=== PATIENT | female | born 1965 | race Caucasian/White ===

== ENCOUNTER 2019-12-07 23:58 | Observation (INO) ==
[2019-12-08] MEDS ORDERED: fentaNYL citrate 100 MCG/2 ML VIAL IV PRN (00:26)
--- NOTE | 2019-12-08 00:26 | Emergency Department Note ---
History of Present Illness General Chief complaint: Chest Pain Stated complaint: CHEST PAIN Time Seen by Provider: 12/08/19 00:17 Source: patient Mode of arrival: ambulatory Limitations: no limitations History of Present Illness Provider complaint: chest pain Onset (ago): hour(s) 2 Location: chest Radiation: back and other (shoulder) Severity: severe Pain Consistency: + constant Maximum Pain Intensity: 10 Current Pain Intensity: 10 Quality: + sharp Relieved By: + none Exacerbated By: + none Associated symptoms: + shortness of breath Treatments prior to arrival: none This is a 54-year-old female from home who presents due to complaints of right- sided chest pain. Patient states pain began at 1030 when she was watching TV. No prior similar episodes. No change with position, no treatment prior to ar rival. Patient states the pain radiates into her right shoulder and into the right posterior shoulder blade area. States no recent change in activity. Patient did break her left wrist approximately a month ago and has been in a cast, no other recent trauma. Patient denies any recent illness, no known exposure to any coronavirus positive individual. Patient states she has had a cough, but associates this with her usual seasonal allergies. Patient states it is minimally productive of sputum. No sick contacts at home. No other URI symptoms, no fevers or chills. Patient denies any recent change in bowel or bladder function. Patient denies any accompanying nausea/vomiting, or dizziness tonight. Patient states she does have a significant family history of heart disease including all of her siblings, several of whom have already. Patient states she is never had any cardiac testing performed. Patient denies any history of diabetes or hypertension. Does admit to tobacco abuse. Pt seen during a time of high acuity and national emergency pandemic while wearing PPE. Home Medications Home Medications Medication Instructions Recorded Confirmed Type No Known Home Medications 12/08/19 12/08/19 History Allergies Allergy/AdvReac Type Severity Reaction Status Date / Time ibuprofen AdvReac Tachycardia Verified 12/08/19 00:40 prednisone AdvReac Gastrointestinal Verified 12/08/19 00:40 Upset Past Med/Surg History Family History (Updated 12/08/19 @ 00:38 by Beth Henning DO) Other Coronary heart disease Heart disease Hypertension Myocardial infarction Social History Preferred Language: Thai Feels Safe at Home: Yes Smoking Status: Current every day smoker Review of Systems See HPI for pertinent positives & negatives. and A total of 10 systems reviewed and were otherwise negative Physical Exam Vital Signs Vital Signs - 24 hr 12/07/19 23:59 12/08/19 00:10 12/08/19 00:29 Temperature 36.9 C Temperature Source Oral Pulse Rate 118 H Pulse Rate [Bilateral Apical] 96 H Respiratory Rate 36 H 20 Respiratory Effort / Characteristics Spontaneous Labored Non-Labored Respiratory Depth Normal Respiratory Pattern Regular Blood Pressure 205/109 H Blood Pressure [Right Arm] 172/103 H Blood Pressure Mean 141 Blood Pressure Mean [Right Arm] 126 Pulse Oximetry 98 96 94 Oxygen Delivery Method Room Air Room Air Room Air Sepsis Recent Fever Within 48 Hours No Sepsis Action Taken by Nursing No Action Required 12/08/19 01:03 12/08/19 01:12 12/08/19 01:42 Temperature Temperature Source Pulse Rate Pulse Rate [Bilateral Apical] 88 89 109 H Respiratory Rate 20 20 20 Respiratory Effort / Characteristics Non-Labored Respiratory Depth Normal Respiratory Pattern Blood Pressure Blood Pressure [Right Arm] 148/87 H 155/101 H 143/91 H Blood Pressure Mean Blood Pressure Mean [Right Arm] 107 119 108 Pulse Oximetry 97 95 95 Oxygen Delivery Method Room Air Room Air Room Air Sepsis Recent Fever Within 48 Hours Sepsis Action Taken by Nursing GENERAL: alert, uncomfortable appearing, well nourished, no distress, non-toxic EYE EXAM: normal conjunctiva, PERRL and EOM's grossly intact OROPHARYNX: no exudate, no erythema, lips, buccal mucosa, and tongue normal and mucous membranes are moist NECK: supple, no nuchal rigidity, no adenopathy, non-tender LUNGS: Clear to auscultation. Normal chest wall mechanics, no w/r/r HEART: no murmurs, S1 normal and S2 normal, patient sinus tach at 104 on telemetry, there is some reproducible chest wall tenderness over the anterior ribs just inferior to the breast ABDOMEN: abdomen soft, non-tender, normo-active bowel sounds, no masses, no rebound or guarding. BACK: Back is symmetrical on inspection and there is no deformity, no midline tenderness, no CVA tenderness. SKIN: no rashes and no bruising, no petechiae UPPER EXTREMITIES: upper extremities are grossly normal. FROM, nml pulses b/l. LOWER EXTREMITIES: No pitting edema. FROM, nml pulses b/l. NEURO EXAM: Normal sensorium, cranial nerves II-XII grossly intact, normal speech, no gross weakness of arms, no gross weakness of legs. Gross sensation intact. Course Course 0150: Patient updated on all results and was in agreement with plan. Patient states pain is improved but still present. Vital signs stable. 0155: Case discussed with Dr. Hopkins. Administered Medications Discontinued Medications Aspirin (Aspirin) 324 mg PO NOW STA Stop: 12/08/19 01:45 Last Admin: 12/08/19 01:54 Dose: 324 mg Documented by: [id number] Famotidine (Pepcid 20mg Iv Push) 20 mg IV ONE STA Stop: 12/08/19 01:45 Last Admin: 12/08/19 01:55 Dose: 20 mg Documented by: [id number] Fentanyl Citrate (Fentanyl Citrate) 50 mcg IV Q15M PRN PRN Reason: Pain Stop: 12/22/19 00:25 Last Admin: 12/08/19 00:57 Dose: 50 mcg Documented by: [id number] Sodium Chloride (Nss 1000ml) 1,000 mls @ 125 mls/hr IV .Q8H FABY Stop: 01/07/20 00:59 Last Infusion: 12/08/19 04:20 Dose: 0 mls/hr Documented by: [id number] Infusion: 12/08/19 04:20 Dose: 0 mls/hr Documented by: [id number] Admin: 12/08/19 00:59 Dose: 125 mls/hr Documented by: [id number] Ioversol (Optiray 320 125ml) 125 ml IV ONCE PRN PRN Reason: Interaction Checking Stop: 12/12/19 01:10 Last Admin: 12/08/19 01:11 Dose: 83 ml Documented by: [id number] Nitroglycerin (Nitro-Bid 2%) 1 inch EXT NOW STA Stop: 12/08/19 01:45 Last Admin: 12/08/19 01:54 Dose: 1 inch Documented by: [id number] Medical Decision Making Differential Diagnosis Differential diagnoses includes but is not limited to acute coronary syndrome, myocardial infarction, pericarditis, pulmonary embolus, aortic dissection, pneumonia, pneumothorax, musculoskeletal, shingles, esophageal. Medical Records Attestation: I reviewed the patient's medical records. Home Medications Current Medication List: was personally reviewed by me Laboratory Data Attestation: I reviewed the patient's lab results. Result diagrams: 12/08/19 00:15 12/08/19 00:15 Lab Results 12/08/19 12/08/19 12/08/19 Range/Units 00:15 00:15 00:15 WBC 9.24 (4.8-10.8) K/uL RBC 4.34 (4.2-5.4) M/uL Hgb 14.4 (12.0-16.0) g/dL Hct 42.5 (37-47) % MCV 97.9 (80-100) fL MCH 33.2 (25-34) pg MCHC 33.9 (32-36) g/dL RDW Std Deviation 50.7 H (36.4-46.3) fL RDW Coeff of Ryder 14.1 (11.5-14.5) % Plt Count 232 (130-400) K/uL MPV 11.6 H (7.4-10.4) fL Neutrophils % (Manual) 49.1 % Lymphocytes % (Manual) 23.7 % Monocytes % (Manual) 12.3 % Eosinophils % (Manual) 0.9 % Neutrophils # (Manual) 4.54 (1.4-6.5) K/uL Total Absolute Neuts 4.54 (1.4-6.5) K/uL Lymphocytes # (Manual) 2.19 (1.2-3.4) K/uL Total Abs Lymphocytes 3.48 H (1.2-3.4) K/uL Monocytes # (Manual) 1.14 H (0.11-0.59) K/uL Eosinophils # (Manual) 0.08 (0-0.5) K/uL Large Granular Lymphs 14.0 % # Lrg Granular Lymphs 1.29 K/uL RBC Morphology Unremarkable PT 10.3 (9.0-12.0) Seconds INR 1.0 (0.9-1.1) D-Dimer 660 H* (0-500) ug/L FEU Sodium 142 (136-145) mmol/L Potassium 3.6 (3.5-5.1) mmol/L Chloride 108 H (98-107) mmol/L Carbon Dioxide 27 (21-32) mmol/L Anion Gap 7.0 (3-11) BUN 22 H (7-18) mg/dl Creatinine 0.85 (0.6-1.2) mg/dl Est Cr Clr Drug Dosing Not Reportable Est GFR ( Amer) 90.0 Est GFR (Non-Af Amer) 77.7 BUN/Creatinine Ratio 25.6 H (10-20) Glucose 116 H (70-99) mg/dl Calcium 9.9 (8.5-10.1) mg/dl Magnesium 2.1 (1.8-2.4) mg/dl Total Bilirubin 0.3 (0.2-1) mg/dl AST 15 (15-37) U/L ALT 24 (12-78) U/L Alkaline Phosphatase 93 (45-117) U/L Troponin I < 0.015 (0-0.045) ng/ml NT-Pro-B Natriuret Pep 47 (0-900) pg/ml Total Protein 7.5 (6.4-8.2) gm/dl Albumin 4.1 (3.4-5.0) gm/dl Globulin 3.4 (2.5-4.0) gm/dl Albumin/Globulin Ratio 1.2 (0.9-2) Lipase 206 (73-393) U/L TSH 3.790 (0.300-4.500) uIu/ml Imaging Data My Impression: X-ray: I interpreted the following studies. Chest: A single view study of the chest was reviewed and was negative for cardiomegaly, focal infiltrate, effusion, pulmonary edema, or wide mediastinum. Radiologist's Impression: CTA Chest: The pulmonary arterial tree is well-opacified with contrast. No pulmonary emboli are identified. The aorta is nondilated. No aneurysm or dissection is seen. No mediastinal or axillary lymphadenopathy or mass is seen. The heart is not enlarged. Lungs are well-inflated with mild emphysematous changes in the upper lobes. There is some right apical scarring. No acute appearing airspace infiltrate, pneumothorax, or pleural effusion is seen. Mild degenerative changes are seen throughout the thoracic spine. No fracture or bone lesion is seen. Radiologist: Dipak Kwok MD ECG Data Attestation: I personally reviewed and interpreted this ECG as follows: Indication: + chest pain Rate (beats per minute): 101 Rhythm: + sinus tachycardia ECG Intervals/blocks: + Normal QRS and + Normal QT ECG [place]: + Normal ECG ST segments: + Normal ST segments Comparison ECG Date: no prior available Blood Pressure Blood Pressure Findings: Elevated blood pressure Blood Pressure Disposition: further management by hospitalist [facility] Narrative Heart score 4 Patient presenting with acute onset of right-sided chest pain. Patient with concerning family history of early onset CAD and no prior cardiology evaluation. Patient hypertensive and tachycardic here initially. D-dimer was elevated and so patient sent for CT angiography of the chest. This was reassuring. Patient's other labs that were drawn and sent more reassuring. Patient's pain was improved with additional medications here. Case discussed with hospitalist for additional evaluation and management. An order was placed for continuous cardiac monitoring. The monitor shows a rate of _90 with _normal sinus_ rhythm. Impression & Plan Atypical chest pain, Tobacco abuse, Hypertension Discharge Plan Visit Data *Final* Discharge Date/Time: 12/08/19 02:50 Chief Complaint: Chest Pain Stated Complaint: CHEST PAIN ED Provider: Beth Henning Discharge Problem: Atypical chest pain, Tobacco abuse, Hypertension Patient Disposition: Admitted As Inpatient Discharge Instructions Interventions: ED Discharge Assessment Last Done: 12/08/19 02:50 Discharge Problem: Hypertension Qualifiers: Hypertension type: unspecified Qualified Code(s): I10 - Essential (primary) hypertension
[2019-12-08 00:44] LABS: Prothrombin Time 10.3 Seconds (9.0-12.0)
[2019-12-08 00:46] LABS: D Dimer 660 ug/L FEU (0-500)
[2019-12-08 00:51] LABS: Alanine Aminotransferase 24 U/L (12-78); Albumin Level 4.1 gm/dl (3.4-5.0); Aspartate Aminotransferase 15 U/L (15-37); BUN Creatinine Ratio 25.6 (10-20); Blood Urea Nitrogen 22 mg/dl (7-18); Calcium 9.9 mg/dl (8.5-10.1); Carbon Dioxide 27 mmol/L (21-32); Chloride 108 mmol/L (98-107); Est GFR (Non-African American) 77.7; Glucose 116 mg/dl (70-99); Lipase 206 U/L (73-393); Magnesium 2.1 mg/dl (1.8-2.4); Potassium 3.6 mmol/L (3.5-5.1); Sodium 142 mmol/L (136-145)
[2019-12-08] MEDS ORDERED: SODIUM CHLORIDE 0.9% 1000ML 1,000 ML IV SCH (01:00)
[2019-12-08 01:01] LABS: Albumin Globulin Ratio 1.2 (0.9-2); Alkaline Phosphatase 93 U/L (45-117); Bilirubin,Total 0.3 mg/dl (0.2-1); Globulin 3.4 gm/dl (2.5-4.0); NT Pro B Type Natriuretic Pept 47 pg/ml (0-900); Total Protein 7.5 gm/dl (6.4-8.2); Troponin I < 0.015 ng/ml (0-0.045)
[2019-12-08 01:03] LABS: Hematocrit (blood only) 42.5 % (37-47); Hemoglobin 14.4 g/dL (12.0-16.0); Mean Corpuscular Hemoglobin 33.2 pg (25-34); Mean Corpuscular Hgb Conc 33.9 g/dL (32-36); Mean Corpuscular Volume 97.9 fL (80-100); Mean Platelet Volume 11.6 fL (7.4-10.4); Platelet Count 232 K/uL (130-400); RDW Coefficient of Variation 14.1 % (11.5-14.5); RDW Standard Deviation 50.7 fL (36.4-46.3); Red Blood Count 4.34 M/uL (4.2-5.4); White Blood Count 9.24 K/uL (4.8-10.8)
[2019-12-08 01:06] LABS: ALC (manual) 3.48 K/uL (1.2-3.4); ANC (manual) 4.54 K/uL (1.4-6.5); Eosinophils # (manual) 0.08 K/uL (0-0.5); Eosinophils % (manual) 0.9 %; Large Granular Lymph # (manua 1.29 K/uL; Lymphocytes # (manual) 2.19 K/uL (1.2-3.4); Lymphocytes % (manual) 23.7 %; Monocytes # (manual) 1.14 K/uL (0.11-0.59); Monocytes % (manual) 12.3 %; Neutrophils # (manual) 4.54 K/uL (1.4-6.5); Neutrophils % (manual) 49.1 %; RBC Morphology Unremarkable
[2019-12-08] MEDS ORDERED: OPTIRAY 320 125ml IV PRN (01:11)
[2019-12-08] MEDS ORDERED: NITROGLYCERIN 2% OINTMENT 30GM TUBE EXT STA (01:44)
[2019-12-08] MEDS ORDERED: ASPIRIN CHEW 324 MG PO STA (01:44)
[2019-12-08] MEDS ORDERED: FAMOTIDINE 20MG/5ML IV PUSH IV STA (01:44)
--- NOTE | 2019-12-08 03:52 | History and Physical Report ---
DATE OF ADMISSION: 12/08/2019 CHIEF COMPLAINT: Chest pain. HISTORY OF PRESENT ILLNESS: This 54-year-old female with past medical history significant for ongoing tobacco abuse, significant family history of heart disease. No other significant medical history, presents with chest pain. The patient says at around 10:30 p.m. when she was watching TV, she had a right sided chest pain, was moderate to severe in severity. Was worried and came to the ER. She was given fentanyl and aspirin and nitroglycerin, says still has some chest discomfort on and off. Denies any shortness of breath. She was feeling chilly, but no sweating, no dizziness, no blurred vision, no earache, no runny nose, no sore throat. She has chronic smoker's cough. No nausea, no abdominal pain. Normal bowel and bladder movements. No hematuria or blood in the stools. No rash. She lives with her . She has otherwise no other complaints. She says while she ambulates or climbs steps she doesn't get chest pains. This is the first time she had this episode. ALLERGIES: IBUPROFEN AND PREDNISONE. PAST MEDICAL HISTORY: As mentioned. PAST SURGICAL HISTORY: Carpal tunnel surgery, colposcopy, colonoscopy, total abdominal hysterectomy with removal of tubes, appendectomy. MEDICATIONS: None. FAMILY HISTORY: Significant for mother had CHF. Father had of colon cancer. Maternal aunt has breast cancer. Another brother had CAD and younger brother of coronary artery disease at age of 51. Sister of heart disease at age of 29. SOCIAL HISTORY: Lives with her , smokes 1-1/2 pack a day for many years. No alcohol use, no drug use. REVIEW OF SYMPTOMS: As per HPI. Rest of review of symptoms negative. PHYSICAL EXAMINATION: GENERAL: The patient is of moderate build, not in acute distress. VITAL SIGNS: Temperature 36.9, pulse 109, respiratory rate 20, blood pressure 143/91, oxygen 95% on room air. HEENT: No pallor, no icterus. NECK: No JVD, no neck masses. CARDIOVASCULAR: S1, S2 heard, regular rate and rhythm, no murmur, no gallop. RESPIRATORY SYSTEM: Normal AP diameter. No accessory muscle use. No wheezing, no crackles. ABDOMEN: Soft, bowel sounds present, nontender. No distention. CENTRAL NERVOUS SYSTEM: Cranial nerves II-XII grossly intact. Nonfocal. EXTREMITIES: No edema, no erythema. LABORATORY DATA: WBC 9.2, hemoglobin 14.4, hematocrit 42.5, platelets 232. PT 10.3, INR 1. D-dimer 660. Sodium 142, potassium 3.6, chloride 108, bicarbonate 27, BUN 22, creatinine 0.8, serum glucose 116, calcium 9.9, magnesium 2.1, total bilirubin 0.3, AST 15, ALT 24, alkaline phosphatase 93. Troponin I less than 0.015. Lipase 206. TSH 3.7. IMAGING: Chest x-ray, no acute findings. CTA of the chest, preliminary findings are unremarkable. ASSESSMENT AND PLAN: This is a 54-year-old female who presents with right-sided chest pain. 1. Right-sided chest pain: EKG sinus tachycardia with rate of 101, nonspecific ST abnormalities. Troponin is negative. CTA of the chest preliminary report unremarkable. We will rule out acute coronary syndrome, risk, factors of age, tobacco abuse and significant family history. We will do serial cardiac enzymes, echocardiogram, keep her n.p.o. and consult cardiology in a.m. for further recommendations, possible stress test in a.m. Will check FLP. Closely monitor in the tele floor. 2. Tobacco abuse: Needs counseling. 3. Deep vein thrombosis prophylaxis, sequential compression devices. 4. Disposition: Observation in med/surg tele. Level 1 full code. Expect to discharge home and follow with her family doctor. ANDRE
[2019-12-08] MEDS ORDERED: ONDANSETRON INJ 2 MG/ML 2 ML VIAL IV PRN (04:17)
[2019-12-08] MEDS ORDERED: ACETAMINOPHEN 325 MG TAB PO PRN (04:17)
[2019-12-08] MEDS ORDERED: NITROGLYCERIN SL 0.4 MG/TAB TAB SL PRN (04:17)
--- NOTE | 2019-12-08 06:35 | XRay Report ---
XR chest 1V portable CLINICAL HISTORY: right chest pain dyspnea COMPARISON STUDY: No previous studies for comparison. FINDINGS: The bones soft tissues and hemidiaphragms are normal. The cardiomediastinal silhouette is n ormal. The lungs are clear. The pulmonary vasculature is normal. IMPRESSION: Negative chest. ACT 112: Negative or not required by law. The above report was generated using voice recognition software. It may contain grammatical, syntax or spelling errors. Electronically signed by: Jim Agosto M.D. 12/08/2019 6:34 AM
--- NOTE | 2019-12-08 07:28 | CT Scan Report ---
CT ANGIOGRAM OF THE CHEST CLINICAL HISTORY: Atypical chest pain. COMPARISON STUDY: Chest x-ray dated 12/08/2019. TECHNIQUE: Following the IV administration of 83 cc of Optiray 320, CT angiogram of the chest was per formed from the upper abdomen to the thoracic inlet utilizing the pulmonary embolus protocol. Images are reviewed in the axial, sagittal, and coronal planes. 3-D MIPS images are created and assessed. IV contrast was administered without complication. A dose lowering technique was utilized adhering to the principles of ALARA. CT DOSE: 255.34 mGy.cm FINDINGS: Thyroid: Imaged portions of the thyroid gland are normal in size and attenuation. Thoracic aorta: There is mild atherosclerotic calcification of the thoracic aorta, which is normal in caliber and demonstrates standard 3-vessel arch anatomy. No dissection is seen. Pulmonary vasculature: The pulmonary trunk is normal in caliber. There are no filling defects identif ied in main, lobar, or segmental pulmonary branches to suggest pulmonary embolus. Heart: The heart is normal in size noting a small pericardial effusion. There are coronary artery anatoly cifications. Lungs and pleural spaces: Emphysematous change is noted. Biapical scarring is observed. Patchy ground glass consolidation is seen in the right upper lobe near the apex. Atelectasis is seen at the lung ba ses. The trachea is clear. Secretions are noted in the right mainstem bronchus. Foci of mucus pluggin g are noted in the right lower lobe. There is trace right pleural effusion. There is a 6 cm calcifica tion containing nodule in the left lower lobe on image #134. A fine layer calcified pleural-based nod ularity left lower lobe as seen on image #205. A 6 mm right lower lobe nodule is seen along the major fissure on image #172. Mediastinum: There is no mediastinal lymphadenopathy. Saima: Clear. Axillae: There are shotty axillary lymph nodes. Upper abdomen: Partially visualized upper abdominal viscera is within normal limits. Skeletal structures: Mild degenerative change and scoliosis are noted in the thoracic spine. No lytic or blastic bony lesions are seen. IMPRESSION: 1. There is no evidence of pulmonary embolus in the main, lobar, or segmental pulmonary arteries. 2. Emphysema. 3. There is mild patchy groundglass consolidation at the right apex. Correlate clinically for evidenc e of a mild infectious/inflammatory pneumonitis. 4. Trace right pleural effusion. 5. There are scattered pulmonary nodules measuring up to 6 mm. These can be followed as per the Fleis chner criteria. See below. Please refer to below summary of Fleischner criteria recommendations for follow-up of incidental CT n odules (Yecenia Wood, Guidelines for management of small pulmonary nodules detected on CT scans: A sta tement from the Fleischner Society, Radiology 237: [phone].) SOLID NODULES Solitary nodule size: <6 mm * low risk patients: no follow-up needed * high risk patients: optional CT at 12 months Solitary nodule size: 6-8 mm * low risk patients: follow-up at 6-12 months, then consider further follow-up at 18-24 months * high risk patients: initial follow-up CT at 6-12 months and then at 18-24 months if no change Solitary nodule size: >8 mm * either low or high risk patients - consider follow-up CT at 3 months, and/or CT-PET, and/or biopsy Multiple nodules size: <6 mm * low risk patients: no routine follow-up * high risk patients: optional CT at 12 months Multiple nodules size: 6-8 mm * low risk patients: follow-up at 3-6 months, then consider further follow-up at 18-24 months * high risk patients: follow-up at 3-6 months, then at 18-24 months if no change Multiple nodules size: >8 mm * low risk patients: follow-up at 3-6 months, then consider further follow-up at 18-24 months * high risk patients: follow-up at 3-6 months, then at 18-24 months if no change Note: newly detected indeterminate nodule in persons 35 years of age or older. * low risk patients: minimal or absent history of smoking and/or other known risk factors * high risk patients: history of smoking or of other known risk factors (e.g. first degree relative with lung cancer, or exposure to asbestos, radon, uranium) * if a nodule up to 8 mm is partly solid or is ground glass further follow-up is required after 24 m onths to exclude possible slow growing adenocarcinoma (DORCAS) SUBSOLID NODULES Solitary pure ground-glass nodule * nodule size <6 mm - no CT follow-up required * nodule size >=6 mm - follow-up CT at 6-12 months, then every 2 years until 5 years Solitary part-solid nodule * nodule size <6 mm - no CT follow-up required * nodule size >=6 mm - follow-up CT at 3-6 months. If unchanged, and solid component remains <6 mm, then annual follow-up for 5 years Multiple subsolid nodules * nodule size <6 mm - follow-up CT at 3-6 months, consider further follow-up at 2 and 4 years if sta ble * nodule size >=6 mm - follow-up CT at 3-6 months, subsequent management based on the most suspiciou s nodule(s) ACT 112: Negative or not required by law. Electronically signed by: Roderick Espinosa M.D. 12/08/2019 7:27 AM
[2019-12-08 07:41] LABS: Basophils # (auto) 0.03 K/uL (0-0.2); Basophils % (auto) 0.3 %; Eosinophils # (auto) 0.04 K/uL (0-0.5); Eosinophils % (auto) 0.4 %; Hematocrit (blood only) 38.8 % (37-47); Hemoglobin 13.2 g/dL (12.0-16.0); Immature Granulocytes # (auto) 0.01 K/uL (0.00-0.02); Immature Granulocytes % (auto) 0.1 %; Lymphocytes # (auto) 1.58 K/uL (1.2-3.4); Lymphocytes % (auto) 14.2 %; Mean Corpuscular Hemoglobin 33.2 pg (25-34); Mean Corpuscular Volume 97.7 fL (80-100); Mean Platelet Volume 10.9 fL (7.4-10.4); Monocytes # (auto) 0.91 K/uL (0.11-0.59); Monocytes % (auto) 8.2 %; Neutrophils # (auto) 8.56 K/uL (1.4-6.5); Neutrophils % (auto) 76.8 %; Platelet Count 213 K/uL (130-400); RDW Standard Deviation 50.8 fL (36.4-46.3); Red Blood Count 3.97 M/uL (4.2-5.4); White Blood Count 11.13 K/uL (4.8-10.8)
[2019-12-08 08:10] LABS: BUN Creatinine Ratio 21.2 (10-20); Blood Urea Nitrogen 14 mg/dl (7-18); Calcium 9.3 mg/dl (8.5-10.1); Carbon Dioxide 25 mmol/L (21-32); Chloride 112 mmol/L (98-107); Creatinine Clr Calc Pharmacy 77.1 ml/min; Est GFR (African American) 116.1; Est GFR (Non-African American) 100.1; Glucose 102 mg/dl (70-99); Magnesium 2.2 mg/dl (1.8-2.4); Sodium 142 mmol/L (136-145)
[2019-12-08 08:17] LABS: Chol HDL Ratio 3; Cholesterol 200 mg/dl (0-200); HDL Cholesterol 59 mg/dl; LDL Cholesterol Calculated 130 mg/dl; Triglycerides 53 mg/dl (0-150); Troponin I < 0.015 ng/ml (0-0.045); VLDL Cholesterol 11 mg/dl
--- NOTE | 2019-12-08 08:45 | Cardiology Consultation ---
Date of Consultation December 08, 2019 Assessment & Plan (1) Atypical chest pain: (2) Tobacco abuse: This patient has atypical chest pain for cardiac angina. Her cardiac markers are negative and her EKG shows no acute changes despite having hours worth of chest discomfort. I will review her echocardiogram when it is complete. If the echocardiogram is unremarkable then I do not believe any additional cardiac testing is indicated. The CT of the chest with findings of possible inflammation or consolidation in the right apex is of concern and may be the source of her discomfort or a nonspecific finding. Further work-up of this abnormality per the hospitalist group. History of Present Illness Attending Physician: Les Kilpatrick MD History of Present Illness This is a 54-year-old female with no prior history of heart disease. She takes no home medications. She has a long smoking history. She was in her usual state of health until last evening she was sitting watching TV and developed severe right upper chest discomfort which brought her to the emergency department. She was given fentanyl which she states improved her discomfort. After admission her cardiac markers are negative. EKG shows no acute changes. CT of the chest shows emphysema ground glass or consolidation in the right upper apex of the lung. It was negative for pulmonary emboli. This morning her chest pain is gone. She denies unusual shortness of breath. She has had no heart palpitations. Allergies Allergy/AdvReac Type Severity Reaction Status Date / Time ibuprofen AdvReac Tachycardia Verified 12/08/19 00:40 prednisone AdvReac Gastrointestinal Verified 12/08/19 00:40 Upset Home Medications Home Medications Medication Instructions Recorded Confirmed Type No Known Home Medications 12/08/19 12/08/19 History Patient History Family History Other Coronary heart disease Heart disease Hypertension Myocardial infarction Social History Preferred Language: German Communication Ability: Effective Beliefs That Will Affect Care: None Current Living Situation: Spouse Feels Safe at Home: Yes Smoking Status: Current every day smoker Tobacco Type: cigarettes ; Cigarettes Per Day: 1 ppd ; Hx Alcohol Use: No Hx Substance Use: No Review of Systems Review of Systems: All systems reviewed & are unremarkable except as noted in HPI & below Nothing additional to add except the patient has had no fever or chills. She denies a productive cough or hemoptysis. Physical Exam Physical Exam: General: no acute distress and stated age Head: normocephalic, no masses, lesions, tenderness or abnormalities Eyes: conjunctiva are pink and non-injected, sclera clear Neck: supple, no adenopathy, no bruits, normal jugular venous pulse, no hepatojugular reflux Chest: normal shape and normal respiratory effort Lungs: clear to auscultation and percussion Cardiac Exam: - regular rate & rhythm, no murmurs gallops or rubs - normal S1, normal S2 Pulses: 2(+) throughout Abdomen: abdomen soft, non-tender, no abnormal masses and no hepatosplenomegaly Musculoskeletal: no gait disturbance, no joint inflammation, no deforming arthritis Extremities: no edema and no cyanosis Neuro: grossly normal exam Results & Data ([facility]) Vital Signs (Past 12 Hours) Vital Signs Temp Pulse Pulse Resp BP BP Pulse Ox 12/08/19 07:16 36.6 C 79 18 147/78 H 93 12/08/19 04:44 84 12/08/19 04:25 36.5 C 78 16 149/80 H 96 12/08/19 02:44 87 20 151/102 H 95 12/08/19 01:42 109 H 20 143/91 H 95 12/08/19 01:12 89 20 155/101 H 95 12/08/19 01:03 88 20 148/87 H 97 12/08/19 00:29 96 H 20 172/103 H 94 12/08/19 00:10 96 12/07/19 23:59 36.9 C 118 H 36 H 205/109 H 98 Laboratory Results Laboratory Results - last 24 hr 12/08/19 12/08/19 12/08/19 00:15 00:15 00:15 WBC 9.24 RBC 4.34 Hgb 14.4 Hct 42.5 MCV 97.9 MCH 33.2 MCHC 33.9 RDW Std Deviation 50.7 H RDW Coeff of Ryder 14.1 Plt Count 232 MPV 11.6 H Immature Gran % (Auto) Neut % (Auto) Lymph % (Auto) Perry % (Auto) Eos % (Auto) Baso % (Auto) Immature Gran # (Auto) Neut # (Auto) Lymph # (Auto) Perry # (Auto) Eos # (Auto) Baso # (Auto) Neutrophils % (Manual) 49.1 Lymphocytes % (Manual) 23.7 Monocytes % (Manual) 12.3 Eosinophils % (Manual) 0.9 Neutrophils # (Manual) 4.54 Total Absolute Neuts 4.54 Lymphocytes # (Manual) 2.19 Total Abs Lymphocytes 3.48 H Monocytes # (Manual) 1.14 H Eosinophils # (Manual) 0.08 Large Granular Lymphs 14.0 # Lrg Granular Lymphs 1.29 RBC Morphology Unremarkable PT 10.3 INR 1.0 D-Dimer 660 H* Sodium 142 Potassium 3.6 Chloride 108 H Carbon Dioxide 27 Anion Gap 7.0 BUN 22 H Creatinine 0.85 Est Cr Clr Drug Dosing Not Reportable Est GFR ( Amer) 90.0 Est GFR (Non-Af Amer) 77.7 BUN/Creatinine Ratio 25.6 H Glucose 116 H Calcium 9.9 Magnesium 2.1 Total Bilirubin 0.3 AST 15 ALT 24 Alkaline Phosphatase 93 Troponin I < 0.015 NT-Pro-B Natriuret Pep 47 Total Protein 7.5 Albumin 4.1 Globulin 3.4 Albumin/Globulin Ratio 1.2 Triglycerides Cholesterol LDL Cholesterol, Calc VLDL Cholesterol, Calc HDL Cholesterol Cholesterol/HDL Ratio Lipase 206 TSH 3.790 12/08/19 12/08/19 07:29 07:29 WBC 11.13 H RBC 3.97 L Hgb 13.2 Hct 38.8 MCV 97.7 MCH 33.2 MCHC 34.0 RDW Std Deviation 50.8 H RDW Coeff of Ryder 14.0 Plt Count 213 MPV 10.9 H Immature Gran % (Auto) 0.1 Neut % (Auto) 76.8 Lymph % (Auto) 14.2 Perry % (Auto) 8.2 Eos % (Auto) 0.4 Baso % (Auto) 0.3 Immature Gran # (Auto) 0.01 Neut # (Auto) 8.56 H Lymph # (Auto) 1.58 Perry # (Auto) 0.91 H Eos # (Auto) 0.04 Baso # (Auto) 0.03 Neutrophils % (Manual) Lymphocytes % (Manual) Monocytes % (Manual) Eosinophils % (Manual) Neutrophils # (Manual) Total Absolute Neuts Lymphocytes # (Manual) Total Abs Lymphocytes Monocytes # (Manual) Eosinophils # (Manual) Large Granular Lymphs # Lrg Granular Lymphs RBC Morphology PT INR D-Dimer Sodium 142 Potassium 4.0 Chloride 112 H Carbon Dioxide 25 Anion Gap 5.0 BUN 14 Creatinine 0.66 Est Cr Clr Drug Dosing 77.1 Est GFR ( Amer) 116.1 Est GFR (Non-Af Amer) 100.1 BUN/Creatinine Ratio 21.2 H Glucose 102 H Calcium 9.3 Magnesium 2.2 Total Bilirubin AST ALT Alkaline Phosphatase Troponin I < 0.015 NT-Pro-B Natriuret Pep Total Protein Albumin Globulin Albumin/Globulin Ratio Triglycerides 53 Cholesterol 200 LDL Cholesterol, Calc 130 VLDL Cholesterol, Calc 11 HDL Cholesterol 59 Cholesterol/HDL Ratio 3 Lipase TSH Medications Administered Current Inpatient Medications Acetaminophen (Tylenol) 650 mg PO Q4H PRN PRN Reason: Pain or Fever Stop: 01/07/20 04:16 Aspirin ([facility]rin E[facility]ab) [facility] [place]: 01/07/20 08:59 Last Admin: 12/08/19 08:06 Dose: 81 mg Documented by: Doxycycline Hyclate (Vibramycin) 100 mg PO BID [facility] Stop: 12/15/19 08:59 Ceftriaxone Sodium 1,000 mg/ (Dextrose) 50 mls @ 100 mls/hr IV Q24H [facility]; Protocol Stop: 12/15/19 08:59 Nitroglycerin (Nitrostat) 0.4 mg SL UD PRN PRN Reason: Chest Pain Stop: 01/07/20 04:16 Ondansetron HCl (Zofran) 4 mg IV Q6H PRN PRN Reason: Nausea Stop: 01/07/20 04:16
[2019-12-08] MEDS ORDERED: cefTRIAXone SODIUM 1,000 MG in DEXTROSE 5% 50 ML IV SCH (09:00)
[2019-12-08] MEDS ORDERED: ASPIRIN 81 MG ECTAB PO SCH (09:00)
[2019-12-08] MEDS ORDERED: DOXYCYCLINE HYCLATE 100 MG CAP PO SCH (09:00)
--- NOTE | 2019-12-08 09:45 | Ultrasound Report ---
US venous doppler LE BI HISTORY: Pain. Edema. r/o dvt, elev ddimer COMPARISON STUDY: None. FINDINGS: There is normal compressibility, flow, and augmentation within the bilateral lower extremit y deep venous systems. IMPRESSION: No DVT within the right or left lower extremity. ACT 112: Negative or not required by law. The above report was generated using voice recognition software. It may contain grammatical, syntax or spelling errors. Electronically signed by: Jim Agosto M.D. 12/08/2019 9:44 AM
--- NOTE | 2019-12-08 15:06 | Hospitalist Progress Note ---
Date of Service December 08, 2019 Assessment & Plan Admission and Anticipated Discharge Date Admission Date: December 08, 2019 Subjective Patient seen and examined, currently feels well, denies any chest pain. Patient states that her chest pain resolved after she received antibiotics, says it was also getting better in emergency room. She was seen by cardiology, troponins were negative ECG unremarkable, echo was a lso obtained and unremarkable. Patient's chest pain did not seem to be cardiac. However she did have abnormal CT chest findings. And she will need to therefore follow-up with pulmonology. Currently she is asking about going home, she is willing to try to quit smoking, and take antibiotics. Patient tells me she does not have insurance and therefore did not see physicians for some time. We will arrange follow-up with her primary care provider and we will also arrange appointment with pulmonology. Currently patient is sitting up in bed, comfortably breathing on room air, in no acute distress. Denies any fevers, chills, chest pain, shortness of breath, abdominal pain, nausea or vomiting. Also denies any cough. Lungs are overall clear to auscultation bilaterally, no wheezing rhonchi or crackles noted. Heart sounds are regular, no murmurs noted. Abdomen is soft, nontender nondistended. Patient moves extremities spontaneously without difficulty. She is alert and oriented, answers questions appropriately. Results & Data Results & Data ([facility]) Vital Signs (Past 12 Hours) Vital Signs Temp Pulse Pulse Resp BP Pulse Ox 12/08/19 10:56 36.5 C 85 18 144/77 H 95 12/08/19 08:00 76 12/08/19 07:16 36.6 C 79 18 147/78 H 93 12/08/19 04:44 84 12/08/19 04:25 36.5 C 78 16 149/80 H 96
--- NOTE | 2019-12-08 15:23 | Electrocardiogram Report ---
Test Reason : Blood Pressure : / mmHG Vent. Rate : 101 BPM Atrial Rate : 101 BPM P-R Int : 164 ms QRS Dur : 090 ms QT Int : 352 ms P-R-T Axes : 070 064 056 degrees QTc Int : 456 ms Sinus tachycardia Nonspecific ST abnormality Abnormal ECG No previous ECGs available Confirmed by Tuan Ramos ([id number]) on 12/08/2019 3:22:50 PM Referred By: REFERRED SELF Confirmed By:Craig Ramos
[2019-12-08] MEDS ORDERED: NICOTINE 14 MG/24 HR PATCH TD SCH (15:30)
--- NOTE | 2019-12-08 15:32 | Discharge Summary ---
Date of Service December 08, 2019 Admission HPI Per Admitting Provider This 54-year-old female with past medical history significant for ongoing tobacco abuse, significant family history of heart disease. No other significant medical history, presents with chest pain. The patient says at around 10:30 p.m. when she was watching TV, she had a right sided chest pain, was moderate to severe in severity. Was worried and came to the ER. She was given fentanyl and aspirin and nitroglycerin, says still has some chest discomfort on and off. Denies any shortness of breath. She was feeling chilly, but no sweating, no dizziness, no blurred vision, no earache, no runny nose, no sore throat. She has chronic smoker's cough. No nausea, no abdominal pain. Normal bowel and bladder movements. No hematuria or blood in the stools. No rash. She lives with her . She has otherwise no other complaints. She says while she ambulates or climbs steps she doesn't get chest pains. This is the first time she had this episode. Admission Exam Per Admitting Provider GENERAL: The patient is of moderate build, not in acute distress. VITAL SIGNS: Temperature 36.9, pulse 109, respiratory rate 20, blood pressure 143/91, oxygen 95% on room air. HEENT: No pallor, no icterus. NECK: No JVD, no neck masses. CARDIOVASCULAR: S1, S2 heard, regular rate and rhythm, no murmur, no gallop. RESPIRATORY SYSTEM: Normal AP diameter. No accessory muscle use. No wheezing, no crackles. ABDOMEN: Soft, bowel sounds present, nontender. No distention. CENTRAL NERVOUS SYSTEM: Cranial nerves II-XII grossly intact. Nonfocal. EXTREMITIES: No edema, no erythema. Principal Diagnosis Atypical chest pain, community-acquired pneumonia Abnormal chest CT Discharge Exam GENERAL: Elderly thin female, lying in bed, in no acute distress Vital signs: Blood pressure 154/74, pulse 89, respirations 16, temperature 36.4 C, O2 sats 96% on room air HEENT: Normocephalic, atraumatic, EOMI, PERRL, no icterus. NECK: No JVD, no neck masses. CARDIOVASCULAR: S1, S2 heard, regular rate and rhythm, no murmur, no gallop. RESPIRATORY SYSTEM: Normal AP diameter. No accessory muscle use. No wheezing, no crackles. ABDOMEN: Soft, bowel sounds present, nontender. No distention. CENTRAL NERVOUS SYSTEM: Alert and oriented x3, speech fluent, no facial asymmetry, answers questions appropriately, moves all extremities spontaneously EXTREMITIES: No edema, no erythema, moves extremities spontaneously SKIN: Warm, dry Discharge Data Allergies Allergy/AdvReac Type Severity Reaction Status Date / Time ibuprofen AdvReac Tachycardia Verified 12/08/19 00:40 prednisone AdvReac Gastrointestinal Verified 12/08/19 00:40 Upset Consultations 12/08/19 01:50 ED Decision to Admit Stat 12/08/19 04:17 Consult Case Management - Discharge Planning Routine 12/08/19 08:00 Consult Cardiology Routine Ordered Studies CXR 12/08/19 FINDINGS: The bones soft tissues and hemidiaphragms are normal. The cardiomediastinal silhouette is normal. The lungs are clear. The pulmonary vasculature is normal. IMPRESSION: Negative chest. 12/08/19 00:49 CT angio chest PE protocol Urgent IMPRESSION: 1. There is no evidence of pulmonary embolus in the main, lobar, or segmental pulmonary arteries. 2. Emphysema. 3. There is mild patchy groundglass consolidation at the right apex. Correlate clinically for evidence of a mild infectious/inflammatory pneumonitis. 4. Trace right pleural effusion. 5. There are scattered pulmonary nodules measuring up to 6 mm. These can be followed as per the Fleischner criteria. See below. 12/08/19 09:30 US venous doppler LE BI Routine IMPRESSION: No DVT within the right or left lower extremity. Hospital Course (1) Atypical chest pain: (2) Community acquired pneumonia: This is a 54-year-old female who presents with right-sided chest pain. Right-sided chest pain: EKG sinus tachycardia with rate of 101, nonspecific ST abnormalities. Troponin x3 negative. Echocardiogram obtained -LV normal in size, borderline concentric LVH, EF 50 to 55%. LV wall motion is normal. Right ventricle systolic function is normal. Left atrial size normal, right atrial size normal. Cardiology was consulted, not likely cardiac pain in etiology. CTA of the chest preliminary report unremarkable. No PE. However final report significant for mild patchy groundglass consolidation at the right apex, and scattered pulmonary nodules. Patient was started on ceftriaxone and doxycycline for community-acquired pneumonia, and right-sided chest pain resolved soon after. Patient clinically much improved,now inquiring about going home. Patient is a current tobacco user, counseled her on smoking cessation. We will continue antibiotic treatment as outpatient, with cefuroxime and doxycycline. Will also recommend guaifenesin and flutter valve. Appointment with primary care provider scheduled, also recommend to follow-up with pulmonology regarding her pulmonary nodules/abnormal CT chest findings. (3) Tobacco abuse: Counseled patient on smoking cessation. Patient seems to be interested in smoking cessation. Provided her with 1 800 quit now free smoking cessation line. While inpt, provided pt with nicotine patch. Total Time Total Time Spent Total Time Spent (In Minutes): 40 Total Time Includes: Examination of the Patient, Discharge Planning, Medication Reconciliation and Communication With Other Providers Discharge Plan Discharge Items Patient Disposition: Home - Self-Care Reason For Visit: CHEST PAIN Discharge Diagnosis: Atypical chest pain, community-acquired pneumonia Abnormal chest CT Activity: Per Instructions section Non-emergency contact: Primary Care Provider Call non-emergency contact if: you have any medication questions and your symptoms worsen Follow-up/Referrals: PCP,KELSI [Primary Care Provider] - 12/15/19 10:40 am (12/15/2019 10:40 AM Provider Reyna Acosta MD Department Internal [facility] ) Diet: Heart Healthy Addtl Attending Provider Instructions: Follow-up with your primary care provider and also recommend to follow-up with a lung specialist, regarding your abnormal CT chest findings. Appointment with your primary care provider was scheduled for December 14. Take antibiotics as prescribed. Recommend to completely avoid tobacco products, you can try to call 1 800 quit now, free smoking cessation line. Pending Studies at Discharge: No Stand-Alone Forms: My [facility] [employer], Smoking Cessation Medications and DC Order Prescriptions: New doxycycline hyclate 100 mg Capsule 100 mg PO BID 6 Days Qty: 12 RF: 0 cefuroxime axetil 500 mg tablet 500 mg PO Q12H 6 Days Qty: 12 RF: 0 guaifenesin 600 mg tablet extended release 12hr 600 mg PO BID Qty: 14 RF: 0 No Action No Known Home Medications RF: 0 Discharge Orders: Discharge Order (Routine); Ordered 12/08/19 Ordered By: Les Kilpatrick Admission Data Admit Date/Time: 12/08/19 02:25 Attending Provider: Les Kilpatrick Admit Provider: Patrick Hopkins Primary Care Provider: PCP,NO Other Providers: Patrick Hopkins ; Erich Perales ; Angel Villalba ; Prateek Gomez ; Noah Frias ; Trevor Yu ; Jim Hillman ; Nicole Rogers ; Lala Barahona ; Jean Marie Masterson
== END 2019-12-08 16:35 | disposition home or self-care (01) ==
LOC: ED 23:58 → 2N 23:58

== ENCOUNTER 2024-05-24 04:14 | Inpatient (IN) ==
--- OUTSIDE RECORDS SUMMARY | 2024-05-24 04:23 | External Medical Summary | Summary of Care ---
Author Name Unknown Organization [facility] Address [address] [place] [address] Phone [phone] Care Team Providers Care Information Services Consultant Name Role Phone Unavailable Primary Care Provider Unavailabl e Reason for Visit * Reason Comments Follow Up Encounter Details Date Type Department Care Team (Late st Contact Info) Description 05/07/2024 9:15 AM EST [facility] [address] [facility] [place] [phone] Theodore Cherry MD [address] [facility] [place] [address] Malignant neoplasm of upper lobe of left lung (HCC)*; Tonsil cancer (HCC); 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) Allergies Active Allergy Reactions Criticality Noted Date Comments Ibuprofen Other (Please comment) 04/26/2014 Palpitations Other Reaction(s): Tachycardia Prednisone 06/06/2015 Other Reaction(s): Gastrointestinal Upset documented as of this encounter (statuses as of 05/07/2024) Medications Gabapentin 300 MG Oral Capsule (Neurontin) TAKE 1 CAPSULE BY MOUTH THREE TIMES A DAY FOR NEUROPATHY AND RESTLESS LEGS 12/08/19 23 Active Allopurinol 100 MG Oral Tablet (Zyloprim) TAKE 1 TABLET BY MOUTH EVERY DAY 90 Tablet 1 03/07/20 23 Active Potassium 99 MG Oral Tablet Take 1 Tablet by mouth in the morning. Active Multivitamin Adults Oral Tablet Take by mouth. Active sterile water for injection SOLN 9.8 mL with Folic Acid 5 MG/ML SOLN 1 mg Inject 1 mg intravenously in the morning. Pt stated she is using tap water. 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 41651 mL 11 11/13/19 24 025 Active Acetaminophen ER 650 MG Oral Tablet Extended Release (Tylenol 8 Hour Arthritis Pain) Take 1 Tablet by mouth every 8 hours as needed for Pain, Mild or Pain, Moderate. 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 dissolve on tongue. 30 Tablet 1 01/08/20 24 Active Metoclopramide HCl 10 MG Oral Tablet (Reglan)Indication s:Chemotherapy induced nausea and vomiting Take 1 Tablet by mouth in the morning and 1 Tablet at noon and 1 Tablet in the evening and 1 Tablet before bedtime. 120 Tablet 2 01/08/20 24 Active Folic Acid 1 MG Oral TabletIndications: Rheumatoid arthritis involving multiple sites with positive rheumatoid factor (HCC) TAKE 2 TABLETS BY MOUTH EVERY MORNING 180 Tablet 1 03/05/20 24 Active documented as of this encounter (statuses as of 05/07/2024) Active Problems Problem Noted Date Diagnosed Date S/P percutaneous endoscopic gastrostomy (PEG) tube placement 11/19/2023 Squamous cell carcinoma lung 11/06/2023 Overview (11/27/2023): 1.1 cm lesion left lung, positive tP40 and CK5/6, negative TTF-1, Napsin Metastasis to head and neck lymph node 4 Tonsil cancer 10/31/2023 Lung nodule 10/31/2023 Encounter for antineoplastic chemotherapy 2023 Squamous cell carcinoma of head and neck 024 Encounter for long-term (current) use of medicat ions 02/12/2023 Idiopathic chronic gout, mul tiple sites, without tophus (tophi) 12/25/2022 Hypertension 12/25/2022 Rheumatoid arthritis involvi ng multiple sites with positive rheumatoid factor 12/25/2022 Primary osteoarthritis of right hand 08/28/2017 Raynaud phenomenon 08/23/2011 Tobacco use disorder 11/09/2002 documented as of this encounter (statuses as of 05/07/2024) Resolved Problems Problem Noted Date Diagnosed Date Resolved Date Bilateral carpal tunnel syndrome 08/22/2015 08/28/2017 Routine medical exam 04/01/2010 016 documented as of this encounter (statuses as of 05/07/2024) Immunizations Name Administration Dates Next Due Pneumococcal Polysaccharide PPV23 (Pneumovax) TDAP (age 10 and older)(Boostrix) 09/03/2012 documented as of this encounter Social History Tobacco Use Types Packs/Day Years Used Date Smoking Tobacco: Every Day Cigarettes 1 25 Smokeless Tobacco: Never Alcohol Use Standard Drinks/Week Comments No 0 (1 standard drink = 0.6 oz pur e alcohol) PHQ-2 Answer Date Recorded PHQ-2 Score 1 04/26/2018 Personal Safety Answer Date Recorded Do you feel unsafe or have concerns for your saf ety? No 11/19/2023 Do you have concerns for you r family's safety? (Household - for ages 0-17 years) Not on file 11/19/2023 Utilities Answer Date Recorded Do you have trouble paying y our heating, water, or electric bill? No 11/19/2023 Is your family able to pay t he heat, water, or electric bill? (Household - for ages 0-17 years) Not on file 11/19/2023 Does your family have access to good internet? (Household - for ages 0-17 years) Not on file 11/19/2023 Transportation Needs Answer Date Record ed READ ONLY Do you have troubl e getting a ride to medical visits or work? Never True 11/19/2023 Does your family have a hard time getting a ride to doctors visits? (Household - for ages 0-17 years) Not on file 11/19/2023 Has lack of transportation k ept you from medical appointments, meetings, work, or from getting things needed for daily living? Check all that apply. (Adult - for ages 18 years and over) Not on file 11/19/2023 Do you (or your family) have trouble finding or paying for a ride (transportation)? (Household - for ages 0-17 years) Not on file 11/19/2023 Housing Stability Answer Date Recorded Do you currently live in a s helter or have no steady place to sleep at night? (Adult - for ages 18 years and over) Not on file 11/19/2023 READ ONLY Do you think you a re at risk of becoming homeless? No 11/19/2023 Does your family worry about paying for your home or becoming homeless? (Household - for ages 0-17 years) Not on file 0 11/19/2023 Are you homeless or worried that you might be in the future? (Adult - for ages 18 years and over) Not on file Are you (or your family) jovani eless or worried that you might be in the future? (Household - for ages 0-17 years) Not on file Food Insecurity Answer Date Recorded Do you need food for this week? No 11/19/2023 Are you able to get enough f ood for your family? (Household - for ages 0-17 years) Not on file 11/19/2023 Does your family need food t his week? (Household - for ages 0-17 years) Not on file 11/19/2023 Do you always have enough fo od for your family? (Household - for ages 0-17 years) Not on file 11/19/2023 Comments No Sex and Gender Information Value Date Recorded Sex Assigned at Not on file Legal Sex Female 5:27 AM EST Gender Identity Not on file Sexual Orientation Not on file documented as of this encounter Last Filed Vital Signs Vital Sign Reading Time Taken Comments Blood Pressure 121/78 05/07/2024 8:54 AM EST Pulse 97 05/07/2024 8:54 AM EST Temperature 36.3 C (97.4 F) 05/07/2024 8:54 AM ES T Respiratory Rate - - Oxygen Saturation 90% 05/07/2024 8:54 AM EST Inhaled Oxygen Concentration - - Weight 43.1 kg (95 lb) 05/07/2024 8:54 AM EST Height - - Body Mass Index 17.95 04/05/2024 1:58 PM EDT documented in this encounter Functional Status * Are you deaf or do you have serious difficulty hearing? Answer Date of Assessment Author No 11/19/2023 11:27 AM Karson Meraz RN * Are you blind or do you have serious difficulty seeing, even when wearing glasses? Answer Date of Assessment Author No 11/19/2023 11:27 AM Karson Meraz RN * Do you have serious difficulty walking or climbing stairs? (5 years old or older) Answer Date of Assessment Author No 11/19/2023 11:27 AM Karson Meraz RN * Do you have difficulty dressing or bathing? (5 years old or older) Answer Date of Assessment Author No 11/19/2023 11:27 AM Karson Meraz RN * Because of a physical, mental, or emotional condition, do you have difficulty doing errands alone such as visiting a doctors office or shopping? (15 years old or older) Answer Date of Assessment Author No 11/19/2023 11:27 AM Karson Meraz RN documented as of this encounter Mental Status * Because of a physical, mental, or emotional condition, do you have serious difficulty concentrating, remembering, or making decisions? (5 years old or older) Answer Entry Date Author No 11/19/2023 11:27 AM Karson Meraz RN documented in this encounter Progress Notes * Theodore Cherry MD - 05/07/2024 9:15 AM EST Hematology/Oncology Outpatient Clinic note [facility] [address] [place] [address] Name: Blank Johnson Date: 01/07/2024 CHIEF COMPLAINT: Blank Johnson is a 58 year old female here today for f/u visit today. 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 Cancer Staging clinical T4 N1 Mx DATE OF DIAGNOSIS: 08/06/23 CURRENT TREATMENT: Weekly cisplatin x 7 along with radiation treatment (12/04/23 - 01/15/2024 ) Planning for SBRT to left lung squamous cell cancer. DIAGNOSTIC WORKUP: She felt the lump in the left side of the neck and some trouble swallowing, ultrasound of the neck on 07/04/2023 showed enlarged lymph nodes in the left mid- neck measuring 1.8 x 1[address] neck on 07/24/2023: -irregular masslike enlargement in the left palatine tonsil measuring about 2.5 x 2.7 cm. -left level 3 lymph node enlargement measuring 1.7 x 1.2 cm additional nonenlarged left-sided lymphnodes noted Pulmonary emphysema noted. FNA from the left neck mass on 08/06/2023: -squamous cell carcinoma HPV associated. [facility] -FDG avid left tonsillar mass measuring 3.6 x 3.1 cm. -multiple FDG avid left cervical lymph node, the largest one in the level 3 measuring 2.2 x 1.9 cm. No contralateral FDG avid cervical lymph nodes noted -1.1 cm solid subpleural left upper lobe lung nodule which is new. - several mildly enlarged right axillary lymph nodes with mild FDG uptake. Index right axillary node measures 1.5 x 1.1 cm and has an SUV max of 2.6. An additional right axillary lymph node measures 1.3 x 0.7 cm and has an SUV max of 1.9. There is no left axillary lymphadenopathy. OTHER IMPORTANT HISTORY: -discontinue smoking habit recently when she was diagnosed tonsillar cancer but then restarted smoking once again. -rheumatoid arthritis since 2000. She follows Dr. Diaz, currently she is on methotrexate sulfasalazine. Interval History: Biopsy of the left lung mass positive for squamous cell carcinoma HISTORY OF PRESENT ILLNESS: She has come the clinic for the follow-up, now she has completed combined chemotherapy weekly cisplatin and radiation treatment, had some local mucositis, which has improved. Currently she is using PEG feeding tube for the nutrition. Current weight around 95 lb. Able to swallow some food, mild nausea, mild vomiting, no new cardiac or pulmonary symptom no increasing coughing, no hemoptysis, no bleeding from the sites, no increasing headache, no leg edema, denies any tingling and numbness of the extremities. Ambulates slowly, ECOG PS 1 to 2. Started smoking once again. She has underlying rheumatoid arthritis causing joint pain. 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 Curran CARPAL TUNNEL SURGERY Bilateral left 12/08/12, rt 12/22/12, Dr. Peoples COLONOSCOPY, DIAGNOSTIC (RECTUM) 06/19/2015 normal, repeat 10 yrs/COLONOSCOPY FLEXIBLE PROXIMAL DIAGNOSTIC performed by Berta Singh DO at END[facility]COPY [facility] EGD, FLEXIBLE, PLACE GASTRO TUBE N/A 11/19/2023 PEG placement/ESOPHAGOGASTRODUODENOSCOPY (EGD), FLEXIBLE, TRANSORAL, WITH PERCUTANEOUS GASTROSTOMY INSERTION performed by Kory Xiao MD at OR [facility] IR BIOPSY 11/06/2023 LIGATE/CUT OVIDUCT(S) 06/23/1990 TOTAL ABD HYSTERECTOMY W/WO REMOVAL OF TUBE(S) Dr. Curran, no BSO US - TRANSVAGINAL 11/28/2006 mild to moderate enlargement of uterus and multiple uterine fibroids, physiologic follicles in bothovaries ansd simple cyst in right ovary Social History Socioeconomic History Marital status: Spouse name: Not on file Number of children: Not on file Years of education: Not on file Highest education level: Not on file Occupational History Not on file Tobacco Use Smoking status: Every Day Current packs/day: 1.00 Average packs/day: 1 pack/day for 25.0 years (25.0 ttl pk-yrs) Types: Cigarettes Smokeless tobacco: Never Vaping Use Vaping status: Never Used Substance and Sexual Activity Alcohol use: No Drug use: No Sexual activity: Not Currently Partners: Male control/protection: Surgical Other Topics Concern Not on file Social History Narrative Not on file Social Needs Financial Resource Strain: Not on file Food Insecurity: No Food Insecurity (11/19/2023) Food Insecurity Do you need food for this week? (Adult - for ages 18 years and over): No Are you able to get enough food for your family? (Household - for ages 0-17 years): Not on file Does your family need food this week? (Household - for ages 0-17 years): Not on file Do you always have enough food for your family? (Household - for ages 0-17 years): Not on file Transportation Needs: No Transportation Needs (11/19/2023) Transportation Needs Do you have trouble getting a ride to medical visits or work? (Adult - for ages 18 years and over):Never True Does your family have a hard time getting a ride to doctors visits? (Household - for ages 0-17 years): Not on file Has lack of transportation kept you from medical appointments, meetings, work, or from getting things needed for daily living? Check all that apply. (Adult - for ages 18 years and over): Not on file Do you (or your family) have trouble finding or paying for a ride (transportation)? (Household - for ages 0-17 years): Not on file Social Connections: Not on file Housing Stability: Low Risk (11/19/2023) Housing Stability Do you currently live in a assisted or have no steady place to sleep at night? (Adult - for ages 18 years and over): Not on file Do you think you are at risk of becoming homeless? (Adult - for ages 18 years and over): No Does your family worry about paying for your home or becoming homeless? (Household - for ages 0-17 years): Not on file Are you homeless or worried that you might be in the future? (Adult - for ages 18 years and over): Not on file Are you (or your family) homeless or worried that you might be in the future? (Household - for ages0-17 years): Not on file Review of patient's allergies indicates: Allergen Reactions Ibuprofen Other (Please comment) Palpitations Other Reaction(s): Tachycardia Prednisone Other Reaction(s): Gastrointestinal Upset Current Outpatient Medications Medication Sig Dispense Refill Gabapentin 300 MG Oral Capsule (Neurontin) TAKE 1 CAPSULE BY MOUTH THREE TIMES A DAY FOR NEUROPATHYAND RESTLESS LEGS Allopurinol 100 MG Oral Tablet (Zyloprim) TAKE 1 TABLET BY MOUTH EVERY DAY 90 Tablet 1 Potassium 99 MG Oral Tablet Take 1 Tablet by mouth in the morning. Multivitamin Adults Oral Tablet Take by mouth. sterile water for injection SOLN 9.8 mL with Folic Acid 5 MG/ML SOLN 1 mg Inject 1 mg intravenouslyin the morning. Pt stated she is using tap water. (Patient not taking: Reported on 04/05/2024) Nutren 1.5 Oral Liquid Administer 250 mL into feeding tube 4 times a day. 60280 mL 11 Acetaminophen ER 650 MG Oral Tablet Extended Release (Tylenol 8 Hour Arthritis Pain) Take 1 Tablet by mouth every 8 hours as needed for Pain, Mild or Pain, Moderate. sulfaSALAzine 500 MG Oral Tablet (Azulfidine) TAKE 2 TABLETS BY MOUTH IN THE MORNING AND TAKE 2 TABLETS AT BEDTIME 360 Tablet 1 Ondansetron 8 MG Oral Tablet Disintegrating (Zofran) Place 1 Tablet on tongue every 8 hours as needed for Nausea. dissolve on tongue. 30 Tablet 1 Metoclopramide HCl 10 MG Oral Tablet (Reglan) Take 1 Tablet by mouth in the morning and 1 Tablet atnoon and 1 Tablet in the evening and 1 Tablet before bedtime. 120 Tablet 2 Folic Acid 1 MG Oral Tablet TAKE 2 TABLETS BY MOUTH EVERY MORNING 180 Tablet 1 No current facility-administered medications for this visit. REVIEW OF SYSTEMS: See HPI - otherwise negative OBJECTIVE: BP 121/78 (BP Site: Left Arm, BP Position: Sitting, BP Cuff Size: Pediatric) | Pulse 97 | Temp 36.3C (97.4 F) (Tympanic) | Wt 43.1 kg (95 lb) | SpO2 90% | BMI 17.95 kg/m | BSA 1.36 m PHYSICAL EXAM: ECOG: Performance Status 1 = 80-90% Symptoms but nearly ambulatory General Appearance: No acute distress HEENT: +oral mucositis Lymph Nodes: No palpable lymph nodes in the neck or supraclavicular areas, +mild radiation dermatitis Lungs/Thorax: Lung sounds diminished throughout to auscultation Heart: Normal - Regular rate and rhythm, normal S1, S2, no appreciable murmurs Extremities: +trace BLE edema Neurologic: Normal - Grossly intact LABS: Blood workup done on 01/14/2024: -WBC 2300, Hemoglobin and hematocrit -10.8/30, Platelet count [id number] -BUN/Creat: 15/0.7, Calcium 9.6, normal liver function test -magnesium level --> 1.7 -sodium level improved to around 127. Blood workup done on 03/26/2024: -WBC 5500, Hemoglobin and hematocrit -10.3/30.7, Platelet count of 260,000. -BUN/Creat: 11/0.5, Calcium 9.9. Normal LFT. PET-CT scan done on 04/26/2024: 1. Resolution of the previously noted FDG avid left tonsillar mass and left cervical lymphadenopathy. 2. Interval increase in size of the metabolically active left upper lobe subpleural pulmonary nodule measuring up to 2.1 cm, biopsy proven malignancy. 3. Mild bilateral hilar lymphadenopathy associated with low level metabolic activity, nonspecific. Continued attention is recommended on follow-up studies. 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 Further enlargement of the previously noted left lung mass, already seen by Dr. Cherry from Radiation oncologist at [facility], that planning for SBRT to that area soon. She will continue to use PEG feeding tube for the nutrition. Weight gain noted. She has underlying rheumatoid arthritis, has some increasing joint pain, I am planning to see her back in the clinic in about [address] Theodore Cherry Hem/Onc (This note was completed using the dictation program Fluency Direct. As such, there may be misspellings word substitutions, or other variations that should not change the essence of the clinical content of this encounter note. If there is need for further clarification, please direct questions to the provider listed above.) documented in this encounter Nursing Notes * Lexie Stout MED ASSIST - 05/07/2024 8:57 AM EST Patient identifed by name and birthdate Do you have any concerns about pain management for today's visit? Yes. Patient instructed to discuss pain concerns with provider during the visit today Living Will or Advance Directive for Health Care as noted on the problem list. [facility] is a way you can talk to your provider on line through e-mail. Would you like to sign up? I can activate it for you? NO Filed Vitals: 05/07/24 0854 BP: 121/78 Pulse: 97 Temp: 36.3 C (97.4 F) TempSrc: Tympanic SpO2: 90% Weight: 43.1 kg (95 lb) Patient was instructed to not get up on the exam table/exam chair until directed and assisted by their provider; patient is to remain seated in the chair/ wheelchair/ exam table/ exam chair for fall prevention and safety reasons. Patient is aware to have assistance to step down off exam table/exam chair with personnel. Patient voiced full comprehension of instructions. documented in this encounter Plan of Treatment Upcoming Encounters Date Type Department Care Team (Late st Contact Info) Description 06/24/2024 3:10 PM EST Nutrition Services Nutrition & Weight Management, [facility] [address] [place] [address] Stella Rodriguez RDN [address] [place] [address] 07/28/2024 11:00 AM EST Rehab Services Voice Lab [facility] [address] [place] [address] Jim Berry, [facility] [address] [place] [address] 08/12/2024 11:30 AM EST Office Visit Hematology/Oncology [place] [address] [facility] [place] [phone] Theodore Cherry MD [address] [place] [address] 08/20/2024 2:30 PM EST Office Visit Rheumatology [address] [place] [phone] Jackson Goode PA-C [address] [place] [address] Scheduled Procedures Name Priority Associated Diagnoses Date/Ti me COLONOSCOPY FLEXIBLE PROXIMA L DIAGNOSTIC Recall Encounter for screening colonoscopy Health Maintenance Due Date Last Done Comments COVID-19 Vaccine (#1) 1970 HIV Screening 1980 Albumin/Creatinine Ratio 1983 Hepatitis B Vaccine (1 of 3 - 19+ 3-dose series) 1984 Zoster Vaccines (1 of 2) 1984 Cologuard 2010 Fecal Occult Blood Test 2010 Sigmoidoscopy 2010 Pneumococcal Vaccine: Pediatrics (0 to 5 Years) and At-Risk Patients (6 to 64 Years) (2 of 2 - PCV) 03/29/2011 03/29/2010 Depression Screening 03/17/2019 03/17/2018 DTap/Tdap Vaccines (2 - Td or Tdap) 09/03/2022 09/03/2012 Mammogram 10/31/2023 10/30/2022, 04/24, 05/19/2017, Additional history exists Influenza Vaccine (FLU shot) (#1) 2024 06/09/2017 (Refused) Lipid Panel 12/07/2024 12/08/2019, 11/0 02/2015, 03/26/2010 GFR 03/26/2025 03/26/2024, 12/22, 01/07/2024, Additional history exists Colonoscopy 06/19/2025 06/19/2015, 06/19/2015 Colorectal Cancer Screening 06/19/2025 HPV (Gardasil) Vaccine Aged Out No lo nger eligible based on patient's age to complete this topic MENINGOCOCCAL (MENACTRA/MENVEO) Aged Out No longer eligible based on patient's age to complete this topic documented as of this encounter Medical Devices Not on filedocumented as of this encounter Visit Diagnoses Diagnosis Malignant neoplasm of upper lobe of left lung (HCC)- Primary Tonsil cancer (HCC) Malignant neoplasm of tonsil 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 Question Answer Comments Discussion of Advance Directives occurred with: Patient"
--- OUTSIDE RECORDS SUMMARY | 2024-05-24 04:23 | External Medical Summary | Summary of Care ---
Author Name Unknown Organization [facility] Address [address] [place] [address] Phone [phone] Care Team Providers Care Law Office Manager Name Role Phone Unavailable Primary Care Provider Unavailabl e Reason for Visit * Reason Onset Date Comments Imaging Records Request 05/17/2024 Encounter Details Date Type Department Care Team (Late st Contact Info) Description 05/17/2024 Telephone Radiology Film File [address] [place] [address] Support, Imaging Radiology [address], [place] [id number] Imaging Records Request Allergies Active Allergy Reactions Criticality Noted Date Comments Ibuprofen Other (Please comment) 04/26/2014 Palpitations Other Reaction(s): Tachycardia Prednisone 06/06/2015 Other Reaction(s): Gastrointestinal Upset documented as of this encounter (statuses as of 05/17/2024) Medications Gabapentin 300 MG Oral Capsule (Neurontin) [...] into feeding tube 4 times a day. 18265 mL 11 11/13/19 24 025 Active Acetaminophen [...] as of this encounter (statuses as of 05/17/2024) Active Problems Problem Noted Date Diagnosed Date [...] as of this encounter (statuses as of 05/17/2024) Resolved Problems Problem Noted Date Diagnosed Date Resolved Date Bilateral carpal tunnel syndrome 08/22/2015 08/28/2017 Routine medical exam 04/01/2010 016 documented as of this encounter (statuses as of 05/17/2024) Immunizations Name Administration Dates Next Due Pneumococcal [...] on file documented as of this encounter Functional Status * Are you [...] Karson Meraz RN documented in this encounter Miscellaneous Notes * Telephone Encounter - Berta Celestin OSA - 05/17/2024 3:36 PM EST [facility] Radiology/Oncology department requesting 04-26-24 petscan images be pushed through PACS. [place] Authorization to Release on file. Images pushed to [facility] PACS external connection. documented in this encounter Plan of Treatment Upcoming Encounters Date Type Department Care Team (Late st Contact Info) Description 06/24/2024 3:10 PM EST Nutrition Services Nutrition & Weight Management, [facility] [address] [id number] Stella Rodriguez RDN [address] [place] [phone] 07/28/2024 11:00 AM EST Rehab Services Voice Lab [facility] [address] [id number] Jim Berry [employer] [address] [place] [id number] 08/12/2024 11:30 AM EST Office Visit Hematology/Oncology [facility] [address] [facility] [phone] Theodore Cherry MD [address] [place], [place] [address] 08/20/2024 2:30 PM EST Office Visit Rheumatology [address] [place] [phone] Jackson Goode PA-C [address] [place], [place] [address] Scheduled Procedures Name Priority Associated Diagnoses Date/Ti [...] Not on filedocumented as of this encounter Advance Directives * Full Code (Latest Code Status on File) Date Activated Date Inactivated Comments 11/19/2023 11:19 AM 11/20/2023 5:25 PM This order reflects the patients wishes and were consensually agreed upon. Question Answer Comments Discussion of Advance Directives occurred with: Patient
[2024-05-24 05:18] LABS: Alanine Aminotransferase 47 U/L (7-52); Albumin Globulin Ratio 1.1 (0.9-2); Albumin Level 2.9 gm/dl (3.4-5.0); Alkaline Phosphatase 87 U/L (34-104); Anion Gap 9 (3-11); Aspartate Aminotransferase 81 U/L (13-39); Bilirubin,Total 0.9 mg/dl (0.2-1.0); Blood Urea Nitrogen 18 mg/dl (6-23); Calcium 8.6 mg/dl (8.6-10.3); Carbon Dioxide 26 mmol/L (21-32); Chloride 68 mmol/L (98-107); Creatine Kinase 1220 U/L (26-192); Globulin 2.7 gm/dl (2.5-4.0); Glucose 92 mg/dl (70-99(Fasting)); Lipase 10 U/L (11-82); Magnesium 1.4 mg/dl (1.7-2.4); Potassium 4.2 mmol/L (3.5-5.1); Sodium 103 mmol/L (136-145); Total Protein 5.6 gm/dl (6.0-8.3)
[2024-05-24 05:21] LABS: Appearance Urine Clear (Clear); Bacteria Urine Automated None Seen (None Seen); Bilirubin Urine Negative (Negative); Blood Urine Negative (Negative); Color Urine Yellow; Epithelial Cell Urine Auto 0-2 /hpf (0-2); Glucose Urine UA Negative (Negative); Granular Casts Urine Present /lpf (None Prsent); Ketones Urine 1+ (Negative); Leukocyte Esterase Urine Negative (Negative); Nitrite Urine Negative (Negative); Protein Urine 1+ (Negative); Specific Gravity Urine 1.015 (1.000-1.030); Urobilinogen Urine Negative (Negative); WBC Urine Automated 0-5 /hpf (0-5); pH Urine 6.5 (4.5-7.5)
[2024-05-24 05:23] LABS: INR 1.1 (0.9-1.1); Partial Thromboplastin Ratio 1.1; Partial Thromboplastin Time 30 Seconds (21-31); Prothrombin Time 12.3 Seconds (9.0-12.0)
[2024-05-24 05:25] LABS: Troponin I High Sensitivity 17.6 pg/ml (0-14)
[2024-05-24 05:34] LABS: Thyroid Stimulating Hormone 2.903 uIu/ml (0.300-4.500)
[2024-05-24] MEDS: OPTIRAY 320 100ml IV ONE (05:35)
[2024-05-24 05:47] LABS: Adenovirus PCR Not Detected (NotDetected); Bordetella parapertussis PCR Not Detected (NotDetected); Bordetella pertussis PCR Not Detected (NotDetected); Chlamydia pneumoniae PCR Not Detected (NotDetected); Coronavirus 229E PCR Not Detected (NotDetected); Coronavirus CoV-2 (COVID19)PCR Not Detected (NotDetected); Coronavirus HKU1 PCR Not Detected (NotDetected); Coronavirus NL63 PCR Not Detected (NotDetected); Coronavirus OC43PCR Not Detected (NotDetected); Human Metapneumovirus PCR Not Detected (NotDetected); Influenza A PCR Not Detected (NotDetected); Influenza B PCR Not Detected (NotDetected); Mycoplasma pneumoniae PCR Not Detected (NotDetected); Parainfluenza Virus 1 PCR Not Detected (NotDetected); Parainfluenza Virus 2 PCR Not Detected (NotDetected); Parainfluenza Virus 3 PCR Not Detected (NotDetected); Parainfluenza Virus 4 PCR Not Detected (NotDetected); Respiratory Syncytial VirusPCR Not Detected (NotDetected); Rhinovirus/Enterovirus PCR Not Detected (NotDetected)
[2024-05-24 06:00] LABS: Hemoglobin 7.5 g/dl (12.0-16.0); Mean Corpuscular Hemoglobin 34.1 pg (25.0-34.0); Mean Corpuscular Hgb Conc 35.7 g/dL (32.0-36.0); Mean Corpuscular Volume 95.5 fL (80.0-100.0); Mean Platelet Volume 9.7 fL (9.4-12.4); Platelet Count 195 K/uL (130-400); RDW Coefficient of Variation 13.5 % (11.5-14.5); RDW Standard Deviation 45.3 fL (36.4-46.3); Target Cells 1+; White Blood Count 17.95 K/ul (4.8-10.8)
--- NOTE | 2024-05-24 06:09 | Communication Note ---
Date of Service: May 24, 2024
--- NOTE | 2024-05-24 06:35 | Communication Note ---
Date of Service: May 24, 2024 I was requested to admit patient at 6 AM by Angel Sun PA-C. 58-year-old female coming in with recurrent falls, left hip fracture, and head injury. Serum sodium 100s but patient mentating well to give history as per ED provider. [place] CTs still waiting to be read at time of this dictation past 6:30 AM. I informed ED provider I was not comfortable admitting patient at [facility] without official CT head read in. I requested him to contact Dr. Baeza (daytime team hospitalist) once CT head result out. Patient case signed out to Dr. Baeza via [employer] text messaging.
--- NOTE | 2024-05-24 06:45 | CT Scan Report ---
EXAM: CT head/brain wo con CLINICAL HISTORY: fall AMS cancer patient TECHNIQUE: Multiple axial images are obtained from the skull base to the vertex without contrast. CT scan was performed according to ALARA (as low as reasonably achievable). COMPARISON: None. FINDINGS: There is cerebral atrophy. The mitchell-white matter differentiation is preserved. There are scattered periventricular hypodensities as can be seen with chronic microvascular ischemic changes. No evidence of space occupying lesion, hemorrhage, edema, mass effect, midline shift, extra axial collection, or hydrocephalus is noted. Basal cisterns are symmetric and normal in size and configuration. Visualized paranasal sinuses and mastoid air cells are well aerated. Orbital contents are within normal limits. Bony structures are intact. IMPRESSION: 1. No evidence of acute intracranial abnormality is demonstrated. 2. Chronic microvascular ischemic changes. 3. Cerebral atrophy. Electronically signed by Von Garza 05-24-2024 06:45 AM
--- NOTE | 2024-05-24 06:45 | CT Scan Report ---
EXAM: CT abd pelvis IV con only CLINICAL HISTORY: FALL AMS CANCER PATIENT 91 cc opti 320 TECHNIQUE: Multiple contiguous axial images were obtained from the level of diaphragm to the pubis symphysis. This study was acquired after the IV administration of iodinated contrast material, given the patient's indications for the examination. If IV contrast material had not been administered, the likelihood of detecting abnormalities relevant to the patient's condition would have been substantially decreased. Coronal and sagittal reformatted images were generated and reviewed to improve anatomic localization and optimize lesion detection. CT scan was performed according to ALARA (as low as reasonably achievable). COMPARISON: None. FINDINGS: Percutaneous gastrostomy tube noted in situ. The liver is normal in size and attenuation. No focal liver lesions are seen. There is no intra or extrahepatic biliary ductal dilatation. Hepatic vasculature is patent. The gallbladder is unremarkable. The spleen is unremarkable. The pancreas is unremarkable. Both adrenal glands are unremarkable. The kidneys are normal in size and attenuation. There is no hydronephrosis. No perinephric fat stranding is seen. No renal calculi or renal masses are identified. The ureters are normal in caliber and no ureteral calculi are seen. Urinary bladder is collapsed with Kerr's bulb in-situ. No evidence of focal or diffuse bowel wall thickening or evidence of bowel obstruction is seen. Mild to moderate free fluid is noted within the abdomen and pelvic cavity. Atherosclerotic calcifications are noted involving aorta and its branches. No aggressive appearing osseous lesions are identified. Subcutaneous fat stranding and fluid is noted involving the abdominal wall, gluteal regions and proximal thigh on both sides. Comminuted, displaced, non-articular fracture of the left proximal femur is noted, predominantly involving the intertrochanteric region. Cranial migration of the distal fracture fragment is noted.. Significant moe osseous, periarticular soft tissue edema is noted. Left thigh appear swollen as compared to that of the right side. Mild scoliosis of the lumbar spine is noted with convexity on the left side. IMPRESSION: 1. Comminuted, displaced, non-articular fracture of the left proximal femur is noted, predominantly involving the intertrochanteric region. Cranial migration of the distal fracture fragment is noted. 2. Significant moe osseous, periarticular soft tissue edema is noted. Left thigh appear swollen as compared to that of the right side. 3. Mild scoliosis of the lumbar spine is noted with convexity on the left side. 4. Mild free fluid is noted in the abdomen and pelvic cavity. 5. Subcutaneous fat stranding and fluid is noted involving the abdominal wall, gluteal regions and proximal thigh on both sides. Electronically signed by Von Garza 05-24-2024 06:45 AM
--- NOTE | 2024-05-24 06:48 | CT Scan Report ---
EXAM: CT cervical spine wo con CLINICAL HISTORY: FALL AMS CANCER PATIEnt TECHNIQUE: Computed tomography of the cervical spine performed without intravenous contrast. Contiguous axial images were obtained from the skull base to T2, with sagittal and coronal reformatted images reconstructed from the axial data. CT scan was performed according to ALARA (as low as reasonably achievable). COMPARISON: None. FINDINGS: Straightening of ther cervical spine is noted. Alignment of spine is maintained. Vertebral bodies are normal in height. No evidence of fracture. Lateral masses of C1 are symmetrical, and the dens is intact. Prevertebral soft tissues are not widened. C2-C3: No disc bulge, mass effect on the cord or neuroforaminal narrowing. C3-C4: No disc bulge, mass effect on the cord or neuroforaminal narrowing. C4-C5: No disc bulge, mass effect on the cord or neuroforaminal narrowing. C5-C6: No disc bulge, mass effect on the cord or neuroforaminal narrowing. C6-C7: No disc bulge, mass effect on the cord or neuroforaminal narrowing. C7-T1: No disc bulge, mass effect on the cord or neuroforaminal narrowing. Thyroid gland appears unremarkable. IMPRESSION: 1. No acute fracture or subluxation in the cervical spine. 2. Fat stranding is noted within the intermuscular planes of the neck spaces. Electronically signed by Von Garza 05-24-2024 06:47 AM
[2024-05-24 06:52] LABS: ALC (manual) 0.18 K/uL (1.2-3.4); ANC (manual) 17.05 K/uL (1.4-6.5); Lymphocytes # (manual) 0.18 K/uL (1.2-3.4); Lymphocytes % (manual) 1 %; Monocytes # (manual) 0.72 K/uL (0.11-0.59); Monocytes % (manual) 4 %; Neutrophils # (manual) 17.05 K/uL (1.40-6.50); Neutrophils % (manual) 95 %
--- NOTE | 2024-05-24 06:55 | CT Scan Report ---
EXAM: CT chest diagnostic w con CLINICAL HISTORY: FALL ams cancer paitent 91 cc opti 320 TECHNIQUE: Contiguous axial images were obtained from the neck base through the upper abdomen with contrast. In addition, sagittal and coronal reconstructions were performed to potentially increase the sensitivity for the detection of disease. One of the following dose reduction techniques was utilized for this exam. Automated exposure control, adjustment of the mA and/or kV according to patient size, and use of iterative reconstruction. COMPARISON: 12/08/2019 FINDINGS: Solid subpleural nodule of size 2.2 x 1.5 cm is noted along the anterior aspect of the lingula. This is a new finding. Suspicious infiltration of the pleura is noted. However, no obvious bony invasion/erosion of the adjacent rib is noted. Relatively unchanged multiple centriacinar and paraseptal emphysematous changes involving bilateral upper lobes is noted. The central airways are patent. There are no pleural effusions. No pneumothorax is seen. Evaluation of the mediastinum and kelly is limited due to the lack of intravenous contrast. Mild cardiomegaly is noted. Aorta, and pulmonary arteries are of normal size and configuration. Few atherosclerotic calcifications are noted involving aorta and its branches, coronary arteries. No axillary or mediastinal adenopathy is identified. The thyroid is unremarkable. No aggressive appearing osseous lesions are identified. IMPRESSION: 1. Solid subpleural nodule in the lingula as described above. This is a new finding. 2. Relatively unchanged multiple centriacinar and paraseptal emphysematous changes involving bilateral upper lobes is noted. 3. Cardiomegaly. This is a new finding. Electronically signed by Von Garza 05-24-2024 06:55 AM
--- NOTE | 2024-05-24 07:45 | Emergency Department Note ---
History of Present Illness General Chief complaint: Fall Stated complaint: Multiple Falls Time Seen by Provider: 05/24/24 04:18 History of Present Illness This is a 58-year-old female presenting to the emergency department for evaluation of multiple falls. 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 Patient is soon to begin radiation treatment, but this has not yet begun. Much of the history is provided by the patient's . Patient seems to be doing well over the last week, however has had several falls over the following weekend. She did have a fall onto concrete at [facility], and had a second fall throughout the weekend. She had at least her third fall tonight, and was not able to ambulate after this fall. Patient is not on blood thinners. She is having pain in her left side back and hip. No fevers or chills. She rates her discomfort a 4/10. Home Medications Medication Instructions Recorded Confirmed Type Potassimin 99 mg PO DAILY 11/06/23 05/24/24 History allopurinol 100 mg tablet 100 mg PO DAILY 11/06/23 05/24/24 History folic acid 1 mg tablet 2 mg PO DAILY 11/06/23 05/24/24 History gabapentin 300 mg tablet 300 mg PO TID 11/06/23 05/24/24 History multivitamin 1 tab PO DAILY 11/06/23 05/24/24 History sulfasalazine 500 mg tablet 1 g PO BID 11/06/23 05/24/24 History ondansetron HCl 8 mg tablet 8 mg PO Q8H PRN restless legs 11/13/23 05/24/24 History acetaminophen 650 mg 650 mg PO Q8H PRN arthritis 05/05/24 05/24/24 History tablet,extended release (Arthritis Pain Relief (acetaminophen) ER) metoclopramide HCl 10 mg tablet 10 mg PO TID 05/24/24 05/24/24 History nutritional supplements See Rx Instructions .Route .COMPLEX 05/24/24 05/24/24 History Allergies Allergy/AdvReac Type Severity Reaction Status Date / Time ibuprofen AdvReac Tachycardia Verified 05/24/24 06:35 prednisone AdvReac Gastrointestinal Verified 05/24/24 06:35 Upset Past Med/Surg History Problem List (Updated 05/24/24 @ 07:51 by Angel Sun PA-C) Closed left hip fracture (Acute) Fall (Acute) Acute hyponatremia (Acute) Cancer of left lung (Chronic) 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 Lung nodule 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) Community acquired pneumonia Atypical chest pain (Acute) Hypertension (Acute) Tobacco abuse (Acute) Medical History Tobacco use disorder Raynaud phenomenon Osteoarthritis right hand Idiopathic chronic gout Surgical History H/O: hysterectomy History of carpal tunnel surgery Family History Brother Cancer Lung Other Coronary heart disease Heart disease Hypertension Myocardial infarction Social History Smoking Status: Current every day smoker Tobacco Type: Cigarettes Age Started Using Tobacco: 12; packs per day: 1; Second Hand Exposure: Yes; Hx Alcohol Use: No Hx Substance Use: No Preferred Language: Khmer Communication Ability: Effective Tax Manager Public Required: No Beliefs That Will Affect Care: None Current Living Situation: Spouse Feels Safe at Home: Yes Diet: other during the past year weight has: decreased > 10 lbs Assistive Devices: None Review of Systems A total of 10 systems reviewed and were otherwise negative Physical Exam Vital Signs Vital Signs - 24 hr 05/24/24 04:35 05/24/24 04:35 05/24/24 04:42 Temperature 37.1 C Temperature Source Oral Pulse Rate 95 H 87 Pulse Rate [Apical] Pulse Rate from SpO2 Sensor Respiratory Rate 16 Blood Pressure 178/97 H Blood Pressure [Right Arm] Blood Pressure Mean 124 Blood Pressure Mean [Right Arm] Pulse Oximetry 95 95 Oxygen Delivery Method Room Air Room Air Oxygen Flow Rate Sepsis Recent Fever Within 48 Hours No Sepsis New/Unexplained Change in Mental Status No Sepsis Action Taken by Nursing No Action Required Oxygen Flow Rate - Titration Pulse Oximetry Post Tiitration 05/24/24 04:42 05/24/24 04:42 05/24/24 05:03 Temperature Temperature Source Pulse Rate 88 93 H Pulse Rate [Apical] 95 H Pulse Rate from SpO2 Sensor 90 92 H Respiratory Rate 16 14 18 Blood Pressure 137/82 134/81 Blood Pressure [Right Arm] 137/82 Blood Pressure Mean 97 98 Blood Pressure Mean [Right Arm] 100 Pulse Oximetry 92 92 92 Oxygen Delivery Method Room Air Oxygen Flow Rate Sepsis Recent Fever Within 48 Hours Sepsis New/Unexplained Change in Mental Status Sepsis Action Taken by Nursing Oxygen Flow Rate - Titration Pulse Oximetry Post Tiitration 05/24/24 05:40 05/24/24 05:42 05/24/24 05:43 Temperature Temperature Source Pulse Rate 95 H Pulse Rate [Apical] 95 H Pulse Rate from SpO2 Sensor 95 H Respiratory Rate 18 19 Blood Pressure 138/74 Blood Pressure [Right Arm] 138/74 Blood Pressure Mean 95 Blood Pressure Mean [Right Arm] 95 Pulse Oximetry 96 94 88 L Oxygen Delivery Method Nasal Cannula Room Air Oxygen Flow Rate 2 Sepsis Recent Fever Within 48 Hours Sepsis New/Unexplained Change in Mental Status Sepsis Action Taken by Nursing Oxygen Flow Rate - Titration 2 Pulse Oximetry Post Tiitration 95 05/24/24 06:03 05/24/24 06:30 05/24/24 07:00 Temperature Temperature Source Pulse Rate 103 H 94 H Pulse Rate [Apical] 98 H Pulse Rate from SpO2 Sensor 101 H 93 H Respiratory Rate 17 18 19 Blood Pressure 148/91 H 126/73 Blood Pressure [Right Arm] 139/80 Blood Pressure Mean 110 100 Blood Pressure Mean [Right Arm] 99 Pulse Oximetry 95 95 95 Oxygen Delivery Method Nasal Cannula Nasal Cannula Oxygen Flow Rate 3 3 Sepsis Recent Fever Within 48 Hours Sepsis New/Unexplained Change in Mental Status Sepsis Action Taken by Nursing Oxygen Flow Rate - Titration Pulse Oximetry Post Tiitration VITALS: Vitals are noted on the nurse's note and reviewed by myself. Vital signs stable. GENERAL: Ill-appearing white female who seems much older than her stated age. HEAD: Normocephalic atraumatic. HEART: Regular rate and rhythm without murmurs gallops or rubs. LUNGS: Clear to auscultation bilaterally without wheezes, rales or rhonchi. No retractions or accessory muscle use. ABDOMEN: Positive normal bowel sounds x 4. Soft, nontender, without masses or organomegaly. No guarding or rebound tenderness. MUSCULOSKELETAL: Deformity to the left leg at the left hip is noted. There is external rotation and shortening. Neurovascular status appears intact distally. NEURO: Patient was alert and oriented to person place and time. CN II through XII grossly intact. Course Administered Medications Discontinued Medications Ioversol (Optiray 320 100ml) 91 ml IV ONCE ONE Stop: 05/24/24 05:36 Last Admin: 05/24/24 05:35 Dose: 91 ml Documented By: ROSELINE Critical Care Time I have personally spent greater than 30 minutes of critical care time in the direct management of this patient. This includes bedside care, interpretation of diagnostic studies, and testing, discussion with consultants, patient, and family members, and other required patient management activities. This 30 minutes is in excess of all separately billable procedures. Medical Decision Making Differential Diagnosis Differential diagnosis: Etiologies such as vasovagal event, sprain, strain, fracture, dislocation, subluxation, infection, anemia, hypoglycemia, hypovolemia, electrolyte abnormalities, dysrhythmias, cardiac ischemia, cardiac tamponade, valvular heart disease, structural heart disease, seizure, vascular stenosis/dissection, pulmonary embolism, intracerebral event, toxicological process, neurologic event, as well as others were entertained. Laboratory Data 05/24/24 04:37 05/24/24 04:37 Lab Results 05/24/24 Range/Units 04:37 WBC 17.95 H (4.8-10.8) K/ul RBC 2.20 L (4.20-5.40) M/uL Hgb 7.5 L (12.0-16.0) g/dl Hct 21.0 L (37.0-47.0) % MCV 95.5 (80.0-100.0) fL MCH 34.1 H (25.0-34.0) pg MCHC 35.7 (32.0-36.0) g/dL RDW Std Deviation 45.3 (36.4-46.3) fL RDW Coeff of Ryder 13.5 (11.5-14.5) % Plt Count 195 (130-400) K/uL MPV 9.7 (9.4-12.4) fL Neutrophils % (Manual) 95 % Lymphocytes % (Manual) 1 % Monocytes % (Manual) 4 % Neutrophils # (Manual) 17.05 H (1.40-6.50) K/uL Total Absolute Neuts 17.05 H (1.4-6.5) K/uL Lymphocytes # (Manual) 0.18 L (1.2-3.4) K/uL Total Abs Lymphocytes 0.18 L (1.2-3.4) K/uL Monocytes # (Manual) 0.72 H (0.11-0.59) K/uL Target Cells 1+ PT 12.3 H (9.0-12.0) Seconds INR 1.1 (0.9-1.1) APTT 30 (21-31) Seconds PTT Ratio 1.1 Sodium 103 L* (136-145) mmol/L Potassium 4.2 (3.5-5.1) mmol/L Chloride 68 L (98-107) mmol/L Carbon Dioxide 26 (21-32) mmol/L Anion Gap 9 (3-11) BUN 18 (6-23) mg/dl Creatinine 0.40 L (0.6-1.2) mg/dl Est Cr Clr Drug Dosing Not Reportable eGFR 114.65 BUN/Creatinine Ratio 45.0 H (10-20) Glucose 92 (70-99(Fasting)) mg/dl Osmolality 223 L* (280-300) mOsm/kg Calcium 8.6 (8.6-10.3) mg/dl Magnesium 1.4 L (1.7-2.4) mg/dl Total Bilirubin 0.9 (0.2-1.0) mg/dl AST 81 H (13-39) U/L ALT 47 (7-52) U/L Alkaline Phosphatase 87 (34-104) U/L Total Creatine Kinase 1220 H (26-192) U/L Troponin I High Sens 17.6 H (0-14) pg/ml Total Protein 5.6 L (6.0-8.3) gm/dl Albumin 2.9 L (3.4-5.0) gm/dl Globulin 2.7 (2.5-4.0) gm/dl Albumin/Globulin Ratio 1.1 (0.9-2) Lipase 10 L (11-82) U/L TSH 2.903 (0.300-4.500) uIu/ml Urine Color Yellow Urine Appearance Clear (Clear) Urine pH 6.5 (4.5-7.5) Ur Specific [place] 1.015 (1.000-1.030) Urine Protein 1+ H (Negative) Urine Glucose (UA) Negative (Negative) Urine Ketones 1+ H (Negative) Urine Blood Negative (Negative) Urine Nitrite Negative (Negative) Urine Bilirubin Negative (Negative) Urine Urobilinogen Negative (Negative) Ur Leukocyte Esterase Negative (Negative) Urine WBC (Auto) 0-5 (0-5) /hpf Urine RBC (Auto) 6-10 H (0-2) /hpf U Hyaline Cast (Auto) 3-5 H (0-2) /lpf U Epithel Cells (Auto) 0-2 (0-2) /hpf Urine Bacteria (Auto) None Seen (None Seen) Granular Casts Present A (None Prsent) /lpf Urine Osmolality 392 L (500-800) mOsm/kg Adenovirus (PCR) Not Detected (NotDetected) B. pertussis DNA (PCR) Not Detected (NotDetected) B.parapertussis DNA PCR Not Detected (NotDetected) C. pneumoniae DNA (PCR) Not Detected (NotDetected) Coronavirus OC43 (PCR) Not Detected (NotDetected) Coronavirus HKU1 (PCR) Not Detected (NotDetected) Coronavirus 229E (PCR) Not Detected (NotDetected) SARS-CoV-2 (PCR) Not Detected (NotDetected) Coronavirus NL63 (PCR) Not Detected (NotDetected) Human Metapneumovir PCR Not Detected (NotDetected) Influenza Type A (PCR) Not Detected (NotDetected) Influenza Type B (PCR) Not Detected (NotDetected) M. pneumoniae (PCR) Not Detected (NotDetected) Parainfluenza 1 (PCR) Not Detected (NotDetected) Parainfluenza 2 (PCR) Not Detected (NotDetected) Parainfluenza 3 (PCR) Not Detected (NotDetected) Parainfluenza 4 (PCR) Not Detected (NotDetected) RSV (PCR) Not Detected (NotDetected) Entero/Rhino (PCR) Not Detected (NotDetected) Imaging Data Radiologist's Impression: Cervical Spine CT 05/24/24 04:27 EXAM: CT cervical spine wo con CLINICAL HISTORY: FALL AMS CANCER PATIEnt TECHNIQUE: Computed tomography of the cervical spine performed without intravenous contrast. Contiguous axial images were obtained from the skull base to T2, with sagittal and coronal reformatted images reconstructed from the axial data. CT scan was performed according to ALARA (as low as reasonably achievable). COMPARISON: None. FINDINGS: Straightening of ther cervical spine is noted. Alignment of spine is maintained. Vertebral bodies are normal in height. No evidence of fracture. Lateral masses of C1 are symmetrical, and the dens is intact. Prevertebral soft tissues are not widened. C2-C3: No disc bulge, mass effect on the cord or neuroforaminal narrowing. C3-C4: No disc bulge, mass effect on the cord or neuroforaminal narrowing. C4-C5: No disc bulge, mass effect on the cord or neuroforaminal narrowing. C5-C6: No disc bulge, mass effect on the cord or neuroforaminal narrowing. C6-C7: No disc bulge, mass effect on the cord or neuroforaminal narrowing. C7-T1: No disc bulge, mass effect on the cord or neuroforaminal narrowing. Thyroid gland appears unremarkable. IMPRESSION: 1. No acute fracture or subluxation in the cervical spine. 2. Fat stranding is noted within the intermuscular planes of the neck spaces. Electronically signed by Von Garza 05-24-2024 06:[address] 05/24/24 04:27 EXAM: CT chest diagnostic w con CLINICAL HISTORY: FALL ams cancer paitent 91 cc opti 320 TECHNIQUE: Contiguous axial images were obtained from the neck base through the upper abdomen with contrast. In addition, sagittal and coronal reconstructions were performed to potentially increase the sensitivity for the detection of disease. One of the following dose reduction techniques was utilized for this exam. Automated exposure control, adjustment of the mA and/or kV according to patient size, and use of iterative reconstruction. COMPARISON: 12/08/2019 FINDINGS: Solid subpleural nodule of size 2.2 x 1.5 cm is noted along the anterior aspect of the lingula. This is a new finding. Suspicious infiltration of the pleura is noted. However, no obvious bony invasion/erosion of the adjacent rib is noted. Relatively unchanged multiple centriacinar and paraseptal emphysematous changes involving bilateral upper lobes is noted. The central airways are patent. There are no pleural effusions. No pneumothorax is seen. Evaluation of the mediastinum and kelly is limited due to the lack of intravenous contrast. Mild cardiomegaly is noted. Aorta, and pulmonary arteries are of normal size and configuration. Few atherosclerotic calcifications are noted involving aorta and its branches, coronary arteries. No axillary or mediastinal adenopathy is identified. The thyroid is unremarkable. No aggressive appearing osseous lesions are identified. IMPRESSION: 1. Solid subpleural nodule in the lingula as described above. This is a new finding. 2. Relatively unchanged multiple centriacinar and paraseptal emphysematous changes involving bilateral upper lobes is noted. 3. Cardiomegaly. This is a new finding. Electronically signed by Von Garza 05-24-2024 06:[address] 05/24/24 04:27 EXAM: CT head/brain wo con CLINICAL HISTORY: fall AMS cancer patient TECHNIQUE: Multiple axial images are obtained from the skull base to the vertex without contrast. CT scan was performed according to ALARA (as low as reasonably achievable). COMPARISON: None. FINDINGS: There is cerebral atrophy. The mitchell-white matter differentiation is preserved. There are scattered periventricular hypodensities as can be seen with chronic microvascular ischemic changes. No evidence of space occupying lesion, hemorrhage, edema, mass effect, midline shift, extra axial collection, or hydrocephalus is noted. Basal cisterns are symmetric and normal in size and configuration. Visualized paranasal sinuses and mastoid air cells are well aerated. Orbital contents are within normal limits. Bony structures are intact. IMPRESSION: 1. No evidence of acute intracranial abnormality is demonstrated. 2. Chronic microvascular ischemic changes. 3. Cerebral atrophy. Electronically signed by Von Garza 05-24-2024 06:45 AM Abdomen/Pelvis CT 05/24/24 04:28 EXAM: CT abd pelvis IV con only CLINICAL HISTORY: FALL AMS CANCER PATIENT 91 cc opti 320 TECHNIQUE: Multiple contiguous axial images were obtained from the level of diaphragm to the pubis symphysis. This study was acquired after the IV administration of iodinated contrast material, given the patient's indications for the examination. If IV contrast material had not been administered, the likelihood of detecting abnormalities relevant to the patient's condition would have been substantially decreased. Coronal and sagittal reformatted images were generated and reviewed to improve anatomic localization and optimize lesion detection. CT scan was performed according to ALARA (as low as reasonably achievable). COMPARISON: None. FINDINGS: Percutaneous gastrostomy tube noted in situ. The liver is normal in size and attenuation. No focal liver lesions are seen. There is no intra or extrahepatic biliary ductal dilatation. Hepatic vasculature is patent. The gallbladder is unremarkable. The spleen is unremarkable. The pancreas is unremarkable. Both adrenal glands are unremarkable. The kidneys are normal in size and attenuation. There is no hydronephrosis. No perinephric fat stranding is seen. No renal calculi or renal masses are identified. The ureters are normal in caliber and no ureteral calculi are seen. Urinary bladder is collapsed with Kerr's bulb in-situ. No evidence of focal or diffuse bowel wall thickening or evidence of bowel obstruction is seen. Mild to moderate free fluid is noted within the abdomen and pelvic cavity. Atherosclerotic calcifications are noted involving aorta and its branches. No aggressive appearing osseous lesions are identified. Subcutaneous fat stranding and fluid is noted involving the abdominal wall, gluteal regions and proximal thigh on both sides. Comminuted, displaced, non-articular fracture of the left proximal femur is noted, predominantly involving the intertrochanteric region. Cranial migration of the distal fracture fragment is noted.. Significant moe osseous, periarticular soft tissue edema is noted. Left thigh appear swollen as compared to that of the right side. Mild scoliosis of the lumbar spine is noted with convexity on the left side. IMPRESSION: 1. Comminuted, displaced, non-articular fracture of the left proximal femur is noted, predominantly involving the intertrochanteric region. Cranial migration of the distal fracture fragment is noted. 2. Significant moe osseous, periarticular soft tissue edema is noted. Left thigh appear swollen as compared to that of the right side. 3. Mild scoliosis of the lumbar spine is noted with convexity on the left side. 4. Mild free fluid is noted in the abdomen and pelvic cavity. 5. Subcutaneous fat stranding and fluid is noted involving the abdominal wall, gluteal regions and proximal thigh on both sides. Electronically signed by Von Garza 05-24-2024 06:45 AM MDM Narrative Physical exam and history were performed. Nursing notes, EMR, and Medication List were personally reviewed. No social concerns were identified as barriers to patients care. Patient appears to have several falls over the past few days. Patient does not appear well clinically on arrival. IV access was established and labs were obtained. Kerr catheter was placed. Patient was sent to CT scan for imaging of her head, neck, chest, abdomen, and pelvis. Patient's blood work is as above and was reviewed. Patient has an elevated white count of almost 18,000. She is anemic at 7.5. INR is 1.1. Sodium is markedly low at 103 with associated decreased serum osmolality of 223. Magnesium is 1.4. Total CK is over 1200. Troponin is slightly elevated at 17.6. Patient did have greater than 1100 mL of urine with catheter placement, and urine does not appear distinctly infected. BioFire is negative. CT scans were performed and reviewed by myself and radiology. CT scans are overall unremarkable in the head, neck, chest. Abdominal CT does reveal a left hip fracture. Overall the patient does not appear well for discharge. She has a very worrisome picture. Case was discussed with the [facility] hospitalist team as well as my attending. Escalation of care is felt to be necessary. Please see the hospitalist dictation for further patient course, plan, disposition. The chart was completed utilizing [employer] Speech Voice Recognition Software. Grammatical errors, random word insertions, pronoun errors, and incomplete sentences are an occasional consequence of this system due to software limitations, ambient noise, and hardware issues. Any formal questions or concerns about the content, text, or information contained within the body of this dictation should be directly addressed to the provider for clarification. Impression & Plan Acute hyponatremia, Fall, Closed left hip fracture Discharge Plan Visit Data Chief Complaint: Fall Stated Complaint: Multiple Falls ED Provider: Lidia Mata ED Midlevel Provider: Angel Sun Discharge Problem: Acute hyponatremia, Fall, Closed left hip fracture Forms Stand Alone Forms: [facility] Prescriptions Prescriptions: No Action ondansetron HCl 8 mg tablet 8 mg PO Q8H PRN (Reason: restless legs) acetaminophen [Arthritis Pain Relief (acetam)] 650 mg tablet extended release 650 mg PO Q8H PRN (Reason: arthritis) metoclopramide HCl 10 mg tablet 10 mg PO TID Nutren 1.5 Liquid See Rx Instructions .ROUTE .COMPLEX Rx Instructions: administer 250ml into feeding tube 4 times a day multivitamin Tablet 1 tab PO DAILY sulfasalazine 500 mg Tablet 1 g PO BID Rx Instructions: give with food (meal/snack) allopurinol 100 mg Tablet 100 mg PO DAILY folic acid 1 mg Tablet 2 mg PO DAILY gabapentin 300 mg Tablet 300 mg PO TID Potassimin 99 mg tablet 99 mg PO DAILY Referrals Referrals: Theodore Cherry MD [Primary Care Provider] -
--- NOTE | 2024-05-24 08:06 | History & Physical Report ---
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 She presents today due to sustaining 2-3 falls over the weekend, weakness and increased confusion. Acute metabolic Encephalopathy Acute worsening of chronic Hyponatremia admit to ICU Discussed case with product management intern Dr. Herrera give 50ml IV bolus hypertonic saline, repeat bmp 30min after Goal Serum sodium ~ 110 today Nephro ok to continue tube feeds but limiting free water flushes - discussed this with laundry operator finishing Sepsis not ruled out meets SIRS criteria with leukocytosis, tachycardia Blood cultures pending - no evidence of UTI, PNA - empirically cover with IV rocephin for 48hrs give IV folic acid and IV thiamine for now baseline Na per chart review is ~ 125-130 since November, but I do not see a formal work up completed urine osm 392, serum osm 223 Acute traumatic rhabdomyolysis 2/2 fall CK 1220 recently received hypertonic saline, await repeat bmp for further fluid needs Hypomagnesemia replete Acute Prox L femur fx s/p Fall --Ct a/p reveal comminuted, displaced, nonarticular fx of L prox femur, involving trochanteric region Bed rest, consult orthopedics, not medically stable to undergo surgical intervention at this time, will defer to ultimate hoops referee obtain CT left femur given edema to L thigh possible hematoma Anemia h/h 7.5/21.0 no reports of bleeding, she is s/p chemo therapy obtain anemia panel, FOBT hgb was 10.3 on 03/26/24 ? if hematoma from fracture, obtain CT left femur IV PPI BID for now until bleeding r/o Blood consent was obtained from the patient (or patient delegate) as delegated by Dr. Velásquez. Risks and benefits were explained. All questions were answered, and the patient (or patient delegate) was offered the opportunity to discuss with attending physician and declined. Elevated troponin/Cardiomegaly on imaging suspect in setting of acute illness, will cycle trops and obtain echo EKG w/o acute ischemic change Hypoxia: CT Chest w/o obvious abnormality for hypoxia, underlying COPD, known lung mass continue O2 and wean as able, no resp sx L tonsillar SCC/L lung mass SCC s/p chemo/XRT recent PET CT shows improvement in L tonsillar mass/adenopathy but enlargement to L lung mass Pt to undergo SBRT following nutrition for PEG tube/feeding management Hx of RA on sulfasalazine COPD: no acute exac Tobacco abuse: nicotine patch, encourage cessation DVT ppx: SCDS for now, until L femur eval for hematoma, add chemical ppx as soon as able as pt is high risk given malignancy and now fx FULL CODE PCP: None, pt previously followed [facility], needs to re establish Dispo: pt critically ill, admit to ICU I spent a total of 90 minutes reviewing notes, outpatient records, labs, medication, coordinating, documenting and providing care for this patient excluding time spent in the performance of separately billed services. 60 of these minutes was spent performing critical care and [facility] Pt was seen and examined in collaboration with Dr. Velásquez, please see addendum History of Present Illness Chief Complaint: Fall the past 2 days. 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 Currently she has a PEG tube for nutrition. She is able to swallow some food but does have mild nausea and mild vomiting. She did have some local mucositis and radiation induced changes in the neck region which has improved. Her most recent PET scan done on 04/26/2024 showed an overall good response noted for the tonsillar mass and left cervical lymphadenopathy however further enlargement of the previously noted left lung mass. She is following Dr. Cherry from radiation oncology and is planning for SBRT. Her weight at her last hematology oncology appointment was around 95 pounds. She does have underlying RA for which she is on sulfasalazine. She presents to the hospital 2/ sustaining a fall. She reports falling on her back. She is unsure how she fell. She does not feel that she tripped. She does not recall feeling lightheaded, dizziness, nausea or chest pain. Her is at bedside who helps elicit hx. reports she also fell friday in the [place] pavement. When heard her fall today around 3 a.m. he called 911 immediately. She sleeps on the couch and he heard a big thump. He didn't witness either fall. She reports hitting her head. Pt denies recent f/c/s, dizziness, n/v/d or abd pain. She reports chest pain but is unable to describe her pain. She also complains dysuria since she fell 2 days ago. She also complains of headache where she hit her head. She has a feeding tube and is unsure if she has been using it 4 times a day. Pt admits she has been doing it 4 times a day, "sometimes." reports lack of intake over the last few days. Prior to she was eating small amount of food. She reports continued smoking, "too many." She denies alcohol use or recreational drug use. Allergies Allergy/AdvReac Type Severity Reaction Status Date / Time ibuprofen AdvReac Tachycardia Verified 05/24/24 06:35 prednisone AdvReac Gastrointestinal Verified 05/24/24 06:35 Upset Home Medications Medication Instructions Recorded Confirmed Type Potassimin 99 mg PO DAILY 11/06/23 05/24/24 History allopurinol 100 mg tablet 100 mg PO DAILY 11/06/23 05/24/24 History folic acid 1 mg tablet 2 mg PO DAILY 11/06/23 05/24/24 History gabapentin 300 mg tablet 300 mg PO TID 11/06/23 05/24/24 History multivitamin 1 tab PO DAILY 11/06/23 05/24/24 History sulfasalazine 500 mg tablet 1 g PO BID 11/06/23 05/24/24 History ondansetron HCl 8 mg tablet 8 mg PO Q8H PRN restless legs 11/13/23 05/24/24 History acetaminophen 650 mg 650 mg PO Q8H PRN arthritis 05/05/24 05/24/24 History tablet,extended release (Arthritis Pain Relief (acetaminophen) ER) metoclopramide HCl 10 mg tablet 10 mg PO TID 05/24/24 05/24/24 History nutritional supplements See Rx Instructions .Route .COMPLEX 05/24/24 05/24/24 History Past Med/Surg History Problem List Hyponatremia SIRS (systemic inflammatory response syndrome) Metabolic encephalopathy Closed left hip fracture (Acute) Fall (Acute) Acute hyponatremia (Acute) Cancer of left lung (Chronic) 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 Lung nodule 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) Community acquired pneumonia Atypical chest pain (Acute) Hypertension (Acute) Tobacco abuse (Acute) Medical History Tobacco use disorder Raynaud phenomenon Osteoarthritis right hand Idiopathic chronic gout Surgical History H/O: hysterectomy History of carpal tunnel surgery Family History Brother Cancer Lung Other Coronary heart disease Heart disease Hypertension Myocardial infarction Social History Smoking Status: Current every day smoker Tobacco Type: Cigarettes Age Started Using Tobacco: 12; packs per day: 1; Second Hand Exposure: Yes; Do You Dip or Chew Tobacco: No; Hx Alcohol Use: No Hx Substance Use: No Preferred Language: Afghan Communication Ability: Effective Civil Estimator Required: No Beliefs That Will Affect Care: None Current Living Situation: Spouse Current Living Situation Comment: at home with Other Information That Helps Us Care for You: No Feels Safe at Home: Yes Safety Concerns: Feels Safe At This Time Diet: other during the past year weight has: decreased > 10 lbs Assistive Devices: Other Assistive Devices Comment: Tube Feed pump/supplies Review of Systems Review of Systems: All systems reviewed & are unremarkable except as noted in HPI & below Physical Exam Physical Exam: please refer to Dr. Velásquez addendum for physical exam findings. Results & Data Results & Data Vital Signs (Past 12 Hours) Vital Signs Temp Pulse Pulse Resp BP BP Pulse Ox 05/24/24 07:00 94 H 19 126/73 95 05/24/24 06:30 98 H 18 139/80 95 05/24/24 06:03 103 H 17 148/91 H 95 05/24/24 05:43 88 L 05/24/24 05:42 95 H 19 138/74 94 05/24/24 05:40 95 H 18 138/74 96 05/24/24 05:03 93 H 18 134/81 92 05/24/24 04:42 88 14 137/82 92 05/24/24 04:42 95 H 16 137/82 92 05/24/24 04:42 87 05/24/24 04:35 95 05/24/24 04:35 37.1 C 95 H 16 178/97 H 95 O2 Del Method O2 Flow Rate 05/24/24 07:00 Nasal Cannula 3 05/24/24 06:30 Nasal Cannula 3 05/24/24 06:03 05/24/24 05:43 Room Air 05/24/24 05:42 05/24/24 05:40 Nasal Cannula 2 05/24/24 05:03 05/24/24 04:42 05/24/24 04:42 Room Air 05/24/24 04:42 05/24/24 04:35 Room Air 05/24/24 04:35 Room Air Laboratory Results I have independently reviewed and interpreted patient's admitting labs including CBC, CMP, trop, TSH, UA, lipase, CK, urine osm, serum ltety Diagnostic Findings Cervical Spine CT 05/24/24 04:27 EXAM: CT cervical spine wo con CLINICAL HISTORY: FALL AMS CANCER PATIEnt TECHNIQUE: Computed tomography of the cervical spine performed without intravenous contrast. Contiguous axial images were obtained from the skull base to T2, with sagittal and coronal reformatted images reconstructed from the axial data. CT scan was performed according to ALARA (as low as reasonably achievable). COMPARISON: None. FINDINGS: Straightening of ther cervical spine is noted. Alignment of spine is maintained. Vertebral bodies are normal in height. No evidence of fracture. Lateral masses of C1 are symmetrical, and the dens is intact. Prevertebral soft tissues are not widened. C2-C3: No disc bulge, mass effect on the cord or neuroforaminal narrowing. C3-C4: No disc bulge, mass effect on the cord or neuroforaminal narrowing. C4-C5: No disc bulge, mass effect on the cord or neuroforaminal narrowing. C5-C6: No disc bulge, mass effect on the cord or neuroforaminal narrowing. C6-C7: No disc bulge, mass effect on the cord or neuroforaminal narrowing. C7-T1: No disc bulge, mass effect on the cord or neuroforaminal narrowing. Thyroid gland appears unremarkable. IMPRESSION: 1. No acute fracture or subluxation in the cervical spine. 2. Fat stranding is noted within the intermuscular planes of the neck spaces. Electronically signed by Von Garza 05-24-2024 06:[address] 05/24/24 04:27 EXAM: CT chest diagnostic w con CLINICAL HISTORY: FALL ams cancer paitent 91 cc opti 320 TECHNIQUE: Contiguous axial images were obtained from the neck base through the upper abdomen with contrast. In addition, sagittal and coronal reconstructions were performed to potentially increase the sensitivity for the detection of disease. One of the following dose reduction techniques was utilized for this exam. Automated exposure control, adjustment of the mA and/or kV according to patient size, and use of iterative reconstruction. COMPARISON: 12/08/2019 FINDINGS: Solid subpleural nodule of size 2.2 x 1.5 cm is noted along the anterior aspect of the lingula. This is a new finding. Suspicious infiltration of the pleura is noted. However, no obvious bony invasion/erosion of the adjacent rib is noted. Relatively unchanged multiple centriacinar and paraseptal emphysematous changes involving bilateral upper lobes is noted. The central airways are patent. There are no pleural effusions. No pneumothorax is seen. Evaluation of the mediastinum and kelly is limited due to the lack of intravenous contrast. Mild cardiomegaly is noted. Aorta, and pulmonary arteries are of normal size and configuration. Few atherosclerotic calcifications are noted involving aorta and its branches, coronary arteries. No axillary or mediastinal adenopathy is identified. The thyroid is unremarkable. No aggressive appearing osseous lesions are identified. IMPRESSION: 1. Solid subpleural nodule in the lingula as described above. This is a new finding. 2. Relatively unchanged multiple centriacinar and paraseptal emphysematous changes involving bilateral upper lobes is noted. 3. Cardiomegaly. This is a new finding. Electronically signed by Von Garza 05-24-2024 06:[address] 05/24/24 04:27 EXAM: CT head/brain wo con CLINICAL HISTORY: fall AMS cancer patient TECHNIQUE: Multiple axial images are obtained from the skull base to the vertex without contrast. CT scan was performed according to ALARA (as low as reasonably achievable). COMPARISON: None. FINDINGS: There is cerebral atrophy. The mitchell-white matter differentiation is preserved. There are scattered periventricular hypodensities as can be seen with chronic microvascular ischemic changes. No evidence of space occupying lesion, hemorrhage, edema, mass effect, midline shift, extra axial collection, or hydrocephalus is noted. Basal cisterns are symmetric and normal in size and configuration. Visualized paranasal sinuses and mastoid air cells are well aerated. Orbital contents are within normal limits. Bony structures are intact. IMPRESSION: 1. No evidence of acute intracranial abnormality is demonstrated. 2. Chronic microvascular ischemic changes. 3. Cerebral atrophy. Electronically signed by Von Garza 05-24-2024 06:45 AM Abdomen/Pelvis CT 05/24/24 04:28 EXAM: CT abd pelvis IV con only CLINICAL HISTORY: FALL AMS CANCER PATIENT 91 cc opti 320 TECHNIQUE: Multiple contiguous axial images were obtained from the level of diaphragm to the pubis symphysis. This study was acquired after the IV administration of iodinated contrast material, given the patient's indications for the examination. If IV contrast material had not been administered, the likelihood of detecting abnormalities relevant to the patient's condition would have been substantially decreased. Coronal and sagittal reformatted images were generated and reviewed to improve anatomic localization and optimize lesion detection. CT scan was performed according to ALARA (as low as reasonably achievable). COMPARISON: None. FINDINGS: Percutaneous gastrostomy tube noted in situ. The liver is normal in size and attenuation. No focal liver lesions are seen. There is no intra or extrahepatic biliary ductal dilatation. Hepatic vasculature is patent. The gallbladder is unremarkable. The spleen is unremarkable. The pancreas is unremarkable. Both adrenal glands are unremarkable. The kidneys are normal in size and attenuation. There is no hydronephrosis. No perinephric fat stranding is seen. No renal calculi or renal masses are identified. The ureters are normal in caliber and no ureteral calculi are seen. Urinary bladder is collapsed with Kerr's bulb in-situ. No evidence of focal or diffuse bowel wall thickening or evidence of bowel obstruction is seen. Mild to moderate free fluid is noted within the abdomen and pelvic cavity. Atherosclerotic calcifications are noted involving aorta and its branches. No aggressive appearing osseous lesions are identified. Subcutaneous fat stranding and fluid is noted involving the abdominal wall, gluteal regions and proximal thigh on both sides. Comminuted, displaced, non-articular fracture of the left proximal femur is noted, predominantly involving the intertrochanteric region. Cranial migration of the distal fracture fragment is noted.. Significant moe osseous, periarticular soft tissue edema is noted. Left thigh appear swollen as compared to that of the right side. Mild scoliosis of the lumbar spine is noted with convexity on the left side. IMPRESSION: 1. Comminuted, displaced, non-articular fracture of the left proximal femur is noted, predominantly involving the intertrochanteric region. Cranial migration of the distal fracture fragment is noted. 2. Significant moe osseous, periarticular soft tissue edema is noted. Left thigh appear swollen as compared to that of the right side. 3. Mild scoliosis of the lumbar spine is noted with convexity on the left side. 4. Mild free fluid is noted in the abdomen and pelvic cavity. 5. Subcutaneous fat stranding and fluid is noted involving the abdominal wall, gluteal regions and proximal thigh on both sides. Electronically signed by Von Garza 05-24-2024 06:45 AM Medications Administered Medication List Discontinued Medications Ioversol (Optiray 320 100ml) 91 ml IV ONCE ONE Stop: 05/24/24 05:36 Last Admin: 05/24/24 05:35 Dose: 91 ml Documented By: GES ECG Additional Comments: I have independently reviewed and interpreted patient's admitting EKG which revealed: NSR, no ST T wave changes COVID-19 Results Results COVID-19 Adm Lab Results: RBC 2.90 M/uL (4.20-5.40) L 05/25/24 WBC 9.99 K/ul (4.8-10.8) 05/25/24 Hgb 8.5 g/dl (12.0-16.0) L 05/25/24 Hct 23.0 % (37.0-47.0) L 05/25/24 Plt Count 143 K/uL (130-400) 05/25/24 Neutrophils (%) (Auto) 88.4 % 05/25/24 Lymphocytes (%) (Auto) 2.5 % 05/25/24 Monocytes # (Auto) 0.65 K/uL (0.11-0.59) H 05/25/24 Eosinophils # (Auto) 0.04 K/uL (0.00-0.50) 05/25/24 Immature Granulocyte % (Auto) 2.0 % 05/25/24 Neutrophils # (Auto) 8.83 K/uL (1.40-6.50) H 05/25/24 Lymphocytes # (Auto) 0.25 K/uL (1.20-3.40) L 05/25/24 Monocytes # (Auto) 0.65 K/uL (0.11-0.59) H 05/25/24 Eosinophils # (Auto) 0.04 K/uL (0.00-0.50) 05/25/24 Basophils # (Auto) 0.02 K/uL (0.00-0.20) 05/25/24 Immature Granulocyte # (Auto) 0.20 K/uL (0.01-0.20) 4 ANC 17.05 K/uL (1.4-6.5) H 05/24/24 ALC 0.18 K/uL (1.2-3.4) L 05/24/24 Neutrophils % (Manual) 95 % 05/24/24 Lymphocytes % (Manual) 1 % 05/24/24 Monocytes % (Manual) 4 % 05/24/24 Neutrophils # (Manual) 17.05 K/uL (1.40-6.50) H 05/24/24 Lymphocytes # (Manual) 0.18 K/uL (1.2-3.4) L 05/24/24 Monocytes # (Manual) 0.72 K/uL (0.11-0.59) H 05/24/24 Red Blood Cell Morphology Unremarkable 05/25/24 Target Cells 1+ 05/24/24 Na 118 mmol/L (136-145) L* 05/25/24 K 3.7 mmol/L (3.5-5.1) 05/25/24 Cl 77 mmol/L (98-107) L 05/25/24 CO2 30 mmol/L (21-32) 05/25/24 Anion Gap 6 (3-11) 05/25/24 BUN 11 mg/dl (6-23) 05/25/24 Creatinine 0.33 mg/dl (0.6-1.2) L 05/25/24 BUN/Creatinine Ratio 33.3 (10-20) H 05/25/24 Glucose Level 126 mg/dl (70-99(Fasting)) H 05/25/24 Ca 8.5 mg/dl (8.6-10.3) L 05/25/24 Phosphorus Level 3.0 mg/dl (2.5-4.9) 05/24/24 Total Bilirubin 0.7 mg/dl (0.2-1.0) 05/25/24 AST/SGOT 46 U/L (13-39) H 05/25/24 ALT/SGPT 39 U/L (7-52) 05/25/24 Alkaline Phosphatase 83 U/L (34-104) 05/25/24 Total Protein 5.4 gm/dl (6.0-8.3) L 05/25/24 Albumin 2.8 gm/dl (3.4-5.0) L 05/25/24 Globulin 2.6 gm/dl (2.5-4.0) 05/25/24 Albumin/Globulin Ratio 1.1 (0.9-2) 05/25/24 Total CK 320 U/L (26-192) H 05/25/24 Procalcitonin 1.87 ng/ml (0-0.5) H 05/24/24 Ferritin 2569.0 ng/ml (8-388) H 05/24/24 PTT 30 Seconds (21-31) 05/24/24 INR 1.1 (0.9-1.1) 05/24/24 Adenovirus (PCR) Not Detected (NotDetected) 05/24/24 B. parapertussis DNA (PCR) Not Detected (NotDetected) 08/16 B. pertussis DNA (PCR) Not Detected (NotDetected) 05/24/24 C. pneumoniae DNA (PCR) Not Detected (NotDetected) 4 Coronavirus Type OC43 (PCR) Not Detected (NotDetected) 08/16 Coronavirus Type HKU1 (PCR) Not Detected (NotDetected) 08/16 Coronavirus Type 229E (PCR) Not Detected (NotDetected) 08/16 COVID-19 PCR Not Detected (NotDetected) 05/24/24 Coronavirus Type NL63 (PCR) Not Detected (NotDetected) 08/16 Human Metapneumovirus (PCR) Not Detected (NotDetected) 08/16 Influenza Virus Type A (PCR) Not Detected (NotDetected) Influenza Virus Type B (PCR) Not Detected (NotDetected) M. 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 Patient and her were at bedside, patient able to answer questions appropriately with some issues with recalling events, could not corroborate her history with her at he was not aware of many things currently going on with her. He was not even aware of what medications/whether she is taking any medications/whether she is taking all of her PEG tube feeding. Patient stated that she fell on Friday in [employer] [facility] parking lot, patient's was with her at the time who did not witness her fall per him. She has been fed at last evening and today morning. She reports hitting back of her head during fall. She denies dizziness/nausea/warmth/palpitation/loss of consciousness. She reports that her legs give out during those falls. She denies fever/sore throat/cough. Patient reports she has been taking all of her effective feeding. Patient reports some burning while passing urine since Friday. Patient walks with walker at baseline. Patient denies any blood in the stool or black stool. Patient continues to smoke, denies alcohol use or recreational drug use. Labs and imaging reviewed. WBC 17.9 K, hemoglobin 7.5 [outpatient hemoglobin around 10], sodium of 103 [baseline sodium of 125-130], serum osmolality 223, magnesium of 1.4, CPK 1220, troponin 17.6 and flat trended, iron profile WNL, vitamin B12 and folate level WNL. Procalcitonin 1.87, TSH WNL, lipase WNL. UA negative for UTI. Nasal MRSA screen negative. Respiratory pathogen panel negative. Imagings: C-spine CT/CT head with no acute findings. CT chest with solid subpleural nodule in the lingula, new finding. Cardiomegaly, new finding. CT abdomen pelvis: Comminuted, displaced, nonarticular fracture of the left proximal femur. CT left femur: Intertrochanteric left femoral fracture. No discrete large intramuscular hematoma. Will get urine culture and blood culture. A and P: Pt was admitted to ICU due to critical illness. ICU and Nephrology were notified. Acute on chronic hyponatremia:Nephrology aware, okay to continue tube feeds, patient received IV hypertonic saline, repeat BMP in half hour. Goal serum sodium today 110. Acute traumatic rhabdomyolysis: CPK elevated, follow trend, IV fluid when able per nephro recs. Continue with tube feeds. CPK in AM. Severe Malnutrition: In the setting of previous malignancy, patient on tube feed diet. IV thiamine, IV folic acid, p.o. multivitamin when able, nutrition consult. Continue with PEG tube feeding. Electrolyte abnormalities: Monitor and replete as appropriate. Left humeral fracture: Orthopedic consult, pain management. 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 Acute on chronic anemia: Baseline hemoglobin seems around 10 as per outpatient chart review, hemoglobin today 7.5, likely secondary to blood loss in the setti ng of femur fracture. Patient denies any blood or black stool. Will get FOBT. PPI twice daily until FOBT rules out GI bleed. Trend H&H. Transfuse hemoglobin for less than 7.0 or for symptomatic anemia. Demand ischemia: Troponin elevated but flat trended, patient denied chest pain. CTAP showed cardiomegaly, will get echo. On exam: GENERAL: drowsy, dozing off to sleep, on 2L NC O2, NAD, answers questions appropriately (has occasional issues w/ recalling events). Appears very sick/ill/frail/weak/cachectic. HEENT: + pallor, no icterus. Pupils equal, round and reactive to light. Oral mucosa very dry. NECK: No JVD, no neck masses. HEART: S1 and S2 heard. Regular rate and rhythm. No murmur, no gallop. RESPIRATORY SYSTEM: Normal AP diameter. No accessory muscle use. No wheezing, no crackles. decreased breath sounds 2/2 poor effort. ABDOMEN: Soft, bowel sounds present, nontender, no distention. PEG tube in situ noted, no s/s infection at port of entry. CENTRAL NERVOUS SYSTEM: No facial droop. Speech is clear. Obeys simple commands. Moves extremities. EXTREMITIES: 2+ ble edema. LLE shortened and externally rotated. Pt's was made aware of critical illness of the patient, we discussed each and every above mentioned point under A and P w/ him. answered all his questions. He voiced understanding. Time spent: 35 min of critical care time I have seen and examined the patient and have discussed the case with the provider above. I agree with the assessment and plan as stated.
[2024-05-24] MEDS ORDERED: SODIUM CHLORIDE 0.9% 100 ML IV PRN ×2 (08:33→14:14)
[2024-05-24] MEDS ORDERED: SODIUM CHLORIDE 0.9% 50 ML IV PRN ×2 (08:33→14:14)
[2024-05-24] MEDS ORDERED: STAT IV/IM STA ×3 (08:51→14:15)
[2024-05-24] MEDS: SODIUM CHLORIDE 3 % 50 ML IV ONE ×3 (09:07→14:21)
[2024-05-24] MEDS: MAGNESIUM SULFATE / D5W 1 GM/100 ML BAG IV SCH (09:07)
[2024-05-24] MEDS: THIAMINE HCL 100 MG in SYRINGE 9 ML IV SCH (09:17)
[2024-05-24] MEDS: FOLIC ACID 1 MG in SYRINGE 9.8 ML IV SCH (09:17)
[2024-05-24 10:49] LABS: BUN Creatinine Ratio 37.8 (10-20); Calcium 8.8 mg/dl (8.6-10.3); Creatinine Clr Calc Pharmacy 137.1 ml/min
[2024-05-24] MEDS: PANTOprazole 40 MG/10 ML SYR IV SCH (10:51)
[2024-05-24] MEDS: cefTRIAXone SODIUM 1,000 MG/50 ML BAG IV SCH (10:51)
[2024-05-24] MEDS: ICU Protocol for HYPERglycemia SCH (10:52)
[2024-05-24 10:55] LABS: Troponin I High Sensitivity 14.5 pg/ml (0-14)
--- NOTE | 2024-05-24 10:57 | CT Scan Report ---
CT femur LT wo con HISTORY: 58 years-old Female fx, r/o hematoma acute pain of the left thigh status post trauma COMPARISON: CT abdomen and pelvis of same day TECHNIQUE: Multiple axial CT images of the left femur were obtained without IV contrast. Additional 3 -D rendered images were generated from a separate workstation and were submitted for review. A dose l owering technique was used consistent with the principals of JAEL. FINDINGS: Acute, comminuted, angulated and displaced intratrochanteric fracture of the left femur redemonstrate d with unchanged alignment compared to the same day CT abdomen and pelvis. The lesser trochanteric fr acture fragment is displaced medially approximately 1.5 cm. There is no dislocation. Mild osteoarthri tis of the left hip. Mild degeneration of the left SI joint. The imaged left hemipelvis appears intac t. No additional acute fracture or dislocation identified. Mildly demineralized appearance of the bon es. Mild osteoarthritis of the knee. No large joint effusion of the hip. There is moderate subcutaneous edema with heterogeneity of the th igh musculature. No discrete intramuscular hematoma identified. Nonspecific borderline-enlarged left inguinal chain lymph nodes. Contrast in the urinary bladder with Kerr catheter. Small to moderate taylor int effusion of the knee. IMPRESSION: 1. Unchanged alignment of the acute, comminuted, angulated and displaced intertrochanteric left femor al fracture. 2. Moderate subcutaneous edema of the thigh with nonspecific heterogeneity of the proximal thigh musc ulature. No discrete large intramuscular hematoma identified on this noncontrast study. 3. Small to moderate joint effusion of the knee. 4. Borderline enlarged left inguinal chain lymph node. ACT 112: Negative or not required by law. The above report was generated using voice recognition software. It may contain grammatical, syntax o r spelling errors. Electronically signed by: Braulio Navas M.D. 05/24/2024 10:56 AM
--- NOTE | 2024-05-24 11:05 | Nephrology Consultation ---
Date of Consultation May 24, 2024 Assessment & Plan (1) Hyponatremia: symptomatic critical hypotonic hypervolemic hyponatremia in patient with active malignancy (though not one expected to contribute to this condition) s/p platin- based therapy and w/ poor nutrition; she is at high risk for life threatening complications including osmotic demylelination syndrome given serum sodium 103 on presentation and malnutrition. fortunately no EtOH, no hypokalemia though mild liver dysfunction noted. h/o chronic hyponatremia w/ sNa often high 120s -low threshold for TTE given edema and not severely diminished albumin > mild volume overload in patient with -will need to be optimized if any consideration for OR for femoral fracture -goal serum sodium is no more than 110 w/in hours and hold until tomorrow AM>> will give another 50 ML 3% saline and recheck BMP, phos one hour later stat -suggest repeat infusions of 3% 50 mL each time to get to goal above -at risk for DENISE >> will monitor -reviewed plan above in HPI re TF and FWF w/ dietary in person Plan reviewed w/ with critical care providers and w/ ELECTRONICS ENGINEERING TECHNICIAN midday in person and via T Text re sodium targets, lab frequency, 3% sodium repeated bolus plan; plan reviewed w/ admitting team as above in HPI. I spent a total of 80 minutes coordinating, documenting, and providing care for this patient excluding time spent in the performance of separately billed services throughout the day. This included personally reviewing all current laboratories and imaging studies, medication reconciliation, outpatient chart review, and discussion with other physicians, with nursing, and as applicable with the patient and family. (2) Closed left hip fracture: await orthopedics input; in overall clinical context of her mutliple comorbidities, may not be a surgical candidate History of Present Illness Reason for Consultation: critical hyponatremia Requesting Physician: Dr Velásquez Attending Physician: Jose M Velásquez MD History of Present Illness Medically complex 58 y/o F whom I'm asked to see for critical hyponatremia was admitted this AM from home for same with presenting sodium 103 and encephalopathy. 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 Most recent PET scan 04/26/2024 showed good response re tonsillar mass and left cervical lymphadenopathy but further enlargement of left lung mass. She is following Dr. Cherry from radiation oncology and is planning for SBRT. Her weight at her last hematology oncology appointment was around 95 pounds. Pt lives at home and fell x 2 in 3 days. Fell on her back and reports hitting her head; further details unclear as she was alone has has little recollection of event from around 0300 today. per pt she also fell 48 hrs back in the parking lot at [facility] though this fall again unwitnessed. Pt is awake but a poor historian. c/o chest pain but unable to specify; c/o dysuria and CARRILLO at site of head trauma x 48 hrs. Denies f/c/s, dizziness, n/v/d/abd pain. Supposed to used PEG qid but this is up to pt and has not been consistent. Per her food intake has dropped off past few days; was better prior to . When asked if she is in pain, she tells me "I don't know." C/o CARRILLO and dysuria since she fell 2 days ago to admitting team. Her is bedside and tells me his whife has been using alleve arthritis most days recently, though he is unable to tell me how much she was taking. her presenting sodium was 102. I reviewed presentation in detail with admitting medicine team > suggest ICU consultation, 50 mL of 3% saline, then wait 30 min and stat BMP; repeat as needed w/ goal sNa 110 JEREMY and hold for at least 24 hrs; also OK to continue TF but highest protein intake feasible w/ this and lowest free water flush feasible too. She has received 3% saline 50 ML and repeat chem panel pending; mag being repleted IV x three 100 mL D5W bags. ALso receiving IV con for imaging which revealed a L proximal femur fracture. CK elevated at 1220. Seen and evaluated at 1130 AM. Allergies Allergy/AdvReac Type Severity Reaction Status Date / Time ibuprofen AdvReac Tachycardia Verified 05/24/24 06:35 prednisone AdvReac Gastrointestinal Verified 05/24/24 06:35 Upset Home Medications Medication Instructions Recorded Confirmed Type Potassimin 99 mg PO DAILY 11/06/23 05/24/24 History allopurinol 100 mg tablet 100 mg PO DAILY 11/06/23 05/24/24 History folic acid 1 mg tablet 2 mg PO DAILY 11/06/23 05/24/24 History gabapentin 300 mg tablet 300 mg PO TID 11/06/23 05/24/24 History multivitamin 1 tab PO DAILY 11/06/23 05/24/24 History sulfasalazine 500 mg tablet 1 g PO BID 11/06/23 05/24/24 History ondansetron HCl 8 mg tablet 8 mg PO Q8H PRN restless legs 11/13/23 05/24/24 History acetaminophen 650 mg 650 mg PO Q8H PRN arthritis 05/05/24 05/24/24 History tablet,extended release (Arthritis Pain Relief (acetaminophen) ER) metoclopramide HCl 10 mg tablet 10 mg PO TID 05/24/24 05/24/24 History nutritional supplements See Rx Instructions .Route .COMPLEX 05/24/24 05/24/24 History Patient History Medical History Tobacco use disorder Raynaud phenomenon Osteoarthritis right hand Idiopathic chronic gout Surgical History H/O: hysterectomy History of carpal tunnel surgery Family History Brother Cancer Lung Other Coronary heart disease Heart disease Hypertension Myocardial infarction Social History Smoking Status: Current every day smoker Tobacco Type: Cigarettes Age Started Using Tobacco: 12; packs per day: 1; Second Hand Exposure: Yes; Do You Dip or Chew Tobacco: No; Hx Alcohol Use: No Hx Substance Use: No Preferred Language: Kyrgyz Communication Ability: Effective Facility Maintenance Worker Required: No Beliefs That Will Affect Care: None Current Living Situation: Spouse Current Living Situation Comment: at home with Other Information That Helps Us Care for You: No Feels Safe at Home: Yes Safety Concerns: Feels Safe At This Time Diet: other during the past year weight has: decreased > 10 lbs Assistive Devices: Cane, Glasses and Other Assistive Devices Comment: Tube Feed pump/supplies Review of Systems 2 Review of Systems: Unobtainable due to reduced consciousness Physical Exam 2 Constitutional: well developed (snoring loudly, wakens briefly), + cachectic, + lethargic and + malnourished; no acute distress Eyes: EOM intact bilaterally ENMT: Mouth: + dry oral mucous membranes Respiratory: normal respiratory effort Auscultation: + diminished lung sounds Cardiovascular: Rate/Rhythm: regular rate and regular rhythm Extremities: + edema (2+ BL pedal edema) Gastrointestinal (Abdomen): Inspection/Auscultation: normal bowel sounds, + scaphoid and + abdominal surgical scar (PEG present) Percussion/Palpation: a bdomen soft; abdomen nontender Musculoskeletal: Extremities: strength 5/5 throughout (cardenas) Skin: no rashes, warm and dry Neurologic: cardenas, no tremor, lethargic/difficult to arouse, speaks briefly but unintelligibly Results & Data Vital Signs (Past 12 Hours) Vital Signs Temp Pulse Pulse Resp BP BP Pulse Ox 05/24/24 08:09 99 H 20 98 05/24/24 07:30 96 H 20 148/82 H 97 05/24/24 07:00 94 H 19 126/73 95 05/24/24 06:30 98 H 18 139/80 95 05/24/24 06:03 103 H 17 148/91 H 95 05/24/24 05:43 88 L 05/24/24 05:42 95 H 19 138/74 94 05/24/24 05:40 95 H 18 138/74 96 05/24/24 05:03 93 H 18 134/81 92 05/24/24 04:42 88 14 137/82 92 05/24/24 04:42 95 H 16 137/82 92 05/24/24 04:42 87 05/24/24 04:35 95 05/24/24 04:35 37.1 C 95 H 16 178/97 H 95 O2 Del Method O2 Flow Rate 05/24/24 08:09 05/24/24 07:30 Nasal Cannula 3 05/24/24 07:00 Nasal Cannula 3 05/24/24 06:30 Nasal Cannula 3 05/24/24 06:03 05/24/24 05:43 Room Air 05/24/24 05:42 05/24/24 05:40 Nasal Cannula 2 05/24/24 05:03 05/24/24 04:42 05/24/24 04:42 Room Air 05/24/24 04:42 05/24/24 04:35 Room Air 05/24/24 04:35 Room Air Laboratory Results 05/24/24 04:37 05/24/24 09:48 urine osm 392 sOsm 223 s albumin 2.9 granular casts present on UA Diagnostic Findings CT a/p 1. Comminuted, displaced, non-articular fracture of the left proximal femur is noted, predominantly involving the intertrochanteric region. Cranial migration of the distal fracture fragment is noted. 2. Significant moe osseous, periarticular soft tissue edema is noted. Left thigh appear swollen as compared to that of the right side. 3. Mild scoliosis of the lumbar spine is noted with convexity on the left side. 4. Mild free fluid is noted in the abdomen and pelvic cavity. 5. Subcutaneous fat stranding and fluid is noted involving the abdominal wall, gluteal regions and proximal thigh on both sides. Head CT 1. No evidence of acute intracranial abnormality is demonstrated. 2. Chronic microvascular ischemic changes. 3. Cerebral atrophy. Chest CT w/ con 1. Solid subpleural nodule in the lingula as described above. This is a new finding. 2. Relatively unchanged multiple centriacinar and paraseptal emphysematous changes involving bilateral upper lobes is noted. 3. Cardiomegaly. This is a new finding. Neck CT w/o con no acute c spine frx
[2024-05-24 11:11] LABS: Folate (Folic Acid),Ser orPlas > 22.30 ng/ml (>5.38)
[2024-05-24 11:12] LABS: Vitamin B12 > 1500 pg/ml (180-914)
[2024-05-24 11:30] LABS: Urine Potassium 35.4 mmol/L
--- NOTE | 2024-05-24 12:32 | Critical Care Consultation ---
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 NEURO - * CAM ICU: POSITIVE * Altered mental status: * Likely representing metabolic encephalopathy in the setting of significant electrolyte derangements. * CT head unremarkable. Will add MRI of the brain to assess for possible metastatic lesions in the patient with lung mass, altered mental status, and frequent falls. * Would avoid sedating medications. MUSCULOSKELETAL - * LEFT proximal femur fracture. * Appreciate orthopedic input. * Will treat conservatively at this time. * Monitor for blood loss in a patient who is anemic at baseline. CARDIAC/VASCULAR - * Hypertension * Avoid antihypertensives at this time. * Monitor on telemetry. RESPIRATORY - * Hypoxia: * Requiring supplemental oxygen currently. * Titrate down to off as able. * History of tobacco abuse. GI/NUTRITION - * PEG tube in place. * Nutrition consulted for feeding. RENAL/LYTES - * Hyponatremia: * Significant hyponatremia with a value of 103. * Goal rate of rise 6 mmol/L over the next 24 hours to prevent ODS. * Goal sodium level 109 at 0437 (05/25/2024) * Appreciate nephrology guidance. * Rhabdomyolysis: * Likely traumatic in the setting of falls. * Will be difficult to manage with fluid restriction in the setting of hyponatremia. * Appreciate nephrology help with this as well. - * Kerr in place - Strict I&Os. ENDO - * No h/o DM or Thyroid Dz * BSGs per unit protocol. ISS --> gtt per unit policy. HEME - * Anemia: * Of questionable significance at this time. * Type and screen pending on admission ordered. * Will trend H&H. ID - * Currently receiving Rocephin per admission order. * Will order procalcitonin to assess possible infectious contribution. LINES/IV ACCESS - * PIVs x2 * Kerr catheter DVT PROPHYLAXIS - * Hold on chemoprophylaxis in the setting of anemia with recent trauma. * SCDs I have personally spent 45 minutes of critical care time in the direct management of this patient. This is a life/limb threatening event. This includes time spent evaluating patient, direct bedside care, chart review, placing orders, interpretation of diagnostic studies, discussion with consultants, patient, and family members, as well as other required patient management activities. This time is exclusive of all separately billable procedures, and teaching time and separate from and in addition to any other critical care service time. Thank you for allowing us to participate in the care of this patient. Please refer to my attending physician's documentation for any further recommendations. History of Present Illness Reason for Consultation: ICU admit, sodium 103 Requesting Physician: Christin Colón PA-C Attending Physician: Jose M Velásquez MD History of Present Illness Patient is a 58-year-old female with a significant past medical history of LEFT tonsillar squamous cell carcinoma, LEFT upper lobe squamous cell carcinoma who had recently completed chemotherapy and radiation therapy to the head neck. She had a biopsy performed in September of the LEFT upper lobe lesion and is scheduled to undergo SBRT to this area on Friday. Unfortunately, the patient is lost a substantial amount of weight with the radiation treatment secondary to mucositis and radiation-induced changes of the head and neck. She has a PEG tube in place which she receives majority of her feedings. Unfortunately, the patient has had increasing falls over the last few days. She fell on Friday in the [facility] parking lot. is present and reports that she has been somewhat confused and had memory issues over the last several weeks. She fell at approximately 3 AM getting out of bed. He is uncertain what she was attempted to do. She was evaluated and underwent multiple scans and was found to have a proximal LEFT- sided femur fracture. Additionally, the patient was noted to have an elevated CK likely secondary to falls and recent trauma. Of significance, her sodium was 103 for which she received an initial bolus of 50 mL of hypertonic saline. Allergies Allergy/AdvReac Type Severity Reaction Status Date / Time ibuprofen AdvReac Tachycardia Verified 05/24/24 06:35 prednisone AdvReac Gastrointestinal Verified 05/24/24 06:35 Upset Home Medications Medication Instructions Recorded Confirmed Type Potassimin 99 mg PO DAILY 11/06/23 05/24/24 History allopurinol 100 mg tablet 100 mg PO DAILY 11/06/23 05/24/24 History folic acid 1 mg tablet 2 mg PO DAILY 11/06/23 05/24/24 History gabapentin 300 mg tablet 300 mg PO TID 11/06/23 05/24/24 History multivitamin 1 tab PO DAILY 11/06/23 05/24/24 History sulfasalazine 500 mg tablet 1 g PO BID 11/06/23 05/24/24 History ondansetron HCl 8 mg tablet 8 mg PO Q8H PRN restless legs 11/13/23 05/24/24 History acetaminophen 650 mg 650 mg PO Q8H PRN arthritis 05/05/24 05/24/24 History tablet,extended release (Arthritis Pain Relief (acetaminophen) ER) metoclopramide HCl 10 mg tablet 10 mg PO TID 05/24/24 05/24/24 History nutritional supplements See Rx Instructions .Route .COMPLEX 05/24/24 05/24/24 History Patient History Medical History Tobacco use disorder Raynaud phenomenon Osteoarthritis right hand Idiopathic chronic gout Surgical History H/O: hysterectomy History of carpal tunnel surgery Family History Brother Cancer Lung Other Coronary heart disease Heart disease Hypertension Myocardial infarction Social History Smoking Status: Current every day smoker Tobacco Type: Cigarettes Age Started Using Tobacco: 12; packs per day: 1; Second Hand Exposure: Yes; Do You Dip or Chew Tobacco: No; Hx Alcohol Use: No Hx Substance Use: No Preferred Language: Azeri Communication Ability: Effective Case Finishing Machine Adjuster Required: No Beliefs That Will Affect Care: None Current Living Situation: Spouse Current Living Situation Comment: at home with Other Information That Helps Us Care for You: No Feels Safe at Home: Yes Safety Concerns: Feels Safe At This Time Diet: other during the past year weight has: decreased > 10 lbs Assistive Devices: Cane, Glasses and Other Assistive Devices Comment: Tube Feed pump/supplies Review of Systems Review of Systems: Unable to obtain secondary to mental status. Physical Exam Physical Exam: VITAL SIGNS Vital signs and nursing notes were reviewed. GENERAL 58-year-old female appearing her stated age who is in no acute distress. Somnolent and pleasantly confused. SKIN Without rashes or lesions. NOSE Midline and without cyanosis. MOUTH/OROPHARYNX Without perioral cyanosis. NECK Neck with FROM. LUNGS Chest wall evaluation demonstrates normal chest wall A:P diameter. Auscultation reveals normal breath sounds without wheeze. CARDIAC RRR with S1/S2. No murmur, rubs, or gallops appreciated. ABDOMEN Abdominal inspection demonstrates flat abdomen. BS normoactive all four quadrants. No tenderness, palpable masses, or ascites noted. EXTREMITIES Nail clubbing not present. No peripheral cyanosis. Moderate pretibial edema present. +3/5 radial palpated throughout. PSYCH pleasantly confused Results & Data Results & Data Vital Signs (Past 12 Hours) Vital Signs Temp Pulse Pulse Resp BP BP Pulse Ox 05/24/24 11:50 36.5 C 05/24/24 11:19 92 H 17 153/85 H 97 05/24/24 11:09 87 16 91 05/24/24 11:00 119/61 05/24/24 10:51 133/67 05/24/24 10:48 93 H 21 95 05/24/24 10:00 112/67 05/24/24 10:00 96 H 17 96 05/24/24 09:30 05/24/24 09:03 91 H 20 98 05/24/24 09:00 147/82 H 05/24/24 08:56 36.5 C 05/24/24 08:56 05/24/24 08:09 99 H 20 98 05/24/24 07:30 96 H 20 148/82 H 97 05/24/24 07:00 94 H 19 126/73 95 05/24/24 06:30 98 H 18 139/80 95 05/24/24 06:03 103 H 17 148/91 H 95 05/24/24 05:43 88 L 05/24/24 05:42 95 H 19 138/74 94 05/24/24 05:40 95 H 18 138/74 96 05/24/24 05:03 93 H 18 134/81 92 05/24/24 04:42 88 14 137/82 92 05/24/24 04:42 95 H 16 137/82 92 05/24/24 04:42 87 05/24/24 04:35 95 05/24/24 04:35 37.1 C 95 H 16 178/97 H 95 O2 Del Method O2 Flow Rate 05/24/24 11:50 05/24/24 11:19 Nasal Cannula 2 05/24/24 11:09 05/24/24 11:00 05/24/24 10:51 05/24/24 10:48 05/24/24 10:00 05/24/24 10:00 05/24/24 09:30 Nasal Cannula 2 05/24/24 09:03 05/24/24 09:00 05/24/24 08:56 05/24/24 08:56 Nasal Cannula 2 05/24/24 08:09 05/24/24 07:30 Nasal Cannula 3 05/24/24 07:00 Nasal Cannula 3 05/24/24 06:30 Nasal Cannula 3 05/24/24 06:03 05/24/24 05:43 Room Air 05/24/24 05:42 05/24/24 05:40 Nasal Cannula 2 05/24/24 05:03 05/24/24 04:42 05/24/24 04:42 Room Air 05/24/24 04:42 05/24/24 04:35 Room Air 05/24/24 04:35 Room Air Coding Level of Care Code 84177 CRITICAL CARE 1ST 30-74M Diagnoses Hyponatremia E87.1 Metabolic encephalopathy G93.41 Closed left hip fracture S72.002A Fall W19.XXXA Malignant neoplasm of upper lobe of left lung C34.12 Lung location: upper lobe of lung Squamous cell carcinoma of left tonsil C09.9 Metastasis to head and neck lymph node C77.0 Tobacco abuse Z72.0 (5) Cancer of left lung Lung location: upper lobe of lung Qualified Code(s): C34.12 - Malignant neoplasm of upper lobe, left bronchus or lung
[2024-05-24 13:02] LABS: BUN Creatinine Ratio 43.3 (10-20); Creatinine Clr Calc Pharmacy 148.1 ml/min; Potassium 3.9 mmol/L (3.5-5.1)
--- NOTE | 2024-05-24 14:02 | Electrocardiogram Report ---
Test Reason : Blood Pressure : */* mmHG Vent. Rate : 88 BPM Atrial Rate : 88 BPM P-R Int : 128 ms QRS Dur : 90 ms QT Int : 386 ms P-R-T Axes : 87 86 82 degrees QTcB Int : 467 ms Normal sinus rhythm Normal ECG When compared with ECG of 08-Dec-2019 00:09, T wave amplitude has increased in Inferior leads Confirmed by Jai Mata ([id number]) on 05/24/2024 2:01:55 PM Referred By: REFERRED SELF Confirmed By: Jai aMta
[2024-05-24 14:15] LABS: Hematocrit (blood only) 18.5 % (37.0-47.0)
[2024-05-24] MEDS: TUBE FEEDING WATER FLUSH GT SCH (14:19)
[2024-05-24] MEDS: NOVASOURCE RENAL 2.0 CAL 1000ML BAG GT SCH (14:19)
[2024-05-24 17:30] LABS: BUN Creatinine Ratio 37.5 (10-20); Creatinine Clr Calc Pharmacy 127.1 ml/min; Magnesium 2.1 mg/dl (1.7-2.4); Potassium 3.8 mmol/L (3.5-5.1)
--- NOTE | 2024-05-24 18:26 | XRay Report ---
INDICATION: Pain and injury. TECHNIQUE: 1 view the pelvis. 4 views of the left femur. COMPARISON: No relevant priors. FINDINGS: Impacted, comminuted/mildly angulated left intertrochanteric femur fracture. Remaining osseous structures intact. Negative for pelvic fracture. No dislocation. Mild bilateral hip joint space loss. No lytic or blastic bony lesions. No evidence of cortical erosion. Mild left hip soft tissue swelling. IMPRESSION: Impacted, comminuted/mildly angulated left intertrochanteric femur fracture. Electronically signed by Joseph Rojo 05-24-2024 6:25 PM
[2024-05-24] MEDS: MoRPHine SULFATE 2 MG/ML CARP IV PRN (19:43)
--- NOTE | 2024-05-24 19:45 | Magnetic Resonance Report ---
EXAM: MR brain wo/w con CLINICAL HISTORY: Per pt''s - AMS, multiple falls and hitting head recently, lt hip fx, tonsils and lt lung CA, currently undergoing treatment. Pt given 4.5ml gadavist @ 1828, LQO=188.99. TECHNIQUE: Different pulse sequences were performed in different planes for the brain without and with GD-DTPA injection. 4.5 mL of Gadavist was injected intravenously without complications. Images were sent through PACs for interpretation. COMPARISON: CT BRAIN, dated the same day. FINDINGS: No hyperacute or acute infarctions could be detected. Altered deep white matter signals are seen at the forceps minor, forceps major, periventricular, and centrum semiovale regions. These exhibit bright signals on T2 and FLAIR WI and intermediate signals on T1 WI. No appreciable enhancement after Gd-DTPA injection. Findings suggest consequences of small vessel disease, e.g., hypertensive and/or diabetic vasculopathy. Mild widening of the frontoparietal sulci and sylvian fissures, and basal cisterns. Findings Are consistent with a normal aging brain. Normal MRI appearance of the cerebellar parenchymal signals. Normal MRI appearance of the central mitchell matter aggregates. Normal size and configuration of the cerebral ventricles. Normal MRI appearance of different anatomical parts of the brain stem, namely the midbrain, roe, and medulla oblongata. Normal MRI appearance of the petrous temporal bones, brainstem, vestibule cochlear nerves, and cerebellopontine angles with no definite masses. No shift of midline structures. No intracerebral or extra-axial hematomas or masses. Normal MRI appearance of orbital structures, both globes, optic nerves, optic chiasm, optic tracts and optic radiations. Mucosal thickening is seen at the right posterior ethmoid sinuses. Other paranasal sinuses are clear. Hypertrophic inferior nasal turbinates. The bony nasal septum shows a deviation to the right side. Altered signals at the middle ear cavity and mastoid air cells suggest bilateral otomastoiditis. Cavum velum interpositum (Normal variant). IMPRESSION: 1. No hyperacute or acute infarctions. 2. No intracerebral or extra axial hematoma. 3. Altered deep white matter signals with anatomical distribution and imaging features consistent with the consequences of small vessel disease, e.g., hypertensive and/or diabetic vasculopathy. (Fazekas grade 1). 4. Normal aging brain. 5. No enhancing supra or infratentorial masses. 6. Cavum velum interpositum (Normal variant). 7. Imaging features suggesting bilateral otomastoiditis. Detailed clinical and CT correlation is recommended. 8. The comparison matches the CT findings. Electronically signed by Donna Nolasco 05-24-2024 7:44 PM
[2024-05-24] MEDS ORDERED: HEPARIN SOD 5,000 UNIT/0.5 ML VIAL SQ SCH (21:00)
[2024-05-24 21:40] LABS: BUN Creatinine Ratio 37.9 (10-20); Calcium 8.2 mg/dl (8.6-10.3); Creatinine Clr Calc Pharmacy 140.2 ml/min; Potassium 3.8 mmol/L (3.5-5.1)
[2024-05-24 21:52] LABS: Hemoglobin 8.5 g/dl (12.0-16.0); Mean Corpuscular Hemoglobin 33.3 pg (25.0-34.0); Mean Corpuscular Volume 90.2 fL (80.0-100.0); Mean Platelet Volume 9.9 fL (9.4-12.4); Platelet Count 156 K/uL (130-400); RDW Coefficient of Variation 13.8 % (11.5-14.5); RDW Standard Deviation 45.5 fL (36.4-46.3); White Blood Count 12.69 K/ul (4.8-10.8)
[2024-05-24 22:45] LABS: Basophils # (auto) 0.01 K/uL (0.00-0.20); Basophils % (auto) 0.1 %; Immature Granulocytes # (auto) 0.19 K/uL (0.01-0.20); Immature Granulocytes % (auto) 1.5 %; Lymphocytes # (auto) 0.19 K/uL (1.20-3.40); Lymphocytes % (auto) 1.5 %; Monocytes # (auto) 0.94 K/uL (0.11-0.59); Monocytes % (auto) 7.4 %; Neutrophils # (auto) 11.36 K/uL (1.40-6.50); Neutrophils % (auto) 89.5 %; Target Cells 1+
[2024-05-25 02:59] LABS: Albumin Globulin Ratio 1.1 (0.9-2); Albumin Level 2.8 gm/dl (3.4-5.0); BUN Creatinine Ratio 33.3 (10-20); Bilirubin,Total 0.7 mg/dl (0.2-1.0); Calcium 8.5 mg/dl (8.6-10.3); Creatinine Clr Calc Pharmacy 123.2 ml/min; Globulin 2.6 gm/dl (2.5-4.0); Potassium 3.7 mmol/L (3.5-5.1); Total Protein 5.4 gm/dl (6.0-8.3)
[2024-05-25 03:35] LABS: Basophils # (auto) 0.02 K/uL (0.00-0.20); Basophils % (auto) 0.2 %; Eosinophils # (auto) 0.04 K/uL (0.00-0.50); Eosinophils % (auto) 0.4 %; Hemoglobin 8.5 g/dl (12.0-16.0); Lymphocytes # (auto) 0.25 K/uL (1.20-3.40); Lymphocytes % (auto) 2.5 %; Mean Corpuscular Hemoglobin 34.5 pg (25.0-34.0); Mean Corpuscular Hgb Conc 37.7 g/dL (32.0-36.0); Mean Corpuscular Volume 91.4 fL (80.0-100.0); Mean Platelet Volume 10.1 fL (9.4-12.4); Monocytes # (auto) 0.65 K/uL (0.11-0.59); Monocytes % (auto) 6.5 %; Neutrophils # (auto) 8.83 K/uL (1.40-6.50); Neutrophils % (auto) 88.4 %; Platelet Count 143 K/uL (130-400); RBC Morphology Unremarkable; RDW Coefficient of Variation 14.6 % (11.5-14.5); RDW Standard Deviation 49.3 fL (36.4-46.3); White Blood Count 9.99 K/ul (4.8-10.8)
[2024-05-25] MEDS: DEXTROSE 5% 500 ML IV ONE ×2 (03:58→20:39)
[2024-05-25] MEDS: DEXTROSE 5% 300 ML IV ONE (04:18)
--- NOTE | 2024-05-25 07:54 | Communication Note ---
Date of Service: May 25, 2024 from an anesthesia standpoint, pt should ideally have a NA of 130 or greater for the OR. When pt is scheduled for the OR, we will evaluate them for anesthesia. Neuraxial anesthesia would be perfer. Current anticoagulation of 5000 units heparin SC q12hrs would have to be held 6 hours before a procedure.
[2024-05-25] MEDS: NICOTINE 14 MG/24 HR PATCH TD SCH (08:15)
[2024-05-25] MEDS: ADVANCED PROBIOTIC 625 MG CAPSULE PO SCH (08:17)
--- NOTE | 2024-05-25 09:26 | Critical Care Progress Note ---
Date of Service May 25, 2024 Assessment & Plan (1) Hyponatremia: (2) Metabolic encephalopathy: (3) Closed left hip fracture: (4) Fall: (5) Cancer of left lung: (6) Squamous cell carcinoma of left tonsil: (7) Metastasis to head and neck lymph node: (8) Tobacco abuse: Plan Reason Critically Ill: 58-year-old female with a significant past medical history of squamous cell carcinoma of the head and neck with current lesion to the LEFT upper lung field, failure to thrive, tobacco abuse, and findings of hyponatremia requiring close monitoring and correction of sodium level. NEURO - * CAM ICU: POSITIVE * Altered mental status: * Likely representing metabolic encephalopathy in the setting of significant electrolyte derangements. * CT head unremarkable. * MRI brain without acute findings otherwise. * Mental status continues to improve. Likely representing improvement of her baseline metabolic derangements. * Continue to avoid sedating medications. MUSCULOSKELETAL - * LEFT proximal femur fracture. * Appreciate orthopedic input. * Will treat conservatively at this time. * Monitor for blood loss in a patient who is anemic at baseline. CARDIAC/VASCULAR - * Hypertension: * Avoid antihypertensives at this time. * Monitor on telemetry. RESPIRATORY - * Hypoxia: * Requiring supplemental oxygen currently. * Titrate down to off as able. * History of tobacco abuse. GI/NUTRITION - * PEG tube in place. * Nutrition consulted for feeding. RENAL/LYTES - * Hyponatremia: * Significant hyponatremia with a value of 103. * Required D5W overnight for rapid rise. * Will continue to repeat labs and adjust treatments as needed. * Rhabdomyolysis: * Likely traumatic in the setting of falls. * Will be difficult to manage with fluid restriction in the setting of hyponatremia. * Appreciate nephrology help with this as well. - * Kerr in place - Strict I&Os. ENDO - * No h/o DM or Thyroid Dz * BSGs per unit protocol. ISS --> gtt per unit policy. HEME - * Anemia: * Received 1U PRBC yesterday (05/25). * H&H Stable at this time. ID - * Currently receiving Rocephin per admission order. * Ok to continue for now. LINES/IV ACCESS - * PIVs x2 * Kerr catheter DVT PROPHYLAXIS - * Hold on chemoprophylaxis in the setting of anemia with recent trauma. * SCDs Thank you for allowing us to participate in the care of this patient. Please refer to my attending physician's documentation for any further recommendations. Admission and Anticipated Discharge Date Admission Date: May 24, 2024 Subjective Patient seen and evaluated at bedside. She is mentating much better this morning. She complains of pain in her foot. Offers no other complaints. Review of Systems Review of Systems: Unable to obtain secondary to mental status. Physical Exam Physical Exam: VITAL SIGNS Vital signs and nursing notes were reviewed. GENERAL 58-year-old female appearing her stated age who is in no acute distress. SKIN Without rashes or lesions. NOSE Midline and without cyanosis. MOUTH/OROPHARYNX Without perioral cyanosis. NECK Neck with FROM. LUNGS Chest wall evaluation demonstrates normal chest wall A:P diameter. Auscultation reveals normal breath sounds without wheeze. CARDIAC RRR with S1/S2. No murmur, rubs, or gallops appreciated. ABDOMEN Abdominal inspection demonstrates flat abdomen. BS normoactive all four quadrants. No tenderness, palpable masses, or ascites noted. EXTREMITIES Nail clubbing not present. No peripheral cyanosis. Moderate pretibial edema present. +3/5 radial palpated throughout. PSYCH Mental status is improved. Results & Data Results & Data Vital Signs (Past 12 Hours) Vital Signs Temp Pulse Resp BP Pulse Ox O2 Del Method O2 Flow Rate 05/25/24 09:00 95/54 L 05/25/24 08:45 89 17 92 05/25/24 08:09 95 H 17 98 Nasal Cannula 2 05/25/24 08:00 Nasal Cannula 2 05/25/24 08:00 36.5 C 05/25/24 07:36 91 H 18 95 05/25/24 07:00 101/54 L 05/25/24 04:00 96/59 L 05/25/24 03:48 82 15 100 05/25/24 03:00 113/65 05/25/24 03:00 113/65 05/25/24 03:00 81 16 100 05/25/24 02:00 84 20 99 05/25/24 02:00 115/61 05/25/24 01:06 86 20 98 05/25/24 01:00 108/62 05/25/24 00:51 87 18 98 05/25/24 00:06 94 H 26 H 97 05/25/24 00:00 112/75 05/25/24 00:00 112/75 05/24/24 23:57 91 H 17 97 05/24/24 23:03 94 H 18 97 05/24/24 23:00 100/64 05/24/24 23:00 100/64 05/24/24 23:00 100/64 05/24/24 23:00 100/64 05/24/24 22:42 90 18 97 05/24/24 22:00 111/59 L 05/24/24 22:00 111/59 L 05/24/24 22:00 102 H 19 96 Coding Level of Care Code 42672 SUB INP/OBS CARE 2/35MIN Diagnoses Hyponatremia E87.1 Metabolic encephalopathy G93.41 Closed left hip fracture S72.002A Fall W19.XXXA Malignant neoplasm of upper lobe of left lung C34.12 Lung location: upper lobe of lung Squamous cell carcinoma of left tonsil C09.9 Metastasis to head and neck lymph node C77.0 Tobacco abuse Z72.0 (5) Cancer of left lung Lung location: upper lobe of lung Qualified Code(s): C34.12 - Malignant neoplasm of upper lobe, left bronchus or lung
--- NOTE | 2024-05-25 09:29 | Nephrology Progress Note ---
Date of Service May 25, 2024 Assessment & Plan (1) Hyponatremia: Plan: symptomatic and still critical hypotonic hypervolemic hyponatremia in patient with active malignancy (though not one expected to contribute to this condition) s/p platin-based therapy and w/ poor nutrition; she is at high risk for life threatening complications including osmotic demylelination syndrome given serum sodium 103 on presentation and malnutrition on 05/24 mat 0430. fortunately no EtOH, no hypokalemia though mild liver dysfunction noted. h/o chronic hyponatremia w/ sNa often high 120s. initial sNa corrected over 12 hrs w/ 150 mL total 3% saline -low threshold for TTE given edema and not severely diminished albumin > mild volume overload noted -will need to be optimized if any consideration for OR for femoral fracture > per anesthesia sNa > 130 needed -goal serum sodium is no more than 116 by tomorrow AM>>already past that and will give D5W (try to avoid DDAVP) 500 mL and repeat BMP stat after 2 hrs -monitor sodium, K q4-6 hrs -at risk for DENISE >> will monitor but still at risk another 24 hr >>needs eukalemia and will supplement >> ordered 40 mEq K elixir via PEG x 1 -cont strict I/O Care coordinated w/ ICU team repeatedly this AM re sodium target, K replenishment, use of D5W; we are in agreement. (2) Closed left hip fracture: Plan: await orthopedics input; in overall clinical context of her mutliple comorbidities, may not be a surgical candidate Admission and Anticipated Discharge Date Admission Date: May 24, 2024 Subjective 2.7L UOPast 24 hrs and overall 2.2 L neg on admission. Sodium corrected quickly and is as of 0900 117; pt has so far received 150 mL 3% and 800 mL D5W. soem pain in L leg swati L foot she states; no sob; admits she's still not thinking clearly; denies sob or N; c/o dry mouth Review of Systems 2 Review of Systems: All systems reviewed & are unremarkable except as noted in Subjective Physical Exam 2 Constitutional: well developed (awake asking how TV remote works), + cachectic, cooperative and + malnourished; no acute distress Eyes: EOM intact bilaterally ENMT: Mouth: + dry oral mucous membranes Respiratory: normal respiratory effort Auscultation: + diminished lung sounds Cardiovascular: Rate/Rhythm: regular rate and regular rhythm Extremities: + edema (trace - 1+ BL pedal edema) Gastrointestinal (Abdomen): Inspection/Auscultation: normal bowel sounds, + scaphoid and + abdominal surgical scar (PEG present) Percussion/Palpation: a bdomen soft; abdomen nontender Musculoskeletal: Extremities: strength 5/5 throughout (cardenas) Skin: no rashes, warm and dry Results & Data Vital Signs (Past 12 Hours) Vital Signs Temp Pulse Resp BP Pulse Ox O2 Del Method O2 Flow Rate 05/25/24 09:00 95/54 L 05/25/24 08:45 89 17 92 05/25/24 08:09 95 H 17 98 Nasal Cannula 2 05/25/24 08:00 Nasal Cannula 2 05/25/24 08:00 36.5 C 05/25/24 07:36 91 H 18 95 05/25/24 07:00 101/54 L 05/25/24 04:00 96/59 L 05/25/24 03:48 82 15 100 05/25/24 03:00 113/65 05/25/24 03:00 113/65 05/25/24 03:00 81 16 100 05/25/24 02:00 84 20 99 05/25/24 02:00 115/61 05/25/24 01:06 86 20 98 05/25/24 01:00 108/62 05/25/24 00:51 87 18 98 05/25/24 00:06 94 H 26 H 97 05/25/24 00:00 112/75 05/25/24 00:00 112/75 05/24/24 23:57 91 H 17 97 05/24/24 23:03 94 H 18 97 05/24/24 23:00 100/64 05/24/24 23:00 100/64 05/24/24 23:00 100/64 05/24/24 23:00 100/64 05/24/24 22:42 90 18 97 05/24/24 22:00 111/59 L 05/24/24 22:00 111/59 L 05/24/24 22:00 102 H 19 96 Laboratory Results 05/25/24 02:11 K 3.7 at 0200 Na 110 at 2100 > 113 at 0200 >> repeat level pending creat 0.3 at 0200 [id number]
[2024-05-25] MEDS: POTASSIUM CHLORIDE 20 MEQ/15 ML UDC PEG ONE (10:30)
[2024-05-25] MEDS: DEXTROSE 5% 1,000 ML IV SCH ×4 (10:31→20:22)
[2024-05-25] MEDS: SODIUM CHLORIDE 0.65% NA SOLN 45 ML (OCEAN) ONE (11:14)
--- NOTE | 2024-05-25 13:27 | Orthopedic Consultation ---
Date of Service May 25, 2024 Assessment & Plan (1) Closed left hip fracture: Surgery was cancelled today due to severe hyponatremia. Discussed diagnosis and treatment with patient and her family and they wish to proceed with surgical fixation of the fracture when medically stable. We will plan on trochanteric nailing of the left hip/femur. Once again, this has been cancelled today but will tentatively put her on OR schedule tomorrow. Will continue to follow. History of Present Illness Reason for Consultation: . Requesting Physician: . Attending Physician: Jose M Velásquez MD .58 year old patient, with h/o rheumatoid arthritis, squamous cell carcinoma of the tonsil, with metastatic disease to the head/neck/lung, hyponatremia and metabolic encephalopathy, admitted with a left hip fx. She reports several falls recently. Complains of left hip pain. Allergies Allergy/AdvReac Type Severity Reaction Status Date / Time ibuprofen AdvReac Tachycardia Verified 05/24/24 06:35 prednisone AdvReac Gastrointestinal Verified 05/24/24 06:35 Upset Home Medications Medication Instructions Recorded Confirmed Type Potassimin 99 mg PO DAILY 11/06/23 05/24/24 History allopurinol 100 mg tablet 100 mg PO DAILY 11/06/23 05/24/24 History folic acid 1 mg tablet 2 mg PO DAILY 11/06/23 05/24/24 History gabapentin 300 mg tablet 300 mg PO TID 11/06/23 05/24/24 History multivitamin 1 tab PO DAILY 11/06/23 05/24/24 History sulfasalazine 500 mg tablet 1 g PO BID 11/06/23 05/24/24 History ondansetron HCl 8 mg tablet 8 mg PO Q8H PRN restless legs 11/13/23 05/24/24 History acetaminophen 650 mg 650 mg PO Q8H PRN arthritis 05/05/24 05/24/24 History tablet,extended release (Arthritis Pain Relief (acetaminophen) ER) metoclopramide HCl 10 mg tablet 10 mg PO TID 05/24/24 05/24/24 History nutritional supplements See Rx Instructions .Route .COMPLEX 05/24/24 05/24/24 History Past Med/Surg History Problem List Hyponatremia SIRS (systemic inflammatory response syndrome) Metabolic encephalopathy Closed left hip fracture (Acute) Fall (Acute) Acute hyponatremia (Acute) Cancer of left lung (Chronic) 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 Lung nodule 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) Community acquired pneumonia Atypical chest pain (Acute) Hypertension (Acute) Tobacco abuse (Acute) Medical History Tobacco use disorder Raynaud phenomenon Osteoarthritis right hand Idiopathic chronic gout Surgical History H/O: hysterectomy History of carpal tunnel surgery Family History Brother Cancer Lung Other Coronary heart disease Heart disease Hypertension Myocardial infarction Social History Smoking Status: Current every day smoker Tobacco Type: Cigarettes Age Started Using Tobacco: 12; packs per day: 1; Second Hand Exposure: Yes; Do You Dip or Chew Tobacco: No; Hx Alcohol Use: No Hx Substance Use: No Preferred Language: Nicaraguan Communication Ability: Effective Aids Nurse Required: No Beliefs That Will Affect Care: None Current Living Situation: Spouse Current Living Situation Comment: at home with Other Information That Helps Us Care for You: No Feels Safe at Home: Yes Safety Concerns: Feels Safe At This Time Diet: other during the past year weight has: decreased > 10 lbs Assistive Devices: Other Assistive Devices Comment: Tube Feed pump/supplies Review of Systems All systems reviewed & are unremarkable except as noted in HPI & below. Physical Exam .alert, NAD Left leg: shortened and externally rotated. Able to move toes appropriately, can DF/PF. Sensation intact to touch, brisk refill. Results & Data Results & Data Laboratory Results . Diagnostic Findings . xrays show a displaced comminuted left intertroch fx PG Care Time/CCT Total # of Minutes Spent Total Time Spent with Patient: Total time spent is greater than 50% in coordination of care (as documented) at patient's floor/unit and/or counseling patient: Coding Level of Care Code 32886 IN/OBS CONSULT LVL 4,60M Diagnoses Closed left hip fracture S72.002A
--- NOTE | 2024-05-25 13:38 | Communication Note ---
Date of Service: May 25, 2024 f/u sNa after 500 mL D5W for sNa 117 is 118; K 3.7 >give 1.5L D5W over 3 hrs or as fast as tolerate and K 60 mEq PET >repeat bmp 1 hr after completing IVF >text this w/ results orders in; team updated
[2024-05-25] MEDS: POTASSIUM CHLORIDE 20 MEQ/15 ML UDC PO ONE (13:55)
--- NOTE | 2024-05-25 15:41 | Hospitalist Progress Note ---
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 At presentation, patient able to answer questions appropriately with some issues with recalling events, could not corroborate her history with her at he was not aware of many things then currently going on with her. She reports hitting back of her head, reports her legs giving out, denies loss o f consciousness/dizziness/nausea/warmth/chest pain/palpitation prior to fall. Patient also denied any blood in stool or black stool prior to arrival. Patient reported some burning while passing urine since 2 days ago DROP WIRE ALINER. She is being managed for the following: Admitting Imagings: C-spine CT/CT head with no acute findings. CT chest with solid subpleural nodule in the lingula, new finding. Cardiomegaly, new finding. CT abdomen pelvis: Comminuted, displaced, nonarticular fracture of the left proximal femur. CT left femur: Intertrochanteric left femoral fracture. No discrete large intramuscular hematoma. Acute on chronic hyponatremia Acute metabolic encephalopathy: Likely secondary to above. At admission - UA negative for UTI. Nasal MRSA screen negative. Respiratory pathogen panel negative. Mentation improving. Patient denies any nausea/vomiting/acute headache. Baseline sodium of 1 25-1 30 since November Admitting sodium of 103, urine osmolality 392, serum osmolality 223. Status post hypertonic saline in the ED. Sodium up to 118 today, patient getting D5W with a plan to repeat sodium level Patient currently being managed in ICU Nephrology on board, appreciate recommendations. Acute proximal left femur fracture status post fall Admitting CTAP with comminuted, displaced nonarticular fracture of left proximal femur involving trochanteric region. Orthopedics consulted Bedrest and pain management for now. Currently not medically stable for surgical intervention. Will follow orthopedics recommendations. Acute traumatic rhabdomyolysis: CPK elevated at presentation, status post IV fluid, improved. Hypomagnesemia: Magnesium of 1.4 at presentation, monitor replete. Severe malnutrition: In the setting of previous malignancy, patient on tube feed diet. Continue with IV thiamine and IV folic acid, p.o. multivitamin. Nutrition consult. Continue with PEG tube feeding. Concern for UTI: Patient with pain and burning while passing urine since 2 days ago DROP WIRE ALINER. Follow-up urine and blood culture. Continue with Rocephin 05/24. Acute on chronic anemia: Baseline hemoglobin seems around 10 as per outpatient chart review, hemoglobin at presentation 7.5, await FOBT, acute anemia likely s econdary to blood loss in the setting of femur fracture. Iron profile WNL, vitamin B12 and folate level WNL. Patient denies any blood or black stool. PPI twice daily until FOBT rules out GI. H&H trend improving. Demand ischemia: Troponin elevated but flat trended, patient without chest pain, echo with EF of 65 to 70%, left ventricular systolic function normal, no reg ional wall motion abnormalities. Other chronic medical conditions: Continue with/resume home meds as and when able. L tonsillar SCC/L lung mass SCC: s/p chemo/XRT. recent PET CT shows improvement in L tonsillar mass/adenopathy but enlargement to L lung mass. Pt to undergo SBRT. following nutrition for PEG tube/feeding management Hx of RA: on sulfasalazine, hold during acute illness. COPD: no acute exac Tobacco abuse: nicotine patch, encourage cessation DVT ppx: SCDS for now, until L femur eval for hematoma, add chemical ppx as soon as able as pt is high risk given malignancy and now fx FULL CODE PCP: None, pt previously followed [facility], needs to re establish Dispo: pt critically ill, being managed in ICU. Admission and Anticipated Discharge Date Admission Date: May 24, 2024 Subjective Patient was seen and examined at bedside. Patient was lying in bed, on room air, more alert today than yesterday. Patient reports pain at left hip, denies cough or sore throat or chest pain. Physical Exam Physical Exam: GENERAL: more alert and awake today, on RA. Appears very sick/ill/frail/weak/cachectic. HEENT: + pallor, no icterus. Pupils equal, round and reactive to light. Oral mucosa dry. NECK: No JVD, no neck masses. HEART: S1 and S2 heard. Regular rate and rhythm. No murmur, no gallop. RESPIRATORY SYSTEM: Normal AP diameter. No accessory muscle use. No wheezing, no crackles. decreased breath sounds 2/2 poor effort. ABDOMEN: Soft, bowel sounds present, nontender, no distention. PEG tube in situ noted, no s/s infection at port of entry. CENTRAL NERVOUS SYSTEM: No facial droop. Speech is clear. Obeys simple commands. Moves extremities. EXTREMITIES: 2+ ble edema. LLE shortened and externally rotated. Results & Data Results & Data Vital Signs (Past 12 Hours) Vital Signs Temp Pulse Resp BP Pulse Ox O2 Del Method O2 Flow Rate 05/25/24 14:09 90 16 110/61 95 Room Air 05/25/24 13:00 96 H 16 94 05/25/24 13:00 95/56 L 05/25/24 12:03 99 H 16 97 05/25/24 12:00 36.6 C 05/25/24 12:00 92/51 L 05/25/24 11:54 95 H 15 95 05/25/24 11:00 111/60 05/25/24 10:57 88 21 100 05/25/24 10:00 85/50 L 05/25/24 10:00 88 12 98 05/25/24 09:00 95/54 L 05/25/24 08:45 89 17 92 05/25/24 08:09 95 H 17 98 Nasal Cannula 2 05/25/24 08:00 Nasal Cannula 2 05/25/24 08:00 36.5 C 05/25/24 07:36 91 H 18 95 05/25/24 07:00 101/54 L 05/25/24 04:00 96/59 L 05/25/24 03:48 82 15 100
[2024-05-25 19:11] LABS: BUN Creatinine Ratio 33.3 (10-20); Calcium 8.7 mg/dl (8.6-10.3); Creatinine Clr Calc Pharmacy 133.3 ml/min; Potassium 5.3 mmol/L (3.5-5.1)
--- NOTE | 2024-05-25 21:43 | Anesthesiology Consultation ---
Date of Service May 25, 2024 Assessment & Plan (1) Encounter for pre-operative examination: Chart Review Chart Review: Pending: Refer to Additional Notes / Consult section and Patient NOT seen in Pre Admission Testing Will need to assess NA on DOS to ensure she is appropriate for surgery/anesthesia. Consults Requested none History Surgery Operation Date: 05/26/24 07:00 Proposed Procedures p Left Troch Nail - Angel Kwok MD Height/Weight Height: 5 ft 3 in Weight: 41.3 kg Allergies Allergy/AdvReac Type Severity Reaction Status Date / Time ibuprofen AdvReac Tachycardia Verified 05/24/24 06:35 prednisone AdvReac Gastrointestinal Verified 05/24/24 06:35 Upset Medications Home Medications Medication Instructions Recorded Confirmed Last Taken Potassimin 99 mg PO DAILY 11/06/23 05/24/24 Unknown allopurinol 100 mg tablet 100 mg PO DAILY 11/06/23 05/24/24 Unknown folic acid 1 mg tablet 2 mg PO DAILY 11/06/23 05/24/24 Unknown gabapentin 300 mg tablet 300 mg PO TID 11/06/23 05/24/24 Unknown multivitamin 1 tab PO DAILY 11/06/23 05/24/24 Unknown sulfasalazine 500 mg tablet 1 g PO BID 11/06/23 05/24/24 Unknown ondansetron HCl 8 mg tablet 8 mg PO Q8H PRN restless legs 11/13/23 05/24/24 Unknown acetaminophen 650 mg 650 mg PO Q8H PRN arthritis 05/05/24 05/24/24 Unknown tablet,extended release (Arthritis Pain Relief (acetaminophen) ER) metoclopramide HCl 10 mg tablet 10 mg PO TID 05/24/24 05/24/24 Unknown nutritional supplements See Rx Instructions .Route .COMPLEX 05/24/24 05/24/24 Unknown Active Medications Generic Name Dose Route Start Last Admin Trade Name Freq PRN Reason Stop Dose Admin Enteral Nutritional Formula 1,000 ml 05/24/24 13:45 05/24/24 14:19 Novasource Renal 2.0 Gurmeet 1000ml Bag GT 06/23/24 13:44 1,000 ml UD FABY Administration Protocol Folic Acid 1 mg/ Syringe 10 mls @ 5 mls/min 05/24/24 09:30 05/25/24 08:15 IV 06/23/24 09:29 5 mls/min QAM FABY Administration Thiamine HCl 100 mg/ Syringe 10 mls @ 2 mls/min 05/24/24 09:00 05/25/24 08:15 IV 06/23/24 08:59 2 mls/min QAM FABY Administration Ceftriaxone Sodium 1,000 mg in 50 mls @ 100 mls/hr 05/24/24 10:00 05/25/24 11:13 Rocephin IV 05/26/24 09:59 Infused Q24H FABY Infusion Pantoprazole Sodium 40 mg in 10 mls @ 5 mls/min 05/24/24 10:15 05/25/24 20:22 Protonix IV 06/23/24 10:14 5 mls/min BID FABY Administration Dextrose 1,000 mls @ 400 mls/hr 05/25/24 20:00 05/25/24 20:22 D5w IV 05/26/24 00:59 400 mls/hr .Q2H30M FABY Administration Lactobacillus Acidophilus 1,250 mg 05/25/24 09:00 05/25/24 10:30 Advanced Probiotic 625 Mg Capsule PO 06/24/24 08:59 1,250 mg DAILY FABY Administration Miscellaneous 1 each 05/24/24 11:30 05/25/24 13:48 Icu Protocol For Hyperglycemia N/A 05/26/24 11:29 Not Given ACHS FABY Miscellaneous 1 each 05/25/24 08:59 05/25/24 08:16 Remove Nicoderm Patch N/A 06/24/24 08:58 1 each DAILY@0859 FABY Administration Morphine Sulfate 2 mg 05/24/24 19:28 05/25/24 17:46 Morphine Sulfate 2 Mg/Ml Carp IV 06/07/24 19:27 2 mg Q4H PRN Administration Pain Nicotine 1 patch 05/25/24 09:00 05/25/24 08:15 Nicotine 14 Mg/24 Hr Patch TD 06/24/24 08:59 1 patch QAM FABY Administration Sterile Water 30 ml 05/24/24 13:45 05/25/24 13:53 Tube Feeding Water Flush GT 06/23/24 13:44 30 ml Q6H FABY Administration Past Medical History Medical History (Updated 05/25/24 @ 21:42 by Lucio Espinosa MD) Encounter for pre-operative examination Anemia required 1 unit pRBC on 05/25/24 Hyponatremia SIRS (systemic inflammatory response syndrome) Metabolic encephalopathy Cancer of left lung 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 Lung nodule Metastasis to head and neck lymph node Hypertension Tobacco use disorder Raynaud phenomenon Osteoarthritis right hand Idiopathic chronic gout * Rhabdomyolysis: * Likely traumatic in the setting of falls. 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, left lung mass biopsy confirmed squamous cell carcinoma who completed combined chemotherapy [weekly cisplatin] and radiation treatment, currently with PEG tube for nutrition presented to the hospital after sustaining recurrent falls x 3 [employer] Past Family History Family History Brother Cancer Lung Other Coronary heart disease Heart disease Hypertension Myocardial infarction Past Surgical History Surgical History H/O: hysterectomy History of carpal tunnel surgery Social History Smoking Status: Current every day smoker tobacco type: cigarettes Do You Dip or Chew Tobacco: No Hx Alcohol Use: No Hx Substance Use: No substance use type: does not use Physical Exam Vital Signs Last Vital Signs Temp 36.5 C 05/25/24 18:00 Pulse 95 H 05/25/24 18:00 Resp 19 05/25/24 18:00 BP 110/57 L 05/25/24 18:00 Pulse Ox 92 05/25/24 18:00 O2 Del Method Room Air 05/25/24 18:00 O2 Flow Rate 2 05/25/24 08:09 Testing Laboratory Results 05/25/24 02:11 05/25/24 18:38 PT 12.3 Seconds (9.0-12.0) H 05/24/24 04:37 INR 1.1 (0.9-1.1) 05/24/24 04:37 APTT 30 Seconds (21-31) 05/24/24 04:37 Urine Color Yellow 05/24/24 04:37 Urine Appearance Clear (Clear) 05/24/24 04:37 Urine pH 6.5 (4.5-7.5) 05/24/24 04:37 Ur Specific [place] 1.015 (1.000-1.030) 05/24/24 04:37 Urine Protein 1+ (Negative) H 05/24/24 04:37 Urine Glucose (UA) Negative (Negative) 05/24/24 04:37 Urine Ketones 1+ (Negative) H 05/24/24 04:37 Urine Nitrite Negative (Negative) 05/24/24 04:37 Ur Leukocyte Esterase Negative (Negative) 05/24/24 04:37 Urine WBC (Auto) 0-5 /hpf (0-5) 05/24/24 04:37 Urine RBC (Auto) 6-10 /hpf (0-2) H 05/24/24 04:37 U Hyaline Cast (Auto) 3-5 /lpf (0-2) H 05/24/24 04:37 U Epithel Cells (Auto) 0-2 /hpf (0-2) 05/24/24 04:37 Urine Bacteria (Auto) None Seen (None Seen) 05/24/24 04:37 Blood Type AB Positive 05/24/24 09:48 Antibody Screen NEGATIVE 05/24/24 09:48 05/24/24 12:05 Urine Culture - Preliminary Urine,Straight Cath No growth - Less than 1,000 colonies/mL, Final report to follow. 05/24/24 09:48 Aerobic Blood Culture - Preliminary Blood No growth in Aerobic bottle after 24 hours. Anaerobic Blood Culture - Preliminary No growth in Anaerobic bottle after 24 hours. 05/24/24 10:04 Aerobic Blood Culture - Preliminary Blood No growth in Aerobic bottle after 24 hours. Anaerobic Blood Culture - Preliminary No growth in Anaerobic bottle after 24 hours. 05/25/24 10:37 POC Glucose 178 H Electrocardiogram Date: 05/24/24 NSR. Normal ECG. HR 88. Echocardiogram Date: 05/24/24 LV systolic function is normal. EF 65-70% RV systolic function is normal. Trivial loculated anterior and apical pericardial effusion. No tamponade. Other Testing Chest CT 05/24/24: IMPRESSION: 1. Solid subpleural nodule in the lingula as described above. This is a new finding. 2. Relatively unchanged multiple centriacinar and paraseptal emphysematous changes involving bilateral upper lobes is noted. 3. Cardiomegaly. This is a new finding.
[2024-05-26 02:19] LABS: Basophils # (auto) 0.02 K/uL (0.00-0.20); Basophils % (auto) 0.2 %; Eosinophils # (auto) 0.01 K/uL (0.00-0.50); Eosinophils % (auto) 0.1 %; Hematocrit (blood only) 24.4 % (37.0-47.0); Hemoglobin 8.8 g/dl (12.0-16.0); Immature Granulocytes # (auto) 0.45 K/uL (0.01-0.20); Immature Granulocytes % (auto) 4.7 %; Lymphocytes % (auto) 4.2 %; Mean Corpuscular Hemoglobin 34.4 pg (25.0-34.0); Mean Corpuscular Hgb Conc 36.1 g/dL (32.0-36.0); Mean Corpuscular Volume 95.3 fL (80.0-100.0); Mean Platelet Volume 9.7 fL (9.4-12.4); Monocytes # (auto) 0.91 K/uL (0.11-0.59); Monocytes % (auto) 9.5 %; Neutrophils # (auto) 7.76 K/uL (1.40-6.50); Neutrophils % (auto) 81.3 %; Platelet Count 144 K/uL (130-400); RDW Coefficient of Variation 15.3 % (11.5-14.5); RDW Standard Deviation 53.9 fL (36.4-46.3); Red Blood Count 2.56 M/uL (4.20-5.40); White Blood Count 9.55 K/ul (4.8-10.8)
[2024-05-26 02:48] LABS: Calcium 8.4 mg/dl (8.6-10.3); Creatinine Clr Calc Pharmacy 133.3 ml/min; Magnesium 1.6 mg/dl (1.7-2.4); Phosphorus 1.9 mg/dl (2.5-4.9)
[2024-05-26] MEDS: DEXTROSE 5% 500 ML IV SCH (03:32)
[2024-05-26] MEDS: MAGNESIUM SULFATE / D5W 1 GM/100 ML BAG IV SCH (06:26)
--- NOTE | 2024-05-26 07:26 | Orthopedic Progress Note ---
Date of Service May 26, 2024 Assessment & Plan (1) Closed left hip fracture: Patient wishes to proceed with surgical fixation of her hip fx. Awaiting decision on timing. Her sodium is [address] Will discuss with Dr Sundar Gamble .58 year old patient with left hip fx. Having some pain, but also pain in her foot. Review of Systems All systems reviewed & are unremarkable except as noted in HPI & below. Physical Exam .alert, NAD Left leg: shortened and externally rotated. Brisk refill. Results & Data Results & Data Laboratory Results . Diagnostic Findings . PG Care Time/CCT Total # of Minutes Spent Total Time Spent with Patient: Total time spent is greater than 50% in coordination of care (as documented) at patient's floor/unit and/or counseling patient: Coding Level of Care Code 33620 Post Operative Follow-Up Diagnoses Closed left hip fracture S72.002A
[2024-05-26 09:44] LABS: BUN Creatinine Ratio 39.1 (10-20); Calcium 8.5 mg/dl (8.6-10.3); Creatinine Clr Calc Pharmacy 185.2 ml/min; Potassium 4.3 mmol/L (3.5-5.1)
--- NOTE | 2024-05-26 10:13 | Nephrology Progress Note ---
Date of Service May 26, 2024 Assessment & Plan (1) Hyponatremia: Plan: complex, symptomatic and still critical hypotonic hypervolemic hyponatremia in patient with active malignancy (though not one expected to contribute to this condition) s/p platin-based therapy and w/ poor nutrition; she is at high risk for life threatening complications from hyponatremia overcorrection including osmotic demylelination syndrome given serum sodium 103 on presentation on 05/24 at 0430 and malnutrition. she is correcting too fast and we need to lower sodium today toward 116-117 in AM, no more than 119 for tomorrow. not responding to aggressive D5W and needs desmopressin to limit free water excretion fortunately no EtOH. h/o chronic hyponatremia w/ sNa often high 120s. initial sNa corrected appropriately over 12 hrs w/ 150 mL total 3% saline. since then correcting too fast despite efforts to slow it -will need to be optimized for surgical tx for femoral fracture > per anesthesia sNa > 130 needed -goal serum sodium is no more than 119 by tomorrow AM>>already way past that >give desmopressin 0.25 mcg IV x 1 >[employer] to calculate total UOP 3 hr period before and 3 hr period after desmo dose and update MD >liberalize FW flushes 30 > 100 mL q4h -will give 2 L D5W as bolus >continue neuro checks q 2-4 hours -monitor sodium, K q4-6 hrs > draw next BMP 1 hr after above complete >>needs eukalemia > for now no supplement -cont strict I/O >pls continue ICU level of care for today Care coordinated w/ Lyn Real, [employer]TAIN this AM re sodium target, use of desmopressin & D5W, ICU status; we are in agreement. (2) Closed left hip fracture: Plan: for L hip/femur trochanteric nail when optimized medically (sNa >130) >>>sodium should not be correcting more than 6 mEq daily (and if correcting faster than this needs to actually be lowered) so this optimization may take several days; likely not able to proceed w/ OR before 05/28 or 05/31 Admission and Anticipated Discharge Date Admission Date: May 24, 2024 Subjective no sob, no edema, no N/V; thirsty > asking for ice chips; no issues w/ TF and they are at goal; for mag repletion today 3 bags; pain controlled w/ minimal morphine. was supposed to start XRT today for lung mass Review of Systems 2 Review of Systems: All systems reviewed & are unremarkable except as noted in Subjective Physical Exam 2 Constitutional: well developed (asking what Na has to be to do srg and how long to get there), + cachectic, cooperative and + malnourished; no acute distress Eyes: EOM intact bilaterally ENMT: Mouth: + dry oral mucous membranes Respiratory: normal respiratory effort (on RA) Auscultation: + diminished lung sounds Cardiovascular: Rate/Rhythm: regular rhythm and + tachycardic Extremities: no edema Gastrointestinal (Abdomen): Inspection/Auscultation: normal bowel sounds, + scaphoid and + abdominal surgical scar (PEG present) Percussion/Palpation: a bdomen soft; abdomen nontender Musculoskeletal: Extremities: strength 5/5 throughout (cardenas) Skin: no rashes, warm and dry Psychiatric: Orientation: alert and oriented x 3 Results & Data Vital Signs (Past 12 Hours) Vital Signs Pulse Resp BP Pulse Ox 05/26/24 06:32 99/64 L 05/26/24 06:32 99/64 L 05/26/24 06:32 99/64 L 05/26/24 06:30 104 H 20 92 05/26/24 06:03 96 H 16 94 05/26/24 06:00 95/60 L 05/26/24 05:51 96 H 24 94 05/26/24 05:06 92 H 21 94 05/26/24 04:00 113/61 05/26/24 04:00 95 H 15 94 05/26/24 03:00 106/57 L 05/26/24 03:00 106/57 L 05/26/24 03:00 95 H 19 94 05/26/24 02:03 99 H 16 91 05/26/24 02:00 102/57 L 05/26/24 02:00 102/57 L 05/26/24 01:57 99 H 21 94 05/26/24 01:06 93 H 18 92 05/26/24 01:00 98/63 L 05/26/24 00:57 97 H 18 91 05/26/24 00:15 97 H 23 92 05/26/24 00:00 115/67 05/26/24 00:00 115/67 05/26/24 00:00 99 H 05/25/24 23:57 94 H 17 93 05/25/24 23:00 112/69 05/25/24 23:00 112/69 05/25/24 23:00 112/69 05/25/24 23:00 88 20 91 05/25/24 22:18 95 H 19 92 05/25/24 22:16 94/58 L 05/25/24 22:16 94/58 L Laboratory Results 05/26/24 01:52 05/26/24 09:05 Diagnostic Findings TTE unremarkable > trivial effusion; EF & biV fnxn wnl
--- NOTE | 2024-05-26 10:25 | Critical Care Progress Note ---
Date of Service May 26, 2024 Assessment & Plan (1) Hyponatremia: (2) Metabolic encephalopathy: (3) Closed left hip fracture: (4) Fall: (5) Cancer of left lung: (6) Squamous cell carcinoma of left tonsil: (7) Metastasis to head and neck lymph node: (8) Tobacco abuse: Plan Reason Critically Ill: 58-year-old female with a significant past medical history of squamous cell carcinoma of the head and neck with current lesion to the LEFT upper lung field, failure to thrive, tobacco abuse, and findings of hyponatremia requiring close monitoring and correction of sodium level. NEURO - * CAM ICU: POSITIVE * Altered mental status: * Likely representing metabolic encephalopathy in the setting of significant electrolyte derangements. * CT head unremarkable. * MRI brain without acute findings otherwise. * Mental status continues to improve. Likely representing improvement of her baseline metabolic derangements. * Continue to avoid sedating medications. MUSCULOSKELETAL - * LEFT proximal femur fracture. * Appreciate orthopedic input. * Will treat conservatively at this time. * Monitor for blood loss in a patient who is anemic at baseline. CARDIAC/VASCULAR - * Hypertension: * Avoid antihypertensives at this time. * Monitor on telemetry. RESPIRATORY - * Hypoxia: * Intermittent. * Titrate down to off as able. * History of tobacco abuse. GI/NUTRITION - * PEG tube in place. * Nutrition consulted for feeding. * Continue PPI RENAL/LYTES - * Hyponatremia: * Significant hyponatremia with a value of 103. * Patient with continued fluctuating sodium levels. Will keep in ICU for today appreciate nephrology input. * Rhabdomyolysis: * Likely traumatic in the setting of falls. * Resolved - * Kerr in place - Strict I&Os. ENDO - * No h/o DM or Thyroid Dz * BSGs per unit protocol. ISS --> gtt per unit policy. HEME - * Anemia: * Received 1U PRBC (05/25). * H&H Stable at this time. ID -presumptive sepsis on admission, but this is largely been ruled out. Patient afebrile without leukocytosis. Antibiotics discontinued. LINES/IV ACCESS - * PIVs x2 * Kerr catheter DVT PROPHYLAXIS - * Hold on chemoprophylaxis in the setting of anemia with recent trauma. * SCDs Admission and Anticipated Discharge Date Admission Date: May 24, 2024 Subjective Mentation is waxing waning. Alert and oriented x 2. No significant complaints otherwise. Review of Systems Review of Systems: Unobtainable due to cognitive status Physical Exam Physical Exam: VITAL SIGNS Vital signs and nursing notes were reviewed. GENERAL 58-year-old female appearing her stated age who is in no acute distress. SKIN Without rashes or lesions. NOSE Midline and without cyanosis. MOUTH/OROPHARYNX Without perioral cyanosis. NECK Neck with FROM. LUNGS Chest wall evaluation demonstrates normal chest wall A:P diameter. Auscultation reveals normal breath sounds without wheeze. CARDIAC RRR with S1/S2. No murmur, rubs, or gallops appreciated. ABDOMEN Abdominal inspection demonstrates flat abdomen. BS normoactive all four quadrants. No tenderness, palpable masses, or ascites noted. EXTREMITIES Nail clubbing not present. No peripheral cyanosis. Moderate pretibial edema present. +3/5 radial palpated throughout. PSYCH Mental status is improved. Results & Data Results & Data Vital Signs (Past 12 Hours) Vital Signs Pulse Resp BP Pulse Ox O2 Del Method 05/26/24 08:00 Room Air 05/26/24 06:32 99/64 L 05/26/24 06:32 99/64 L 05/26/24 06:32 99/64 L 05/26/24 06:30 104 H 20 92 05/26/24 06:03 96 H 16 94 05/26/24 06:00 95/60 L 05/26/24 05:51 96 H 24 94 05/26/24 05:06 92 H 21 94 05/26/24 04:00 113/61 05/26/24 04:00 95 H 15 94 05/26/24 03:00 106/57 L 05/26/24 03:00 106/57 L 05/26/24 03:00 95 H 19 94 05/26/24 02:03 99 H 16 91 05/26/24 02:00 102/57 L 05/26/24 02:00 102/57 L 05/26/24 01:57 99 H 21 94 05/26/24 01:06 93 H 18 92 05/26/24 01:00 98/63 L 05/26/24 00:57 97 H 18 91 05/26/24 00:15 97 H 23 92 05/26/24 00:00 115/67 05/26/24 00:00 115/67 05/26/24 00:00 99 H 05/25/24 23:57 94 H 17 93 05/25/24 23:00 112/69 05/25/24 23:00 112/05/25/24 23:00 11205/25/24 23:00 88 20 91 Coding Level of Care Code 47874 SUB INP/OBS CARE 2/35MIN Diagnoses Hyponatremia E87.1 Metabolic encephalopathy G93.41 Closed left hip fracture S72.002A Fall W19.XXXA Malignant neoplasm of upper lobe of left lung C34.12 Lung location: upper lobe of lung Squamous cell carcinoma of left tonsil C09.9 Metastasis to head and neck lymph node C77.0 Tobacco abuse Z72.0 (5) Cancer of left lung Lung location: upper lobe of lung Qualified Code(s): C34.12 - Malignant neoplasm of upper lobe, left bronchus or lung
[2024-05-26] MEDS: TUBE FEEDING WATER FLUSH GT SCH ×2 (10:34→15:26)
[2024-05-26] MEDS ORDERED: DEXTROSE 5% 1,000 ML IV STA (10:36)
--- NOTE | 2024-05-26 10:47 | Communication Note ---
Date of Service: May 26, 2024 contacted by pharmacy > unable to draw up 0.25 mcg desmopressin > smallest could draw is 0.4 mcg so dose changed to that; will adjust D5W to 1L over 1 hr instead of 2L; timing of repeat bmp need to be adjusted as well (RN contacted on this)
[2024-05-26] MEDS: DESMOPRESSIN ACETATE IV ONE (11:05)
[2024-05-26] MEDS: SODIUM CHLORIDE 0.9% IV ONE (11:05)
[2024-05-26] MEDS: DEXTROSE 5% 1,000 ML IV SCH (11:10)
[2024-05-26] MEDS ORDERED: LIDOCAINE 2% 2 ML VIAL/AMP(20MG/ML) INFIL ONE (13:22)
[2024-05-26] MEDS ORDERED: ROCURONIUM BROMIDE 10 MG/ML 5 ML VIAL IV ONE (13:22)
[2024-05-26] MEDS ORDERED: DEXAMETHASONE SOD INJ 4 MG/ML VIAL ONE (13:22)
[2024-05-26] MEDS ORDERED: ONDANSETRON INJ 2 MG/ML 2 ML VIAL ONE (13:22)
[2024-05-26] MEDS ORDERED: PROPOFOL IV EMULSION 10 MG/ML 20 ML VIAL IV ONE (13:22)
[2024-05-26] MEDS ORDERED: fentaNYL citrate PF 100 MCG/2 ML VIAL ONE (13:23)
[2024-05-26] MEDS ORDERED: MIDAZOLAM HCL 1 MG/ML 2ML VIAL ONE (13:23)
[2024-05-26 13:27] LABS: BUN Creatinine Ratio 28.1 (10-20); Calcium 8.4 mg/dl (8.6-10.3); Creatinine Clr Calc Pharmacy 133.1 ml/min; Potassium 3.7 mmol/L (3.5-5.1)
--- NOTE | 2024-05-26 14:42 | Communication Note ---
Date of Service: May 26, 2024 f/u on 1300 labs >> 120 sNa and K 3.7 -no further desmopressin or D5W at this time -repeat BMP in 2 h ordered (1500) >> CORNICE UPHOLSTERER to TText me w/ results >>>pls cut back FW flushes to 50 mL q 4h -cont strict I/O and neuro checks AGAIN d/t high risk of ODM and other overcorrection complications, target sNa for tomorrow am is 119; do not anticipate her having OR-safe sNa >130 before 12/6 or later. Coordinated care w/ ortho road mender and CORNICE UPHOLSTERER.
--- NOTE | 2024-05-26 14:42 | Hospitalist Progress Note ---
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 At presentation, patient able to answer questions appropriately with some issues with recalling events, could not corroborate her history with her at he was not aware of many things then currently going on with her. She reports hitting back of her head, reports her legs giving out, denies loss o f consciousness/dizziness/nausea/warmth/chest pain/palpitation prior to fall. Patient also denied any blood in stool or black stool prior to arrival. 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 She is being managed for the following: Admitting Imagings: C-spine CT/CT head with no acute findings. CT chest with solid subpleural nodule in the lingula, new finding. Cardiomegaly, new finding. CT abdomen pelvis: Comminuted, displaced, nonarticular fracture of the left proximal femur. CT left femur: Intertrochanteric left femoral fracture. No discrete large intramuscular hematoma. Acute on chronic hyponatremia Acute metabolic encephalopathy: Likely secondary to above. At admission - UA negative for UTI. Nasal MRSA screen negative. Respiratory pathogen panel negative. Mentation improving. Patient denies any nausea/vomiting/acute headache. Baseline sodium of 1 25-1 30 since November Admitting sodium of 103, urine osmolality 392, serum osmolality 223. Status post hypertonic saline in the ED. Sodium up to 119 today, patient getting D5W and desmopressin with a plan to repeat sodium level Patient currently being managed in ICU Nephrology on board, appreciate recommendations. Acute proximal left femur fracture status post fall Admitting CTAP with comminuted, displaced nonarticular fracture of left proximal femur involving trochanteric region. Orthopedics consulted Bedrest and pain management for now. Currently not medically stable for surgical intervention. Will follow orthopedics recommendations. Acute traumatic rhabdomyolysis: CPK elevated at presentation, status post IV fluid, improved. Hypomagnesemia: Magnesium of 1.4 at presentation, monitor replete. Severe malnutrition: In the setting of previous malignancy, patient on tube feed diet. Continue with IV thiamine and IV folic acid, p.o. multivitamin. Nutrition consult. Continue with PEG tube feeding. 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 Follow-up urine and blood culture. Continue with Rocephin 05/24. Acute on chronic anemia: Baseline hemoglobin seems around 10 as per outpatient chart review, hemoglobin at presentation 7.5, s/p 1 U prbc on 05/24, await FOBT, acute anemia likely secondary to blood loss in the setting of femur fracture. Iron profile WNL, vitamin B12 and folate level WNL. Patient denies any blood or black stool. PPI daily. H&H trend stable. Demand ischemia: Troponin elevated but flat trended, patient without chest pain, echo with EF of 65 to 70%, left ventricular systolic function normal, no regional wall motion abnormalities. Other chronic medical conditions: Continue with/resume home meds as and when able. L tonsillar SCC/L lung mass SCC: s/p chemo/XRT. recent PET CT shows improvement in L tonsillar mass/adenopathy but enlargement to L lung mass. Pt to undergo SBRT. following nutrition for PEG tube/feeding management Hx of RA: on sulfasalazine, hold during acute illness. COPD: no acute exac Tobacco abuse: nicotine patch, encourage cessation DVT ppx: SCDS for now, until L femur eval for hematoma, add chemical ppx as soon as able as pt is high risk given malignancy and now fx FULL CODE PCP: None, pt previously followed [facility], needs to re establish Dispo: pt critically ill, being managed in ICU. Admission and Anticipated Discharge Date Admission Date: May 24, 2024 Subjective Patient was seen and examined at bedside. Patient was lying in bed, on room air, alert and awake. Patient reports pain at left hip, denies cough or sore throat or chest pain. Pt denies new headache. Mentation seems resolved. Physical Exam Physical Exam: GENERAL: Alert and awake today, on RA. Appears very sick/ill/frail/weak/cachectic. HEENT: + pallor, no icterus. Pupils equal, round and reactive to light. Oral mucosa dry. NECK: No JVD, no neck masses. HEART: S1 and S2 heard. Regular rate and rhythm. No murmur, no gallop. RESPIRATORY SYSTEM: Normal AP diameter. No accessory muscle use. No wheezing, no crackles. decreased breath sounds 2/2 poor effort. ABDOMEN: Soft, bowel sounds present, nontender, no distention. PEG tube in situ noted, no s/s infection at port of entry. CENTRAL NERVOUS SYSTEM: No facial droop. Speech is clear. Obeys simple commands. Moves extremities. EXTREMITIES: No edema. LLE shortened and externally rotated. Results & Data Results & Data Vital Signs (Past 12 Hours) Vital Signs Temp Pulse Pulse Resp BP BP Pulse Ox 05/26/24 13:51 37 C 101 H 16 110/74 97 05/26/24 12:00 36.8 C 05/26/24 10:30 98 H 21 100 05/26/24 10:06 101 H 16 96 05/26/24 10:00 95/62 L 05/26/24 09:36 97 H 15 97 05/26/24 09:33 98 H 21 98 05/26/24 09:27 95 H 22 98 05/26/24 08:30 102 H 21 100 05/26/24 08:09 104/73 05/26/24 08:03 93 H 14 94 05/26/24 08:00 96 H 15 95 05/26/24 08:00 78/59 L 05/26/24 08:00 78/59 L 05/26/24 08:00 05/26/24 07:30 98 H 15 95 05/26/24 07:00 97 H 14 95 05/26/24 07:00 97/63 L 05/26/24 06:36 100 H 15 94 05/26/24 06:32 99/64 L 05/26/24 06:32 99/64 L 05/26/24 06:32 99/64 L 05/26/24 06:30 104 H 20 92 05/26/24 06:03 96 H 16 94 05/26/24 06:00 95/60 L 05/26/24 05:51 96 H 24 94 05/26/24 05:06 92 H 21 94 05/26/24 04:00 113/61 05/26/24 04:00 95 H 15 94 05/26/24 03:00 106/57 L 05/26/24 03:00 106/57 L 05/26/24 03:00 95 H 19 94 O2 Del Method 05/26/24 13:51 Room Air 05/26/24 12:00 05/26/24 10:30 05/26/24 10:06 05/26/24 10:00 05/26/24 09:36 05/26/24 09:33 05/26/24 09:27 05/26/24 08:30 05/26/24 08:09 05/26/24 08:03 05/26/24 08:00 05/26/24 08:00 05/26/24 08:00 05/26/24 08:00 Room Air 05/26/24 07:30 05/26/24 07:00 05/26/24 07:00 05/26/24 06:36 05/26/24 06:32 05/26/24 06:32 05/26/24 06:32 05/26/24 06:30 05/26/24 06:03 05/26/24 06:00 05/26/24 05:51 05/26/24 05:06 05/26/24 04:00 05/26/24 04:00 05/26/24 03:00 05/26/24 03:00 05/26/24 03:00
[2024-05-26] MEDS ORDERED: Nursing to Pharmacy Communication SCH (14:45)
[2024-05-26 15:48] LABS: BUN Creatinine Ratio 43.5 (10-20); Calcium 7.9 mg/dl (8.6-10.3); Creatinine Clr Calc Pharmacy 185.2 ml/min; Potassium 4.3 mmol/L (3.5-5.1)
--- NOTE | 2024-05-26 15:56 | Communication Note ---
Date of Service: May 26, 2024 f/u labs 1500 > sNa 117; K 4.3 > lasix 10 mg IV x 1 now >repeat BMP 2100 and review w/ ICU provider
[2024-05-26] MEDS: FUROSEMIDE INJ 20 MG/2 ML VIAL IV ONE (16:48)
[2024-05-26 21:59] LABS: BUN Creatinine Ratio 44.8 (10-20); Calcium 8.6 mg/dl (8.6-10.3); Creatinine Clr Calc Pharmacy 146.9 ml/min
[2024-05-27 04:23] LABS: Hematocrit (blood only) 27.5 % (37.0-47.0); Hemoglobin 9.9 g/dl (12.0-16.0); Mean Corpuscular Hemoglobin 34.3 pg (25.0-34.0); Mean Corpuscular Volume 95.2 fL (80.0-100.0); Mean Platelet Volume 9.6 fL (9.4-12.4); Platelet Count 157 K/uL (130-400); RDW Coefficient of Variation 14.6 % (11.5-14.5); Red Blood Count 2.89 M/uL (4.20-5.40); White Blood Count 9.46 K/ul (4.8-10.8)
[2024-05-27 04:58] LABS: BUN Creatinine Ratio 41.4 (10-20); Calcium 8.7 mg/dl (8.6-10.3); Creatinine Clr Calc Pharmacy 146.9 ml/min; Magnesium 1.8 mg/dl (1.7-2.4); Phosphorus 2.7 mg/dl (2.5-4.9)
[2024-05-27 05:03] LABS: Basophils # (auto) 0.03 K/uL (0.00-0.20); Basophils % (auto) 0.3 %; Eosinophils # (auto) 0.01 K/uL (0.00-0.50); Eosinophils % (auto) 0.1 %; Immature Granulocytes # (auto) 0.65 K/uL (0.01-0.20); Immature Granulocytes % (auto) 6.9 %; Lymphocytes # (auto) 0.25 K/uL (1.20-3.40); Lymphocytes % (auto) 2.6 %; Monocytes # (auto) 0.59 K/uL (0.11-0.59); Monocytes % (auto) 6.2 %; Neutrophils # (auto) 7.93 K/uL (1.40-6.50); Neutrophils % (auto) 83.9 %; RBC Morphology Unremarkable
[2024-05-27] MEDS: FOLIC ACID 1 MG TAB PEG SCH (07:49)
[2024-05-27] MEDS: LANSOPRAZOLE 30 MG SOLTAB PEG SCH (07:49)
[2024-05-27] MEDS: THIAMINE HCL 100 MG TAB PEG SCH (07:50)
--- NOTE | 2024-05-27 09:56 | Nephrology Progress Note ---
Date of Service May 27, 2024 Assessment & Plan (1) Hyponatremia: Plan: complex, symptomatic and still critical hypotonic hypervolemic hyponatremia in patient with active malignancy (though not one expected to contribute to this condition) s/p platin-based therapy and w/ poor nutrition; she is at high risk for life threatening complications from hyponatremia overcorrection including osmotic demyelination syndrome given serum sodium 103 on presentation on 05/24 at 0430 and malnutrition. she corrected at appropriate rate 05/24-05/25, then too quickly 05/25-05/26; on 05/26 we lowered sNa to more appropriate high teens range w/ desmopressin. Target for this was conservative at 116-117, no more than 119 >> she was at this target as of 399 this AM. last sNa 121; K maintained at 4. >> target sNa for AM is no more than 125; again, remains at high risk for complications from overcorrection fortunately no EtOH. h/o chronic hyponatremia w/ sNa often high 120s. initial sNa corrected appropriately over 12 hrs w/ 150 mL total 3% saline. since then correcting too fast despite efforts to slow it -will need to be optimized for surgical tx for femoral fracture > per anesthesia sNa > 130 needed; ? if it makes a difference to anesthesia that her OP sodium has run 124-129 consistently as an outpatient from November 2023-March 2024 and have reached out to anesthesia > now for OR today -goal serum sodium is no more than 125 by tomorrow AM>> on track to blow past that and may need another desmo dose to limit FW excretion > await post operative BMP and assess >> based on sNa 124 and K 4 on 1699 labs will give D5W 1 L and increase FW flushes; repeat BMP 2100 >> appreciate FRONT CLERK communication > orders placed and updated RN ; >increase FW flushes back to 150 mL q4h >continue neuro checks q 2-4 hours -monitor sodium, K q4-6 hrs >>needs eukalemia > for now no supplement -cont strict I/O >pls continue ICU level of care for today as she needs frequent labs, neuro checks, I/O assessments post op plan -1L D5W -upped FWF to 150 mL q 4h -repeat bmp 2100 -keep K 4.0; use lasix 10 mg IV to up sNa; use desmopressin same dose as yesterday if Na >126 at 2100; bolus another 2 L D5W if sNa 123-125 Care coordinated w/ Idania Farmer FRONT CLERK this AM re sodium target, use of desmopressin & D5W, ICU status; we are in agreement. I reviewed her chart and electrolyte status multiple times through the day, respondede to labs, conferred w/ providers, adjusted therapy. Total time spent 70 minutes (2) Closed left hip fracture: Plan: for L hip/femur trochanteric nail when optimized medically (sNa >130) >>>sodium should not be correcting more than 6 mEq daily (and if correcting faster than this needs to actually be lowered) so this optimization may take several days; likely not able to proceed w/ OR before 05/29 or 05/31 Admission and Anticipated Discharge Date Admission Date: May 24, 2024 Subjective seen on am rounds and d/w anesthesia, ICU team > for OR this PM. no sob, had just had pain meds at my eval so some challenges w/ hx but denied N or edema or uncontrolled pain. ongoing severe thirst Review of Systems 2 Review of Systems: All systems reviewed & are unremarkable except as noted in Subjective Physical Exam 2 Constitutional: well developed (less insihtful toda), + cachectic, cooperative, + lethargic and + malnourished; no acute distress Eyes: EOM intact bilaterally ENMT: Mouth: + dry oral mucous membranes Respiratory: normal respiratory effort (on RA) Auscultation: + diminished lung sounds Cardiovascular: Rate/Rhythm: regular rate, regular rhythm and + tachycardic Extremities: no edema Gastrointestinal (Abdomen): Inspection/Auscultation: normal bowel sounds, + scaphoid and + abdominal surgical scar (PEG present) Percussion/Palpation: a bdomen soft; abdomen nontender Musculoskeletal: Extremities: strength 5/5 throughout (cardenas) Skin: no rashes, warm and dry Psychiatric: Orientation: alert and oriented x 3 Results & Data Vital Signs (Past 12 Hours) Vital Signs Temp Pulse Pulse Resp BP BP Pulse Ox 05/27/24 08:00 05/27/24 08:00 36.7 C 105 H 24 113/61 95 05/27/24 06:24 102 H 26 H 94/66 L 90 05/27/24 05:00 107 H 23 93 12/05/24 05:00 143/82 H 05/27/24 04:06 107 H 17 93 05/27/24 04:00 121/69 05/27/24 04:00 121/69 05/27/24 03:54 106 H 20 93 05/27/24 03:06 103 H 22 95 05/27/24 03:00 102/71 05/27/24 03:00 102/71 05/27/24 02:51 98 H 18 98 05/27/24 02:00 93/69 L 05/27/24 02:00 102 H 18 95 05/27/24 01:00 103 H 14 94 05/27/24 01:00 130/72 05/27/24 01:00 130/72 05/27/24 01:00 130/72 05/27/24 00:06 111 H 18 98 05/27/24 00:00 107/74 05/27/24 00:00 105 H 05/26/24 23:27 108 H 18 96 05/26/24 23:15 110 H 20 97 05/26/24 23:00 125/85 05/26/24 23:00 125/85 05/26/24 22:57 110 H 21 91 05/26/24 22:06 100 H 16 99 05/26/24 22:00 109/73 O2 Del Method 05/27/24 08:00 Room Air 05/27/24 08:00 Room Air 05/27/24 06:24 05/27/24 05:00 05/27/24 05:00 05/27/24 04:06 05/27/24 04:00 05/27/24 04:00 05/27/24 03:54 05/27/24 03:06 05/27/24 03:00 05/27/24 03:00 05/27/24 02:51 05/27/24 02:00 05/27/24 02:00 05/27/24 01:00 05/27/24 01:00 05/27/24 01:00 05/27/24 01:00 05/27/24 00:06 05/27/24 00:00 05/27/24 00:00 05/26/24 23:27 05/26/24 23:15 05/26/24 23:00 05/26/24 23:00 05/26/24 22:57 05/26/24 22:06 05/26/24 22:00 Laboratory Results 05/27/24 03:39 05/27/24 09:07 K 4.0 at 0400 and 2100 Diagnostic Findings none new
[2024-05-27 12:03] LABS: BUN Creatinine Ratio 33.3 (10-20); Calcium 8.6 mg/dl (8.6-10.3); Creatinine Clr Calc Pharmacy 147.5 ml/min; Potassium 4.1 mmol/L (3.5-5.1)
--- NOTE | 2024-05-27 12:12 | Critical Care Progress Note ---
Date of Service May 27, 2024 Assessment & Plan (1) Hyponatremia: (2) Metabolic encephalopathy: (3) Closed left hip fracture: (4) Fall: (5) Cancer of left lung: (6) Squamous cell carcinoma of left tonsil: (7) Metastasis to head and neck lymph node: (8) Tobacco abuse: Plan Reason Critically Ill: 58-year-old female with a significant past medical history of squamous cell carcinoma of the head and neck with current lesion to the LEFT upper lung field, failure to thrive, tobacco abuse, and findings of hyponatremia requiring close monitoring and correction of sodium level. NEURO - * CAM ICU: POSITIVE * Altered mental status: * Likely representing metabolic encephalopathy in the setting of significant electrolyte derangements. Improving. * CT head unremarkable. * MRI brain without acute findings otherwise. * Continue to avoid sedating medications. MUSCULOSKELETAL - * LEFT proximal femur fracture. * Appreciate orthopedic input. * Will treat conservatively at this time. * Monitor for blood loss in a patient who is anemic at baseline. CARDIAC/VASCULAR - * Hypertension: * Avoid antihypertensives at this time. * Monitor on telemetry. RESPIRATORY - * Hypoxia: * Intermittent. * Titrate down to off as able. * History of tobacco abuse. GI/NUTRITION - * PEG tube in place. * Nutrition consulted for feeding. * Continue PPI RENAL/LYTES - * Hyponatremia: * Significant hyponatremia with a value of 103. * Patient with continued fluctuating sodium levels. Continue ICU care. Greatly appreciate very thorough nephrology input. Discussed with Dr. Rodriguez today. * Rhabdomyolysis: * Likely traumatic in the setting of falls. * Resolved - * Kerr in place - Strict I&Os. ENDO - * No h/o DM or Thyroid Dz * BSGs per unit protocol. ISS --> gtt per unit policy. HEME - * Anemia: * Received 1U PRBC (05/25). * H&H Stable at this time. ID -presumptive sepsis on admission, but this is largely been ruled out. Patient afebrile without leukocytosis. Antibiotics discontinued. LINES/IV ACCESS - * PIVs x2 * Kerr catheter DVT PROPHYLAXIS - * Hold on chemoprophylaxis in the setting of anemia with recent trauma. * SCDs Admission and Anticipated Discharge Date Admission Date: May 24, 2024 Subjective No major complaints today. Still with hip pain and leg pain. Awaiting surgery. Review of Systems Review of Systems: Unable to obtain secondary to mental status. Physical Exam Physical Exam: VITAL SIGNS Vital signs and nursing notes were reviewed. GENERAL 58-year-old female appearing her stated age who is in no acute distress. SKIN Without rashes or lesions. NOSE Midline and without cyanosis. MOUTH/OROPHARYNX Without perioral cyanosis. NECK Neck with FROM. LUNGS Chest wall evaluation demonstrates normal chest wall A:P diameter. Auscultation reveals normal breath sounds without wheeze. CARDIAC RRR with S1/S2. No murmur, rubs, or gallops appreciated. ABDOMEN Abdominal inspection demonstrates flat abdomen. BS normoactive all four quadrants. No tenderness, palpable masses, or ascites noted. EXTREMITIES Nail clubbing not present. No peripheral cyanosis. Moderate pretibial edema present. +3/5 radial palpated throughout. PSYCH Mental status is improved. Results & Data Results & Data Vital Signs (Past 12 Hours) Vital Signs Temp Pulse Pulse Resp BP BP Pulse Ox 05/27/24 08:00 05/27/24 08:00 36.7 C 105 H 24 113/61 95 05/27/24 06:24 102 H 26 H 94/66 L 90 05/27/24 05:00 107 H 23 93 05/27/24 05:00 143/82 H 05/27/24 04:06 107 H 17 93 05/27/24 04:00 121/69 05/27/24 04:00 121/69 05/27/24 03:54 106 H 20 93 05/27/24 03:06 103 H 22 95 05/27/24 03:00 102/71 05/27/24 03:00 102/71 05/27/24 02:51 98 H 18 98 05/27/24 02:00 93/69 L 05/27/24 02:00 102 H 18 95 05/27/24 01:00 103 H 14 94 05/27/24 01:00 130/72 05/27/24 01:00 130/72 05/27/24 01:00 130/72 O2 Del Method 05/27/24 08:00 Room Air 05/27/24 08:00 Room Air 05/27/24 06:24 05/27/24 05:00 05/27/24 05:00 05/27/24 04:06 05/27/24 04:00 05/27/24 04:00 05/27/24 03:54 05/27/24 03:06 05/27/24 03:00 05/27/24 03:00 05/27/24 02:51 05/27/24 02:00 05/27/24 02:00 05/27/24 01:00 05/27/24 01:00 05/27/24 01:00 05/27/24 01:00 Coding Level of Care Code 87795 SUB INP/OBS CARE 2/35MIN Diagnoses Hyponatremia E87.1 Metabolic encephalopathy G93.41 Closed left hip fracture S72.002A Fall W19.XXXA Malignant neoplasm of upper lobe of left lung C34.12 Lung location: upper lobe of lung Squamous cell carcinoma of left tonsil C09.9 Metastasis to head and neck lymph node C77.0 Tobacco abuse Z72.0 (5) Cancer of left lung Lung location: upper lobe of lung Qualified Code(s): C34.12 - Malignant neoplasm of upper lobe, left bronchus or lung
[2024-05-27] MEDS ORDERED: LIDOCAINE 2% 2 ML VIAL/AMP(20MG/ML) INFIL ONE ×2 (13:22→13:26)
[2024-05-27] MEDS ORDERED: fentaNYL citrate PF 100 MCG/2 ML VIAL ONE (13:22)
[2024-05-27] MEDS ORDERED: DEXAMETHASONE SOD INJ 4 MG/ML VIAL ONE ×2 (13:22→15:58)
[2024-05-27] MEDS ORDERED: PROPOFOL IV EMULSION 10 MG/ML 20 ML VIAL IV ONE (13:22)
[2024-05-27] MEDS ORDERED: MIDAZOLAM HCL 1 MG/ML 2ML VIAL ONE (13:22)
[2024-05-27] MEDS ORDERED: ONDANSETRON INJ 2 MG/ML 2 ML VIAL ONE ×2 (13:22→15:58)
--- NOTE | 2024-05-27 13:22 | Hospitalist Progress Note ---
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 At presentation, patient able to answer questions appropriately with some issues with recalling events, could not corroborate her history with her at he was not aware of many things then currently going on with her. She reports hitting back of her head, reports her legs giving out, denies loss o f consciousness/dizziness/nausea/warmth/chest pain/palpitation prior to fall. Patient also denied any blood in stool or black stool prior to arrival. 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 She is being managed for the following: Admitting Imagings: C-spine CT/CT head with no acute findings. CT chest with solid subpleural nodule in the lingula, new finding. Cardiomegaly, new finding. CT abdomen pelvis: Comminuted, displaced, nonarticular fracture of the left proximal femur. CT left femur: Intertrochanteric left femoral fracture. No discrete large intramuscular hematoma. Acute on chronic hyponatremia Acute metabolic encephalopathy: Likely secondary to above. At admission - UA negative for UTI. Nasal MRSA screen negative. Respiratory pathogen panel negative. Mentation improving. Patient denies any nausea/vomiting/acute headache. Baseline sodium of 1 25-1 30 since November Admitting sodium of 103, urine osmolality 392, serum osmolality 223. Status post hypertonic saline in the ED. s/p desmopressin 12/4 Sodium up to 121 today, patient being managed per nephro Patient currently being managed in ICU Nephrology on board, appreciate recommendations. Acute proximal left femur fracture status post fall Admitting CTAP with comminuted, displaced nonarticular fracture of left proximal femur involving trochanteric region. Orthopedics consulted Bedrest and pain management for now. Currently not medically stable for surgical intervention. Will follow orthopedics recommendations. Acute traumatic rhabdomyolysis: CPK elevated at presentation, status post IV fluid, improved. Hypomagnesemia: Magnesium of 1.4 at presentation, monitor replete. Severe malnutrition: In the setting of underlying malignancy, patient on tube feed diet. Continue with IV thiamine and IV folic acid, p.o. multivitamin. Nutrition consult. Continue with PEG tube feeding. 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 UTI ruled out, justine holguin'prosper. Bl Cx no Growth so far. Acute on chronic anemia: Baseline hemoglobin seems around 10 as per outpatient chart review, hemoglobin at presentation 7.5, s/p 1 U prbc on 05/24, await FOBT, acute anemia likely secondary to blood loss in the setting of femur fracture. Iron profile WNL, vitamin B12 and folate level WNL. Patient denies any blood or black stool. PPI daily. H&H trend stable. Demand ischemia: Troponin elevated but flat trended, patient without chest pain, echo with EF of 65 to 70%, left ventricular systolic function normal, no regional wall motion abnormalities. Other chronic medical conditions: Continue with/resume home meds as and when able. L tonsillar SCC/L lung mass SCC: s/p chemo/XRT. recent PET CT shows improvement in L tonsillar mass/adenopathy but enlargement to L lung mass. Pt to undergo SBRT. following nutrition for PEG tube/feeding management Hx of RA: on sulfasalazine, hold during acute illness. COPD: no acute exac Tobacco abuse: nicotine patch, encourage cessation DVT ppx: SCDS for now, add chemical ppx as soon as able as pt is high risk given malignancy and now fx FULL CODE PCP: None, pt previously followed [facility], needs to re establish Dispo: pt critically ill, being managed in ICU. Admission and Anticipated Discharge Date Admission Date: May 24, 2024 Subjective Patient was seen and examined at bedside. Patient was lying in bed, on room air, alert and awake. Patient reports pain at left hip, denies cough or sore throat or chest pain. Pt denies new headache. Mentation remains resolved. No new complaints. Physical Exam Physical Exam: GENERAL: Alert and awake today, on RA. Appears very sick/ill/frail/weak/cachectic. HEENT: + pallor, no icterus. Pupils equal, round and reactive to light. Oral mucosa dry. NECK: No JVD, no neck masses. HEART: S1 and S2 heard. Regular rate and rhythm. No murmur, no gallop. RESPIRATORY SYSTEM: Normal AP diameter. No accessory muscle use. No wheezing, no crackles. decreased breath sounds 2/2 poor effort. ABDOMEN: Soft, bowel sounds present, nontender, no distention. PEG tube in situ noted, no s/s infection at port of entry. CENTRAL NERVOUS SYSTEM: No facial droop. Speech is clear. Obeys simple commands. Moves extremities. EXTREMITIES: No edema. LLE shortened and externally rotated. Results & Data Results & Data Vital Signs (Past 12 Hours) Vital Signs Temp Pulse Pulse Resp BP BP Pulse Ox 05/27/24 08:00 05/27/24 08:00 36.7 C 105 H 24 113/61 95 05/27/24 06:24 102 H 26 H 94/66 L 90 05/27/24 05:00 107 H 23 93 05/27/24 05:00 143/82 H 05/27/24 04:06 107 H 17 93 05/27/24 04:00 121/69 05/27/24 04:00 121/69 05/27/24 03:54 106 H 20 93 05/27/24 03:06 103 H 22 95 05/27/24 03:00 102/71 05/27/24 03:00 102/71 05/27/24 02:51 98 H 18 98 05/27/24 02:00 93/69 L 05/27/24 02:00 102 H 18 95 O2 Del Method 05/27/24 08:00 Room Air 05/27/24 08:00 Room Air 05/27/24 06:24 05/27/24 05:00 05/27/24 05:00 05/27/24 04:06 05/27/24 04:00 05/27/24 04:00 05/27/24 03:54 05/27/24 03:06 05/27/24 03:00 05/27/24 03:00 05/27/24 02:51 05/27/24 02:00 05/27/24 02:00
[2024-05-27] MEDS ORDERED: ROCURONIUM BROMIDE 10 MG/ML 5 ML VIAL IV ONE (13:26)
--- NOTE | 2024-05-27 13:39 | History & Physical Bridge Note ---
Date of Service May 27, 2024 History & Physical Bridge Note I have examined the patient, reviewed the History & Physical and in the interval since the performance of the History & Physical I have noted the following changes of clinical significance: no changes noted
--- NOTE | 2024-05-27 13:44 | Anesthesiology Consultation ---
Date of Service May 27, 2024 Assessment & Plan (1) Encounter for pre-operative examination: Chart Review Chart Review: Acceptable Risk for Surgery and Patient NOT seen in Pre Admission Testing Consults Requested none History Surgery Operation Date: 05/27/24 09:50 Proposed Procedures p Left Troch Nail - Igor Giron DO Height/Weight Height: 5 ft 3 in Weight: 45.7 kg Allergies Allergy/AdvReac Type Severity Reaction Status Date / Time ibuprofen AdvReac Tachycardia Verified 05/24/24 06:35 prednisone AdvReac Gastrointestinal Verified 05/24/24 06:35 Upset Medications Home Medications Medication Instructions Recorded Confirmed Last Taken Potassimin 99 mg PO DAILY 11/06/23 05/24/24 Unknown allopurinol 100 mg tablet 100 mg PO DAILY 11/06/23 05/24/24 Unknown folic acid 1 mg tablet 2 mg PO DAILY 11/06/23 05/24/24 Unknown gabapentin 300 mg tablet 300 mg PO TID 11/06/23 05/24/24 Unknown multivitamin 1 tab PO DAILY 11/06/23 05/24/24 Unknown sulfasalazine 500 mg tablet 1 g PO BID 11/06/23 05/24/24 Unknown ondansetron HCl 8 mg tablet 8 mg PO Q8H PRN restless legs 11/13/23 05/24/24 Unknown acetaminophen 650 mg 650 mg PO Q8H PRN arthritis 05/05/24 05/24/24 Unknown tablet,extended release (Arthritis Pain Relief (acetaminophen) ER) metoclopramide HCl 10 mg tablet 10 mg PO TID 05/24/24 05/24/24 Unknown nutritional supplements See Rx Instructions .Route .COMPLEX 05/24/24 05/24/24 Unknown Active Medications Generic Name Dose Route Start Last Admin Trade Name Freq PRN Reason Stop Dose Admin Enteral Nutritional Formula 1,000 ml 05/24/24 13:45 05/26/24 08:35 Novasource Renal 2.0 Gurmeet 1000ml Bag GT 06/26/24 23:55 1,000 ml UD [facility] Administration Protocol Folic Acid 1 mg 05/27/24 09:00 05/27/24 07:49 Folic Acid 1 Mg Tab PEG 06/26/24 08:59 Not Given DAILY FABY Lactobacillus Acidophilus 1,250 mg 05/25/24 09:00 05/27/24 07:49 Advanced Probiotic 625 Mg Capsule PO 06/24/24 08:59 Not Given DAILY FABY Lansoprazole 30 mg 05/27/24 09:00 05/27/24 07:49 Lansoprazole 30 Mg Soltab PEG 06/26/24 08:59 Not Given DAILY FABY Miscellaneous 1 each 05/25/24 08:59 05/27/24 07:51 Remove Nicoderm Patch N/A 06/24/24 08:58 1 each DAILY@0859 FABY Administration Morphine Sulfate 2 mg 05/24/24 19:28 05/27/24 10:48 Morphine Sulfate 2 Mg/Ml Carp IV 06/07/24 19:27 2 mg Q4H PRN Administration Pain Nicotine 1 patch 05/25/24 09:00 05/27/24 07:50 Nicotine 14 Mg/24 Hr Patch TD 06/24/24 08:59 1 patch QAM FABY Administration Thiamine HCl 100 mg 05/27/24 09:00 05/27/24 07:50 Thiamine Hcl 100 Mg Tab PEG 06/26/24 08:59 Not Given DAILY FABY NPO Date Last Intake of Fluids: 05/26/24 Time Last Intake of Fluids: 13:35 Last Intake of Fluids Comment: tube feeding discontinued last night- NPO Date Last Intake of Solids: 05/26/24 Time Last Intake of Solids: 13:35 Last Intake of Solids Comment: Tube feeding stopped by anesthesia Past Medical History Medical History Encounter for pre-operative examination Anemia required 1 unit pRBC on 05/25/24 Hyponatremia SIRS (systemic inflammatory response syndrome) Metabolic encephalopathy Cancer of left lung 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 Lung nodule Metastasis to head and neck lymph node Hypertension Tobacco use disorder Raynaud phenomenon Osteoarthritis right hand Idiopathic chronic gout Exercise / Class Metabolic Activity III < 4 Walking/Shop/Light housework Past Family History Family History Brother Cancer Lung Other Coronary heart disease Heart disease Hypertension Myocardial infarction Past Surgical History Surgical History H/O: hysterectomy History of carpal tunnel surgery Past Anesthesia History No Hx of Anesthesia Complications and No Family Hx of Anesthesia Complications Social History Smoking Status: Current every day smoker tobacco type: cigarettes Do You Dip or Chew Tobacco: No Hx Alcohol Use: No Hx Substance Use: No substance use type: does not use Physical Exam Vital Signs Last Vital Signs Temp 36.5 C 05/27/24 13:10 Pulse 112 H 05/27/24 13:10 Resp 20 05/27/24 13:10 BP 111/52 L 05/27/24 13:10 Pulse Ox 93 05/27/24 13:10 O2 Del Method Room Air 05/27/24 13:10 O2 Flow Rate 2 05/25/24 08:09 Testing Laboratory Results 05/27/24 03:39 05/27/24 11:22 PT 12.3 Seconds (9.0-12.0) H 05/24/24 04:37 INR 1.1 (0.9-1.1) 05/24/24 04:37 APTT 30 Seconds (21-31) 05/24/24 04:37 Urine Color Yellow 05/24/24 04:37 Urine Appearance Clear (Clear) 05/24/24 04:37 Urine pH 6.5 (4.5-7.5) 05/24/24 04:37 Ur Specific [place] 1.015 (1.000-1.030) 05/24/24 04:37 Urine Protein 1+ (Negative) H 05/24/24 04:37 Urine Glucose (UA) Negative (Negative) 05/24/24 04:37 Urine Ketones 1+ (Negative) H 05/24/24 04:37 Urine Nitrite Negative (Negative) 05/24/24 04:37 Ur Leukocyte Esterase Negative (Negative) 05/24/24 04:37 Urine WBC (Auto) 0-5 /hpf (0-5) 05/24/24 04:37 Urine RBC (Auto) 6-10 /hpf (0-2) H 05/24/24 04:37 U Hyaline Cast (Auto) 3-5 /lpf (0-2) H 05/24/24 04:37 U Epithel Cells (Auto) 0-2 /hpf (0-2) 05/24/24 04:37 Urine Bacteria (Auto) None Seen (None Seen) 05/24/24 04:37 Blood Type AB Positive 05/24/24 09:48 Antibody Screen NEGATIVE 05/24/24 09:48 05/24/24 09:48 Aerobic Blood Culture - Preliminary Blood No growth in Aerobic bottle after 48 hours. Anaerobic Blood Culture - Preliminary No growth in Anaerobic bottle after 48 hours. 05/24/24 10:04 Aerobic Blood Culture - Preliminary Blood No growth in Aerobic bottle after 48 hours. Anaerobic Blood Culture - Preliminary No growth in Anaerobic bottle after 48 hours. 05/24/24 12:05 Urine Culture - Final Urine,Straight Cath No growth - less than 1,000 colonies/mL. 05/27/24 11:26 POC Glucose 87 Electrocardiogram Date: 05/24/24 NSR. Normal ECG. HR 88. Echocardiogram Date: 05/24/24 LV systolic function is normal. EF 65-70% RV systolic function is normal. Trivial loculated anterior and apical pericardial effusion. No tamponade. NO . Other Testing Chest CT 05/24/24: IMPRESSION: 1. Solid subpleural nodule in the lingula as described above. This is a new finding. 2. Relatively unchanged multiple centriacinar and paraseptal emphysematous changes involving bilateral upper lobes is noted. 3. Cardiomegaly. This is a new finding.
[2024-05-27] MEDS ORDERED: ePHEDrine sulfate 50 MG/5 ML SYR ONE (13:46)
[2024-05-27] MEDS ORDERED: PHENYLEPHRINE HCL 25 MG/250 ML NSS IV ONE (13:47)
[2024-05-27] MEDS ORDERED: BUPIVACAINE 0.5 % 5 MG/1 ML PF 10ML VIAL ONE (13:59)
[2024-05-27] MEDS ORDERED: VASOPRESSIN 20 UNIT/ML VIAL ONE (14:01)
[2024-05-27] MEDS: TRANEXAMIC ACID / 0.7% NACL 1,000 MG/100 ML BAG IV ONE ×2 (14:08→17:41)
[2024-05-27] MEDS: ceFAZolin 2000MG 2,000 MG/15 ML SYR IV ONE (14:08)
[2024-05-27] MEDS ORDERED: ONDANSETRON INJ 2 MG/ML 2 ML VIAL IV PRN (14:44)
[2024-05-27] MEDS ORDERED: ATROPINE SULFATE 0.1 MG/ML 10ML SYR IV PRN (14:44)
[2024-05-27] MEDS ORDERED: ePHEDrine sulfate 50 MG/ML AMP IV PRN (14:44)
[2024-05-27] MEDS ORDERED: DexMEDEtomidine HCL IV 100 MCG/ML VIAL IV ONE (15:05)
[2024-05-27] MEDS ORDERED: PHENYLEPHRINE 100MCG/ML 5ML SYR ONE (15:23)
--- NOTE | 2024-05-27 16:27 | Operative Report ---
PG Post Operative Report Pre & Post Diagnosis Operation Date: 05/27/24 09:50 Pre-Op Diagnosis: Closed left hip fracture Post-Op Diagnosis: Closed left hip fracture I identified the patient and participated in the time-out.: Yes Procedure Operation Date: 05/27/24 09:50 Actual Procedures p Left Troch Nail(Left) - Igor Giron DO Surgeon Igor Giron DO Knock Up Assembler Lee Buckner PA-C Estimated Blood Loss 100 Findings Consistent with Post-Op Diagnosis Specimens None Description of Procedure On May 27, 2024 eulalio was brought down from her hospital room to the preoperative holding area. The operative extremity identified and signed. She is given a preoperative antibiotic. She was taken back the operative room and given a spinal anesthetic. She was then transferred to the fracture table. The left hip was brought out to traction. The left leg was then prepped and draped in sterile fashion. A timeout was done. The patient and the operative extremity was properly identified. Attempts were made I had a closed reduction. I was unable to get the fracture fragments to lined up anatomically through closed reduction. A long lateral incision was made. Dissection was taken down through the fascia. The IT band was split. The fracture was exposed. The fracture was then reduced and a clamp was used to hold it in place. Once the fracture was reduced a guidepin was then sent from the center of the greater trochanter into the femoral canal. A 17 mm opening reamer was then used to open up the femoral canal. A ball-tipped guidewire was then passed down to the knee. Sequential reaming up to a size 12 reamer was done. A size 11 x 360 mm Synthes TFN nail was then impacted into place. An outrigger was placed and a cannula was advanced for the helical blade. A single guidepin was placed into the center center position of the femoral head. The lateral cortex was then drilled. A 90 mm helical blade was then impacted in the place. The helical blade was statically locked. The outrigger was removed. Final fluoroscopic images showed anatomic reduction. A perfect [place] technique was used distally. 2 distal locking screws were then placed. Final fluoroscopic images showed good alignment of the fracture. The wounds were then irrigated. The IT band was closed with #1 Vicryl. The deep fascial layer was closed with 2-0 Vicryl. Skin was closed with 2-0 Vicryl and rajwinder. She was then placed in a soft dressing. She was then transferred to a hospital bed and taken to the postanesthesia care unit in stable condition. She tolerated the procedure well. Lee Buckner PA-C, was present for the entire procedure. He was critical for patient positioning, prepping, draping, retraction exposure, wound closure and application of sterile dressing. I attest to the content of the Intraoperative Record and any orders documented therein. Any exceptions are noted below.
[2024-05-27] MEDS: BUPIVACAINE/EPINEPHRINE 0.25% 1:200,000 30 ML VIAL ONE (17:05)
[2024-05-27] MEDS ORDERED: SOD PHOSPHATE/SOD BIPHOSPHATE ENEMA 132 ML BTL PR PRN (17:35)
[2024-05-27] MEDS: ceFAZolin 2,000 MG/15 ML IV PUSH IV ONE (17:36)
[2024-05-27] MEDS: TRANEXAMIC ACID / 0.7% NACL 1000MG/100ML BAG IV ONE (17:37)
[2024-05-27 17:45] LABS: BUN Creatinine Ratio 40.7 (10-20); Calcium 8.1 mg/dl (8.6-10.3); Creatinine Clr Calc Pharmacy 163.9 ml/min
[2024-05-27] MEDS: TUBE FEEDING WATER FLUSH GT SCH ×3 (18:42→18:51)
[2024-05-27] MEDS: DEXTROSE 5% 1,000 ML IV STA (18:43)
[2024-05-27] MEDS: sulfaSALAzine 500 MG TABLET PO SCH (21:16)
[2024-05-27 21:27] LABS: BUN Creatinine Ratio 34.3 (10-20); Calcium 8.6 mg/dl (8.6-10.3); Creatinine Clr Calc Pharmacy 126.4 ml/min; Potassium 3.9 mmol/L (3.5-5.1)
[2024-05-27] MEDS: POTASSIUM CHLORIDE 20 MEQ/15 ML UDC PO STA (22:08)
[2024-05-27] MEDS: ceFAZolin 1000MG 1,000 MG/7.5 ML SYR IV SCH (22:20)
[2024-05-28 03:29] LABS: Hematocrit (blood only) 22.6 % (37.0-47.0); Hemoglobin 8.2 g/dl (12.0-16.0); Mean Corpuscular Hemoglobin 35.3 pg (25.0-34.0); Mean Corpuscular Hgb Conc 36.3 g/dL (32.0-36.0); Mean Corpuscular Volume 97.4 fL (80.0-100.0); Mean Platelet Volume 9.8 fL (9.4-12.4); Platelet Count 144 K/uL (130-400); RDW Coefficient of Variation 14.9 % (11.5-14.5); RDW Standard Deviation 52.1 fL (36.4-46.3); Red Blood Count 2.32 M/uL (4.20-5.40); White Blood Count 13.14 K/ul (4.8-10.8)
[2024-05-28 03:48] LABS: BUN Creatinine Ratio 37.5 (10-20); Calcium 9.1 mg/dl (8.6-10.3); Creatinine Clr Calc Pharmacy 138.2 ml/min; Potassium 4.8 mmol/L (3.5-5.1)
[2024-05-28 04:07] LABS: Basophils # (auto) 0.02 K/uL (0.00-0.20); Basophils % (auto) 0.2 %; Eosinophils # (auto) 0.01 K/uL (0.00-0.50); Eosinophils % (auto) 0.1 %; Hypochromasia Present; Immature Granulocytes # (auto) 0.42 K/uL (0.01-0.20); Immature Granulocytes % (auto) 3.2 %; Lymphocytes # (auto) 0.14 K/uL (1.20-3.40); Lymphocytes % (auto) 1.1 %; Monocytes # (auto) 0.52 K/uL (0.11-0.59); Neutrophils # (auto) 12.03 K/uL (1.40-6.50); Neutrophils % (auto) 91.4 %
[2024-05-28] MEDS: APIXABAN 2.5 MG TAB PO SCH (05:41)
--- NOTE | 2024-05-28 07:23 | Fluoroscopy Report ---
FL femur LT 2V CLINICAL HISTORY: LEFT TROCH NAILacute fracture of the left proximal femur COMPARISON STUDY: Femur radiographs May 24, 2024 FLUOROSCOPY TIME: 155.6 seconds FLUOROSCOPY IMAGES: 4 EXPOSURE DOSE: 15.62 mGy FINDINGS: Status post placement of an intertrochanteric nail with medullary jannet fixating the acute in tertrochanteric fracture. Satisfactory alignment. The hardware appears intact. IMPRESSION: Fluoroscopic assistance as above. ACT 112: Negative or not required by law. Electronically signed by: Braulio Navas M.D. 05/28/2024 7:21 AM
--- NOTE | 2024-05-28 08:56 | Anesthesiology Progress Note ---
Date of Service May 28, 2024 Anesthesia Post Procedure Vital Signs Vital Signs: Temp Pulse Pulse Pulse Resp BP BP 05/28/24 07:42 105 H 05/28/24 06:00 115 H 17 97/59 L 05/28/24 05:00 108 H 21 100/57 L 05/28/24 04:00 36.5 C 110 H 17 100/62 05/28/24 03:00 105 H 15 101/60 05/28/24 02:00 106 H 20 91/65 L 05/28/24 01:00 94 H 93/58 L 05/28/24 00:00 94 H 05/27/24 23:00 36.5 C 99 H 18 101/52 L 05/27/24 22:00 96 H 21 91/61 L 05/27/24 21:30 96 H 15 117/70 05/27/24 20:00 05/27/24 20:00 36.7 C 105 H 14 128/88 05/27/24 17:20 106 H 16 98/78 L 05/27/24 17:10 105 H 17 122/73 05/27/24 17:00 104 H 18 116/71 05/27/24 13:10 36.5 C 112 H 20 111/52 L 05/27/24 13:06 112 H 22 05/27/24 13:00 111/52 L 05/27/24 12:57 105 H 19 05/27/24 12:18 96 H 19 05/27/24 12:00 112/61 05/27/24 12:00 112/61 05/27/24 11:27 100 H 10 L 05/27/24 11:00 101 H 18 05/27/24 11:00 114/67 05/27/24 10:24 111 H 14 05/27/24 10:00 108/72 05/27/24 10:00 108/72 05/27/24 09:45 102 H 17 05/27/24 09:03 105 H 19 05/27/24 09:00 108/67 05/27/24 09:00 108/67 05/27/24 09:00 108/67 05/27/24 08:57 110 H 17 Pulse Ox O2 Del Method O2 Flow Rate FiO2 05/28/24 07:42 05/28/24 06:00 98 Room Air 05/28/24 05:00 98 Room Air 05/28/24 04:00 99 Room Air 05/28/24 03:00 98 Room Air 05/28/24 02:00 100 Room Air 96 05/28/24 01:00 100 Room Air 05/28/24 00:00 05/27/24 23:00 100 Room Air 05/27/24 22:00 99 Room Air 05/27/24 21:30 98 Room Air 05/27/24 20:00 Room Air 05/27/24 20:00 97 Room Air 05/27/24 17:20 100 Oxymask 2 05/27/24 17:10 98 Oxymask 4 05/27/24 17:00 98 Oxymask 10 05/27/24 13:10 93 Room Air 05/27/24 13:06 92 05/27/24 13:00 05/27/24 12:57 93 05/27/24 12:18 95 05/27/24 12:00 05/27/24 12:00 05/27/24 11:27 94 05/27/24 11:00 94 05/27/24 11:00 05/27/24 10:24 93 05/27/24 10:00 05/27/24 10:00 05/27/24 09:45 96 05/27/24 09:03 90 05/27/24 09:00 05/27/24 09:00 05/27/24 09:00 05/27/24 08:57 93 Transfer of Care Handoff Completed per policy Notes Mental Status: alert / awake / arousable and participated in evaluation Patient Amnestic to Procedure: Yes Nausea / Vomiting: adequately controlled Pain: adequately controlled Airway Patency, RR, SpO2: stable & adequate BP & HR: stable & adequate Hydration State: stable & adequate Anesthetic Complications: no major complications apparent and Pt Satisfied with anesthetic care
--- NOTE | 2024-05-28 09:42 | Nephrology Progress Note ---
Date of Service May 28, 2024 Assessment & Plan (1) Hyponatremia: Plan: complex, symptomatic and improving but still critical hypotonic hypervolemic hyponatremia in patient with active malignancy (though not one expected to contribute to this condition) s/p platin-based therapy and w/ poor nutrition; she is at high risk for life threatening complications from hyponatremia overcorrection including osmotic demyelination syndrome given serum sodium 103 on presentation on 05/24 at 0430 and malnutrition. fortunately no EtOH. h/o chronic hyponatremia w/ sNa often high 120s. she corrected at appropriate rate 05/24-05/25, then too quickly 05/25-05/26; on 05/26 we lowered sNa to more appropriate high teens range w/ desmopressin. Target for 05/27 AM was conservative at 116-117, no more than 119 >> she was at this target as of 0 this AM. Target Na for 05/28 AM was no more than 125 and am lab showed Na 123; K 4.8 after supplementation. hgb 8.2 > fair drop from 9.9 yesterday but will monitor; overall has been in 8s. >> target sNa for tomorrow AM is no more than 129; again, remains at high risk for complications from overcorrection and with confusion today would be extra vigilant w/ neuro checks and low threshold for head CT. sodium generally correcting too fast despite efforts to slow it -repeat BMP 10 AM and get update on neuro status at that time; BMP frequency thereafter to depend on status -control pain >cont FW flushes back to 150 mL q4h >continue neuro checks q 2-4 hours >>needs eukalemia > for now no further supplement -cont strict I/O >pls continue ICU level of care until midday as she needs frequent labs, neuro checks, I/O assessments Care coordinated w/ Dr Nicholson and CHASSIS ENGINEER this AM re sodium target, f/u labs, ICU status, monitoring neuro status; we are in agreement. (2) Closed left hip fracture: Plan: s/p 12/5 L hip/femur trochanteric nail when optimized medically (sNa >130) Admission and Anticipated Discharge Date Admission Date: May 24, 2024 Subjective s/p OR yesterday PM. no desmo needed overnight; did receive some D5W. more confused this am intermittently. k repleted today. denies uncontrolled musculoskeletal pain unless she moves, N, sob Review of Systems 2 Review of Systems: All systems reviewed & are unremarkable except as noted in Subjective Physical Exam 2 Constitutional: well developed (confused about being in hospital & going to surgerybut knows Bday), + cachectic, cooperative, + lethargic and + malnourished; no acute distress Eyes: EOM intact bilaterally ENMT: Mouth: + dry oral mucous membranes Respiratory: normal respiratory effort (on RA) Auscultation: + diminished lung sounds Cardiovascular: Rate/Rhythm: regular rate, regular rhythm and + tachycardic Extremities: no edema Gastrointestinal (Abdomen): Inspection/Auscultation: normal bowel sounds, + scaphoid and + abdominal surgical scar (PEG present) Percussion/Palpation: a bdomen soft; abdomen nontender Musculoskeletal: Extremities: strength 5/5 throughout (cardenas) Skin: no rashes, warm and dry Psychiatric: Orientation: alert and oriented x 3 Results & Data Vital Signs (Past 12 Hours) Vital Signs Temp Pulse Resp BP Pulse Ox O2 Del Method FiO2 05/28/24 07:42 105 H 05/28/24 06:00 115 H 17 97/59 L 98 Room Air 05/28/24 05:00 108 H 21 100/57 L 98 Room Air 05/28/24 04:00 36.5 C 110 H 17 100/62 99 Room Air 05/28/24 03:00 105 H 15 101/60 98 Room Air 05/28/24 02:00 106 H 20 91/65 L 100 Room Air 96 05/28/24 01:00 94 H 93/58 L 100 Room Air 05/28/24 00:00 94 H 05/27/24 23:00 36.5 C 99 H 18 101/52 L 100 Room Air 05/27/24 22:00 96 H 21 91/61 L 99 Room Air 05/27/24 21:30 96 H 15 117/70 98 Room Air Laboratory Results 05/28/24 03:10 05/28/24 03:10
--- NOTE | 2024-05-28 10:23 | Critical Care Progress Note ---
Date of Service May 28, 2024 Assessment & Plan (1) Hyponatremia: (2) Metabolic encephalopathy: (3) Closed left hip fracture: (4) Fall: (5) Cancer of left lung: (6) Squamous cell carcinoma of left tonsil: (7) Metastasis to head and neck lymph node: (8) Tobacco abuse: Plan Reason Critically Ill: 58-year-old female with a significant past medical history of squamous cell carcinoma of the head and neck with current lesion to the LEFT upper lung field, failure to thrive, tobacco abuse, and findings of hyponatremia requiring close monitoring and correction of sodium level. NEURO - * CAM ICU: POSITIVE * Altered mental status: * Likely representing metabolic encephalopathy in the setting of significant electrolyte derangements. Possibly worse today due to delirium related to surgery. * CT head unremarkable. * MRI brain without acute findings otherwise. * Continue to avoid sedating medications. MUSCULOSKELETAL - * LEFT proximal femur fracture. Status post fixation. * Appreciate orthopedic input. * Monitor for blood loss in a patient who is anemic at baseline. CARDIAC/VASCULAR - * Hypertension: * Avoid antihypertensives at this time. * Monitor on telemetry. RESPIRATORY - * Hypoxia: * Intermittent. * Titrate down to off as able. * History of tobacco abuse. GI/NUTRITION - * PEG tube in place. * Nutrition consulted for feeding. * Continue PPI RENAL/LYTES - * Hyponatremia: * Significant hyponatremia with a value of 103. * Patient with continued fluctuating sodium levels. Continue ICU care. Greatly appreciate very thorough nephrology input. Discussed with Dr. Rodriguez today. She has been her hyponatremia. * Rhabdomyolysis: * Likely traumatic in the setting of falls. * Resolved - * Kerr in place - Strict I&Os. ENDO - * No h/o DM or Thyroid Dz * BSGs per unit protocol. ISS --> gtt per unit policy. HEME - * Anemia: * Received 1U PRBC (05/25). * H&H Stable at this time. ID -presumptive sepsis on admission, but this is largely been ruled out. Patient afebrile without leukocytosis. Antibiotics discontinued. LINES/IV ACCESS - * PIVs x2 * Kerr catheter DVT PROPHYLAXIS - Eliquis started today orthopedic team due to orthopedic surgery. * SCDs Probable downgrade later today if she remains stable and sodium levels are appropriate. Admission and Anticipated Discharge Date Admission Date: May 24, 2024 Subjective Mental status little bit worsened today as patient has some mild delirium and has been hallucinating a bit. She is oriented to herself and to the reason for admission. She is not oriented to place. She is easily redirectable. She does have pain in her hip Review of Systems Review of Systems: All systems reviewed & are unremarkable except as noted in HPI & below Physical Exam Physical Exam: VITAL SIGNS Vital signs and nursing notes were reviewed. GENERAL 58-year-old female appearing her stated age who is in no acute distress. SKIN Without rashes or lesions. NOSE Midline and without cyanosis. MOUTH/OROPHARYNX Without perioral cyanosis. NECK Neck with FROM. LUNGS Chest wall evaluation demonstrates normal chest wall A:P diameter. Auscultation reveals normal breath sounds without wheeze. CARDIAC RRR with S1/S2. No murmur, rubs, or gallops appreciated. ABDOMEN Abdominal inspection demonstrates flat abdomen. BS normoactive all four quadrants. No tenderness, palpable masses, or ascites noted. EXTREMITIES Nail clubbing not present. No peripheral cyanosis. Moderate pretibial edema present. +3/5 radial palpated throughout. PSYCH a bit confused today. Results & Data Results & Data Vital Signs (Past 12 Hours) Vital Signs Temp Pulse Resp BP Pulse Ox O2 Del Method FiO2 05/28/24 09:00 107/61 05/28/24 09:00 107/61 05/28/24 09:00 109 H 23 94 Room Air 05/28/24 08:00 109 H 18 94 Room Air 05/28/24 08:00 112/42 L 05/28/24 08:00 112/42 L 05/28/24 07:42 105 H 05/28/24 07:00 105 H 21 05/28/24 07:00 95/57 L 05/28/24 07:00 95/57 L 05/28/24 06:00 115 H 17 97/59 L 98 Room Air 05/28/24 05:00 108 H 21 100/57 L 98 Room Air 05/28/24 04:00 36.5 C 110 H 17 100/62 99 Room Air 05/28/24 03:00 105 H 15 101/60 98 Room Air 05/28/24 02:00 106 H 20 91/65 L 100 Room Air 96 05/28/24 01:00 94 H 93/58 L 100 Room Air 05/28/24 00:00 94 H 12/05/24 23:00 36.5 C 99 H 18 101/52 L 100 Room Air Coding Level of Care Code 65098 SUB INP/OBS CARE 2/35MIN Diagnoses Hyponatremia E87.1 Metabolic encephalopathy G93.41 Closed left hip fracture S72.002A Fall W19.XXXA Malignant neoplasm of upper lobe of left lung C34.12 Lung location: upper lobe of lung Squamous cell carcinoma of left tonsil C09.9 Metastasis to head and neck lymph node C77.0 Tobacco abuse Z72.0 (5) Cancer of left lung Lung location: upper lobe of lung Qualified Code(s): C34.12 - Malignant neoplasm of upper lobe, left bronchus or lung
[2024-05-28 10:37] LABS: Appearance Urine Clear (Clear); Bilirubin Urine Negative (Negative); Blood Urine Negative (Negative); Color Urine Yellow; Glucose Urine UA Negative (Negative); Ketones Urine Negative (Negative); Leukocyte Esterase Urine Negative (Negative); Nitrite Urine Negative (Negative); Protein Urine Negative (Negative); Specific Gravity Urine 1.012 (1.000-1.030); Urobilinogen Urine Negative (Negative)
[2024-05-28 10:44] LABS: BUN Creatinine Ratio 36.4 (10-20); Calcium 8.7 mg/dl (8.6-10.3); Creatinine Clr Calc Pharmacy 125.3 ml/min; Potassium 4.6 mmol/L (3.5-5.1)
--- NOTE | 2024-05-28 11:50 | Communication Note ---
Date of Service: May 28, 2024 10 AM sodium 124 K 4.6 ongoing MS changes and now w/ visual hallucinations; likely postoperative / ICU delirium as MS is waxing/waning. however cannot r/o ODS and outcomes for this better if diagnosed sooner -suggest MRI brain if feasible after tronchanteric nailing stat to evaluate for ODS; barring MRI, then (second choice) head CT -for now will lower sodium upper limit/target from no more than 129 in AM 12/7 to no more than 124 -will give 1 L D5W over 2 hrs and repeat BMP urgent 1 hr after IVF done Dr Guzman, SEC ACCOUNTANT updated.
[2024-05-28] MEDS: allopurinoL 100 MG TAB PO SCH (11:57)
--- NOTE | 2024-05-28 13:23 | Hospitalist Progress Note ---
Date of Service May 28, 2024 Assessment & Plan (1) Acute hyponatremia: (2) Fall: (3) Closed left hip fracture: (4) Metabolic encephalopathy: (5) Squamous cell carcinoma of left tonsil: (6) SIRS (systemic inflammatory response syndrome): Plan Ms. 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 On admission she was noted to have a sodium of 103 and a left intertrochanteric fracture. Patient with progressive altered mental status, which seemingly improved 05/26-, however, much worse the morning of 05/28. Though there is high suspicion that this is ICU/postoperative delirium, patient falls within the time line for presentation of acute osmotic demyelinating syndrome. MRI pursued to rule out this process. Nephrology following closely and [employer] Feeder on consult as well. Patient remains critically ill and requires ICU at this time. #Acute on chronic hyponatremia #Acute metabolic encephalopathy Hyponatremia: multifactorial iso malignancy, poor po intake mental status changed post operatively, likely delirium however given timeline, she is at high risk for osmotic demyelination per nephrology Baseline sodium of 1 25-1 30 since November Admitting sodium of 103, urine osmolality 392, serum osmolality 223. s-tatus post hypertonic saline in the ED. s/p desmopressin 05/26 Currently in ICU for frequent lab draw and q2 neuro checks MRI ordered given MS/hallucinations this am Nephrology consulted -Target less than 129 in am for sodium -D5W 1L over 2 hours, with repeat BMP planned per nephrology Ua negative, no indication for abx #Acute proximal left femur fracture s/p left troch nail Admitting CTAP with comminuted, displaced nonarticular fracture of left proximal femur involving trochanteric region. Orthopedics consulted -S/p repair 05/28 Scheduled tylenol SCDS for DVT ppx for now #Acute traumatic rhabdomyolysis: CPK elevated at presentation, status post IV fluid,resolved #Hypomagnesemia: Magnesium of 1.4 at presentation, monitor replete. #Severe protein gurmeet malnutrition: In the setting of underlying malignancy, patient on tube feed diet. BMI 16.7 Continue with IV thiamine and IV folic acid, p.o. multivitamin. Nutrition consult. Continue with PEG tube feeding. #Acute on chronic anemia: Baseline hemoglobin seems around 10 , hemoglobin at presentation 7.5, s/p 1 U prbc on 05/24, Anticipate Iron profile WNL, vitamin B12 and folate level WNL. Patient denies any blood or black stool. PPI daily. H&H trend stable. #Demand ischemia: Troponin elevated but flat trended, patient without chest pain, echo with EF of 65 to 70%, left ventricular systolic function normal, no regional wall motion abnormalities. Other chronic medical conditions: Continue with/resume home meds as and when able. L tonsillar SCC/L lung mass SCC: s/p chemo/XRT. recent PET CT shows improvement in L tonsillar mass/adenopathy but enlargement to L lung mass. Pt to undergo SBRT. following nutrition for PEG tube/feeding management Hx of RA: on sulfasalazine, hold during acute illness. COPD: no acute exac Tobacco abuse: nicotine patch, encourage cessation DVT ppx: SCDS for now, add chemical ppx as soon as able as pt is high risk given malignancy and now fx FULL CODE PCP: None, pt previously followed [facility], needs to re establish Dispo: pt critically ill, being managed in ICU. Admission and Anticipated Discharge Date Admission Date: May 24, 2024 Subjective Nurse noted delirium with hallucinations this am; on exam, seemed to be aware of self, year, and location being hospital--also able to state she was admitted for fall, but did not recall her operation day prior Denies any uncontrolled pain, more discomfort overall. Communicating clearly, no focal deficits appreciated, recognized at bedside Physical Exam Constitutional: WD/WN, vitals as above no distress, pleasant and conversational Respiratory: normal respiratory effort, lungs clear to auscultation Chest (Breasts): Additional Comments: tachycardiac, seemingly regular Gastrointestinal (Abdomen): normal bowel sounds, soft, nontender, no hepatosplenomegaly Musculoskeletal: SCDS in place, moving BUE evenly, left leg s/p operation, sensation intact, RLE moving without difficulty Neurologic: PERRL, EOMI, accommodation nl, no face palsy, no dysarthria Results & Data Results & Data Vital Signs (Past 12 Hours) Vital Signs Temp Pulse Resp BP Pulse Ox O2 Del Method FiO2 05/28/24 11:03 108 H 19 91 Room Air 05/28/24 11:00 96/57 L 05/28/24 11:00 96/57 L 05/28/24 10:51 105 H 16 90 Room Air 05/28/24 10:00 93/58 L 05/28/24 10:00 93/58 L 05/28/24 10:00 100 H 20 91 Room Air 05/28/24 09:00 107/61 05/28/24 09:00 107/61 05/28/24 09:00 107/61 05/28/24 09:00 109 H 23 94 Room Air 05/28/24 08:00 109 H 18 94 Room Air 05/28/24 08:00 112/42 L 05/28/24 08:00 112/42 L 05/28/24 07:45 Room Air 05/28/24 07:42 105 H 05/28/24 07:00 105 H 21 05/28/24 07:00 95/57 L 05/28/24 07:00 95/57 L 05/28/24 06:00 115 H 17 97/59 L 98 Room Air 05/28/24 05:00 108 H 21 100/57 L 98 Room Air 05/28/24 04:00 36.5 C 110 H 17 100/62 99 Room Air 05/28/24 03:00 105 H 15 101/60 98 Room Air 05/28/24 02:00 106 H 20 91/65 L 100 Room Air 96 Laboratory Results Short CBC 05/28/24 Range/Units 03:10 WBC 13.14 H (4.8-10.8) K/ul Hgb 8.2 L (12.0-16.0) g/dl Hct 22.6 L (37.0-47.0) % Plt Count 144 (130-400) K/uL BMP 05/27/24 05/27/24 05/28/24 17:09 20:57 03:10 Sodium 124 L 121 L 123 L Potassium 4.0 3.9 4.8 D Chloride 89 L 85 L 88 L Carbon Dioxide 29 29 28 BUN 11 12 12 Creatinine 0.27 L 0.35 L 0.32 L Glucose 119 H 266 H 115 H Calcium 8.1 L 8.6 9.1 05/28/24 10:06 Sodium 124 L Potassium 4.6 Chloride 89 L Carbon Dioxide 30 BUN 12 Creatinine 0.33 L Glucose 113 H Calcium 8.7 Urine 05/28/24 Range/Units Unknown Urine Color Yellow Urine Appearance Clear (Clear) Urine pH 6.0 (4.5-7.5) Ur Specific [place] 1.012 (1.000-1.030) Urine Protein Negative (Negative) Urine Glucose (UA) Negative (Negative) Diagnostic Findings MRI ordered Medications Administered Home Medications Medication Instructions Recorded Confirmed Last Taken Potassimin 99 mg PO DAILY 11/06/23 05/24/24 Unknown allopurinol 100 mg tablet 100 mg PO DAILY 11/06/23 05/24/24 Unknown folic acid 1 mg tablet 2 mg PO DAILY 11/06/23 05/24/24 Unknown gabapentin 300 mg tablet 300 mg PO TID 11/06/23 05/24/24 Unknown multivitamin 1 tab PO DAILY 11/06/23 05/24/24 Unknown sulfasalazine 500 mg tablet 1 g PO BID 11/06/23 05/24/24 Unknown ondansetron HCl 8 mg tablet 8 mg PO Q8H PRN restless legs 11/13/23 05/24/24 Unknown acetaminophen 650 mg 650 mg PO Q8H PRN arthritis 05/05/24 05/24/24 Unknown tablet,extended release (Arthritis Pain Relief (acetaminophen) ER) metoclopramide HCl 10 mg tablet 10 mg PO TID 05/24/24 05/24/24 Unknown nutritional supplements See Rx Instructions .Route .COMPLEX 05/24/24 05/24/24 Unknown Active Medications Generic Name Dose Route Start Last Admin Trade Name Sladeq PRN Reason Stop Dose Admin Allopurinol 100 mg 05/25/24 09:00 05/28/24 11:57 Allopurinol 100 Mg Tab PO 06/24/24 08:59 Not Given DAILY FABY Apixaban 2.5 mg 05/28/24 06:00 05/28/24 05:41 Apixaban 2.5 Mg Tab PO 06/27/24 05:59 2.5 mg BID FABY Administration Enteral Nutritional Formula 1,000 ml 05/24/24 13:45 05/27/24 18:35 Novasource Renal 2.0 Gurmeet 1000ml Bag GT 06/26/24 23:55 1,000 ml UD FABY Administration Protocol Folic Acid 1 mg 05/27/24 09:00 05/28/24 08:36 Folic Acid 1 Mg Tab PEG 06/26/24 08:59 1 mg DAILY FABY Administration Lactobacillus Acidophilus 1,250 mg 05/25/24 09:00 05/28/24 08:36 Advanced Probiotic 625 Mg Capsule PO 06/24/24 08:59 1,250 mg DAILY FABY Administration Lansoprazole 30 mg 05/27/24 09:00 05/28/24 08:36 Lansoprazole 30 Mg Soltab PEG 06/26/24 08:59 30 mg DAILY FABY Administration Miscellaneous 1 each 05/25/24 08:59 05/28/24 08:42 Remove Nicoderm Patch N/A 06/24/24 08:58 Not Given DAILY@0859 FABY Morphine Sulfate 2 mg 05/24/24 19:28 05/27/24 18:30 Morphine Sulfate 2 Mg/Ml Carp IV 06/07/24 19:27 2 mg Q4H PRN Administration Pain Nicotine 1 patch 05/25/24 09:00 05/28/24 08:37 Nicotine 14 Mg/24 Hr Patch TD 06/24/24 08:59 1 patch QAM FABY Administration Sterile Water 150 ml 05/27/24 18:30 05/28/24 10:15 Tube Feeding Water Flush GT 06/26/24 18:29 150 ml Q4H FABY Administration Sulfasalazine 1,000 mg 05/24/24 21:00 05/28/24 08:35 Sulfasalazine 500 Mg Tablet PO 06/23/24 20:59 1,000 mg BID FABY Administration Thiamine HCl 100 mg 05/27/24 09:00 05/28/24 08:36 Thiamine Hcl 100 Mg Tab PEG 06/26/24 08:59 100 mg DAILY FABY Administration
[2024-05-28] MEDS: DEXTROSE 5% 1,000 ML IV STA (13:30)
[2024-05-28] MEDS: GADOBUTROL 65ML VIAL IV ONE (13:46)
[2024-05-28] MEDS: ACETAMINOPHEN 500 MG TAB PO SCH (14:10)
--- NOTE | 2024-05-28 14:26 | Magnetic Resonance Report ---
MR brain MS wo/w con HISTORY: 58 years-old Female r/o osmotic demyelination acute head trauma with altered mental status COMPARISON: May 24, 2024 TECHNIQUE: Multiplanar multisequence MRI of the brain was obtained with and without IV contrast FINDINGS: Study is moderately motion degraded. There is no restricted diffusion to suggest acute or subacute in farct. Midline structures appear unremarkable. Degenerative changes of the cervical spine. No acute i ntracranial hemorrhage, midline shift, abnormal extra axial collection, hydrocephalus or intra-axial mass. Involutional changes with mild scattered T2/FLAIR hyperintense foci throughout the white matter . Normal signal within the roe and brainstem. No abnormal enhancement. Cerebral venous sinuses and major arterial flow voids appear patent as visualized. Skull, orbits and soft tissues are unremarkable. Rightward bowing and spurring the nasal septum with mild to moderate m ucosal thickening of the right maxillary and ethmoid sinuses. Moderate-sized mastoid effusions. IMPRESSION: 1. Moderately motion degraded exam. 2. No acute intracranial abnormality, specifically there is no acute or subacute infarct. 3. No abnormal enhancement. 4. Normal signal of the roe. 5. Involutional changes with probable mild chronic microvascular ischemic disease. ACT 112: Negative or not required by law. The above report was generated using voice recognition software. It may contain grammatical, syntax o r spelling errors. Electronically signed by: Braulio Navas M.D. 05/28/2024 2:24 PM
[2024-05-28 15:27] LABS: BUN Creatinine Ratio 37.1 (10-20); Calcium 8.6 mg/dl (8.6-10.3); Creatinine Clr Calc Pharmacy 118.1 ml/min; Potassium 4.2 mmol/L (3.5-5.1)
--- NOTE | 2024-05-28 15:59 | Communication Note ---
Date of Service: May 28, 2024 1500 sNa 125, K 4.2; MRI brain w/o e/o ODS; pt MS improved this PM. Since there's no concern for ODS (though we are still in the timeframe where it could develop), will change sNa upper limit for tomorrow to be no more than 127 (she started the day at 123) -will give another liter of D5W -repeat BMP at 2100 ordered -1L D5W -upped FWF to 150 mL q 4h -repeat bmp 2099 -keep K 4.0 >>advice to mri supervisor >> use desmopressin same dose as 05/26 if Na >126 at 2100; bolus another 2 L D5W if sNa 123-125; use lasix 10 mg IV if sNa 122 or lower Care coordinated w/ Dr Guzman and DESKTOP ARCHITECT
--- NOTE | 2024-05-28 16:51 | Orthopedic Progress Note ---
Date of Service May 28, 2024 Assessment & Plan (1) Closed left hip fracture: Overall she is doing about as well as expected with regards to her hip. She can be weightbearing as tolerated on it but I would imagine she is going to be a little bit slow putting full weight on it. She is on Eliquis 2.5 mg twice a day for DVT prophylaxis. She is orthopedically stable for discharge when medically ready. Full orthopedic discharge instructions were placed in the discharge summary. Tye Majano was seen and examined at bedside this afternoon. She is awake and alert. She remembered who I was. She said she is not having too much pain in her left hip. She has not been up and ambulating on it yet. She has no complaints.. Review of Systems All systems reviewed & are unremarkable except as noted in HPI & below. Physical Exam On physical exam of the left hip, the dressing is clean and dry. Her leg is out full extension.. Results & Data Results & Data Laboratory Results . Diagnostic Findings . PG Care Time/CCT Total # of Minutes Spent Total Time Spent with Patient: Total time spent is greater than 50% in coordination of care (as documented) at patient's floor/unit and/or counseling patient: Coding Level of Care Code 34566 Post Operative Follow-Up Diagnoses Closed left hip fracture S72.002A
[2024-05-28] MEDS: DEXTROSE 5% 1,000 ML IV SCH (16:56)
[2024-05-28 21:22] LABS: BUN Creatinine Ratio 39.3 (10-20); Calcium 7.9 mg/dl (8.6-10.3); Creatinine Clr Calc Pharmacy 147.6 ml/min; Potassium 3.6 mmol/L (3.5-5.1)
[2024-05-28] MEDS: SODIUM CHLORIDE 0.9% IV STA (22:13)
[2024-05-28] MEDS: DESMOPRESSIN ACETATE IV STA (22:13)
--- NOTE | 2024-05-29 07:36 | Hospitalist Progress Note ---
Date of Service May 29, 2024 Assessment & Plan (1) Acute hyponatremia: (2) Fall: (3) Closed left hip fracture: (4) Metabolic encephalopathy: (5) Squamous cell carcinoma of left tonsil: (6) SIRS (systemic inflammatory response syndrome): Plan Ms. 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 On admission she was noted to have a sodium of 103 and a left intertrochanteric fracture. Patient with progressive altered mental status, which seemingly improved 05/26-, however, much worse the morning of 05/28. Though there is high suspicion that this is ICU/postoperative delirium, patient falls within the time line for presentation of acute osmotic demyelinating syndrome. MRI pursued to rule out this process. 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 Overnight, sodium increased 7meq from night prior therefore desmopressin administered and fluids discontinued. Today, sodium at 130 this am. Discussed case with Nephrology---goal for next 24 hours is no more than 135 mEQ and plan to continue q6bmp for now. Advanced diet with <2g sodium and FR1.2L #Acute on chronic hyponatremia #Acute metabolic encephalopathy Hyponatremia: multifactorial iso malignancy, poor po intake mental status changed post operatively, likely delirium however given timeline, she is at high risk for osmotic demyelination per nephrology Baseline sodium of 1 25-1 30 since November Admitting sodium of 103, urine osmolality 392, serum osmolality 223. status post hypertonic saline in the ED. s/p desmopressin 05/26 Currently in ICU for frequent lab draw and q2 neuro checks MRI ordered given MS/hallucinations this am Nephrology consulted -Target less than 135 in am -bmp q6 hours -1.2 L fluid restriction -Low sodium diet Ua negative, no indication for abx #Acute proximal left femur fracture s/p left troch nail Admitting CTAP with comminuted, displaced nonarticular fracture of left proximal femur involving trochanteric region. Orthopedics consulted -S/p repair 05/28 Scheduled tylenol SCDS for DVT ppx for now #Acute traumatic rhabdomyolysis: CPK elevated at presentation, status post IV fluid,resolved #Hypomagnesemia: Magnesium of 1.4 at presentation, monitor replete. #Severe protein gurmeet malnutrition: In the setting of underlying malignancy, patient on tube feed diet. BMI 16.7 Continue with IV thiamine and IV folic acid, p.o. multivitamin. Nutrition consult. Continue with PEG tube feeding. #Acute on chronic anemia: Baseline hemoglobin seems around 10 , hemoglobin at presentation 7.5, s/p 1 U prbc on 05/24, Anticipate Iron profile WNL, vitamin B12 and folate level WNL. Patient denies any blood or black stool. PPI daily. H&H trend stable. #Demand ischemia: Troponin elevated but flat trended, patient without chest pain, echo with EF of 65 to 70%, left ventricular systolic function normal, no regional wall motion abnormalities. Other chronic medical conditions: Continue with/resume home meds as and when able. L tonsillar SCC/L lung mass SCC: s/p chemo/XRT. recent PET CT shows improvement in L tonsillar mass/adenopathy but enlargement to L lung mass. Pt to undergo SBRT. following nutrition for PEG tube/feeding management Hx of RA: on sulfasalazine COPD: no acute exac Tobacco abuse: nicotine patch, encourage cessation DVT ppx: SCDS, apixaban FULL CODE PCP: None, pt previously followed [facility], needs to re establish Dispo: PCU, pt/ot pending and dispo contigent on stable sodium Admission and Anticipated Discharge Date Admission Date: May 24, 2024 Subjective Sodium corrected to 128 with 2100 labs, s/p desmopressin and fluids stopped Patient denies any pain at this time. Alert to self and location, some morning confusion noted, however, denies any acute concerns and states that she is without any uncontrolled pain Physical Exam Constitutional: WD/WN, vitals as above Respiratory: normal respiratory effort, lungs clear to auscultation Cardiovascular: tachycardic, regular Gastrointestinal (Abdomen): normal bowel sounds, soft, nontender, no hepatosplenomegaly Neurologic: PERRL, EOMI, accommodation nl, no face palsy, no dysarthria Results & Data Results & Data Vital Signs (Past 12 Hours) Vital Signs Temp Pulse Pulse Resp BP Pulse Ox O2 Del Method 05/29/24 03:43 36.7 C 105 H 18 114/70 94 Room Air 05/29/24 00:00 108 H 05/28/24 23:17 36.5 C 105 H 18 96/49 L 93 Room Air 05/28/24 20:00 Room Air 05/28/24 19:38 36.8 C 117 H 18 111/66 92 Room Air Laboratory Results BMP 05/28/24 05/28/24 05/28/24 10:06 14:57 20:41 Sodium 124 L 125 L 128 L Potassium 4.6 4.2 3.6 Chloride 89 L 91 L 96 L Carbon Dioxide 30 29 27 BUN 12 13 11 Creatinine 0.33 L 0.35 L 0.28 L Glucose 113 H 218 H 169 H Calcium 8.7 8.6 7.9 L Urine 05/28/24 Range/Units Unknown Urine Color Yellow Urine Appearance Clear (Clear) Urine pH 6.0 (4.5-7.5) Ur Specific [place] 1.012 (1.000-1.030) Urine Protein Negative (Negative) Urine Glucose (UA) Negative (Negative) Medications Administered Home Medications Medication Instructions Recorded Confirmed Last Taken Potassimin 99 mg PO DAILY 11/06/23 05/24/24 Unknown allopurinol 100 mg tablet 100 mg PO DAILY 11/06/23 05/24/24 Unknown folic acid 1 mg tablet 2 mg PO DAILY 11/06/23 05/24/24 Unknown gabapentin 300 mg tablet 300 mg PO TID 11/06/23 05/24/24 Unknown multivitamin 1 tab PO DAILY 11/06/23 05/24/24 Unknown sulfasalazine 500 mg tablet 1 g PO BID 11/06/23 05/24/24 Unknown ondansetron HCl 8 mg tablet 8 mg PO Q8H PRN restless legs 11/13/23 05/24/24 Unknown acetaminophen 650 mg 650 mg PO Q8H PRN arthritis 05/05/24 05/24/24 Unknown tablet,extended release (Arthritis Pain Relief (acetaminophen) ER) metoclopramide HCl 10 mg tablet 10 mg PO TID 05/24/24 05/24/24 Unknown nutritional supplements See Rx Instructions .Route .COMPLEX 05/24/24 05/24/24 Unknown Active Medications Generic Name Dose Route Start Last Admin Trade Name Freq PRN Reason Stop Dose Admin Acetaminophen 1,000 mg 05/28/24 14:00 05/29/24 05:23 Acetaminophen 500 Mg Tab PO 06/27/24 13:59 1,000 mg Q8H FABY Administration Allopurinol 100 mg 05/25/24 09:00 05/28/24 11:57 Allopurinol 100 Mg Tab PO 06/24/24 08:59 Not Given DAILY FABY Apixaban 2.5 mg 05/28/24 06:00 05/28/24 20:14 Apixaban 2.5 Mg Tab PO 06/27/24 05:59 2.5 mg BID FABY Administration Enteral Nutritional Formula 1,000 ml 05/24/24 13:45 05/27/24 18:35 Novasource Renal 2.0 Gurmeet 1000ml Bag GT 06/26/24 23:55 1,000 ml UD FABY Administration Protocol Folic Acid 1 mg 05/27/24 09:00 05/28/24 08:36 Folic Acid 1 Mg Tab PEG 06/26/24 08:59 1 mg DAILY FABY Administration Lactobacillus Acidophilus 1,250 mg 05/25/24 09:00 05/28/24 08:36 Advanced Probiotic 625 Mg Capsule PO 06/24/24 08:59 1,250 mg DAILY FABY Administration Lansoprazole 30 mg 05/27/24 09:00 05/28/24 08:36 Lansoprazole 30 Mg Soltab PEG 06/26/24 08:59 30 mg DAILY FABY Administration Miscellaneous 1 each 05/25/24 08:59 05/28/24 08:42 Remove Nicoderm Patch N/A 06/24/24 08:58 Not Given DAILY@0859 FABY Morphine Sulfate 2 mg 05/24/24 19:28 05/27/24 18:30 Morphine Sulfate 2 Mg/Ml Carp IV 06/07/24 19:27 2 mg Q4H PRN Administration Pain Nicotine 1 patch 05/25/24 09:00 05/28/24 08:37 Nicotine 14 Mg/24 Hr Patch TD 06/24/24 08:59 1 patch QAM FABY Administration Sterile Water 150 ml 05/27/24 18:30 05/29/24 05:31 Tube Feeding Water Flush GT 06/26/24 18:29 150 ml Q4H FABY Administration Sulfasalazine 1,000 mg 05/24/24 21:00 05/28/24 20:13 Sulfasalazine 500 Mg Tablet PO 06/23/24 20:59 1,000 mg BID FABY Administration Thiamine HCl 100 mg 05/27/24 09:00 05/28/24 08:36 Thiamine Hcl 100 Mg Tab PEG 06/26/24 08:59 100 mg DAILY FABY Administration
[2024-05-29 07:40] LABS: Hematocrit (blood only) 24.9 % (37.0-47.0); Hemoglobin 8.9 g/dl (12.0-16.0); Mean Corpuscular Hemoglobin 35.6 pg (25.0-34.0); Mean Corpuscular Hgb Conc 35.7 g/dL (32.0-36.0); Mean Corpuscular Volume 99.6 fL (80.0-100.0); Mean Platelet Volume 9.9 fL (9.4-12.4); Platelet Count 182 K/uL (130-400); RDW Coefficient of Variation 14.8 % (11.5-14.5); RDW Standard Deviation 52.6 fL (36.4-46.3); White Blood Count 13.12 K/ul (4.8-10.8)
[2024-05-29 07:48] LABS: Calcium 8.8 mg/dl (8.6-10.3); Creatinine Clr Calc Pharmacy 160.8 ml/min; Magnesium 1.8 mg/dl (1.7-2.4); Phosphorus 2.7 mg/dl (2.5-4.9); Potassium 3.7 mmol/L (3.5-5.1)
--- NOTE | 2024-05-29 10:14 | Orthopedic Progress Note ---
Date of Service May 29, 2024 Assessment & Plan (1) Closed left hip fracture: Overall she is doing fairly well. She is not having much pain in the hip. She is little bit confused. She can be weightbearing as tolerated with physical therapy. She is orthopedically stable for discharge when medically ready. Full orthopedic discharge instructions were placed in the discharge summary. Tye Majano was seen and examined at bedside this morning. Overall she is doing okay. She does not seem to have much pain in the left hip. She is little bit more confused today. She has not been ambulating on it yet. She has no complaints.. Review of Systems All systems reviewed & are unremarkable except as noted in HPI & below. Physical Exam On physical exam of the left hip, the dressing is clean and dry. Her leg is out full extension. She has active dorsiflexion plantarflexion of her left ankle.. Results & Data Results & Data Laboratory Results . Diagnostic Findings . PG Care Time/CCT Total # of Minutes Spent Total Time Spent with Patient: Total time spent is greater than 50% in coordination of care (as documented) at patient's floor/unit and/or counseling patient: Coding Level of Care Code 90580 Post Operative Follow-Up Diagnoses Closed left hip fracture S72.002A
[2024-05-29 12:33] LABS: BUN Creatinine Ratio 53.6 (10-20); Calcium 8.6 mg/dl (8.6-10.3); Creatinine Clr Calc Pharmacy 160.8 ml/min; Potassium 3.8 mmol/L (3.5-5.1)
--- NOTE | 2024-05-29 13:42 | Nephrology Progress Note ---
Date of Service May 29, 2024 Assessment & Plan (1) Hyponatremia: Plan: -complex, symptomatic and improving but still critical hypotonic hypervolemic hyponatremia in patient with active malignancy (though not one expected to contribute to this condition) s/p platin-based therapy and w/ poor nutrition; she is at high risk for life threatening complications from hyponatremia overcorrection including osmotic demyelination syndrome given serum sodium 103 on presentation on 05/24 at 0430 and malnutrition. fortunately no EtOH. h/o chronic hyponatremia w/ sNa often high 120s. she corrected at appropriate rate 05/24-05/25, then too quickly 05/25-05/26; on 05/26 we lowered sNa to more appropriate high teens range w/ desmopressin. Target for 05/27 AM was conservative at 116-117, no more than 119 >> she was at this target 0400 . Target Na for 05/28 AM was no more than 125 and am lab showed Na 123; K 4.8 after supplementation, Revised target( initially 129 which was lowered to 127 after concerns for demyelination yesterday( CT Was negative), Na was 130 at 6.30 am which dropped to 126 at 12.00 noon ( had desmopressin in yesterday pm). >> target sNa for tomorrow AM is no more than 133; again, remains at high risk for complications from overcorrection and with confusion today would be extra vigilant w/ neuro checks and low threshold for head CT. sodium generally correcting too fast despite efforts to slow it -Continue with 6 hourly sodium checks.Can start on less than 2 g diet and fluid restrict to 1.5 lit.She may again need D5w / desmopressin depending on quickly she corrects. -control pain. >cont FW flushes back to 150 mL q4h >continue neuro checks q 2-4 hours >>needs eukalemia > for now no further supplement -cont strict I/O Care coordinated w/ Megan, (2) Closed left hip fracture: Plan: s/p 05/27 L hip/femur trochanteric nail when optimized medically (sNa >130) Admission and Anticipated Discharge Date Admission Date: May 24, 2024 Subjective Patient denies any pain at this time. Alert to self and location"I do not like the food, I want the hotdog" Denies any acute concerns, at bedside. Physical Exam 2 Physical Exam: GENERAL:Drowsy but arousable and answers questions appropriately (has occasional issues w/ recalling events). Appears very sick/ill/frail/weak/cachectic. HEENT: + pallor, no icterus. Pupils equal, round and reactive to light. Oral mucosa very dry. NECK: No JVD, no neck masses. HEART: S1 and S2 heard. Regular rate and rhythm. No murmur, no gallop. RESPIRATORY SYSTEM: Normal AP diameter. No accessory muscle use. No wheezing, no crackles. decreased breath sounds 2/2 poor effort. ABDOMEN: Soft, bowel sounds present, nontender, no distention. PEG tube in situ noted, no s/s infection at port of entry. CENTRAL NERVOUS SYSTEM: No facial droop. Speech is clear. Obeys simple commands. Moves extremities. EXTREMITIES: 2+ ble edema. LLE shortened and externally rotated. Results & Data Vital Signs (Past 12 Hours) Vital Signs Temp Pulse Resp BP Pulse Ox O2 Del Method 05/29/24 12:42 36.8 C 111 H 18 113/67 94 Room Air 05/29/24 07:53 36.3 C L 107 H 18 128/77 93 Room Air 05/29/24 07:26 Room Air 05/29/24 03:43 36.7 C 105 H 18 114/70 94 Room Air Laboratory Results 05/29/24 06:30 05/29/24 12:01
[2024-05-29] MEDS: POLYETHYLENE (MIRALAX) 17 GM PACK PO SCH (18:54)
[2024-05-29 19:16] LABS: BUN Creatinine Ratio 42.9 (10-20); Calcium 8.2 mg/dl (8.6-10.3); Creatinine Clr Calc Pharmacy 160.8 ml/min; Potassium 3.6 mmol/L (3.5-5.1)
[2024-05-29] MEDS: FUROSEMIDE INJ 20 MG/2 ML VIAL IV STA (21:57)
[2024-05-30 00:50] LABS: BUN Creatinine Ratio 42.9 (10-20); Calcium 8.2 mg/dl (8.6-10.3); Creatinine Clr Calc Pharmacy 160.8 ml/min; Potassium 3.5 mmol/L (3.5-5.1)
[2024-05-30 06:06] LABS: Hematocrit (blood only) 21.1 % (37.0-47.0); Hemoglobin 7.4 g/dl (12.0-16.0); Mean Corpuscular Hemoglobin 34.9 pg (25.0-34.0); Mean Corpuscular Hgb Conc 35.1 g/dL (32.0-36.0); Mean Corpuscular Volume 99.5 fL (80.0-100.0); Mean Platelet Volume 9.9 fL (9.4-12.4); Platelet Count 161 K/uL (130-400); RDW Standard Deviation 52.9 fL (36.4-46.3); Red Blood Count 2.12 M/uL (4.20-5.40); White Blood Count 7.53 K/ul (4.8-10.8)
[2024-05-30 06:15] LABS: BUN Creatinine Ratio 45.8 (10-20); Calcium 8.4 mg/dl (8.6-10.3); Creatinine Clr Calc Pharmacy 191.2 ml/min; Magnesium 1.8 mg/dl (1.7-2.4); Phosphorus 3.5 mg/dl (2.5-4.9); Potassium 3.6 mmol/L (3.5-5.1)
--- NOTE | 2024-05-30 09:54 | Hospitalist Progress Note ---
Date of Service May 30, 2024 Assessment & Plan (1) Acute hyponatremia: (2) Fall: (3) Closed left hip fracture: (4) Metabolic encephalopathy: (5) Squamous cell carcinoma of left tonsil: (6) SIRS (systemic inflammatory response syndrome): Plan Ms. 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 On admission she was noted to have a sodium of 103 and a left intertrochanteric fracture. Patient with progressive altered mental status, which seemingly improved 05/26-, however, much worse the morning of 05/28. Though there is high suspicion that this is ICU/postoperative delirium, patient falls within the time line for presentation of acute osmotic demyelinating syndrome. MRI pursued to rule out this process. 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 Overnight, sodium increased 7meq from night prior therefore desmopressin administered and fluids discontinued. Overnight 05/29, patient received a dose of lasix with good response. Sodium at 128 this am. Repeat bmp planned around 1400. Will discuss if further lasix to be administered. Diet liberalized to regular. #Acute on chronic hyponatremia #Acute metabolic encephalopathy Hyponatremia: multifactorial iso malignancy, poor po intake mental status changed post operatively, likely delirium however given timeline, she is at high risk for osmotic demyelination per nephrology Baseline sodium of 1 25-1 30 since November Admitting sodium of 103, urine osmolality 392, serum osmolality 223. status post hypertonic saline in the ED. s/p desmopressin 05/26 Currently in ICU for frequent lab draw and q2 neuro checks MRI ordered given MS/hallucinations this am Nephrology consulted -will discuss further lasix after BMP at 1400 -1.2 L fluid restriction -regular Ua negative, no indication for abx #Acute on chronic anemia: Baseline hemoglobin seems around 10 , hemoglobin at presentation 7.5, s/p 1 U prbc on 05/24, Anticipate Iron profile WNL, vitamin B12 and folate level WNL. Patient denies any blood or black stool. PPI daily. H&H trend stable. Hgb at 7.4 now, will transfuse <7 CBC in am #Acute proximal left femur fracture s/p left troch nail Admitting CTAP with comminuted, displaced nonarticular fracture of left proximal femur involving trochanteric region. Orthopedics consulted -S/p repair 05/28 Scheduled tylenol apixaban resumed #Acute traumatic rhabdomyolysis: CPK elevated at presentation, status post IV fluid,resolved #Hypomagnesemia: Magnesium of 1.4 at presentation, monitor replete. #Severe protein gurmeet malnutrition: In the setting of underlying malignancy, patient on tube feed diet. BMI 16.7 Continue with IV thiamine and IV folic acid, p.o. multivitamin. Nutrition consult. Continue with PEG tube feeding. #Demand ischemia: Troponin elevated but flat trended, patient without chest pain, echo with EF of 65 to 70%, left ventricular systolic function normal, no regional wall motion abnormalities. Other chronic medical conditions: Continue with/resume home meds as and when able. L tonsillar SCC/L lung mass SCC: s/p chemo/XRT. recent PET CT shows improvement in L tonsillar mass/adenopathy but enlargement to L lung mass. Pt to undergo SBRT. following nutrition for PEG tube/feeding management Hx of RA: on sulfasalazine COPD: no acute exac Tobacco abuse: nicotine patch, encourage cessation DVT ppx: SCDS, apixaban FULL CODE PCP: None, pt previously followed [facility], needs to re establish Dispo: PCU, pt/ot pending and dispo contigent on stable sodium Admission and Anticipated Discharge Date Admission Date: May 24, 2024 Subjective s/p lasix in evening otherwise no acute concerns Some confusion this am, but typically seems to resolve in afternoon Patient did recognize this provider reports no bowel movement Physical Exam Constitutional: WD/WN, vitals as above Respiratory: normal respiratory effort, lungs clear to auscultation Gastrointestinal (Abdomen): normal bowel sounds, soft, nontender, no hepatosplenomegaly Neurologic: PERRL, EOMI, accommodation nl, no face palsy, no dysarthria Results & Data Results & Data Vital Signs (Past 12 Hours) Vital Signs Temp Pulse Pulse Resp BP Pulse Ox O2 Del Method 05/30/24 08:00 97 H 05/30/24 07:45 36.6 C 99 H 17 119/84 92 Room Air 05/30/24 02:33 36.4 C L 102 H 18 109/62 91 Room Air 05/29/24 23:43 87 05/29/24 22:41 36.6 C 106 H 18 90/59 L 93 Room Air Laboratory Results Short CBC 05/30/24 Range/Units 05:47 WBC 7.53 (4.8-10.8) K/ul Hgb 7.4 L (12.0-16.0) g/dl Hct 21.1 L (37.0-47.0) % Plt Count 161 (130-400) K/uL BMP 05/29/24 05/29/24 05/30/24 12:01 18:39 00:13 Sodium 126 L 125 L 125 L Potassium 3.8 3.6 3.5 Chloride 94 L 92 L 91 L Carbon Dioxide 26 27 28 BUN 15 12 12 Creatinine 0.28 L 0.28 L 0.28 L Glucose 109 H 124 H 120 H Calcium 8.6 8.2 L 8.2 L 05/30/24 05:47 Sodium 128 L Potassium 3.6 Chloride 93 L Carbon Dioxide 30 BUN 11 Creatinine 0.24 L Glucose 115 H Calcium 8.4 L Medications Administered Home Medications Medication Instructions Recorded Confirmed Last Taken Potassimin 99 mg PO DAILY 11/06/23 05/24/24 Unknown allopurinol 100 mg tablet 100 mg PO DAILY 11/06/23 05/24/24 Unknown folic acid 1 mg tablet 2 mg PO DAILY 11/06/23 05/24/24 Unknown gabapentin 300 mg tablet 300 mg PO TID 11/06/23 05/24/24 Unknown multivitamin 1 tab PO DAILY 11/06/23 05/24/24 Unknown sulfasalazine 500 mg tablet 1 g PO BID 11/06/23 05/24/24 Unknown ondansetron HCl 8 mg tablet 8 mg PO Q8H PRN restless legs 11/13/23 05/24/24 Unknown acetaminophen 650 mg 650 mg PO Q8H PRN arthritis 05/05/24 05/24/24 Unknown tablet,extended release (Arthritis Pain Relief (acetaminophen) ER) metoclopramide HCl 10 mg tablet 10 mg PO TID 05/24/24 05/24/24 Unknown nutritional supplements See Rx Instructions .Route .COMPLEX 05/24/24 05/24/24 Unknown Active Medications Generic Name Dose Route Start Last Admin Trade Name Freq PRN Reason Stop Dose Admin Acetaminophen 1,000 mg 05/28/24 14:00 05/30/24 05:45 Acetaminophen 500 Mg Tab PO 06/27/24 13:59 1,000 mg Q8H FABY Administration Allopurinol 100 mg 05/25/24 09:00 05/30/24 09:50 Allopurinol 100 Mg Tab PO 06/24/24 08:59 100 mg DAILY FABY Administration Apixaban 2.5 mg 05/28/24 06:00 05/30/24 09:50 Apixaban 2.5 Mg Tab PO 06/27/24 05:59 2.5 mg BID FABY Administration Enteral Nutritional Formula 1,000 ml 05/24/24 13:45 05/27/24 18:35 Novasource Renal 2.0 Gurmeet 1000ml Bag GT 06/26/24 23:55 1,000 ml UD FABY Administration Protocol Folic Acid 1 mg 05/27/24 09:00 05/30/24 09:50 Folic Acid 1 Mg Tab PEG 06/26/24 08:59 1 mg DAILY FABY Administration Lactobacillus Acidophilus 1,250 mg 05/25/24 09:00 05/30/24 09:50 Advanced Probiotic 625 Mg Capsule PO 06/24/24 08:59 1,250 mg DAILY FABY Administration Lansoprazole 30 mg 05/27/24 09:00 05/30/24 09:50 Lansoprazole 30 Mg Soltab PEG 06/26/24 08:59 30 mg DAILY FABY Administration Miscellaneous 1 each 05/25/24 08:59 05/30/24 09:48 Remove Nicoderm Patch N/A 06/24/24 08:58 1 each DAILY@0859 FABY Administration Morphine Sulfate 2 mg 05/24/24 19:28 05/27/24 18:30 Morphine Sulfate 2 Mg/Ml Carp IV 06/07/24 19:27 2 mg Q4H PRN Administration Pain Nicotine 1 patch 05/25/24 09:00 05/30/24 09:49 Nicotine 14 Mg/24 Hr Patch TD 06/24/24 08:59 1 patch QAM FABY Administration Polyethylene Glycol 17 gm 05/29/24 18:00 05/30/24 05:45 Polyethylene (Miralax) 17 Gm Pack PO 06/28/24 17:59 Not Given Q6 FABY Sterile Water 150 ml 05/27/24 18:30 05/30/24 09:51 Tube Feeding Water Flush GT 06/26/24 18:29 150 ml Q4H FABY Administration Sulfasalazine 1,000 mg 05/24/24 21:00 05/30/24 09:49 Sulfasalazine 500 Mg Tablet PO 06/23/24 20:59 1,000 mg BID FABY Administration Thiamine HCl 100 mg 05/27/24 09:00 05/30/24 09:50 Thiamine Hcl 100 Mg Tab PEG 06/26/24 08:59 100 mg DAILY FABY Administration
[2024-05-30] MEDS: bisacodyL 5 MG TABEC PO ONE (11:51)
--- NOTE | 2024-05-30 13:21 | Orthopedic Progress Note ---
Date of Service May 30, 2024 Assessment & Plan (1) Closed left hip fracture: Overall she is doing fairly well. She is was able to take some steps yesterday. She is able to put some weight on it. The nursing staff can change the dressing today. She is on Eliquis for DVT prophylaxis. She is orthopedically stable for discharge when medically ready. Full orthopedic discharge instructions were placed in the discharge summary. Tye Majano was seen and examined at bedside this morning. Overall she is doing fairly well. The dressing is clean and dry. She has no complaints.. Review of Systems All systems reviewed & are unremarkable except as noted in HPI & below. Physical Exam On physical exam of the hip, the dressing is clean and dry. Her leg is out full extension. She has active dorsiflexion plantarflexion of her left ankle.. Results & Data Results & Data Laboratory Results . Diagnostic Findings . PG Care Time/CCT Total # of Minutes Spent Total Time Spent with Patient: Total time spent is greater than 50% in coordination of care (as documented) at patient's floor/unit and/or counseling patient: Coding Level of Care Code 28336 Post Operative Follow-Up Diagnoses Closed left hip fracture S72.002A
--- NOTE | 2024-05-30 14:15 | Nephrology Progress Note ---
Date of Service May 30, 2024 Assessment & Plan (1) Hyponatremia: Plan: -complex, symptomatic and improving but still critical hypotonic hypervolemic hyponatremia in patient with active malignancy (though not one expected to contribute to this condition) s/p platin-based therapy and w/ poor nutrition; she is at high risk for life threatening complications from hyponatremia overcorrection including osmotic demyelination syndrome given serum sodium 103 on presentation on 05/24 at 0430 and malnutrition. fortunately no EtOH. h/o chronic hyponatremia w/ sNa often high 120s. she corrected at appropriate rate 05/24-05/25, then too quickly 05/25-05/26; on 05/26 we lowered sNa to more appropriate high teens range w/ desmopressin. Target for 05/27 AM was conservative at 116-117, no more than 119 >> she was at this target 0400 . Target Na for 05/28 AM was no more than 125 and am lab showed Na 123; K 4.8 after supplementation, Revised target( initially 129 which was lowered to 127 after concerns for demyelination ON 05/28( CT Was negative), Na was 130 at 6.30 am 05/29 which dropped to 126 at 12.00 noon ( had desmopressin in yesterday pm).128 today @6.am ( received one dose of 10 mg IV lasix yesterday night) >> target sNa for tomorrow AM is @135, I think she is out of the ferrer now for complications from overcorrection, She is more alert and oriented today, sodium has generally corrected too fast in the past despite efforts to slow it. but not over the last 24 hr -Continue with 6 hourly sodium checks.Advance to normal diet today - fluid restrict to 1.2 lit.She will likley need lasix 10 mg BID ( to be decided after the noon result) - control pain. >cont FW flushes back to 150 mL q4h >>needs eukalemia > for now no further supplement -cont strict I/O Care coordinated w/ Megan, (2) Closed left hip fracture: Plan: s/p 12/5 L hip/femur trochanteric nail when optimized medically (sNa >130) Admission and Anticipated Discharge Date Admission Date: May 24, 2024 Subjective Comfortable, and recognised me. Good urine output. "I liked the food today" Review of Systems 2 Review of Systems: All systems reviewed & are unremarkable except as noted in HPI & below Physical Exam 2 Physical Exam: GENERAL:Alert and oriented times 2 ( name and place) Appears very sick/ill/frail/weak/cachectic. HEENT: + pallor, no icterus. Pupils equal, round and reactive to light. Oral mucosa very dry. NECK: No JVD, no neck masses. HEART: S1 and S2 heard. Regular rate and rhythm. No murmur, no gallop. RESPIRATORY SYSTEM: Normal AP diameter. No accessory muscle use. No wheezing, no crackles. decreased breath sounds 2/2 poor effort. ABDOMEN: Soft, bowel sounds present, nontender, no distention. PEG tube in situ noted, no s/s infection at port of entry. EXTREMITIES: 2+ ble edema. LLE shortened and externally rotated. Results & Data Vital Signs (Past 12 Hours) Vital Signs Temp Pulse Pulse Resp BP Pulse Ox O2 Del Method 05/30/24 11:38 36.7 C 99 H 20 111/69 93 Room Air 05/30/24 08:00 Room Air 05/30/24 08:00 97 H 05/30/24 07:45 36.6 C 99 H 17 119/84 92 Room Air 05/30/24 02:33 36.4 C L 102 H 18 109/62 91 Room Air Laboratory Results 05/30/24 05:47 05/30/24 05:47
[2024-05-30 14:33] LABS: Calcium 8.3 mg/dl (8.6-10.3)
[2024-05-30] MEDS: TUBE FEEDING WATER FLUSH GT SCH (16:03)
[2024-05-30] MEDS: UREA (UREA-NA) 15 GM PACK PO STA (16:49)
[2024-05-30] MEDS: UREA (UREA-NA) 15 GM PACK PO SCH (19:16)
[2024-05-30 21:26] LABS: BUN Creatinine Ratio 175.8 (10-20); Calcium 8.7 mg/dl (8.6-10.3); Potassium 4.1 mmol/L (3.5-5.1)
[2024-05-30] MEDS: FUROSEMIDE INJ 20 MG/2 ML VIAL IV STA (23:00)
[2024-05-31 02:20] LABS: Hematocrit (blood only) 22.2 % (37.0-47.0); Hemoglobin 7.6 g/dl (12.0-16.0); Mean Corpuscular Hemoglobin 34.4 pg (25.0-34.0); Mean Corpuscular Hgb Conc 34.2 g/dL (32.0-36.0); Mean Corpuscular Volume 100.5 fL (80.0-100.0); Mean Platelet Volume 9.6 fL (9.4-12.4); Platelet Count 182 K/uL (130-400); RDW Coefficient of Variation 15.3 % (11.5-14.5); RDW Standard Deviation 54.4 fL (36.4-46.3); Red Blood Count 2.21 M/uL (4.20-5.40); White Blood Count 6.72 K/ul (4.8-10.8)
[2024-05-31 02:37] LABS: Magnesium 1.9 mg/dl (1.7-2.4); Phosphorus 3.3 mg/dl (2.5-4.9)
[2024-05-31 03:05] LABS: BUN Creatinine Ratio 118.2 (10-20); Calcium 8.8 mg/dl (8.6-10.3); Potassium 4.1 mmol/L (3.5-5.1)
[2024-05-31 08:47] LABS: BUN Creatinine Ratio 81.3 (10-20); Calcium 8.7 mg/dl (8.6-10.3); Creatinine Clr Calc Pharmacy 137.6 ml/min; Potassium 4.3 mmol/L (3.5-5.1)
--- NOTE | 2024-05-31 11:47 | Nephrology Progress Note ---
Date of Service May 31, 2024 Assessment & Plan Admission and Anticipated Discharge Date Admission Date: May 24, 2024 Subjective Assessment & Plan (1) Hyponatremia: Plan: Presented with na of 103 and after many days and careful titration na is now 130. complex, symptomatic and improving critical hypotonic hypervolemic hyponatremia in patient with active malignancy (though not one expected to contribute to this condition) s/p platin-based therapy and w/ poor nutrition. She was at high risk for life threatening complications from hyponatremia overc orrection including osmotic demyelination syndrome given serum sodium 103 on presentation on 05/24 at 0430 and malnutrition. fortunately no EtOH. h/o chronic hyponatremia w/ sNa often high 120s. Now tht na is 130 can check once daily. She is out of the danger period for ODS. (2) Closed left hip fracture: Plan: s/p 12/5 L hip/femur trochanteric nail when optimized medically (sNa >130) Subjective eating slightly better. na is better now. No new issues Review of Systems Review of Systems: All systems reviewed & are unremarkable except as noted in HPI & below Physical Exam Physical Exam: GENERAL:Alert and oriented times 2 ( name and place) Appears very sick/ill/frail/weak/cachectic. HEENT: + pallor, no icterus. Pupils equal, round and reactive to light. Oral mucosa very dry. NECK: No JVD, no neck masses. HEART: S1 and S2 heard. Regular rate and rhythm. No murmur, no gallop. RESPIRATORY SYSTEM: Normal AP diameter. No accessory muscle use. No wheezing, no crackles. decreased breath sounds 2/2 poor effort. ABDOMEN: Soft, bowel sounds present, nontender, no distention. PEG tube in situ noted, no s/s infection at port of entry. EXTREMITIES: 2+ ble edema. LLE shortened and externally rotated. Results & Data Vital Signs (Past 12 Hours) Vital Signs Temp Pulse Pulse Resp BP Pulse Ox O2 Del Method 05/31/24 08:11 36.7 C 90 18 109/66 95 Room Air 05/31/24 07:38 Room Air 05/31/24 02:30 36.7 C 99 H 18 112/71 94 Room Air 05/31/24 00:00 100 H O2 Flow Rate 05/31/24 08:11 05/31/24 07:38 0 05/31/24 02:30 05/31/24 00:00
--- NOTE | 2024-05-31 12:20 | Hospitalist Progress Note ---
Date of Service May 31, 2024 Assessment & Plan (1) Acute hyponatremia: (2) Fall: (3) Closed left hip fracture: (4) Metabolic encephalopathy: (5) Squamous cell carcinoma of left tonsil: (6) SIRS (systemic inflammatory response syndrome): Plan Ms. 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 On admission she was noted to have a sodium of 103 and a left intertrochanteric fracture. Patient with progressive altered mental status, which seemingly improved 05/26-, however, much worse the morning of 05/28. Though there is high suspicion that this is ICU/postoperative delirium, patient falls within the time line for presentation of acute osmotic demyelinating syndrome. MRI pursued to rule out this process which was negative. 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 Overnight, sodium increased 7meq from night prior therefore desmopressin administered and fluids discontinued. Overnight 05/29, patient received a dose of lasix with good response. Sodium fluctating, prompting initiation of urea on 05/30. Today morning, sodium at 130 and patient doing well. Plan to likely discontinue urea in next 24 hours and overall likely stable by tomorrow for rehab. #Acute on chronic hyponatremia #Acute metabolic encephalopathy Hyponatremia: multifactorial iso malignancy, poor po intake mental status changed post operatively, likely delirium however given timeline, she is at high risk for osmotic demyelination per nephrology Baseline sodium of 1 25-1 30 since November Admitting sodium of 103, urine osmolality 392, serum osmolality 223. status post hypertonic saline in the ED. s/p desmopressin 05/26 Currently in ICU for frequent lab draw and q2 neuro checks MRI ordered given MS/hallucinations this am Nephrology consulted -Urea 30mg x1 and 15bid started 05/30 with uptrend to 130 -1.2 L fluid restriction -regular Ua negative, no indication for abx Will check bmp q24 ours now #Acute on chronic anemia: Baseline hemoglobin seems around 10 , hemoglobin at presentation 7.5, s/p 1 U prbc on 05/24, Anticipate Iron profile WNL, vitamin B12 and folate level WNL. Patient denies any blood or black stool. PPI daily. H&H trend stable. Hgb at 7.4 now, will transfuse <7 CBC in am #Acute proximal left femur fracture s/p left troch nail Admitting CTAP with comminuted, displaced nonarticular fracture of left proximal femur involving trochanteric region. Orthopedics consulted -S/p repair 05/28 Scheduled tylenol apixaban continued #Acute traumatic rhabdomyolysis: CPK elevated at presentation, status post IV fluid,resolved #Hypomagnesemia: Magnesium of 1.4 at presentation, monitor replete. #Severe protein gurmeet malnutrition: In the setting of underlying malignancy, patient on tube feed diet. BMI 16.7 Continue with IV thiamine and IV folic acid, p.o. multivitamin. Nutrition consult. Continue with PEG tube feeding. #Demand ischemia: Troponin elevated but flat trended, patient without chest pain, echo with EF of 65 to 70%, left ventricular systolic function normal, no regional wall motion abnormalities. Other chronic medical conditions: Continue with/resume home meds as and when able. L tonsillar SCC/L lung mass SCC: s/p chemo/XRT. recent PET CT shows improvement in L tonsillar mass/adenopathy but enlargement to L lung mass. Pt to undergo SBRT. following nutrition for PEG tube/feeding management Hx of RA: on sulfasalazine COPD: no acute exac Tobacco abuse: nicotine patch, encourage cessation DVT ppx: SCDS, apixaban FULL CODE PCP: None, pt previously followed [facility], needs to re establish Dispo: medically ready likely in 1-2 days Admission and Anticipated Discharge Date Admission Date: May 24, 2024 Subjective NAEO Denies any overt pain or discomfort Physical Exam Constitutional: WD/WN, vitals as above Respiratory: normal respiratory effort, lungs clear to auscultation Cardiovascular: RRR, no murmur, no edema Musculoskeletal: dressing on left hip, CDI Results & Data Results & Data Vital Signs (Past 12 Hours) Vital Signs Temp Pulse Resp BP Pulse Ox O2 Del Method O2 Flow Rate 05/31/24 12:16 36.6 C 89 20 103/66 91 Room Air 05/31/24 08:11 36.7 C 90 18 109/66 95 Room Air 05/31/24 07:38 Room Air 0 05/31/24 02:30 36.7 C 99 H 18 112/71 94 Room Air Laboratory Results Short CBC 05/31/24 Range/Units 01:58 WBC 6.72 (4.8-10.8) K/ul Hgb 7.6 L (12.0-16.0) g/dl Hct 22.2 L (37.0-47.0) % Plt Count 182 (130-400) K/uL BMP 05/30/24 05/30/24 05/31/24 14:03 20:47 01:58 Sodium 124 L 128 L 129 L Potassium 4.0 4.1 4.1 Chloride 90 L 91 L 93 L Carbon Dioxide 29 34 H 32 BUN 12 58 H D 39 H Creatinine 0.30 L 0.33 L 0.33 L Glucose 125 H 123 H 124 H Calcium 8.3 L 8.7 8.8 05/31/24 08:09 Sodium 130 L Potassium 4.3 Chloride 94 L Carbon Dioxide 32 BUN 26 H Creatinine 0.32 L Glucose 105 H Calcium 8.7 Medications Administered Home Medications Medication Instructions Recorded Confirmed Last Taken Potassimin 99 mg PO DAILY 11/06/23 05/24/24 Unknown allopurinol 100 mg tablet 100 mg PO DAILY 11/06/23 05/24/24 Unknown folic acid 1 mg tablet 2 mg PO DAILY 11/06/23 05/24/24 Unknown gabapentin 300 mg tablet 300 mg PO TID 11/06/23 05/24/24 Unknown multivitamin 1 tab PO DAILY 11/06/23 05/24/24 Unknown sulfasalazine 500 mg tablet 1 g PO BID 11/06/23 05/24/24 Unknown ondansetron HCl 8 mg tablet 8 mg PO Q8H PRN restless legs 11/13/23 05/24/24 Unknown acetaminophen 650 mg 650 mg PO Q8H PRN arthritis 05/05/24 05/24/24 Unknown tablet,extended release (Arthritis Pain Relief (acetaminophen) ER) metoclopramide HCl 10 mg tablet 10 mg PO TID 05/24/24 05/24/24 Unknown nutritional supplements See Rx Instructions .Route .COMPLEX 05/24/24 05/24/24 Unknown Active Medications Generic Name Dose Route Start Last Admin Trade Name Freq PRN Reason Stop Dose Admin Acetaminophen 1,000 mg 05/28/24 14:00 05/31/24 11:15 Acetaminophen 500 Mg Tab PO 06/27/24 13:59 1,000 mg Q8H FABY Administration Allopurinol 100 mg 05/25/24 09:00 05/31/24 08:16 Allopurinol 100 Mg Tab PO 06/24/24 08:59 100 mg DAILY FABY Administration Apixaban 2.5 mg 05/28/24 06:00 05/31/24 08:16 Apixaban 2.5 Mg Tab PO 06/27/24 05:59 2.5 mg BID FABY Administration Enteral Nutritional Formula 1,000 ml 05/24/24 13:45 05/30/24 23:55 Novasource Renal 2.0 Gurmeet 1000ml Bag GT 06/26/24 23:55 1,000 ml UD FABY Administration Protocol Folic Acid 1 mg 05/27/24 09:00 05/31/24 08:16 Folic Acid 1 Mg Tab PEG 06/26/24 08:59 1 mg DAILY FABY Administration Lactobacillus Acidophilus 1,250 mg 05/25/24 09:00 05/31/24 08:14 Advanced Probiotic 625 Mg Capsule PO 06/24/24 08:59 1,250 mg DAILY FABY Administration Lansoprazole 30 mg 05/27/24 09:00 05/31/24 08:15 Lansoprazole 30 Mg Soltab PEG 06/26/24 08:59 30 mg DAILY FABY Administration Miscellaneous 1 each 05/25/24 08:59 05/31/24 08:16 Remove Nicoderm Patch N/A 06/24/24 08:58 1 each DAILY@0859 FABY Administration Morphine Sulfate 2 mg 05/24/24 19:28 05/27/24 18:30 Morphine Sulfate 2 Mg/Ml Carp IV 06/07/24 19:27 2 mg Q4H PRN Administration Pain Nicotine 1 patch 05/25/24 09:00 05/31/24 08:14 Nicotine 14 Mg/24 Hr Patch TD 06/24/24 08:59 1 patch QAM FABY Administration Polyethylene Glycol 17 gm 05/29/24 18:00 05/31/24 11:18 Polyethylene (Miralax) 17 Gm Pack PO 06/28/24 17:59 17 gm Q6 FABY Administration Sterile Water 100 ml 05/30/24 15:45 05/31/24 08:16 Tube Feeding Water Flush GT 06/29/24 15:44 100 ml Q8H FABY Administration Sulfasalazine 1,000 mg 05/24/24 21:00 05/31/24 08:15 Sulfasalazine 500 Mg Tablet PO 06/23/24 20:59 1,000 mg BID FABY Administration Thiamine HCl 100 mg 05/27/24 09:00 05/31/24 08:16 Thiamine Hcl 100 Mg Tab PEG 06/26/24 08:59 100 mg DAILY FABY Administration Urea 15 gm 05/30/24 18:00 05/31/24 08:17 Urea (Urea-Na) 15 Gm Pack PO 06/29/24 17:59 15 gm BID FABY Administration
[2024-05-31 14:45] LABS: BUN Creatinine Ratio 93.9 (10-20); Calcium 8.5 mg/dl (8.6-10.3); Creatinine Clr Calc Pharmacy 133.5 ml/min; Potassium 4.1 mmol/L (3.5-5.1)
[2024-05-31 20:06] LABS: BUN Creatinine Ratio 66.7 (10-20); Calcium 8.2 mg/dl (8.6-10.3); Creatinine Clr Calc Pharmacy 133.5 ml/min; Potassium 4.1 mmol/L (3.5-5.1)
--- NOTE | 2024-06-01 09:49 | Nephrology Progress Note ---
Date of Service June 01, 2024 Assessment & Plan Admission and Anticipated Discharge Date Admission Date: May 24, 2024 Subjective Assessment & Plan (1) Hyponatremia: Plan: Presented with na of 103 and after many days and careful titration na is now 130. complex, symptomatic and improving critical hypotonic hypervolemic hyponatremia in patient with active malignancy (though not one expected to contribute to this condition) s/p platin-based therapy and w/ poor nutrition. She was at high risk for life threatening complications from hyponatremia over correction including osmotic demyelination syndrome given serum sodium 103 on presentation on 05/24 at 0430 and malnutrition. fortunately no EtOH. h/o chronic hyponatremia w/ sNa often high 120s. She is out of the danger period for ODS. Na+ now stalled at around 126--130 range which was her baseline before also. urine osm is high at 400+. Want to try lasix 40 iv x dose tonight in evening. Lower FFR to 1200 ml per day. TF 100 ml q8hr also. Continue Urea 15 bid at least while inpt. It is possible 125--130 is what we will get going forward. (2) Closed left hip fracture: Plan: s/p 12/5 L hip/femur trochanteric nail Subjective eating slightly better. na is better now. No new issues Review of Systems Review of Systems: All systems reviewed & are unremarkable except as noted in HPI & below Physical Exam Physical Exam: GENERAL:Alert and oriented times 2 ( name and place) Appears very sick/ill/frail/weak/cachectic. HEENT: + pallor, no icterus. Pupils equal, round and reactive to light. Oral mucosa very dry. NECK: No JVD, no neck masses. HEART: S1 and S2 heard. Regular rate and rhythm. No murmur, no gallop. RESPIRATORY SYSTEM: Normal AP diameter. No accessory muscle use. No wheezing, no crackles. decreased breath sounds 2/2 poor effort. ABDOMEN: Soft, bowel sounds present, nontender, no distention. PEG tube in situ noted, no s/s infection at port of entry. EXTREMITIES: 2+ ble edema. LLE shortened and externally rotated. Results & Data Vital Signs (Past 12 Hours) Vital Signs Temp Pulse Pulse Resp BP Pulse Ox O2 Del Method 06/01/24 08:22 85 06/01/24 08:13 36.8 C 103 H 20 122/67 97 Room Air 06/01/24 02:42 36.5 C 93 H 18 102/61 93 Room Air 06/01/24 00:00 87 05/31/24 22:55 36.4 C L 98 H 18 122/69 93 Room Air
--- NOTE | 2024-06-01 11:21 | Hospitalist Progress Note ---
Date of Service June 01, 2024 Assessment & Plan (1) Acute hyponatremia: (2) Fall: (3) Closed left hip fracture: (4) Metabolic encephalopathy: (5) Squamous cell carcinoma of left tonsil: (6) SIRS (systemic inflammatory response syndrome): Plan Ms. 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 On admission she was noted to have a sodium of 103 and a left intertrochanteric fracture. Patient with progressive altered mental status, which seemingly improved 05/26-, however, much worse the morning of 05/28. Though there is high suspicion that this is ICU/postoperative delirium, patient falls within the time line for presentation of acute osmotic demyelinating syndrome. MRI pursued to rule out this process which was negative. 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 Overnight, sodium increased 7meq from night prior therefore desmopressin administered and fluids discontinued. Overnight 05/29, patient received a dose of lasix with good response. Sodium fluctuating, prompting initiation of urea on 05/30. Nephrology suspects that NA will be around 126-130. Planning lasix trial and tighter FFR. Urea will continue Patient has yet to start radiation with Dilip. Patient follows Dr. Theodore Cherry for Oncology #Acute on chronic hyponatremia #Acute metabolic encephalopathy Hyponatremia: multifactorial iso malignancy, poor po intake mental status changed post operatively, likely delirium however given timeline, she is at high risk for osmotic demyelination per nephrology Baseline sodium of 1 25-1 30 since November Admitting sodium of 103, urine osmolality 392, serum osmolality 223. status post hypertonic saline in the ED. s/p desmopressin 05/26 Currently in ICU for frequent lab draw and q2 neuro checks MRI ordered given MS/hallucinations this am Nephrology consulted -Urea 30mg x1 and 15bid started 05/30 with uptrend to 130 -1.2 L fluid restriction -regular Ua negative, no indication for abx Will check bmp q24 ours now #Acute on chronic anemia: stable Baseline hemoglobin seems around 10 , hemoglobin at presentation 7.5, s/p 1 U prbc on 05/24, Anticipate Iron profile WNL, vitamin B12 and folate level WNL. Patient denies any blood or black stool. PPI daily. H&H trend stable. Hgb at 7.4 now, will transfuse <7 CBC in am #Acute proximal left femur fracture s/p left troch nail Admitting CTAP with comminuted, displaced nonarticular fracture of left proximal femur involving trochanteric region. Orthopedics consulted -S/p repair 05/28 Scheduled tylenol apixaban continued #Acute traumatic rhabdomyolysis: CPK elevated at presentation, status post IV fluid,resolved #Hypomagnesemia: Magnesium of 1.4 at presentation, monitor replete. #Severe protein anatoly malnutrition: In the setting of underlying malignancy, patient on tube feed diet. BMI 16.7 Continue with IV thiamine and IV folic acid, p.o. multivitamin. Nutrition consult. Continue with PEG tube feeding. #Demand ischemia: Troponin elevated but flat trended, patient without chest pain, echo with EF of 65 to 70%, left ventricular systolic function normal, no regional wall motion abnormalities. Other chronic medical conditions: Continue with/resume home meds as and when able. L tonsillar SCC/L lung mass SCC: s/p chemo/XRT. recent PET CT shows improvement in L tonsillar mass/adenopathy but enlargement to L lung mass. Pt to undergo SBRT. following nutrition for PEG tube/feeding management Hx of RA: on sulfasalazine COPD: no acute exac Tobacco abuse: nicotine patch, encourage cessation DVT ppx: SCDS, apixaban FULL CODE PCP: None, pt previously followed [facility], needs to re establish Dispo: medically ready likely in 1-2 days Admission and Anticipated Discharge Date Admission Date: May 24, 2024 Subjective NAEO denies any SOB, palpitations, chest pain Physical Exam Constitutional: WD/WN, vitals as above Respiratory: normal respiratory effort, lungs clear to auscultation Cardiovascular: RRR, no murmur, no edema Results & Data Results & Data Vital Signs (Past 12 Hours) Vital Signs Temp Pulse Pulse Resp BP Pulse Ox O2 Del Method 06/01/24 08:22 85 06/01/24 08:13 36.8 C 103 H 20 122/67 97 Room Air 06/01/24 02:42 36.5 C 93 H 18 102/61 93 Room Air 06/01/24 00:00 87 Laboratory Results [facility] 05/31/24 05/31/24 13:50 19:38 Sodium 126 L 128 L Potassium 4.1 4.1 Chloride 92 L 94 L Carbon Dioxide 30 30 BUN 31 H 22 Creatinine 0.33 L 0.33 L Glucose 122 H 133 H Calcium 8.5 L 8.2 L Medications Administered Home Medications Medication Instructions Recorded Confirmed Last Taken Potassimin 99 mg PO DAILY 11/06/23 05/24/24 Unknown allopurinol 100 mg tablet 100 mg PO DAILY 11/06/23 05/24/24 Unknown folic acid 1 mg tablet 2 mg PO DAILY 11/06/23 05/24/24 Unknown gabapentin 300 mg tablet 300 mg PO TID 11/06/23 05/24/24 Unknown multivitamin 1 tab PO DAILY 11/06/23 05/24/24 Unknown sulfasalazine 500 mg tablet 1 g PO BID 11/06/23 05/24/24 Unknown ondansetron HCl 8 mg tablet 8 mg PO Q8H PRN restless legs 11/13/23 05/24/24 Unknown acetaminophen 650 mg 650 mg PO Q8H PRN arthritis 05/05/24 05/24/24 Unknown tablet,extended release (Arthritis Pain Relief (acetaminophen) ER) metoclopramide HCl 10 mg tablet 10 mg PO TID 05/24/24 05/24/24 Unknown nutritional supplements See Rx Instructions .Route .COMPLEX 05/24/24 05/24/24 Unknown Active Medications Generic Name Dose Route Start Last Admin Trade Name Sladeq PRN Reason Stop Dose Admin Acetaminophen 1,000 mg 05/28/24 14:00 06/01/24 05:17 Acetaminophen 500 Mg Tab PO 06/27/24 13:59 1,000 mg Q8H FABY Administration Allopurinol 100 mg 05/25/24 09:00 06/01/24 09:22 Allopurinol 100 Mg Tab PO 06/24/24 08:59 100 mg DAILY FABY Administration Apixaban 2.5 mg 05/28/24 06:00 06/01/24 09:23 Apixaban 2.5 Mg Tab PO 06/27/24 05:59 2.5 mg BID FABY Administration Enteral Nutritional Formula 1,000 ml 05/24/24 13:45 05/30/24 23:55 Novasource Renal 2.0 Anatoly 1000ml Bag GT 06/26/24 23:55 1,000 ml UD FABY Administration Protocol Folic Acid 1 mg 05/27/24 09:00 06/01/24 09:22 Folic Acid 1 Mg Tab PEG 06/26/24 08:59 1 mg DAILY FABY Administration Lactobacillus Acidophilus 1,250 mg 05/25/24 09:00 06/01/24 09:22 Advanced Probiotic 625 Mg Capsule PO 06/24/24 08:59 1,250 mg DAILY FABY Administration Lansoprazole 30 mg 05/27/24 09:00 06/01/24 09:23 Lansoprazole 30 Mg Soltab PEG 06/26/24 08:59 30 mg DAILY FABY Administration Miscellaneous 1 each 05/25/24 08:59 06/01/24 09:21 Remove Nicoderm Patch N/A 06/24/24 08:58 1 each DAILY@0859 FABY Administration Morphine Sulfate 2 mg 05/24/24 19:28 05/27/24 18:30 Morphine Sulfate 2 Mg/Ml Carp IV 06/07/24 19:27 2 mg Q4H PRN Administration Pain Nicotine 1 patch 05/25/24 09:00 06/01/24 09:24 Nicotine 14 Mg/24 Hr Patch TD 06/24/24 08:59 1 patch QAM FABY Administration Polyethylene Glycol 17 gm 05/29/24 18:00 06/01/24 11:05 Polyethylene (Miralax) 17 Gm Pack PO 06/28/24 17:59 Not Given Q6 FABY Sterile Water 100 ml 05/30/24 15:45 06/01/24 09:21 Tube Feeding Water Flush GT 06/29/24 15:44 100 ml Q8H FABY Administration Sulfasalazine 1,000 mg 05/24/24 21:00 06/01/24 09:23 Sulfasalazine 500 Mg Tablet PO 06/23/24 20:59 1,000 mg BID FABY Administration Thiamine HCl 100 mg 05/27/24 09:00 06/01/24 09:24 Thiamine Hcl 100 Mg Tab PEG 06/26/24 08:59 100 mg DAILY FABY Administration Urea 15 gm 05/30/24 18:00 06/01/24 09:28 Urea (Urea-Na) 15 Gm Pack PO 06/29/24 17:59 15 gm BID FABY Administration
[2024-06-01] MEDS: FUROSEMIDE 40 MG/4 ML VIAL IV ONE (20:36)
[2024-06-02 06:22] LABS: Hematocrit (blood only) 23.3 % (37.0-47.0); Hemoglobin 8.2 g/dl (12.0-16.0); Mean Corpuscular Hemoglobin 35.7 pg (25.0-34.0); Mean Corpuscular Hgb Conc 35.2 g/dL (32.0-36.0); Mean Corpuscular Volume 101.3 fL (80.0-100.0); Mean Platelet Volume 10.1 fL (9.4-12.4); Platelet Count 222 K/uL (130-400); RDW Coefficient of Variation 15.5 % (11.5-14.5); RDW Standard Deviation 55.5 fL (36.4-46.3); White Blood Count 3.53 K/ul (4.8-10.8)
[2024-06-02 06:45] LABS: BUN Creatinine Ratio 84.4 (10-20); Calcium 8.9 mg/dl (8.6-10.3); Creatinine Clr Calc Pharmacy 127.3 ml/min; Magnesium 1.8 mg/dl (1.7-2.4); Phosphorus 3.9 mg/dl (2.5-4.9); Potassium 4.2 mmol/L (3.5-5.1)
--- NOTE | 2024-06-02 09:32 | Nephrology Progress Note ---
Date of Service June 02, 2024 Assessment & Plan Admission and Anticipated Discharge Date Admission Date: May 24, 2024 Subjective Assessment & Plan (1) Hyponatremia: Plan: Presented with na of 103 and after many days and careful titration na is now 130. complex, symptomatic and improving critical hypotonic hypervolemic hyponatremia in patient with active malignancy (though not one expected to contribute to this condition) s/p platin-based therapy and w/ poor nutrition. She was at high risk for life threatening complications from hyponatremia over correction including osmotic demyelination syndrome given serum sodium 103 on presentation on 05/24 at 0430 and malnutrition. fortunately no EtOH. h/o chronic hyponatremia w/ sNa often high 120s. She is out of the danger period for ODS. Na+ now stalled at around 126--130 range which was her baseline before also. urine osm is high at 400+. No change in na with lasix 40 iv. Lower FFR to 1200 ml per day. Lower TF 50 ml q8hr also. Will stop urea now. It is possible 125--130 is what we will get going forward regardless and that is acceptable. (2) Closed left hip fracture: Plan: s/p 12/5 L hip/femur trochanteric nail Subjective eating slightly better. na is better now. No new issues Review of Systems Review of Systems: All systems reviewed & are unremarkable except as noted in HPI & below Physical Exam Physical Exam: GENERAL:Alert and oriented times 2 ( name and place) Appears very sick/ill/frail/weak/cachectic. HEENT: + pallor, no icterus. Pupils equal, round and reactive to light. Oral mucosa very dry. NECK: No JVD, no neck masses. HEART: S1 and S2 heard. Regular rate and rhythm. No murmur, no gallop. RESPIRATORY SYSTEM: Normal AP diameter. No accessory muscle use. No wheezing, no crackles. decreased breath sounds 2/2 poor effort. ABDOMEN: Soft, bowel sounds present, nontender, no distention. PEG tube in situ noted, no s/s infection at port of entry. EXTREMITIES: No edema. LLE shortened and externally rotated. Results & Data Vital Signs (Past 12 Hours) Vital Signs Temp Pulse Pulse Resp BP Pulse Ox O2 Del Method 06/02/24 07:21 36.4 C L 101 H 19 116/68 93 Room Air 06/02/24 03:22 36.6 C 102 H 17 113/76 93 Room Air 06/02/24 00:00 87 06/01/24 23:18 36.7 C 59 L 16 97/66 L 95 Room Air
[2024-06-02] MEDS: SODIUM BICARBONATE 650 MG TAB PO PRN (11:47)
[2024-06-02] MEDS: TUBE FEEDING WATER FLUSH GT SCH (11:59)
[2024-06-02] MEDS: PANCREAZE (LIPASE 4,200U) CAP PO PRN (15:43)
--- NOTE | 2024-06-02 16:08 | Hospitalist Progress Note ---
Date of Service June 02, 2024 Assessment & Plan (1) Closed left hip fracture: (2) Fall: (3) Acute hyponatremia: (4) Squamous cell carcinoma of left tonsil: Plan: per Dr. Rivero's notes with addendum: (1) Acute hyponatremia: (2) Fall: (3) Closed left hip fracture: (4) Metabolic encephalopathy: (5) Squamous cell carcinoma of left tonsil: (6) SIRS (systemic inflammatory response syndrome): Plan Ms. 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 On admission she was noted to have a sodium of 103 and a left intertrochanteric fracture. Patient with progressive altered mental status, which seemingly improved 05/26-, however, much worse the morning of 05/28. Though there is high suspicion that this is ICU/postoperative delirium, patient falls within the time line for presentation of acute osmotic demyelinating syndrome. MRI pursued to rule out this process which was negative. 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 Overnight, sodium increased 7meq from night prior therefore desmopressin administered and fluids discontinued. Overnight 05/29, patient received a dose of lasix with good response. Sodium fluctuating, prompting initiation of urea on 05/30. Nephrology suspects that NA will be around 126-130. Planning lasix trial and tighter FFR. Urea will continue Patient has yet to start radiation with Cherry. Patient follows Dr. Theodore Cherry for Oncology #Acute on chronic hyponatremia #Acute metabolic encephalopathy Hyponatremia: multifactorial iso malignancy, poor po intake mental status changed post operatively, likely delirium however given timeline, she is at high risk for osmotic demyelination per nephrology Baseline sodium of 1 25-1 30 since November Admitting sodium of 103, urine osmolality 392, serum osmolality 223. status post hypertonic saline in the ED. s/p desmopressin 05/26 Currently in ICU for frequent lab draw and q2 neuro checks MRI ordered given MS/hallucinations this am Nephrology consulted -Urea 30mg x1 and 15bid started 05/30 with uptrend to 130 -1.2 L fluid restriction -regular Ua negative, no indication for abx Will check bmp q24 ours now 06/02 Sodium stable at 128 Continue urea Continue fluid restriction Nephrology service following #Acute on chronic anemia: stable Baseline hemoglobin seems around 10 , hemoglobin at presentation 7.5, s/p 1 U prbc on 05/24, Anticipate Iron profile WNL, vitamin B12 and folate level WNL. Patient denies any blood or black stool. PPI daily. H&H trend stable. Hgb at 7.4 now, will transfuse <7 CBC in am 06/02 Hemoglobin stable at 8.2 #Acute proximal left femur fracture s/p left troch nail Admitting CTAP with comminuted, displaced nonarticular fracture of left proximal femur involving trochanteric region. Orthopedics consulted -S/p repair 05/28 Scheduled tylenol apixaban continued #Acute traumatic rhabdomyolysis: CPK elevated at presentation, status post IV fluid,resolved #Hypomagnesemia: Magnesium of 1.4 at presentation, monitor replete. #Severe protein anatoly malnutrition: In the setting of underlying malignancy, patient on tube feed diet. BMI 16.7 Continue with IV thiamine and IV folic acid, p.o. multivitamin. Nutrition consult. Continue with PEG tube feeding. #Demand ischemia: Troponin elevated but flat trended, patient without chest pain, echo with EF of 65 to 70%, left ventricular systolic function normal, no regional wall motion abnormalities. Other chronic medical conditions: Continue with/resume home meds as and when able. L tonsillar SCC/L lung mass SCC: s/p chemo/XRT. recent PET CT shows improvement in L tonsillar mass/adenopathy but enlargement to L lung mass. Pt to undergo SBRT. following nutrition for PEG tube/feeding management Hx of RA: on sulfasalazine COPD: no acute exac Tobacco abuse: nicotine patch, encourage cessation DVT ppx: SCDS, apixaban FULL CODE PCP: None, pt previously followed [facility], needs to re establish Dispo: medically ready likely in 1-2 days Admission and Anticipated Discharge Date Admission Date: May 24, 2024 Subjective Follow-up for hyponatremia, etc. Seen resting in bed, sitting up, comfortable, in good spirits States she feels fine overall Reports PEG tube unable to be used today due to obstruction States energy level is improving, able to ambulate in the hallway No other new symptoms Review of Systems Review of Systems: all noted and negative except for above Physical Exam Physical Exam: General- oriented x 3, not in distress, speaks in sentences with no effort or accessory muscle use Eyes- anicteric Neck- no JVD Lungs- clear breath sounds bilaterally, no rales/wheezes Heart- normal rate, regular rhythm; no murmurs Abdomen- normal bowel sounds, nondistended, soft, nontender PEG tube in place, no signs of infection in the insertion site Extremities- no pretibial edema, no calf tenderness Neuro- alert, oriented x 3; no gross focal neurologic deficits Skin- warm & dry Results & Data Results & Data Vital Signs (Past 12 Hours) Vital Signs Temp Pulse Resp BP Pulse Ox O2 Del Method 06/02/24 15:30 36.7 C 100 H 19 132/84 96 Room Air 06/02/24 11:34 36.6 C 93 H 18 112/68 94 Room Air 06/02/24 08:00 Room Air 06/02/24 07:21 36.4 C L 101 H 19 116/68 93 Room Air all noted and reviewed including below
--- NOTE | 2024-06-03 10:02 | Nephrology Progress Note ---
Date of Service June 03, 2024 Assessment & Plan Admission and Anticipated Discharge Date Admission Date: May 24, 2024 Subjective Assessment & Plan (1) Hyponatremia: Plan: Presented with na of 103 and after many days and careful titration na is now 130. complex, symptomatic and improving critical hypotonic hypervolemic hyponatremia in patient with active malignancy (though not one expected to contribute to this condition) s/p platin-based therapy and w/ poor nutrition. She was at high risk for life threatening complications from hyponatremia over correction including osmotic demyelination syndrome given serum sodium 103 on presentation on 05/24 at 0430 and malnutrition. fortunately no EtOH. h/o chronic hyponatremia w/ sNa often high 120s. She is out of the danger period for ODS. Na+ now stalled at around 126--130 range which was her baseline before also. urine osm is high at 400+. No change in na with lasix 40 iv. Lower FFR to 1200 ml per day. Lower TF 50 ml q8hr also. na same without urea It is possible 125--130 is what we will get going forward regardless and that is acceptable. She is ready for discharge from [facility] at least. However Discharge planning is as per hospitalist. (2) Closed left hip fracture: Plan: s/p 12/5 L hip/femur trochanteric nail Subjective eating slightly better. na is stable around 128 now for few days No new issues Review of Systems Review of Systems: All systems reviewed & are unremarkable except as noted in HPI & below Physical Exam Physical Exam: GENERAL:Alert and oriented times 2 ( name and place) Appears very sick/ill/frail/weak/cachectic. HEENT: + pallor, no icterus. Pupils equal, round and reactive to light. Oral mucosa very dry. NECK: No JVD, no neck masses. HEART: S1 and S2 heard. Regular rate and rhythm. No murmur, no gallop. RESPIRATORY SYSTEM: Normal AP diameter. No accessory muscle use. No wheezing, no crackles. decreased breath sounds 2/2 poor effort. ABDOMEN: Soft, bowel sounds present, nontender, no distention. PEG tube in situ noted, no s/s infection at port of entry. EXTREMITIES: No edema. LLE shortened and externally rotated. Results & Data Vital Signs (Past 12 Hours) Vital Signs Temp Pulse Pulse Resp BP Pulse Ox O2 Del Method 06/03/24 07:33 36.4 C L 104 H 16 123/74 91 Room Air 06/03/24 03:16 36.5 C 111 H 18 128/88 91 Room Air 06/03/24 00:00 83 06/02/24 23:05 83 06/02/24 22:53 36.5 C 94 H 16 131/75 95 Room Air
--- NOTE | 2024-06-03 10:19 | Gastrointestinal Consultation ---
Date of Consultation June 03, 2024 Assessment & Plan (1) Feeding difficulty in adult: Plan Patient is a 58 year old female with history of left tonsillar squamous cell carcinoma - HPV related, left lung mass biopsy confirmed squamous cell carcinoma who completed combined chemotherapy and radiation treatment who is admitted s/p falls at home. GI consulted for an obstructed peg tube. Case was discussed with Dr. Lovett. - will plan to have peg tube replaced. Supervising Physician Co-Signing Physician Notes I examined the patient and reviewed patient's chart , laboratory data and imaging studies. I agree with with assessment and plan of care as suggested by advanced practice provider. The old PEG tube was easily removed. The new 18 [place]ish balloon PEG tube was easily inserted. Okay to start feedings. History of Present Illness Reason for Consultation: obstructed peg Requesting Physician: Edward Baeza MD Attending Physician: Edward Baeza MD History of Present Illness Patient is a 58 year old lady with a past medical history of left tonsillar squamous cell carcinoma - HPV related, left lung mass biopsy confirmed squamous cell carcinoma who completed combined chemotherapy and radiation treatment, currently with PEG tube for nutrition who presented to the hospital after sustaining recurrent falls at home. she was admitted with a closed hip fracture and underwent ortho surgery on 05/27. GI is consulted as peg tube as become obstructed and she has been unable to use. She tells me that peg tube was placed at [facility] in October 2023. rest of GI ros are unremarkable. Allergies Allergy/AdvReac Type Severity Reaction Status Date / Time ibuprofen AdvReac Tachycardia Verified 05/24/24 06:35 prednisone AdvReac Gastrointestinal Verified 05/24/24 06:35 Upset Home Medications Medication Instructions Recorded Confirmed Type Potassimin 99 mg PO DAILY 11/06/23 05/24/24 History allopurinol 100 mg tablet 100 mg PO DAILY 11/06/23 05/24/24 History folic acid 1 mg tablet 2 mg PO DAILY 11/06/23 05/24/24 History gabapentin 300 mg tablet 300 mg PO TID 11/06/23 05/24/24 History multivitamin 1 tab PO DAILY 11/06/23 05/24/24 History sulfasalazine 500 mg tablet 1 g PO BID 11/06/23 05/24/24 History ondansetron HCl 8 mg tablet 8 mg PO Q8H PRN restless legs 11/13/23 05/24/24 History acetaminophen 650 mg 650 mg PO Q8H PRN arthritis 05/05/24 05/24/24 History tablet,extended release (Arthritis Pain Relief (acetaminophen) ER) metoclopramide HCl 10 mg tablet 10 mg PO TID 05/24/24 05/24/24 History nutritional supplements See Rx Instructions .Route .COMPLEX 05/24/24 05/24/24 History Patient History Medical History Encounter for pre-operative examination Anemia required 1 unit pRBC on 05/25/24 Hyponatremia SIRS (systemic inflammatory response syndrome) Metabolic encephalopathy Cancer of left lung 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 Lung nodule Metastasis to head and neck lymph node Hypertension Tobacco use disorder Raynaud phenomenon Osteoarthritis right hand Idiopathic chronic gout Surgical History H/O: hysterectomy History of carpal tunnel surgery Family History Brother Cancer Lung Other Coronary heart disease Heart disease Hypertension Myocardial infarction Social History Smoking Status: Current every day smoker Tobacco Type: Cigarettes Age Started Using Tobacco: 12; packs per day: 1; Second Hand Exposure: Yes; Do You Dip or Chew Tobacco: No; Hx Alcohol Use: No Hx Substance Use: No Preferred Language: Lao Communication Ability: Effective 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 Required: No Beliefs That Will Affect Care: None Current Living Situation: Spouse Current Living Situation Comment: at home with Other Information That Helps Us Care for You: No Feels Safe at Home: Yes Safety Concerns: Feels Safe At This Time Diet: other during the past year weight has: decreased > 10 lbs Assistive Devices: Other Assistive Devices Comment: Tube Feed pump/supplies Review of Systems Review of Systems: All systems reviewed & are unremarkable except as noted in HPI & below Physical Exam Respiratory: normal respiratory effort, lungs clear to auscultation Cardiovascular: Rate/Rhythm: regular rate and regular rhythm Gastrointestinal (Abdomen): normal bowel sounds, soft, nontender, no hepatosplenomegaly [address] in epigastric region Psychiatric: Orientation: alert and oriented x 3 Affect: euthymic affect Results & Data Vital Signs (Past 12 Hours) Vital Signs Temp Pulse Pulse Resp BP Pulse Ox O2 Del Method 06/03/24 07:33 97.5 F L 104 H 16 123/74 91 Room Air 06/03/24 03:16 97.7 F 111 H 18 128/88 91 Room Air 06/03/24 00:00 83 06/02/24 23:05 83 06/02/24 22:53 97.7 F 94 H 16 131/75 95 Room Air Coding Level of Care Code 61583 INT INP/OBS CARE 2/55MIN Diagnoses Feeding difficulty in adult R63.39
[2024-06-03 10:44] LABS: Calcium 8.7 mg/dl (8.6-10.3); Creatinine Clr Calc Pharmacy 98.2 ml/min
[2024-06-03] MEDS: NOVASOURCE RENAL 2.0 CAL 1000ML BAG PEG SCH (13:19)
[2024-06-03] MEDS: TUBE FEEDING WATER FLUSH PEG SCH ×2 (13:20→17:55)
--- NOTE | 2024-06-03 14:24 | Hospitalist Progress Note ---
Date of Service June 03, 2024 Assessment & Plan (1) Fall: (2) Acute hyponatremia: (3) Closed left hip fracture: (4) Squamous cell carcinoma of left tonsil: Plan: (1) Closed left hip fracture: (2) Fall: (3) Acute hyponatremia: (4) Squamous cell carcinoma of left tonsil: Plan: per Dr. Rivero's notes with addendum: (1) Acute hyponatremia: (2) Fall: (3) Closed left hip fracture: (4) Metabolic encephalopathy: (5) Squamous cell carcinoma of left tonsil: (6) SIRS (systemic inflammatory response syndrome): Plan Ms. 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 On admission she was noted to have a sodium of 103 and a left intertrochanteric fracture. Patient with progressive altered mental status, which seemingly improved 05/26-, however, much worse the morning of 05/28. Though there is high suspicion that this is ICU/postoperative delirium, patient falls within the time line for presentation of acute osmotic demyelinating syndrome. MRI pursued to rule out this process which was negative. 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 Overnight, sodium increased 7meq from night prior therefore desmopressin administered and fluids discontinued. Overnight 05/29, patient received a dose of lasix with good response. Sodium fluctuating, prompting initiation of urea on 05/30. Nephrology suspects that NA will be around 126-130. Planning lasix trial and tighter FFR. Urea will continue Patient has yet to start radiation with Dilip. Patient follows Dr. Theodore Cherry for Oncology #Acute on chronic hyponatremia #Acute metabolic encephalopathy Hyponatremia: multifactorial iso malignancy, poor po intake mental status changed post operatively, likely delirium however given timeline, she is at high risk for osmotic demyelination per nephrology Baseline sodium of 1 25-1 30 since November Admitting sodium of 103, urine osmolality 392, serum osmolality 223. status post hypertonic saline in the ED. s/p desmopressin 05/26 Currently in ICU for frequent lab draw and q2 neuro checks MRI ordered given MS/hallucinations this am Nephrology consulted -Urea 30mg x1 and 15bid started 05/30 with uptrend to 130 -1.2 L fluid restriction -regular Ua negative, no indication for abx Will check bmp q24 ours now 06/02 Sodium stable at 128 Continue urea Continue fluid restriction Nephrology service following 06/03 Sodium remains at 128 Urea discontinued Fluid restriction Continue to monitor #Acute on chronic anemia: stable Baseline hemoglobin seems around 10 , hemoglobin at presentation 7.5, s/p 1 U prbc on 05/24, Anticipate Iron profile WNL, vitamin B12 and folate level WNL. Patient denies any blood or black stool. PPI daily. H&H trend stable. Hgb at 7.4 now, will transfuse <7 CBC in am 06/02 Hemoglobin stable at 8.2 #Acute proximal left femur fracture s/p left troch nail Admitting CTAP with comminuted, displaced nonarticular fracture of left proximal femur involving trochanteric region. Orthopedics consulted -S/p repair 05/28 Scheduled tylenol apixaban continued #Acute traumatic rhabdomyolysis: CPK elevated at presentation, status post IV fluid,resolved #Hypomagnesemia: Magnesium of 1.4 at presentation, monitor replete. #Severe protein anatoly malnutrition: In the setting of underlying malignancy, patient on tube feed diet. BMI 16.7 Continue with IV thiamine and IV folic acid, p.o. multivitamin. Nutrition consult. Continue with PEG tube feeding. #Demand ischemia: Troponin elevated but flat trended, patient without chest pain, echo with EF of 65 to 70%, left ventricular systolic function normal, no regional wall motion abnormalities. Other chronic medical conditions: Continue with/resume home meds as and when able. L tonsillar SCC/L lung mass SCC: s/p chemo/XRT. recent PET CT shows improvement in L tonsillar mass/adenopathy but enlargement to L lung mass. Pt to undergo SBRT. following nutrition for PEG tube/feeding management Hx of RA: on sulfasalazine COPD: no acute exac Tobacco abuse: nicotine patch, encourage cessation DVT ppx: SCDS, apixaban FULL CODE PCP: None, pt previously followed [facility], needs to re establish Dispo: medically ready likely in 1-2 days Admission and Anticipated Discharge Date Admission Date: May 24, 2024 Subjective Follow-up for hyponatremia, etc. Seen resting in bed, comfortable, sitting up Status post PEG tube exchange States she feels fine overall Denies abdominal pain, nausea Left hip feels fine Transferring from bed to chair/commode with no issues No other new symptoms Review of Systems Review of Systems: all noted and negative except for above Physical Exam Physical Exam: General- oriented x 3, not in distress, speaks in sentences with no effort or accessory muscle use Eyes- anicteric Neck- no JVD Lungs- clear breath sounds bilaterally, no rales/wheezes Heart- normal rate, regular rhythm; no murmurs Abdomen- normal bowel sounds, nondistended, soft, nontender PEG tube in place Extremities- no pretibial edema, no calf tenderness Left hip: Dressing in place, no bleeding or discharge Neuro- alert, oriented x 3; no gross focal neurologic deficits Skin- warm & dry Results & Data Results & Data Vital Signs (Past 12 Hours) Vital Signs Temp Pulse Resp BP Pulse Ox O2 Del Method 06/03/24 10:54 36.3 C L 101 H 18 116/74 91 Room Air 06/03/24 08:00 Room Air 06/03/24 07:33 36.4 C L 104 H 16 123/74 91 Room Air 06/03/24 03:16 36.5 C 111 H 18 128/88 91 Room Air all noted and reviewed including below
[2024-06-04 06:44] LABS: BUN Creatinine Ratio 33.3 (10-20)
--- NOTE | 2024-06-04 09:07 | Nephrology Progress Note ---
Date of Service June 04, 2024 Assessment & Plan Admission and Anticipated Discharge Date Admission Date: May 24, 2024 Subjective Assessment & Plan (1) Hyponatremia: Plan: Presented with na of 103 and after many days and careful titration na is now 130. complex, symptomatic and improving critical hypotonic hypervolemic hyponatremia in patient with active malignancy (though not one expected to contribute to this condition) s/p platin-based therapy and w/ poor nutrition. She was at high risk for life threatening complications from hyponatremia over correction including osmotic demyelination syndrome given serum sodium 103 on presentation on 05/24 at 0430 and malnutrition. fortunately no EtOH. h/o chronic hyponatremia w/ sNa often high 120s. She is out of the danger period for ODS. Na+ now stalled at around 128--131 range which was her baseline before also. Na today is 131 Continue FFR to 1200 ml per day. TF 50 ml q8hr also. na same without urea and with urea so no need to use. It is possible 125--130 is what we will get going forward regardless and that is acceptable. She is ready for discharge from [facility] at least. However Discharge planning is as per hospitalist. Will follow peripherally (2) Closed left hip fracture: Plan: s/p 12/5 L hip/femur trochanteric nail Subjective eating slightly better. na is stable around 128 now for few days No new issues Review of Systems Review of Systems: All systems reviewed & are unremarkable except as noted in HPI & below Physical Exam Physical Exam: GENERAL:Alert and oriented times 2 ( name and place) Appears very sick/ill/frail/weak/cachectic. HEENT: + pallor, no icterus. Pupils equal, round and reactive to light. Oral mucosa very dry. NECK: No JVD, no neck masses. HEART: S1 and S2 heard. Regular rate and rhythm. No murmur, no gallop. RESPIRATORY SYSTEM: Normal AP diameter. No accessory muscle use. No wheezing, no crackles. decreased breath sounds 2/2 poor effort. ABDOMEN: Soft, bowel sounds present, nontender, no distention. PEG tube in situ noted, no s/s infection at port of entry. EXTREMITIES: No edema. LLE shortened and externally rotated. Results & Data Vital Signs (Past 12 Hours) Vital Signs Temp Pulse Pulse Resp BP Pulse Ox O2 Del Method 06/04/24 07:46 36.9 C 95 H 18 116/72 95 Room Air 06/04/24 03:44 36.6 C 96 H 20 124/70 94 Room Air 06/04/24 00:00 100 H 06/03/24 23:14 36.4 C L 88 18 112/72 91 Room Air
--- NOTE | 2024-06-04 17:04 | Hospitalist Progress Note ---
Date of Service June 04, 2024 Assessment & Plan (1) Fall: (2) Acute hyponatremia: Plan: (1) Fall: (2) Acute hyponatremia: (3) Closed left hip fracture: (4) Squamous cell carcinoma of left tonsil: Plan: (1) Closed left hip fracture: (2) Fall: (3) Acute hyponatremia: (4) Squamous cell carcinoma of left tonsil: Plan: per Dr. Rivero's notes with addendum: (1) Acute hyponatremia: (2) Fall: (3) Closed left hip fracture: (4) Metabolic encephalopathy: (5) Squamous cell carcinoma of left tonsil: (6) SIRS (systemic inflammatory response syndrome): Plan Ms. 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 On admission she was noted to have a sodium of 103 and a left intertrochanteric fracture. Patient with progressive altered mental status, which seemingly improved 05/26-, however, much worse the morning of 05/28. Though there is high suspicion that this is ICU/postoperative delirium, patient falls within the time line for presentation of acute osmotic demyelinating syndrome. MRI pursued to rule out this process which was negative. 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 Overnight, sodium increased 7meq from night prior therefore desmopressin administered and fluids discontinued. Overnight 05/29, patient received a dose of lasix with good respo nse. Sodium fluctuating, prompting initiation of urea on 05/30. Nephrology suspects that NA will be around 126-130. Planning lasix trial and tighter FFR. Urea will continue Patient has yet to start radiation with [facility]. Patient follows Dr. Theodore Cherry for Oncology #Acute on chronic hyponatremia #Acute metabolic encephalopathy Hyponatremia: multifactorial iso malignancy, poor po intake mental status changed post operatively, likely delirium however given timeline, she is at high risk for osmotic demyelination per nephrology Baseline sodium of 1 25-1 30 since November Admitting sodium of 103, urine osmolality 392, serum osmolality 223. status post hypertonic saline in the ED. s/p desmopressin 05/26 Currently in ICU for frequent lab draw and q2 neuro checks MRI ordered given MS/hallucinations this am Nephrology consulted -Urea 30mg x1 and 15bid started 05/30 with uptrend to 130 -1.2 L fluid restriction -regular Ua negative, no indication for abx Will check bmp q24 ours now 06/02 Sodium stable at 128 Continue urea Continue fluid restriction Nephrology service following 06/03 Sodium remains at 128 Urea discontinued Fluid restriction Continue to monitor 06/04 Sodium at 131 Continue fluid restriction Continue to monitor #Acute on chronic anemia: stable Baseline hemoglobin seems around 10 , hemoglobin at presentation 7.5, s/p 1 U prbc on 05/24, Anticipate Iron profile WNL, vitamin B12 and folate level WNL. Patient denies any blood or black stool. PPI daily. H&H trend stable. Hgb at 7.4 now, will transfuse <7 CBC in am 06/02 Hemoglobin stable at 8.2 #Acute proximal left femur fracture s/p left troch nail Admitting CTAP with comminuted, displaced nonarticular fracture of left proximal femur involving trochanteric region. Orthopedics consulted -S/p repair 05/28 Scheduled tylenol apixaban continued #Acute traumatic rhabdomyolysis: CPK elevated at presentation, status post IV fluid,resolved #Hypomagnesemia: Magnesium of 1.4 at presentation, monitor replete. #Severe protein anatoly malnutrition: In the setting of underlying malignancy, patient on tube feed diet. BMI 16.7 Continue with IV thiamine and IV folic acid, p.o. multivitamin. Nutrition consult. Continue with PEG tube feeding. #Demand ischemia: Troponin elevated but flat trended, patient without chest pain, echo with EF of 65 to 70%, left ventricular systolic function normal, no regional wall motion abnormalities. Other chronic medical conditions: Continue with/resume home meds as and when able. L tonsillar SCC/L lung mass SCC: s/p chemo/XRT. recent PET CT shows improvement in L tonsillar mass/adenopathy but enlargement to L lung mass. Pt to undergo SBRT. following nutrition for PEG tube/feeding management Hx of RA: on sulfasalazine COPD: no acute exac Tobacco abuse: nicotine patch, encourage cessation DVT ppx: SCDS, apixaban FULL CODE PCP: None, pt previously followed [facility], needs to re establish Dispo: medically ready likely in 1-2 days Admission and Anticipated Discharge Date Admission Date: May 24, 2024 Subjective Follow-up for hyponatremia, etc. Seen resting in bed side chair, comfortable, good spirits States she feels fine overall Ambulated in the hallways today with physical therapy No problems No abdominal pain, nausea No issues with PEG tube so far No other new symptoms Review of Systems Review of Systems: all noted and negative except for above Physical Exam Physical Exam: General- oriented x 3, not in distress, speaks in sentences with no effort or accessory muscle use Eyes- anicteric Neck- no JVD Lungs- clear breath sounds bilaterally, no rales/wheezes Heart- normal rate, regular rhythm; no murmurs Abdomen- normal bowel sounds, nondistended, soft, nontender PEG tube: No signs of infection, bleeding Extremities- no pretibial edema, no calf tenderness Neuro- alert, oriented x 3; no gross focal neurologic deficits Skin- warm & dry Results & Data Results & Data Vital Signs (Past 12 Hours) Vital Signs Temp Pulse Resp BP Pulse Ox O2 Del Method 06/04/24 15:47 36.3 C L 105 H 18 116/64 95 Room Air 06/04/24 11:28 36.5 C 105 H 18 116/77 96 Room Air 06/04/24 08:00 Room Air 06/04/24 07:46 36.9 C 95 H 18 116/72 95 Room Air all noted and reviewed including below
[2024-06-05 06:25] LABS: Calcium 8.9 mg/dl (8.6-10.3); Creatinine Clr Calc Pharmacy 128.3 ml/min; Potassium 3.7 mmol/L (3.5-5.1)
--- NOTE | 2024-06-05 07:14 | Orthopedic Progress Note ---
Date of Service June 05, 2024 Assessment & Plan (1) Closed left hip fracture: With regards to her left hip she is actually doing fairly well. She has been up and ambulating with physical therapy without too much assistance. Her pain is well-controlled on her left leg. The nursing staff can continue to do daily dry dressing changes. She is currently postop day #9. We like to remove rajwinder on postop day #14. This would be next . If she is still in the hospital later next week we will remove the rajwinder then. Otherwise, she is orthopedically stable for discharge when medically ready. We will see her in the office around 2 weeks from her day of surgery. Full orthopedic discharge instructions were placed in the discharge summary. Tye Majano was seen and examined at bedside this morning. Overall she is doing very well with regards to her left leg. She is not having much pain. She has been doing very well with physical therapy. She has no complaints.. Review of Systems All systems reviewed & are unremarkable except as noted in HPI & below. Physical Exam On physical exam the left leg, the dressings have been changed. I looked under the dressings and the incisions are clean and dry.. Results & Data Results & Data Laboratory Results . Diagnostic Findings . PG Care Time/CCT Total # of Minutes Spent Total Time Spent with Patient: Total time spent is greater than 50% in coordination of care (as documented) at patient's floor/unit and/or counseling patient: Coding Level of Care Code 05984 Post Operative Follow-Up Diagnoses Closed left hip fracture S72.002A
--- NOTE | 2024-06-05 16:08 | Hospitalist Progress Note ---
Date of Service June 05, 2024 Assessment & Plan (1) Fall: (2) Acute hyponatremia: Plan: (1) Fall: (2) Acute hyponatremia: (3) Closed left hip fracture: (4) Squamous cell carcinoma of left tonsil: Plan: (1) Closed left hip fracture: (2) Fall: (3) Acute hyponatremia: (4) Squamous cell carcinoma of left tonsil: Plan: per Dr. Rivero's notes with addendum: (1) Acute hyponatremia: (2) Fall: (3) Closed left hip fracture: (4) Metabolic encephalopathy: (5) Squamous cell carcinoma of left tonsil: (6) SIRS (systemic inflammatory response syndrome): Plan Ms. 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 On admission she was noted to have a sodium of 103 and a left intertrochanteric fracture. Patient with progressive altered mental status, which seemingly improved 05/26-, however, much worse the morning of 05/28. Though there is high suspicion that this is ICU/postoperative delirium, patient falls within the time line for presentation of acute osmotic demyelinating syndrome. MRI pursued to rule out this process which was negative. 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 Overnight, sodium increased 7meq from night prior therefore desmopressin administered and fluids discontinued. Overnight 05/29, patient received a dose of lasix with good respo nse. Sodium fluctuating, prompting initiation of urea on 05/30. Nephrology suspects that NA will be around 126-130. Planning lasix trial and tighter FFR. Urea will continue Patient has yet to start radiation with [facility]. Patient follows Dr. Theodore Cherry for Oncology #Acute on chronic hyponatremia #Acute metabolic encephalopathy Hyponatremia: multifactorial iso malignancy, poor po intake mental status changed post operatively, likely delirium however given timeline, she is at high risk for osmotic demyelination per nephrology Baseline sodium of 1 25-1 30 since November Admitting sodium of 103, urine osmolality 392, serum osmolality 223. status post hypertonic saline in the ED. s/p desmopressin 05/26 Currently in ICU for frequent lab draw and q2 neuro checks MRI ordered given MS/hallucinations this am Nephrology consulted -Urea 30mg x1 and 15bid started 05/30 with uptrend to 130 -1.2 L fluid restriction -regular Ua negative, no indication for abx Will check bmp q24 ours now 06/02 Sodium stable at 128 Continue urea Continue fluid restriction Nephrology service following 06/03 Sodium remains at 128 Urea discontinued Fluid restriction Continue to monitor 06/04 Sodium at 131 Continue fluid restriction Continue to monitor 06/05 Na 131 #Acute on chronic anemia: stable Baseline hemoglobin seems around 10 , hemoglobin at presentation 7.5, s/p 1 U prbc on 05/24, Anticipate Iron profile WNL, vitamin B12 and folate level WNL. Patient denies any blood or black stool. PPI daily. H&H trend stable. Hgb at 7.4 now, will transfuse <7 CBC in am 06/05 Hemoglobin stable at 8.2 #Acute proximal left femur fracture s/p left troch nail Admitting CTAP with comminuted, displaced nonarticular fracture of left proximal femur involving trochanteric region. Orthopedics consulted -S/p repair 05/28 Scheduled tylenol apixaban continued #Acute traumatic rhabdomyolysis: CPK elevated at presentation, status post IV fluid,resolved #Hypomagnesemia: Magnesium of 1.4 at presentation, monitor replete. #Severe protein anatoly malnutrition: In the setting of underlying malignancy, patient on tube feed diet. BMI 16.7 Continue with IV thiamine and IV folic acid, p.o. multivitamin. Nutrition consult. Continue with PEG tube feeding. #Demand ischemia: Troponin elevated but flat trended, patient without chest pain, echo with EF of 65 to 70%, left ventricular systolic function normal, no regional wall motion ab normalities. Other chronic medical conditions: Continue with/resume home meds as and when able. L tonsillar SCC/L lung mass SCC: s/p chemo/XRT. recent PET CT shows improvement in L tonsillar mass/adenopathy but enlargement to L lung mass. Pt to undergo SBRT. following nutrition for PEG tube/feeding management Hx of RA: on sulfasalazine COPD: no acute exac Tobacco abuse: nicotine patch, encourage cessation DVT ppx: SCDS, apixaban FULL CODE PCP: None, pt previously followed [facility], needs to re establish Dispo: medically ready likely in 1-2 days Admission and Anticipated Discharge Date Admission Date: May 24, 2024 Subjective Follow-up for hyponatremia, etc. Seen resting in chair, comfortable, not in distress States she feels fine overall Abdominal pain No PEG tube issues No other new symptom Review of Systems Review of Systems: all noted and negative except for above Physical Exam Physical Exam: General- oriented x 3, not in distress, speaks in sentences with no effort or accessory muscle use Eyes- anicteric Neck- no JVD Lungs- clear breath sounds bilaterally, no rales/wheezes Heart- normal rate, regular rhythm; no murmurs Abdomen- normal bowel sounds, nondistended, soft, nontender Extremities- no pretibial edema, no calf tenderness Neuro- alert, oriented x 3; no gross focal neurologic deficits Skin- warm & dry Results & Data Results & Data Vital Signs (Past 12 Hours) Vital Signs Temp Pulse Resp BP Pulse Ox O2 Del Method 06/05/24 14:15 36.3 C L 106 H 14 122/81 95 Room Air 06/05/24 11:06 36.5 C 105 H 18 117/73 94 Room Air 06/05/24 07:50 Room Air 06/05/24 07:28 36.5 C 89 18 134/74 93 Room Air all noted and reviewed including below
--- NOTE | 2024-06-05 18:27 | Nephrology Progress Note ---
Date of Service June 05, 2024 Assessment & Plan (1) Hyponatremia: Plan: plateau'd mild hyponatremia in pt admitted 05/24 w/ sNa 103 from malnutrition, platin-based CTX for lung CA. h/o chronic hyponatremia w/ sNa often high 120s. 131 is the best value we've had this admission she corrected at appropriate rate 05/24-05/25, then too quickly 05/25-05/26; on 05/26 we lowered sNa to more appropriate high teens range w/ desmopressin. Target for 05/27 AM was conservative at 116-117, no more than 119 >> she was at this target 0400 . Target Na for 05/28 AM was no more than 125 and am lab showed Na 123; K 4.8 after supplementation, Revised target( initially 129 which was lowered to 127 after concerns for demyelination ON 05/28( CT Was negative), Na was 130 at 6.30 am 05/29 which dropped to 126 at 12.00 noon >> target sNa for tomorrow AM is no more than 137, I think she is out of the ferrer now for complications from overcorrection -start urea 15 gm bid via PEG -encourage protiein intake >> cont as protein rich as possible tube feedings - fluid restrict to 1.2 lit to continue - control pain. >FW flushes cut back to 30 mL 6X/day which is acceptable >>needs eukalemia > will give K 40 mE via PEG -cont I/O as strict as possible will remove garcia at this point >> risks of keeping it out weigh potential benefits (2) Closed left hip fracture: Plan: s/p 05/27 L hip/femur trochanteric nail Admission and Anticipated Discharge Date Admission Date: May 24, 2024 Subjective no interval events. getting novasource tid; taking small amount po; denies sob, uncontrolled pain, n/v Review of Systems 2 Review of Systems: All systems reviewed & are unremarkable except as noted in Subjective Physical Exam 2 Constitutional: well developed, + cachectic, cooperative and + malnourished; no acute distress Eyes: EOM intact bilaterally ENMT: Mouth: + dry oral mucous membranes Respiratory: normal respiratory effort (on RA) Auscultation: + diminished lung sounds Cardiovascular: Rate/Rhythm: regular rhythm and + tachycardic Extremities: no edema Gastrointestinal (Abdomen): Inspection/Auscultation: normal bowel sounds, + scaphoid and + abdominal surgical scar (PEG present) Percussion/Palpation: a bdomen soft; abdomen nontender Musculoskeletal: Extremities: strength 5/5 throughout (cardenas) Skin: no rashes, warm and dry Psychiatric: Orientation: alert and oriented x 3 Results & Data Vital Signs (Past 12 Hours) Vital Signs Temp Pulse Resp BP Pulse Ox O2 Del Method 06/05/24 14:15 36.3 C L 106 H 14 122/81 95 Room Air 06/05/24 11:06 36.5 C 105 H 18 117/73 94 Room Air 06/05/24 07:50 Room Air 06/05/24 07:28 36.5 C 89 18 134/74 93 Room Air Laboratory Results 06/02/24 05:41 06/05/24 05:44
[2024-06-05] MEDS: POTASSIUM CHLORIDE 20 MEQ/15 ML UDC PEG ONE (20:32)
[2024-06-05] MEDS: UREA (UREA-NA) 15 GM PACK PO SCH (20:32)
[2024-06-05] MEDS ORDERED: UREA (UREA-NA) 15 GM PACK PO SCH (21:00)
--- NOTE | 2024-06-06 16:28 | Communication Note ---
Date of Service: June 06, 2024 No labs done today; bmp ordered for am and neph will reevaluate then
--- NOTE | 2024-06-06 17:07 | Hospitalist Progress Note ---
Date of Service June 06, 2024 Assessment & Plan (1) Fall: (2) Acute hyponatremia: Plan: (1) Fall: (2) Acute hyponatremia: (3) Closed left hip fracture: (4) Squamous cell carcinoma of left tonsil: Plan: (1) Closed left hip fracture: (2) Fall: (3) Acute hyponatremia: (4) Squamous cell carcinoma of left tonsil: Plan: per Dr. Rivero's notes with addendum: (1) Acute hyponatremia: (2) Fall: (3) Closed left hip fracture: (4) Metabolic encephalopathy: (5) Squamous cell carcinoma of left tonsil: (6) SIRS (systemic inflammatory response syndrome): Plan Ms. 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 On admission she was noted to have a sodium of 103 and a left intertrochanteric fracture. Patient with progressive altered mental status, which seemingly improved 05/26-, however, much worse the morning of 05/28. Though there is high suspicion that this is ICU/postoperative delirium, patient falls within the time line for presentation of acute osmotic demyelinating syndrome. MRI pursued to rule out this process which was negative. 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 Overnight, sodium increased 7meq from night prior therefore desmopressin administered and fluids discontinued. Overnight 05/29, patient received a dose of lasix with good respo nse. Sodium fluctuating, prompting initiation of urea on 05/30. Nephrology suspects that NA will be around 126-130. Planning lasix trial and tighter FFR. Urea will continue Patient has yet to start radiation with Cherry. Patient follows Dr. Theodore Cherry for Oncology #Acute on chronic hyponatremia #Acute metabolic encephalopathy Hyponatremia: multifactorial iso malignancy, poor po intake mental status changed post operatively, likely delirium however given timeline, she is at high risk for osmotic demyelination per nephrology Baseline sodium of 1 25-1 30 since November Admitting sodium of 103, urine osmolality 392, serum osmolality 223. status post hypertonic saline in the ED. s/p desmopressin 05/26 Currently in ICU for frequent lab draw and q2 neuro checks MRI ordered given MS/hallucinations this am Nephrology consulted -Urea 30mg x1 and 15bid started 05/30 with uptrend to 130 -1.2 L fluid restriction -regular Ua negative, no indication for abx Will check bmp q24 ours now 06/02 Sodium stable at 128 Continue urea Continue fluid restriction Nephrology service following 06/03 Sodium remains at 128 Urea discontinued Fluid restriction Continue to monitor 06/04 Sodium at 131 Continue fluid restriction Continue to monitor 06/05 Na 131 06/06 Repeat sodium tomorrow Status post fall While trying to get to the commode today without assistance Denies any new pain Monitor closely Sacral decubitus ulcer No signs of infection Wound care consult #Acute on chronic anemia: stable Baseline hemoglobin seems around 10 , hemoglobin at presentation 7.5, s/p 1 U prbc on 05/24, Anticipate Iron profile WNL, vitamin B12 and folate level WNL. Patient denies any blood or black stool. PPI daily. H&H trend stable. Hgb at 7.4 now, will transfuse <7 CBC in am 06/06 Hemoglobin stable at 8.2 #Acute proximal left femur fracture s/p left troch nail Admitting CTAP with comminuted, displaced nonarticular fracture of left proximal femur involving trochanteric region. Orthopedics consulted -S/p repair 05/28 Scheduled tylenol apixaban continued #Acute traumatic rhabdomyolysis: CPK elevated at presentation, status post IV fluid,resolved #Hypomagnesemia: Magnesium of 1.4 at presentation, monitor replete. #Severe protein anatoly malnutrition: In the setting of underlying malignancy, patient on tube feed diet. BMI 16.7 Continue with IV thiamine and IV folic acid, p.o. multivitamin. Nutrition consult. Continue with PEG tube feeding. #Demand ischemia: Troponin elevated but flat trended, patient without chest pain, echo with EF of 65 to 70%, left ventricular systolic function normal, no regional wall motion abnormalities. Other chronic medical conditions: Continue with/resume home meds as and when able. L tonsillar SCC/L lung mass SCC: s/p chemo/XRT. recent PET CT shows improvement in L tonsillar mass/adenopathy but enlargement to L lung mass. Pt to undergo SBRT. following nutrition for PEG tube/feeding management Hx of RA: on sulfasalazine COPD: no acute exac Tobacco abuse: nicotine patch, encourage cessation DVT ppx: SCDS, apixaban FULL CODE PCP: None, pt previously followed [facility], needs to re establish Dispo: medically ready likely in 1-2 days Admission and Anticipated Discharge Date Admission Date: May 24, 2024 Subjective Seen resting in bed, comfortable, not in distress Had a fall while attempting to go to the commode, without assistance Landed on her buttocks Patient denies pain on her buttock area or back Denies any other pain No other new symptoms Review of Systems Review of Systems: all noted and negative except for above Physical Exam Physical Exam: General- oriented x 3, not in distress, speaks in sentences with no effort or accessory muscle use Eyes- anicteric Neck- no JVD Lungs- clear breath sounds bilaterally, no rales/wheezes Heart- normal rate, regular rhythm; no murmurs Abdomen- normal bowel sounds, nondistended, soft, nontender Extremities- no pretibial edema, no calf tenderness Back-positive sacral decub ulcer, eschar present Neuro- alert, oriented x 3; no gross focal neurologic deficits Skin- warm & dry Results & Data Results & Data Vital Signs (Past 12 Hours) Vital Signs Temp Pulse Resp BP Pulse Ox O2 Del Method 06/06/24 14:42 36.5 C 99 H 15 116/75 93 Room Air 06/06/24 08:50 110 H 16 117/71 95 Room Air 06/06/24 08:00 Room Air 06/06/24 07:13 36.6 C 87 15 132/82 98 Room Air all noted and reviewed including below
[2024-06-07 06:20] LABS: BUN Creatinine Ratio 70.6 (10-20); Calcium 9.2 mg/dl (8.6-10.3); Potassium 3.7 mmol/L (3.5-5.1)
--- NOTE | 2024-06-07 10:41 | Hospitalist Progress Note ---
Date of Service June 07, 2024 Assessment & Plan (1) Fall: (2) Acute hyponatremia: Plan: (1) Acute hyponatremia: (2) Fall: (3) Closed left hip fracture: (4) Metabolic encephalopathy: (5) Squamous cell carcinoma of left tonsil: (6) SIRS (systemic inflammatory response syndrome): Plan Ms. 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 On admission she was noted to have a sodium of 103 and a left intertrochanteric fracture. Patient with progressive altered mental status, which seemingly improved 05/26-, however, much worse the morning of 05/28. Though there is high suspicion that this is ICU/postoperative delirium, patient falls within the time line for presentation of acute osmotic demyelinating syndrome. MRI pursued to rule out this process which was negative. Patient cleared for stepdown from business associate 05/28. Overnight, sodium increased 7meq from night prior therefore desmopressin administered and fluids discontinued. Overnight 05/29, patient received a dose of lasix with good response. Sodium fluctuating, prompting initiation of urea on 05/30. Nephrology suspects that NA will be around 126-130. Planning lasix trial and tighter FFR. Urea will continue Patient has yet to start radiation with Dilip. Patient follows Dr. Theodore Cherry for Oncology Acute on chronic hyponatremia Acute metabolic encephalopathy Hyponatremia: multifactorial iso malignancy, poor po intake mental status changed post operatively, likely delirium however given timeline, she is at high risk for osmotic demyelination per nephrology Baseline sodium of 1 25-1 30 since November Admitting sodium of 103, urine osmolality 392, serum osmolality 223. status post hypertonic saline in the ED. s/p desmopressin 05/26 MRI ordered given MS/hallucinations this am - negative for ODS Nephrology on board -Urea 15gm BID -1.2 L fluid restriction -encourage protein rich tube feedings as possible, FW flushes 30ml 6x/day, needs eukalemia, I and O Ua negative, no indication for abx Status post fall While trying to get to the commode today without assistance Denies any new pain will repeat Femur Xr to ensure alignment Sacral decubitus ulcer No signs of infection Wound care consult Acute on chronic anemia: stable Baseline hemoglobin seems around 10 , hemoglobin at presentation 7.5, s/p 1 U prbc on 05/24, Anticipate Iron profile WNL, vitamin B12 and folate level WNL. Patient denies any blood or black stool. PPI daily. H&H trend stable. Hgb at 7.4 now, will transfuse <7 hgb stable, repeat in a.m. Acute proximal left femur fracture s/p left troch nail Admitting CTAP with comminuted, displaced nonarticular fracture of left proximal femur involving trochanteric region. Orthopedics consulted-S/p repair 05/[address] Giron Scheduled Tylenol, apixaban continued will need f/u 2 weeks from surgery for staple removal which will be 06/10, if pt still hospitalized recommend reach back out to ortho for re eval Acute traumatic rhabdomyolysis: CPK elevated at presentation, status post IV fluid,resolved Hypomagnesemia: Magnesium of 1.4 at presentation, monitor replete. Severe protein anatoly malnutrition: In the setting of underlying malignancy, patient on tube feed diet. BMI 16.7 Continue with thiamine and IV folic acid, p.o. multivitamin. Nutrition consult. Continue with PEG tube feeding. Demand ischemia: Troponin elevated but flat trended, patient without chest pain, echo with EF of 65 to 70%, left ventricular systolic function normal, no regional wall motion abnormalities. Other chronic medical conditions: Continue with/resume home meds as and when able. L tonsillar SCC/L lung mass SCC: s/p chemo/XRT. recent PET CT shows improvement in L tonsillar mass/adenopathy but enlargement to L lung mass. Pt to undergo SBRT. following nutrition for PEG tube/feeding management, follows Dr. Dilip hairston/onc Hx of RA: on sulfasalazine COPD: no acute exac Tobacco abuse: nicotine patch, encourage cessation DVT ppx: SCDS, apixaban FULL CODE PCP: None, pt previously followed [facility], needs to re establish Dispo: awaiting wound care consult, nephro clearance, suspect ready for d/c in 1-2 days I spent a total of 45 minutes reviewing notes, outpatient records, labs, medication, coordinating, documenting and providing care for this patient excluding time spent in the performance of separately billed services. Admission and Anticipated Discharge Date Admission Date: May 24, 2024 Subjective Pt endorses no concerns today. She is hopeful to be discharged soon. Denies f/c/s, chest pain, sob, n/v/d. She is moving her bowels. Review of Systems Review of Systems: All systems reviewed & are unremarkable except as noted in HPI & below Physical Exam Physical Exam: Gen: Thin, cachectic, F, NAD, A&O x3 HEENT: Normocephalic, atraumatic, conjunctivae moist, sclerae anicteric, mucous membranes moist. Lung: Clear to Auscultation bilaterally, no wheezes/rales/rhonchi Heart: Regular rate, regular rhythm, no murmurs, rubs, or gallops Abdomen: Soft, NT, ND +BS x 4 +peg Extremities: No edema Skin: Warm, no rash, negative turgor. Results & Data Results & Data Vital Signs (Past 12 Hours) Vital Signs Temp Pulse Resp BP Pulse Ox O2 Del Method 06/07/24 08:43 36.9 C 93 H 16 124/73 96 Room Air 06/07/24 07:50 Room Air Laboratory Results I have independently reviewed and interpreted patient's bmp. 06/07/24 05:49 Sodium 132 L Potassium 3.7 Chloride 97 L Carbon Dioxide 30 BUN 24 H Creatinine 0.34 L Glucose 86 Calcium 9.2 Medications Administered Current Inpatient Medications Acetaminophen (Acetaminophen 500 Mg Tab) 1,000 mg PO Q8H [facility] Stop: 06/27/24 13:59 Last Admin: 06/07/24 05:45 Dose: 1,000 mg Allopurinol (Allopurinol 100 Mg Tab) 100 mg PO DAILY [facility] Stop: 06/24/24 08:59 Last Admin: 06/07/24 08:47 Dose: 100 mg Lipase/Protease/Amylase (Pancreaze (Lipase 4,200u) Cap) 1 cap PO DAILY PRN PRN Reason: CLOGGED PEG TUBE Stop: 07/02/24 16:29 Last Admin: 06/02/24 15:43 Dose: 1 cap Apixaban (Apixaban 2.5 Mg Tab) 2.5 mg PO BID [facility] Stop: 06/27/24 05:59 Last Admin: 06/07/24 08:47 Dose: 2.5 mg Enteral Nutritional Formula (Novasource Renal 2.0 Anatoly 1000ml Bag) 240 ml PEG TID@0800,1300,1800 [facility]; Protocol Stop: 07/03/24 12:59 Last Admin: 06/07/24 09:26 Dose: 240 ml Folic Acid (Folic Acid 1 Mg Tab) 1 mg PEG DAILY [facility] Stop: 06/26/24 08:59 Last Admin: 06/07/24 08:47 Dose: 1 mg Lactobacillus Acidophilus (Advanced Probiotic 625 Mg Capsule) 1,250 mg PO DAILY [facility] Stop: 06/24/24 08:59 Last Admin: 06/07/24 08:47 Dose: 1,250 mg Lansoprazole (Lansoprazole 30 Mg Soltab) 30 mg PEG DAILY [facility] Stop: 06/26/24 08:59 Last Admin: 06/07/24 08:47 Dose: 30 mg Miscellaneous (Remove Nicoderm Patch) 1 each N/A DAILY@0859 [facility] Stop: 06/24/24 08:58 Last Admin: 06/07/24 08:48 Dose: 1 each Morphine Sulfate (Morphine Sulfate 2 Mg/Ml Carp) 2 mg IV Q4H PRN PRN Reason: Pain Stop: 06/07/24 19:27 Last Admin: 06/06/24 09:22 Dose: 2 mg Nicotine (Nicotine 14 Mg/24 Hr Patch) 1 patch TD QAM [facility] Stop: 06/24/24 08:59 Last Admin: 06/07/24 08:47 Dose: 1 patch Sodium Bicarbonate (Sodium Bicarbonate 650 Mg Tab) 650 mg PO DAILY PRN PRN Reason: Flush Stop: 07/02/24 11:15 Last Admin: 06/02/24 11:47 Dose: 650 mg Sodium Biphosphate/Sodium Phosphate (Sod Phosphate/Sod Biphosphate Enema 132 Ml Btl) 132 ml [place] DAILY PRN PRN Reason: Constipation Stop: 06/26/24 17:34 Sterile Water (Tube Feeding Water Flush) 30 ml PEG 0730,0830,1230,1330,1730,1830 [facility] Stop: 07/03/24 12:59 Last Admin: 06/07/24 09:26 Dose: 30 ml Sulfasalazine (Sulfasalazine 500 Mg Tablet) 1,000 mg PO BID [facility] Stop: 06/23/24 20:59 Last Admin: 06/07/24 08:46 Dose: 1,000 mg Thiamine HCl (Thiamine Hcl 100 Mg Tab) 100 mg PEG DAILY [facility] Stop: 06/26/24 08:59 Last Admin: 06/07/24 08:47 Dose: 100 mg Urea (Urea (Urea-Na) 15 Gm Pack) 15 gm PO BID [facility] Stop: 07/05/24 20:59 Last Admin: 06/07/24 09:26 Dose: 15 gm
--- NOTE | 2024-06-07 12:30 | XRay Report ---
XR femur LT 2V routine HISTORY: 59 years-old Female fall, recent surg COMPARISON: Femur radiographs 12-24 TECHNIQUE: 2 views of the left femur FINDINGS: Status post placement of an intertrochanteric nail with medullary jannet fixating the acute intertrochan teric fracture with lateral skin rajwinder, expected postoperative soft tissue swelling with deep tissu e air. Additionally, there has been interval development of an acute distal femoral fracture of the a nterior cortex distal femoral diaphysis seen on the lateral view with approximately 2 mm displacement and mild soft tissue swelling. There are 2 distal femoral calyces groups with adjacent skin rajwinder. IMPRESSION: 1. Status post placement of an intertrochanteric nail with medullary jannet fixing the acute intertrocha nteric fracture. 2. Subtle acute distal femoral fracture without displacement. ACT 112: Negative or not required by law. The above report was generated using voice recognition software. It may contain grammatical, syntax o r spelling errors. Electronically signed by: Braulio Navas M.D. 06/07/2024 12:27 PM
[2024-06-08 07:02] LABS: Hematocrit (blood only) 26.8 % (37.0-47.0); Mean Corpuscular Hemoglobin 37.2 pg (25.0-34.0); Mean Corpuscular Hgb Conc 33.6 g/dL (32.0-36.0); Mean Corpuscular Volume 110.7 fL (80.0-100.0); Platelet Count 198 K/uL (130-400); RDW Coefficient of Variation 21.2 % (11.5-14.5); RDW Standard Deviation 84.1 fL (36.4-46.3); Red Blood Count 2.42 M/uL (4.20-5.40); White Blood Count 3.84 K/ul (4.8-10.8)
[2024-06-08 07:22] LABS: BUN Creatinine Ratio 87.5 (10-20); Calcium 9.2 mg/dl (8.6-10.3); Creatinine Clr Calc Pharmacy 124.3 ml/min; Potassium 4.1 mmol/L (3.5-5.1)
--- NOTE | 2024-06-08 10:15 | Hospitalist Progress Note ---
Date of Service June 08, 2024 Assessment & Plan (1) Fall: (2) Acute hyponatremia: Plan: (1) Acute hyponatremia: (2) Fall: (3) Closed left hip fracture: (4) Metabolic encephalopathy: (5) Squamous cell carcinoma of left tonsil: (6) SIRS (systemic inflammatory response syndrome): Plan Ms. 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 On admission she was noted to have a sodium of 103 and a left intertrochanteric fracture. Patient with progressive altered mental status, which seemingly improved 05/26-, however, much worse the morning of 05/28. Though there is high suspicion that this is ICU/postoperative delirium, patient falls within the time line for presentation of acute osmotic demyelinating syndrome. MRI pursued to rule out this process which was negative. Patient cleared for stepdown from certified registered nurse anesthetist 05/28. Overnight, sodium increased 7meq from night prior therefore desmopressin administered and fluids discontinued. Overnight 05/29, patient received a dose of lasix with good response. Sodium fluctuating, prompting initiation of urea on 05/30. Nephrology suspects that NA will be around 126-130. Planning lasix trial and tighter FFR. Urea will continue Patient has yet to start radiation with Dilip. Patient follows Dr. Theodore Cherry for Oncology Acute on chronic hyponatremia Acute metabolic encephalopathy Hyponatremia: multifactorial iso malignancy, poor po intake mental status changed post operatively, likely delirium however given timeline, she is at high risk for osmotic demyelination per nephrology Baseline sodium of 1 25-1 30 since November Admitting sodium of 103, urine osmolality 392, serum osmolality 223. status post hypertonic saline in the ED. s/p desmopressin 05/26 MRI ordered given MS/hallucinations this am - negative for ODS Nephrology on board -Urea 15gm BID -1.2 L fluid restriction -encourage protein rich tube feedings as possible, FW flushes 30ml 6x/day, needs eukalemia, I and O Ua negative, no indication for abx Status post fall While trying to get to the commode today without assistance Denies any new pain will repeat Femur Xr to ensure alignment Sacral decubitus ulcer No signs of infection Wound care consult: To Sacral wound clean with saline. Dry. [place] with betadine and allow to dry. Cover with optifoam. Change daily and as needed. Turn q2hrs when in bed. Pt will need wound care follow up as outpt Acute on chronic anemia: stable Baseline hemoglobin seems around 10 , hemoglobin at presentation 7.5, s/p 1 U prbc on 05/24, Anticipate Iron profile WNL, vitamin B12 and folate level WNL. Patient denies any blood or black stool. PPI daily. H&H trend stable. Hgb at 9.0 and stable Acute proximal left femur fracture s/p left troch nail Admitting CTAP with comminuted, displaced nonarticular fracture of left proximal femur involving trochanteric region. Orthopedics consulted-S/p repair 05/[address] Giron Scheduled Tylenol, apixaban continued will need f/u 2 weeks from surgery for staple removal which will be 06/10, if pt still hospitalized recommend reach back out to ortho for re eval Pt sustained a fall on 06/06. She is w/o report of pain. XR obtained on 06/07 which now also shows Subtle acute distal femoral fracture without displacement. Discussed with Dr. Giron and he reviewed images. He felt there was not anything different then what he saw intraoperatively. He feels pt is stable for discharge. Acute traumatic rhabdomyolysis: CPK elevated at presentation, status post IV fluid,resolved Hypomagnesemia: Magnesium of 1.4 at presentation, monitor replete. Severe protein anatoly malnutrition: In the setting of underlying malignancy, patient on tube feed diet. BMI 16.7 Continue with thiamine and IV folic acid, p.o. multivitamin. Nutrition consult. Continue with PEG tube feeding. Demand ischemia: Troponin elevated but flat trended, patient without chest pain, echo with EF of 65 to 70%, left ventricular systolic function normal, no regional wall motion abnormalities. Other chronic medical conditions: Continue with/resume home meds as and when able. L tonsillar SCC/L lung mass SCC: s/p chemo/XRT. recent PET CT shows improvement in L tonsillar mass/adenopathy but enlargement to L lung mass. Pt to undergo SBRT. following nutrition for PEG tube/feeding management, follows Dr. Cherry heme/onc Hx of RA: on sulfasalazine COPD: no acute exac Tobacco abuse: nicotine patch, encourage cessation DVT ppx: SCDS, apixaban FULL CODE PCP: None, pt previously followed [facility], needs to re establish Dispo: Pt is medically stable for discharge I spent a total of 44 minutes reviewing notes, outpatient records, labs, medication, coordinating, documenting and providing care for this patient excluding time spent in the performance of separately billed services. Admission and Anticipated Discharge Date Admission Date: May 24, 2024 Subjective Pt denies pain. She has been ambulating w/o discomfort and denies any falls. She has been eating okay. She denies f/c/s, chest pain, sob, n/v/d. Review of Systems Review of Systems: All systems reviewed & are unremarkable except as noted in HPI & below Physical Exam Physical Exam: Gen: Thin, cachectic, F, NAD, A&O x3 HEENT: Normocephalic, atraumatic, conjunctivae moist, sclerae anicteric, mucous membranes moist. Lung: Clear to Auscultation bilaterally, no wheezes/rales/rhonchi Heart: Regular rate, regular rhythm, no murmurs, rubs, or gallops Abdomen: Soft, NT, ND +BS x 4 +peg Extremities: No edema Skin: Warm, no rash, negative turgor. Results & Data Results & Data Vital Signs (Past 12 Hours) Vital Signs Temp Pulse Resp BP Pulse Ox O2 Del Method 06/08/24 07:57 36.7 C 98 H 16 115/79 93 Room Air Diagnostic Findings Femur X-Ray 06/07/24 10:33 XR femur LT 2V routine HISTORY: 59 years-old Female fall, recent surg COMPARISON: Femur radiographs - TECHNIQUE: 2 views of the left femur FINDINGS: Status post placement of an intertrochanteric nail with medullary jannet fixating the acute intertrochanteric fracture with lateral skin rajwinder, expected postoperative soft tissue swelling with deep tissue air. Additionally, there has been interval development of an acute distal femoral fracture of the anterior cortex distal femoral diaphysis seen on the lateral view with approximately 2 mm displacement and mild soft tissue swelling. There are 2 distal femoral calyces groups with adjacent skin rajwinder. IMPRESSION: 1. Status post placement of an intertrochanteric nail with medullary jannet fixing the acute intertrochanteric fracture. 2. Subtle acute distal femoral fracture without displacement. ACT 112: Negative or not required by law. The above report was generated using voice recognition software. It may contain grammatical, syntax or spelling errors. Electronically signed by: Braulio Navas M.D. 06/07/2024 12:27 PM Medications Administered Current Inpatient Medications Acetaminophen (Acetaminophen 500 Mg Tab) 1,000 mg PO Q8H [facility] Stop: 06/27/24 13:59 Last Admin: 06/08/24 05:43 Dose: 1,000 mg Allopurinol (Allopurinol 100 Mg Tab) 100 mg PO DAILY [facility] Stop: 06/24/24 08:59 Last Admin: 06/08/24 09:33 Dose: 100 mg Lipase/Protease/Amylase (Pancreaze (Lipase 4,200u) Cap) 1 cap PO DAILY PRN PRN Reason: CLOGGED PEG TUBE Stop: 07/02/24 16:29 Last Admin: 06/02/24 15:43 Dose: 1 cap Apixaban (Apixaban 2.5 Mg Tab) 2.5 mg PO BID [facility] Stop: 06/27/24 05:59 Last Admin: 06/08/24 09:34 Dose: 2.5 mg Enteral Nutritional Formula (Novasource Renal 2.0 Anatoly 1000ml Bag) 240 ml PEG TID@0800,1300,1800 [facility]; Protocol Stop: 07/03/24 12:59 Last Admin: 06/08/24 09:32 Dose: 240 ml Folic Acid (Folic Acid 1 Mg Tab) 1 mg PEG DAILY [facility] Stop: 06/26/24 08:59 Last Admin: 06/08/24 09:34 Dose: 1 mg Lactobacillus Acidophilus (Advanced Probiotic 625 Mg Capsule) 1,250 mg PO DAILY [facility] Stop: 06/24/24 08:59 Last Admin: 06/08/24 09:32 Dose: 1,250 mg Lansoprazole (Lansoprazole 30 Mg Soltab) 30 mg PEG DAILY [facility] Stop: 06/26/24 08:59 Last Admin: 06/08/24 09:33 Dose: 30 mg Miscellaneous (Remove Nicoderm Patch) 1 each N/A DAILY@0859 [facility] Stop: 06/24/24 08:58 Last Admin: 06/08/24 09:35 Dose: 1 each Nicotine (Nicotine 14 Mg/24 Hr Patch) 1 patch TD QAM [facility] Stop: 06/24/24 08:59 Last Admin: 06/08/24 09:34 Dose: 1 patch Sodium Bicarbonate (Sodium Bicarbonate 650 Mg Tab) 650 mg PO DAILY PRN PRN Reason: Flush Stop: 07/02/24 11:15 Last Admin: 06/02/24 11:47 Dose: 650 mg Sodium Biphosphate/Sodium Phosphate (Sod Phosphate/Sod Biphosphate Enema 132 Ml Btl) 132 ml MS DAILY PRN PRN Reason: Constipation Stop: 06/26/24 17:34 Sterile Water (Tube Feeding Water Flush) 30 ml PEG 0730,0830,1230,1330,1730,1830 [facility] Stop: 07/03/24 12:59 Last Admin: 06/08/24 09:32 Dose: 30 ml Sulfasalazine (Sulfasalazine 500 Mg Tablet) 1,000 mg PO BID [facility] Stop: 06/23/24 20:59 Last Admin: 06/08/24 09:33 Dose: 1,000 mg Thiamine HCl (Thiamine Hcl 100 Mg Tab) 100 mg PEG DAILY [facility] Stop: 06/26/24 08:59 Last Admin: 06/08/24 09:34 Dose: 100 mg Urea (Urea (Urea-Na) 15 Gm Pack) 15 gm PO BID [facility] Stop: 07/05/24 20:59 Last Admin: 06/08/24 09:32 Dose: 15 gm
--- NOTE | 2024-06-09 10:56 | Hospitalist Progress Note ---
Date of Service June 09, 2024 Assessment & Plan (1) Fall: (2) Acute hyponatremia: Plan: Plan Assessment and plan: Ms. 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 On admission she was noted to have a sodium of 103 and a left intertrochanteric fracture. Patient with progressive altered mental status, which seemingly improved 05/26-, however, much worse the morning of 05/28. MRI pursued to rule out this process which was negative. Patient was downgraded from ICU on 05/28 Acute on chronic hyponatremia Acute metabolic encephalopathy -Hyponatremia likely multifactoral, underlying malignancy and poor oral intake Baseline sodium [id number], s/p hypertonic saline, desmopressin Sodium remains stable, 1.2 L fluid restriction, continue urea twice daily Sacral decubitus ulcerPOA Continue daily wound care with Betadine and Optifoam, follow-up with wound care outpatient Acute on chronic anemia: stable Acute blood loss anemia now resolved, s/p 1 unit PRBC 05/24 Latest hemoglobin 9, CTM, PPI daily Acute proximal left femur fracture s/p left troch nail 05/27 Continue pain control with Tylenol, Eliquis continued Marquis removed by Ortho on 06/08, follow-up outpatient in 2 weeks Patient sustained a fall on 06/06, x-ray showed subtle acute distal femoral fracture without displacement No further intervention needed by orthopedics per Dr. Giron Acute traumatic rhabdomyolysis: Resolved Severe protein anatoly malnutrition: -In the setting of underlying malignancy, patient on tube feed diet. -BMI 16.7 Continue with thiamine and IV folic acid, p.o. multivitamin. Nutrition consult. L tonsillar SCC/L lung mass SCC: -s/p chemo/XRT. recent PET CT shows improvement in L tonsillar mass/adenopathy but enlargement to L lung mass. -pt to undergo SBRT. following nutrition for PEG tube/feeding management, follows Dr. Dilip hairston/onc Hx of RA: -Continue sulfasalazine Hx COPD: On room air, not in acute exacerbation Continue nicotine patch, encourage smoking cessation 06/09/2024: Peer to peer review completed, patient denied for auth for SNF due to the ability to walk 80 feet with minimal assistance. Discussed with case management. Patient remains medically stable for DC DVT ppx: SCDS, apixaban FULL CODE I spent a total of 45 minutes reviewing notes, outpatient records, labs, medication, coordinating, documenting and providing care for this patient excluding time spent in the performance of separately billed services. Admission and Anticipated Discharge Date Admission Date: May 24, 2024 Supervising Physician Co-Signing Physician Notes Pt seen and examined by me , care coordinated w/ T. NORAH Bravo, pls refer to her note for further detail. Also discussed over the phone w/ Dr. Herrera (nephrology), regarding hyponatremia and urea medication. Plan to DC pt home w/ HH instead of SNF. Pt's present at the bedside and also updated. Pt is feeling overall well. Discussed with her need to follow up with PCP, w/ nephrology and also wound care. MD Shonna Subjective Patient seen and examined. No apparent distress. Denies any complaints. Denies any shortness of breath/chest pain/fever/chills overnight. Review of Systems Review of Systems: All systems reviewed & are unremarkable except as noted in HPI & below Physical Exam Physical Exam: Gen: Thin, cachectic, F, NAD, A&O x3 HEENT: Normocephalic, atraumatic, conjunctivae moist, sclerae anicteric, mucous membranes moist. Lung: Clear to Auscultation bilaterally, no wheezes/rales/rhonchi Heart: Regular rate, regular rhythm, no murmurs, rubs, or gallops Abdomen: Soft, NT, ND +BS x 4 +peg Extremities: No edema Skin: Warm, no rash, negative turgor. Results & Data Results & Data Vital Signs (Past 12 Hours) Vital Signs Temp Pulse Pulse Resp BP Pulse Ox O2 Del Method 06/09/24 07:51 36.6 C 87 14 114/74 96 Room Air 06/09/24 07:23 36.7 C 88 16 119/68 98 Room Air Diagnostic Findings Laboratory Results WBC 3.84 K/ul (4.8-10.8) L 06/08/24 06:20 RBC 2.42 M/uL (4.20-5.40) L 06/08/24 06:20 Hgb 9.0 g/dl (12.0-16.0) L 06/08/24 06:20 Hct 26.8 % (37.0-47.0) L 06/08/24 06:20 MCV 110.7 fL (80.0-100.0) H 06/08/24 06:20 MCH 37.2 pg (25.0-34.0) H 06/08/24 06:20 MCHC 33.6 g/dL (32.0-36.0) 06/08/24 06:20 RDW Std Deviation 84.1 fL (36.4-46.3) H 06/08/24 06:20 RDW Coeff of Ryder 21.2 % (11.5-14.5) H 06/08/24 06:20 Plt Count 198 K/uL (130-400) 06/08/24 06:20 MPV 10.0 fL (9.4-12.4) 06/08/24 06:20 Immature Gran % (Auto) 3.2 % 05/28/24 03:10 Neut % (Auto) 91.4 % 05/28/24 03:10 Lymph % (Auto) 1.1 % 05/28/24 03:10 [place] % (Auto) 4.0 % 05/28/24 03:10 Eos % (Auto) 0.1 % 05/28/24 03:10 Baso % (Auto) 0.2 % 05/28/24 03:10 Neut # (Auto) 12.03 K/uL (1.40-6.50) H 05/28/24 03:10 Lymph # (Auto) 0.14 K/uL (1.20-3.40) L 05/28/24 03:10 [place] # (Auto) 0.52 K/uL (0.11-0.59) 05/28/24 03:10 Eos # (Auto) 0.01 K/uL (0.00-0.50) 05/28/24 03:10 Baso # (Auto) 0.02 K/uL (0.00-0.20) 05/28/24 03:10 Immature Gran # (Auto) 0.42 K/uL (0.01-0.20) H 05/28/24 03:10 Neutrophils % (Manual) 95 % 05/24/24 04:37 Lymphocytes % (Manual) 1 % 05/24/24 04:37 Monocytes % (Manual) 4 % 05/24/24 04:37 Neutrophils # (Manual) 17.05 K/uL (1.40-6.50) H 05/24/24 04:37 Total Absolute Neuts 17.05 K/uL (1.4-6.5) H 05/24/24 04:37 Lymphocytes # (Manual) 0.18 K/uL (1.2-3.4) L 05/24/24 04:37 Total Abs Lymphocytes 0.18 K/uL (1.2-3.4) L 05/24/24 04:37 Monocytes # (Manual) 0.72 K/uL (0.11-0.59) H 05/24/24 04:37 RBC Morphology Unremarkable 05/27/24 03:39 Hypochromasia Present 05/28/24 03:10 Target Cells 1+ 05/24/24 21:07 PT 12.3 Seconds (9.0-12.0) H 05/24/24 04:37 INR 1.1 (0.9-1.1) 05/24/24 04:37 APTT 30 Seconds (21-31) 05/24/24 04:37 PTT Ratio 1.1 05/24/24 04:37 Sodium 133 mmol/L (136-145) L 06/08/24 06:20 Potassium 4.1 mmol/L (3.5-5.1) 06/08/24 06:20 Chloride 97 mmol/L (98-107) L 06/08/24 06:20 Carbon Dioxide 31 mmol/L (21-32) 06/08/24 06:20 Anion Gap 5 (3-11) 06/08/24 06:20 BUN 28 mg/dl (6-23) H 06/08/24 06:20 Creatinine 0.32 mg/dl (0.6-1.2) L 06/08/24 06:20 Est Cr Clr Drug Dosing 124.3 ml/min 06/08/24 06:20 eGFR 120.24 06/08/24 06:20 BUN/Creatinine Ratio 87.5 (10-20) H 06/08/24 06:20 Glucose 84 mg/dl (70-99(Fasting)) 06/08/24 06:20 POC Glucose 120 mg/dl (70-99) H 05/27/24 17:25 Osmolality 223 mOsm/kg (280-300) L* 05/24/24 04:37 Calcium 9.2 mg/dl (8.6-10.3) 06/08/24 06:20 Phosphorus 3.9 mg/dl (2.5-4.9) 06/02/24 05:41 Magnesium 1.8 mg/dl (1.7-2.4) 06/02/24 05:41 Iron 87 mcg/dl (35-150) 05/24/24 09:48 TIBC 191 mcg/dl (250-450) L 05/24/24 09:48 Unsaturated IBC 104 mcg/dl (155-355) L 05/24/24 09:48 Transferrin % Sat 46 % (15-50) 05/24/24 09:48 Ferritin 2569.0 ng/ml (8-388) H 05/24/24 09:48 Total Bilirubin 0.7 mg/dl (0.2-1.0) 05/25/24 02:11 AST 46 U/L (13-39) H 05/25/24 02:11 ALT 39 U/L (7-52) 05/25/24 02:11 Alkaline Phosphatase 83 U/L (34-104) 05/25/24 02:11 Total Creatine Kinase 320 U/L (26-192) H 05/25/24 02:11 Troponin I High Sens 14.5 pg/ml (0-14) H 05/24/24 09:48 B-Natriuretic Peptide 186 pg/ml (0-100) H 05/24/24 09:48 Total Protein 5.4 gm/dl (6.0-8.3) L 05/25/24 02:11 Albumin 2.8 gm/dl (3.4-5.0) L 05/25/24 02:11 Globulin 2.6 gm/dl (2.5-4.0) 05/25/24 02:11 Albumin/Globulin Ratio 1.1 (0.9-2) 05/25/24 02:11 Lipase 10 U/L (11-82) L 05/24/24 04:37 Vitamin B12 > 1500 pg/ml (180-914) H 05/24/24 09:48 25-OH Vitamin D Total 30.9 ng/ml (30-100) 05/28/24 03:10 Folate > 22.30 ng/ml (>5.38) 05/24/24 09:48 Procalcitonin 0.26 ng/ml (0-0.5) 05/28/24 03:10 TSH 2.903 uIu/ml (0.300-4.500) 05/24/24 04:37 Urine Color Yellow 05/28/24 Unknown Urine Appearance Clear (Clear) 05/28/24 Unknown Urine pH 6.0 (4.5-7.5) 05/28/24 Unknown Ur Specific [place] 1.012 (1.000-1.030) 05/28/24 Unknown Urine Protein Negative (Negative) 05/28/24 Unknown Urine Glucose (UA) Negative (Negative) 05/28/24 Unknown Urine Ketones Negative (Negative) 05/28/24 Unknown Urine Blood Negative (Negative) 05/28/24 Unknown Urine Nitrite Negative (Negative) 05/28/24 Unknown Urine Bilirubin Negative (Negative) 05/28/24 Unknown Urine Urobilinogen Negative (Negative) 05/28/24 Unknown Ur Leukocyte Esterase Negative (Negative) 05/28/24 Unknown Urine WBC (Auto) 0-5 /hpf (0-5) 05/24/24 04:37 Urine RBC (Auto) 6-10 /hpf (0-2) H 05/24/24 04:37 U Hyaline Cast (Auto) 3-5 /lpf (0-2) H 05/24/24 04:37 U Epithel Cells (Auto) 0-2 /hpf (0-2) 05/24/24 04:37 Urine Bacteria (Auto) None Seen (None Seen) 05/24/24 04:37 Granular Casts Present /lpf (None Prsent) A 05/24/24 04:37 Urine Osmolality 420 mOsm/kg (500-800) L 05/31/24 12:16 Ur Random Sodium 48 mmol/L 05/31/24 12:16 Urine Sodium 10 mmol/L 05/24/24 04:37 Urine Potassium 35.4 mmol/L 05/24/24 04:37 Urine Chloride 17 mmol/L 05/24/24 04:37 Nasal Screen MRSA (PCR) Negative (Negative) 05/24/24 11:00 Adenovirus (PCR) Not Detected (NotDetected) 05/24/24 04:37 B. pertussis DNA (PCR) Not Detected (NotDetected) 05/24/24 04:37 B.parapertussis DNA PCR Not Detected (NotDetected) 05/24/24 04:37 C. pneumoniae DNA (PCR) Not Detected (NotDetected) 05/24/24 04:37 Coronavirus OC43 (PCR) Not Detected (NotDetected) 05/24/24 04:37 Coronavirus HKU1 (PCR) Not Detected (NotDetected) 05/24/24 04:37 Coronavirus 229E (PCR) Not Detected (NotDetected) 05/24/24 04:37 SARS-CoV-2 (PCR) Not Detected (NotDetected) 05/24/24 04:37 Coronavirus NL63 (PCR) Not Detected (NotDetected) 05/24/24 04:37 Human Metapneumovir PCR Not Detected (NotDetected) 05/24/24 04:37 Influenza Type A (PCR) Not Detected (NotDetected) 05/24/24 04:37 Influenza Type B (PCR) Not Detected (NotDetected) 05/24/24 04:37 M. pneumoniae (PCR) Not Detected (NotDetected) 05/24/24 04:37 Parainfluenza 1 (PCR) Not Detected (NotDetected) 05/24/24 04:37 Parainfluenza 2 (PCR) Not Detected (NotDetected) 05/24/24 04:37 Parainfluenza 3 (PCR) Not Detected (NotDetected) 05/24/24 04:37 Parainfluenza 4 (PCR) Not Detected (NotDetected) 05/24/24 04:37 RSV (PCR) Not Detected (NotDetected) 05/24/24 04:37 Entero/Rhino (PCR) Not Detected (NotDetected) 05/24/24 04:37 Blood Type AB Positive 05/27/24 14:23 Blood Type Recheck AB Positive 05/24/24 10:41 Antibody Screen NEGATIVE 05/27/24 14:23 Crossmatch See Detail 05/24/24 09:[address] 05/24/24 04:27 EXAM: CT cervical spine wo con CLINICAL HISTORY: FALL AMS CANCER PATIEnt TECHNIQUE: Computed tomography of the cervical spine performed without intravenous contrast. Contiguous axial images were obtained from the skull base to T2, with sagittal and coronal reformatted images reconstructed from the axial data. CT scan was performed according to ALARA (as low as reasonably achievable). COMPARISON: None. FINDINGS: Straightening of ther cervical spine is noted. Alignment of spine is maintained. Vertebral bodies are normal in height. No evidence of fracture. Lateral masses of C1 are symmetrical, and the dens is intact. Prevertebral soft tissues are not widened. C2-C3: No disc bulge, mass effect on the cord or neuroforaminal narrowing. C3-C4: No disc bulge, mass effect on the cord or neuroforaminal narrowing. C4-C5: No disc bulge, mass effect on the cord or neuroforaminal narrowing. C5-C6: No disc bulge, mass effect on the cord or neuroforaminal narrowing. C6-C7: No disc bulge, mass effect on the cord or neuroforaminal narrowing. C7-T1: No disc bulge, mass effect on the cord or neuroforaminal narrowing. Thyroid gland appears unremarkable. IMPRESSION: 1. No acute fracture or subluxation in the cervical spine. 2. Fat stranding is noted within the intermuscular planes of the neck spaces. Electronically signed by Von Garza 05-24-2024 06:[address] 05/24/24 04:27 EXAM: CT chest diagnostic w con CLINICAL HISTORY: FALL ams cancer paitent 91 cc opti 320 TECHNIQUE: Contiguous axial images were obtained from the neck base through the upper abdomen with contrast. In addition, sagittal and coronal reconstructions were performed to potentially increase the sensitivity for the detection of disease. One of the following dose reduction techniques was utilized for this exam. Automated exposure control, adjustment of the mA and/or kV according to patient size, and use of iterative reconstruction. COMPARISON: 12/08/2019 FINDINGS: Solid subpleural nodule of size 2.2 x 1.5 cm is noted along the anterior aspect of the lingula. This is a new finding. Suspicious infiltration of the pleura is noted. However, no obvious bony invasion/erosion of the adjacent rib is noted. Relatively unchanged multiple centriacinar and paraseptal emphysematous changes involving bilateral upper lobes is noted. The central airways are patent. There are no pleural effusions. No pneumothorax is seen. Evaluation of the mediastinum and kelly is limited due to the lack of intravenous contrast. Mild cardiomegaly is noted. Aorta, and pulmonary arteries are of normal size and configuration. Few atherosclerotic calcifications are noted involving aorta and its branches, coronary arteries. No axillary or mediastinal adenopathy is identified. The thyroid is unremarkable. No aggressive appearing osseous lesions are identified. IMPRESSION: 1. Solid subpleural nodule in the lingula as described above. This is a new finding. 2. Relatively unchanged multiple centriacinar and paraseptal emphysematous changes involving bilateral upper lobes is noted. 3. Cardiomegaly. This is a new finding. Electronically signed by Von Garza 05-24-2024 06:[address] 05/24/24 04:27 EXAM: CT head/brain wo con CLINICAL HISTORY: fall AMS cancer patient TECHNIQUE: Multiple axial images are obtained from the skull base to the vertex without contrast. CT scan was performed according to ALARA (as low as reasonably achievable). COMPARISON: None. FINDINGS: There is cerebral atrophy. The mitchell-white matter differentiation is preserved. There are scattered periventricular hypodensities as can be seen with chronic microvascular ischemic changes. No evidence of space occupying lesion, hemorrhage, edema, mass effect, midline shift, extra axial collection, or hydrocephalus is noted. Basal cisterns are symmetric and normal in size and configuration. Visualized paranasal sinuses and mastoid air cells are well aerated. Orbital contents are within normal limits. Bony structures are intact. IMPRESSION: 1. No evidence of acute intracranial abnormality is demonstrated. 2. Chronic microvascular ischemic changes. 3. Cerebral atrophy. Electronically signed by Von Garza 05-24-2024 06:45 AM Abdomen/Pelvis CT 05/24/24 04:28 EXAM: CT abd pelvis IV con only CLINICAL HISTORY: FALL AMS CANCER PATIENT 91 cc opti 320 TECHNIQUE: Multiple contiguous axial images were obtained from the level of diaphragm to the pubis symphysis. This study was acquired after the IV administration of iodinated contrast material, given the patient's indications for the examination. If IV contrast material had not been administered, the likelihood of detecting abnormalities relevant to the patient's condition would have been substantially decreased. Coronal and sagittal reformatted images were generated and reviewed to improve anatomic localization and optimize lesion detection. CT scan was performed according to ALARA (as low as reasonably achievable). COMPARISON: None. FINDINGS: Percutaneous gastrostomy tube noted in situ. The liver is normal in size and attenuation. No focal liver lesions are seen. There is no intra or extrahepatic biliary ductal dilatation. Hepatic vasculature is patent. The gallbladder is unremarkable. The spleen is unremarkable. The pancreas is unremarkable. Both adrenal glands are unremarkable. The kidneys are normal in size and attenuation. There is no hydronephrosis. No perinephric fat stranding is seen. No renal calculi or renal masses are identified. The ureters are normal in caliber and no ureteral calculi are seen. Urinary bladder is collapsed with Kerr's bulb in-situ. No evidence of focal or diffuse bowel wall thickening or evidence of bowel obstruction is seen. Mild to moderate free fluid is noted within the abdomen and pelvic cavity. Atherosclerotic calcifications are noted involving aorta and its branches. No aggressive appearing osseous lesions are identified. Subcutaneous fat stranding and fluid is noted involving the abdominal wall, gluteal regions and proximal thigh on both sides. Comminuted, displaced, non-articular fracture of the left proximal femur is noted, predominantly involving the intertrochanteric region. Cranial migration of the distal fracture fragment is noted.. Significant moe osseous, periarticular soft tissue edema is noted. Left thigh appear swollen as compared to that of the right side. Mild scoliosis of the lumbar spine is noted with convexity on the left side. IMPRESSION: 1. Comminuted, displaced, non-articular fracture of the left proximal femur is noted, predominantly involving the intertrochanteric region. Cranial migration of the distal fracture fragment is noted. 2. Significant moe osseous, periarticular soft tissue edema is noted. Left thigh appear swollen as compared to that of the right side. 3. Mild scoliosis of the lumbar spine is noted with convexity on the left side. 4. Mild free fluid is noted in the abdomen and pelvic cavity. 5. Subcutaneous fat stranding and fluid is noted involving the abdominal wall, gluteal regions and proximal thigh on both sides. Electronically signed by Von Garza 05-24-2024 06:[address] 05/24/24 09:47 CT femur LT wo con HISTORY: 58 years-old Female fx, r/o hematoma acute pain of the left thigh status post trauma COMPARISON: CT abdomen and pelvis of same day TECHNIQUE: Multiple axial CT images of the left femur were obtained without IV contrast. Additional 3-D rendered images were generated from a separate workstation and were submitted for review. A dose lowering technique was used consistent with the principals of JAEL. FINDINGS: Acute, comminuted, angulated and displaced intratrochanteric fracture of the left femur redemonstrated with unchanged alignment compared to the same day CT abdomen and pelvis. The lesser trochanteric fracture fragment is displaced medially approximately 1.5 cm. There is no dislocation. Mild osteoarthritis of the left hip. Mild degeneration of the left SI joint. The imaged left hemipelvis appears intact. No additional acute fracture or dislocation identified. Mildly demineralized appearance of the bones. Mild osteoarthritis of the knee. No large joint effusion of the hip. There is moderate subcutaneous edema with heterogeneity of the thigh musculature. No discrete intramuscular hematoma identified. Nonspecific borderline-enlarged left inguinal chain lymph nodes. Contrast in the urinary bladder with Kerr catheter. Small to moderate joint effusion of the knee. IMPRESSION: 1. Unchanged alignment of the acute, comminuted, angulated and displaced intertrochanteric left femoral fracture. 2. Moderate subcutaneous edema of the thigh with nonspecific heterogeneity of the proximal thigh musculature. No discrete large intramuscular hematoma identified on this noncontrast study. 3. Small to moderate joint effusion of the knee. 4. Borderline enlarged left inguinal chain lymph node. ACT 112: Negative or not required by law. The above report was generated using voice recognition software. It may contain grammatical, syntax or spelling errors. Electronically signed by: Braulio Navas M.D. 05/24/2024 10:56 AM Pelvis X-Ray 05/24/24 17:29 INDICATION: Pain and injury. TECHNIQUE: 1 view the pelvis. 4 views of the left femur. COMPARISON: No relevant priors. FINDINGS: Impacted, comminuted/mildly angulated left intertrochanteric femur fracture. Remaining osseous structures intact. Negative for pelvic fracture. No dislocation. Mild bilateral hip joint space loss. No lytic or blastic bony lesions. No evidence of cortical erosion. Mild left hip soft tissue swelling. IMPRESSION: Impacted, comminuted/mildly angulated left intertrochanteric femur fracture. Electronically signed by Joseph Rojo 05-24-2024 6:25 PM Brain MRI 05/28/24 12:02 MR brain MS wo/w con HISTORY: 58 years-old Female r/o osmotic demyelination acute head trauma with altered mental status COMPARISON: May 24, 2024 TECHNIQUE: Multiplanar multisequence MRI of the brain was obtained with and without IV contrast FINDINGS: Study is moderately motion degraded. There is no restricted diffusion to suggest acute or subacute infarct. Midline structures appear unremarkable. Degenerative changes of the cervical spine. No acute intracranial hemorrhage, midline shift, abnormal extra axial collection, hydrocephalus or intra-axial mass. Involutional changes with mild scattered T2/FLAIR hyperintense foci throughout the white matter. Normal signal within the roe and brainstem. No abnormal enhancement. Cerebral venous sinuses and major arterial flow voids appear patent as visualized. Skull, orbits and soft tissues are unremarkable. Rightward bowing and spurring the nasal septum with mild to moderate mucosal thickening of the right maxillary and ethmoid sinuses. Moderate-sized mastoid effusions. IMPRESSION: 1. Moderately motion degraded exam. 2. No acute intracranial abnormality, specifically there is no acute or subacute infarct. 3. No abnormal enhancement. 4. Normal signal of the roe. 5. Involutional changes with probable mild chronic microvascular ischemic disease. ACT 112: Negative or not required by law. The above report was generated using voice recognition software. It may contain grammatical, syntax or spelling errors. Electronically signed by: Braulio Navas M.D. 05/28/2024 2:24 PM Femur X-Ray 06/07/24 10:33 XR femur LT 2V routine HISTORY: 59 years-old Female fall, recent surg COMPARISON: Femur radiographs 06-15 TECHNIQUE: 2 views of the left femur FINDINGS: Status post placement of an intertrochanteric nail with medullary jannet fixating the acute intertrochanteric fracture with lateral skin marquis, expected postoperative soft tissue swelling with deep tissue air. Additionally, there has been interval development of an acute distal femoral fracture of the anterior cortex distal femoral diaphysis seen on the lateral view with approximately 2 mm displacement and mild soft tissue swelling. There are 2 distal femoral calyces groups with adjacent skin marquis. IMPRESSION: 1. Status post placement of an intertrochanteric nail with medullary jannet fixing the acute intertrochanteric fracture. 2. Subtle acute distal femoral fracture without displacement. ACT 112: Negative or not required by law. The above report was generated using voice recognition software. It may contain grammatical, syntax or spelling errors. Electronically signed by: Braulio Navas M.D. 06/07/2024 12:27 PM
--- NOTE | 2024-06-09 15:16 | Nephrology Progress Note ---
Date of Service June 09, 2024 Assessment & Plan (1) Hyponatremia: Plan: plateau'd mild hyponatremia in pt admitted 05/24 w/ sNa 103 from malnutrition, platin-based CTX for lung CA. h/o chronic hyponatremia w/ sNa often high 120s. 131 is the best value we've had this admission yesterday's labs reviewed > sNa 133, K 4.1, creat 0.3. admitted w/ critical hyponatremia 103. she corrected at appropriate rate 05/24- 05/25, then too quickly 05/25-05/26; on 05/26 we lowered sNa to more appropriate high teens range w/ desmopressin. Desmopressin needed at least one other time and long slow efforts required to monitor for ODS for which she was at high risk. overall has done well; maintained on 1.2 L FR and urea. will sign off NEPHRO D/C RECS -cont urea 15 gm bid via PEG > this medicine can be difficult to obtain b/c 1) most pharmacies don't stock & takes a few days to get online and 2) not covered by insurance/OTC and can cost > $100 monthly - encourage protein intake >> cont as protein-rich as possible tube feedings; goal 1.5 gm /kg - fluid restrict to 1.2 L daily to continue at d/c; limit/minimize FW flushes as much as possible > flushes count toward FR but not urea, not TF - control pain since uncontrolled can worsen hyponatremia >FW flushes to continue at 30 mL 6X/day; could lower total amount if feasible >>needs eukalemia; currently no supplements needed -BMP at PCP office f/u; thereafter weekly x 3 to be ordered by neph nurse; hospital d/c appt w/ me in [facility] (preferred) or [facility] [place] 2[facility]3 wks after d/c Care coordinated with Dr Shonna connors d/c meds, diet, labs, f/u appt by phone; we are in agreement. (2) Closed left hip fracture: Plan: s/p 12/5 L hip/femur trochanteric nail Admission and Anticipated Discharge Date Admission Date: May 24, 2024 Subjective pt seen on AM rounds. no c/o sob, n/v, edema, uncontrolled pain. eager to discuss high protein diet choices. possible d/c home upcoming Review of Systems 2 Review of Systems: All systems reviewed & are unremarkable except as noted in Subjective Physical Exam 2 Constitutional: well developed, + cachectic, cooperative and + malnourished; no acute distress Eyes: EOM intact bilaterally ENMT: Mouth: + dry oral mucous membranes Respiratory: normal respiratory effort (on RA) Auscultation: + diminished lung sounds Cardiovascular: Rate/Rhythm: regular rate and regular rhythm Extremities: n o edema Gastrointestinal (Abdomen): Inspection/Auscultation: normal bowel sounds, + scaphoid and + abdominal surgical scar (PEG present) Percussion/Palpation: a bdomen soft; abdomen nontender Musculoskeletal: Extremities: strength 5/5 throughout (cardenas) Skin: no rashes, warm and dry Psychiatric: Orientation: alert and oriented x 3 Results & Data Vital Signs (Past 12 Hours) Vital Signs Temp Pulse Pulse Resp BP Pulse Ox O2 Del Method 06/09/24 14:27 36.5 C 97 H 15 112/65 95 Room Air 06/09/24 12:15 36.6 C 97 H 14 102/62 94 Room Air 06/09/24 07:51 36.6 C 87 14 114/74 96 Room Air 06/09/24 07:23 36.7 C 88 16 119/68 98 Room Air Laboratory Results 06/08/24 06:20 06/08/24 06:20
[2024-06-10 07:18] LABS: Basophils # (auto) 0.01 K/uL (0.00-0.20); Basophils % (auto) 0.3 %; Eosinophils # (auto) 0.02 K/uL (0.00-0.50); Eosinophils % (auto) 0.7 %; Hematocrit (blood only) 30.1 % (37.0-47.0); Hemoglobin 9.9 g/dl (12.0-16.0); Immature Granulocytes # (auto) 0.01 K/uL (0.01-0.20); Immature Granulocytes % (auto) 0.3 %; Lymphocytes # (auto) 0.47 K/uL (1.20-3.40); Lymphocytes % (auto) 15.4 %; Mean Corpuscular Hemoglobin 37.8 pg (25.0-34.0); Mean Corpuscular Hgb Conc 32.9 g/dL (32.0-36.0); Mean Corpuscular Volume 114.9 fL (80.0-100.0); Mean Platelet Volume 10.4 fL (9.4-12.4); Monocytes # (auto) 0.41 K/uL (0.11-0.59); Monocytes % (auto) 13.4 %; Neutrophils # (auto) 2.14 K/uL (1.40-6.50); Neutrophils % (auto) 69.9 %; Platelet Count 191 K/uL (130-400); RDW Coefficient of Variation 22.3 % (11.5-14.5); RDW Standard Deviation 88.7 fL (36.4-46.3); Red Blood Count 2.62 M/uL (4.20-5.40); White Blood Count 3.06 K/ul (4.8-10.8)
[2024-06-10 07:33] LABS: Albumin Globulin Ratio 1.4 (0.9-2); Albumin Level 3.4 gm/dl (3.4-5.0); BUN Creatinine Ratio 58.3 (10-20); Bilirubin,Total 0.5 mg/dl (0.2-1.0); Calcium 9.3 mg/dl (8.6-10.3); Creatinine Clr Calc Pharmacy 110.5 ml/min; Globulin 2.4 gm/dl (2.5-4.0); Potassium 4.7 mmol/L (3.5-5.1); Total Protein 5.8 gm/dl (6.0-8.3)
[2024-06-10 07:37] LABS: Macrocytosis Present
--- NOTE | 2024-06-10 11:48 | Hospitalist Progress Note ---
Date of Service June 10, 2024 Assessment & Plan (1) Fall: (2) Acute hyponatremia: Plan: Plan Assessment and plan: Ms. 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 On admission she was noted to have a sodium of 103 and a left intertrochanteric fracture. Patient with progressive altered mental status, which seemingly improved 05/26-, however, much worse the morning of 05/28. MRI pursued to rule out this process which was negative. Patient was downgraded from ICU on 05/28 Acute on chronic hyponatremia Acute metabolic encephalopathy -Hyponatremia likely multifactoral, underlying malignancy and poor oral intake Baseline sodium 179371, s/p hypertonic saline, desmopressin Sodium remains stable, 1.2 L fluid restriction, continue urea twice daily Sacral decubitus ulcerPOA Continue daily wound care with Betadine and Optifoam, follow-up with wound care outpatient Acute on chronic anemia: stable Acute blood loss anemia now resolved, s/p 1 unit PRBC 05/24 Latest hemoglobin 9, CTM, PPI daily Acute proximal left femur fracture s/p left troch nail 05/27 Continue pain control with Tylenol, Eliquis continued Marquis removed by Ortho on 06/08, follow-up outpatient in 2 weeks Patient sustained a fall on 06/06, x-ray showed subtle acute distal femoral fracture without displacement No further intervention needed by orthopedics per Dr. Giron Acute traumatic rhabdomyolysis: Resolved Severe protein anatoly malnutrition: -In the setting of underlying malignancy, patient on tube feed diet. -BMI 16.7 Continue with thiamine and IV folic acid, p.o. multivitamin. Nutrition consult. L tonsillar SCC/L lung mass SCC: -s/p chemo/XRT. recent PET CT shows improvement in L tonsillar mass/adenopathy but enlargement to L lung mass. -pt to undergo SBRT. following nutrition for PEG tube/feeding management, follows Dr. Dilip hairston/onc Hx of RA: -Continue sulfasalazine Hx COPD: On room air, not in acute exacerbation Continue nicotine patch, encourage smoking cessation 06/10/2024: Peer to peer review completed, patient denied for auth for SNF due to the ability to walk 80 feet with minimal assistance. Discussed with case management. Patient remains medically stable for DCplan for ADC home with home care once home transfusions can be delivered, insurance auth submitted on 06/10 for tube feedings Per case management, Auth can take up to 3 days, request has been sent to expedite DVT ppx: SCDS, apixaban FULL CODE I spent a total of 45 minutes reviewing notes, outpatient records, labs, medication, coordinating, documenting and providing care for this patient excluding time spent in the performance of separately billed services. Admission and Anticipated Discharge Date Admission Date: May 24, 2024 Supervising Physician Co-Signing Physician Notes Pt seen and examined by me , care coordinated w/ T. NORAH Bravo, pls refer to her note for further detail. Yesterday discussed over the phone w/ Dr. Herrera (nephrology), regarding hyponatremia and urea medication. Plan to DC pt home w/ HH instead of SNF. Discussed w/ CM in detail today. Plan to DC home once home tube feeds available. Pt is feeling overall well. Discussed with her need to follow up with PCP, w/ nephrology and also wound care. MD Shonna Subjective pt seen on AM rounds. no c/o sob, n/v, edema, uncontrolled pain. eager to discuss high protein diet choices. possible d/c home upcoming Review of Systems Review of Systems: All systems reviewed & are unremarkable except as noted in HPI & below Physical Exam Physical Exam: Gen: Thin, cachectic, F, NAD, A&O x3 HEENT: Normocephalic, atraumatic, conjunctivae moist, sclerae anicteric, mucous membranes moist. Lung: Clear to Auscultation bilaterally, no wheezes/rales/rhonchi Heart: Regular rate, regular rhythm, no murmurs, rubs, or gallops Abdomen: Soft, NT, ND +BS x 4 +peg Extremities: No edema Skin: Warm, no rash, negative turgor. Results & Data Results & Data Vital Signs (Past 12 Hours) Vital Signs Temp Pulse Resp BP Pulse Ox O2 Del Method 06/10/24 10:12 Room Air 06/10/24 07:28 37 C 87 16 125/78 94 Room Air Diagnostic Findings Laboratory Results WBC 3.06 K/ul (4.8-10.8) L 06/10/24 06:43 RBC 2.62 M/uL (4.20-5.40) L 06/10/24 06:43 Hgb 9.9 g/dl (12.0-16.0) L 06/10/24 06:43 Hct 30.1 % (37.0-47.0) L 06/10/24 06:43 MCV 114.9 fL (80.0-100.0) H 06/10/24 06:43 MCH 37.8 pg (25.0-34.0) H 06/10/24 06:43 MCHC 32.9 g/dL (32.0-36.0) 06/10/24 06:43 RDW Std Deviation 88.7 fL (36.4-46.3) H 06/10/24 06:43 RDW Coeff of Ryder 22.3 % (11.5-14.5) H 06/10/24 06:43 Plt Count 191 K/uL (130-400) 06/10/24 06:43 MPV 10.4 fL (9.4-12.4) 06/10/24 06:43 Immature Gran % (Auto) 0.3 % 06/10/24 06:43 Neut % (Auto) 69.9 % 06/10/24 06:43 Lymph % (Auto) 15.4 % 06/10/24 06:43 Anderson % (Auto) 13.4 % 06/10/24 06:43 Eos % (Auto) 0.7 % 06/10/24 06:43 Baso % (Auto) 0.3 % 06/10/24 06:43 Neut # (Auto) 2.14 K/uL (1.40-6.50) 06/10/24 06:43 Lymph # (Auto) 0.47 K/uL (1.20-3.40) L 06/10/24 06:43 Anderson # (Auto) 0.41 K/uL (0.11-0.59) 06/10/24 06:43 Eos # (Auto) 0.02 K/uL (0.00-0.50) 06/10/24 06:43 Baso # (Auto) 0.01 K/uL (0.00-0.20) 06/10/24 06:43 Immature Gran # (Auto) 0.01 K/uL (0.01-0.20) 06/10/24 06:43 Neutrophils % (Manual) 95 % 05/24/24 04:37 Lymphocytes % (Manual) 1 % 05/24/24 04:37 Monocytes % (Manual) 4 % 05/24/24 04:37 Neutrophils # (Manual) 17.05 K/uL (1.40-6.50) H 05/24/24 04:37 Total Absolute Neuts 17.05 K/uL (1.4-6.5) H 05/24/24 04:37 Lymphocytes # (Manual) 0.18 K/uL (1.2-3.4) L 05/24/24 04:37 Total Abs Lymphocytes 0.18 K/uL (1.2-3.4) L 05/24/24 04:37 Monocytes # (Manual) 0.72 K/uL (0.11-0.59) H 05/24/24 04:37 RBC Morphology Unremarkable 05/27/24 03:39 Hypochromasia Present 05/28/24 03:10 Macrocytosis Present 06/10/24 06:43 Target Cells 1+ 05/24/24 21:07 PT 12.3 Seconds (9.0-12.0) H 05/24/24 04:37 INR 1.1 (0.9-1.1) 05/24/24 04:37 APTT 30 Seconds (21-31) 05/24/24 04:37 PTT Ratio 1.1 05/24/24 04:37 Sodium 135 mmol/L (136-145) L 06/10/24 06:43 Potassium 4.7 mmol/L (3.5-5.1) 06/10/24 06:43 Chloride 100 mmol/L (98-107) 06/10/24 06:43 Carbon Dioxide 31 mmol/L (21-32) 06/10/24 06:43 Anion Gap 4 (3-11) 06/10/24 06:43 BUN 21 mg/dl (6-23) 06/10/24 06:43 Creatinine 0.36 mg/dl (0.6-1.2) L 06/10/24 06:43 Est Cr Clr Drug Dosing 110.5 ml/min 06/10/24 06:43 eGFR 116.87 06/10/24 06:43 BUN/Creatinine Ratio 58.3 (10-20) H 06/10/24 06:43 Glucose 88 mg/dl (70-99(Fasting)) 06/10/24 06:43 POC Glucose 120 mg/dl (70-99) H 05/27/24 17:25 Osmolality 223 mOsm/kg (280-300) L* 05/24/24 04:37 Calcium 9.3 mg/dl (8.6-10.3) 06/10/24 06:43 Phosphorus 3.9 mg/dl (2.5-4.9) 06/02/24 05:41 Magnesium 1.8 mg/dl (1.7-2.4) 06/02/24 05:41 Iron 87 mcg/dl (35-150) 05/24/24 09:48 TIBC 191 mcg/dl (250-450) L 05/24/24 09:48 Unsaturated IBC 104 mcg/dl (155-355) L 05/24/24 09:48 Transferrin % Sat 46 % (15-50) 05/24/24 09:48 Ferritin 2569.0 ng/ml (8-388) H 05/24/24 09:48 Total Bilirubin 0.5 mg/dl (0.2-1.0) 06/10/24 06:43 AST 21 U/L (13-39) 06/10/24 06:43 ALT 21 U/L (7-52) 06/10/24 06:43 Alkaline Phosphatase 138 U/L (34-104) H 06/10/24 06:43 Total Creatine Kinase 320 U/L (26-192) H 05/25/24 02:11 Troponin I High Sens 14.5 pg/ml (0-14) H 05/24/24 09:48 B-Natriuretic Peptide 186 pg/ml (0-100) H 05/24/24 09:48 Total Protein 5.8 gm/dl (6.0-8.3) L 06/10/24 06:43 Albumin 3.4 gm/dl (3.4-5.0) 06/10/24 06:43 Globulin 2.4 gm/dl (2.5-4.0) L 06/10/24 06:43 Albumin/Globulin Ratio 1.4 (0.9-2) 06/10/24 06:43 Lipase 10 U/L (11-82) L 05/24/24 04:37 Vitamin B12 > 1500 pg/ml (180-914) H 05/24/24 09:48 25-OH Vitamin D Total 30.9 ng/ml (30-100) 05/28/24 03:10 Folate > 22.30 ng/ml (>5.38) 05/24/24 09:48 Procalcitonin 0.26 ng/ml (0-0.5) 05/28/24 03:10 TSH 2.903 uIu/ml (0.300-4.500) 05/24/24 04:37 Urine Color Yellow 05/28/24 Unknown Urine Appearance Clear (Clear) 05/28/24 Unknown Urine pH 6.0 (4.5-7.5) 05/28/24 Unknown Ur Specific Ragan 1.012 (1.000-1.030) 05/28/24 Unknown Urine Protein Negative (Negative) 05/28/24 Unknown Urine Glucose (UA) Negative (Negative) 05/28/24 Unknown Urine Ketones Negative (Negative) 05/28/24 Unknown Urine Blood Negative (Negative) 05/28/24 Unknown Urine Nitrite Negative (Negative) 05/28/24 Unknown Urine Bilirubin Negative (Negative) 05/28/24 Unknown Urine Urobilinogen Negative (Negative) 05/28/24 Unknown Ur Leukocyte Esterase Negative (Negative) 05/28/24 Unknown Urine WBC (Auto) 0-5 /hpf (0-5) 05/24/24 04:37 Urine RBC (Auto) 6-10 /hpf (0-2) H 05/24/24 04:37 U Hyaline Cast (Auto) 3-5 /lpf (0-2) H 05/24/24 04:37 U Epithel Cells (Auto) 0-2 /hpf (0-2) 05/24/24 04:37 Urine Bacteria (Auto) None Seen (None Seen) 05/24/24 04:37 Granular Casts Present /lpf (None Prsent) A 05/24/24 04:37 Urine Osmolality 420 mOsm/kg (500-800) L 05/31/24 12:16 Ur Random Sodium 48 mmol/L 05/31/24 12:16 Urine Sodium 10 mmol/L 05/24/24 04:37 Urine Potassium 35.4 mmol/L 05/24/24 04:37 Urine Chloride 17 mmol/L 05/24/24 04:37 Nasal Screen MRSA (PCR) Negative (Negative) 05/24/24 11:00 Adenovirus (PCR) Not Detected (NotDetected) 05/24/24 04:37 B. pertussis DNA (PCR) Not Detected (NotDetected) 05/24/24 04:37 B.parapertussis DNA PCR Not Detected (NotDetected) 05/24/24 04:37 C. pneumoniae DNA (PCR) Not Detected (NotDetected) 05/24/24 04:37 Coronavirus OC43 (PCR) Not Detected (NotDetected) 05/24/24 04:37 Coronavirus HKU1 (PCR) Not Detected (NotDetected) 05/24/24 04:37 Coronavirus 229E (PCR) Not Detected (NotDetected) 05/24/24 04:37 SARS-CoV-2 (PCR) Not Detected (NotDetected) 05/24/24 04:37 Coronavirus NL63 (PCR) Not Detected (NotDetected) 05/24/24 04:37 Human Metapneumovir PCR Not Detected (NotDetected) 05/24/24 04:37 Influenza Type A (PCR) Not Detected (NotDetected) 05/24/24 04:37 Influenza Type B (PCR) Not Detected (NotDetected) 05/24/24 04:37 M. pneumoniae (PCR) Not Detected (NotDetected) 05/24/24 04:37 Parainfluenza 1 (PCR) Not Detected (NotDetected) 05/24/24 04:37 Parainfluenza 2 (PCR) Not Detected (NotDetected) 05/24/24 04:37 Parainfluenza 3 (PCR) Not Detected (NotDetected) 05/24/24 04:37 Parainfluenza 4 (PCR) Not Detected (NotDetected) 05/24/24 04:37 RSV (PCR) Not Detected (NotDetected) 05/24/24 04:37 Entero/Rhino (PCR) Not Detected (NotDetected) 05/24/24 04:37 Blood Type AB Positive 05/27/24 14:23 Blood Type Recheck AB Positive 05/24/24 10:41 Antibody Screen NEGATIVE 05/27/24 14:23 Crossmatch See Detail 05/24/24 09:[address] 05/24/24 04:27 EXAM: CT cervical spine wo con CLINICAL HISTORY: FALL AMS CANCER PATIEnt TECHNIQUE: Computed tomography of the cervical spine performed without intravenous contrast. Contiguous axial images were obtained from the skull base to T2, with sagittal and coronal reformatted images reconstructed from the axial data. CT scan was performed according to ALARA (as low as reasonably achievable). COMPARISON: None. FINDINGS: Straightening of ther cervical spine is noted. Alignment of spine is maintained. Vertebral bodies are normal in height. No evidence of fracture. Lateral masses of C1 are symmetrical, and the dens is intact. Prevertebral soft tissues are not widened. C2-C3: No disc bulge, mass effect on the cord or neuroforaminal narrowing. C3-C4: No disc bulge, mass effect on the cord or neuroforaminal narrowing. C4-C5: No disc bulge, mass effect on the cord or neuroforaminal narrowing. C5-C6: No disc bulge, mass effect on the cord or neuroforaminal narrowing. C6-C7: No disc bulge, mass effect on the cord or neuroforaminal narrowing. C7-T1: No disc bulge, mass effect on the cord or neuroforaminal narrowing. Thyroid gland appears unremarkable. IMPRESSION: 1. No acute fracture or subluxation in the cervical spine. 2. Fat stranding is noted within the intermuscular planes of the neck spaces. Electronically signed by Von Garza 05-24-2024 06:[address] 05/24/24 04:27 EXAM: CT chest diagnostic w con CLINICAL HISTORY: FALL ams cancer paitent 91 cc opti 320 TECHNIQUE: Contiguous axial images were obtained from the neck base through the upper abdomen with contrast. In addition, sagittal and coronal reconstructions were performed to potentially increase the sensitivity for the detection of disease. One of the following dose reduction techniques was utilized for this exam. Automated exposure control, adjustment of the mA and/or kV according to patient size, and use of iterative reconstruction. COMPARISON: 12/08/2019 FINDINGS: Solid subpleural nodule of size 2.2 x 1.5 cm is noted along the anterior aspect of the lingula. This is a new finding. Suspicious infiltration of the pleura is noted. However, no obvious bony invasion/erosion of the adjacent rib is noted. Relatively unchanged multiple centriacinar and paraseptal emphysematous changes involving bilateral upper lobes is noted. The central airways are patent. There are no pleural effusions. No pneumothorax is seen. Evaluation of the mediastinum and kelly is limited due to the lack of intravenous contrast. Mild cardiomegaly is noted. Aorta, and pulmonary arteries are of normal size and configuration. Few atherosclerotic calcifications are noted involving aorta and its branches, coronary arteries. No axillary or mediastinal adenopathy is identified. The thyroid is unremarkable. No aggressive appearing osseous lesions are identified. IMPRESSION: 1. Solid subpleural nodule in the lingula as described above. This is a new finding. 2. Relatively unchanged multiple centriacinar and paraseptal emphysematous changes involving bilateral upper lobes is noted. 3. Cardiomegaly. This is a new finding. Electronically signed by Von Garza 05-24-2024 06:[address] 05/24/24 04:27 EXAM: CT head/brain wo con CLINICAL HISTORY: fall AMS cancer patient TECHNIQUE: Multiple axial images are obtained from the skull base to the vertex without contrast. CT scan was performed according to ALARA (as low as reasonably achievable). COMPARISON: None. FINDINGS: There is cerebral atrophy. The mitchell-white matter differentiation is preserved. There are scattered periventricular hypodensities as can be seen with chronic microvascular ischemic changes. No evidence of space occupying lesion, hemorrhage, edema, mass effect, midline shift, extra axial collection, or hydrocephalus is noted. Basal cisterns are symmetric and normal in size and configuration. Visualized paranasal sinuses and mastoid air cells are well aerated. Orbital contents are within normal limits. Bony structures are intact. IMPRESSION: 1. No evidence of acute intracranial abnormality is demonstrated. 2. Chronic microvascular ischemic changes. 3. Cerebral atrophy. Electronically signed by Von Garza 05-24-2024 06:45 AM Abdomen/Pelvis CT 05/24/24 04:28 EXAM: CT abd pelvis IV con only CLINICAL HISTORY: FALL AMS CANCER PATIENT 91 cc opti 320 TECHNIQUE: Multiple contiguous axial images were obtained from the level of diaphragm to the pubis symphysis. This study was acquired after the IV administration of iodinated contrast material, given the patient's indications for the examination. If IV contrast material had not been administered, the likelihood of detecting abnormalities relevant to the patient's condition would have been substantially decreased. Coronal and sagittal reformatted images were generated and reviewed to improve anatomic localization and optimize lesion detection. CT scan was performed according to ALARA (as low as reasonably achievable). COMPARISON: None. FINDINGS: Percutaneous gastrostomy tube noted in situ. The liver is normal in size and attenuation. No focal liver lesions are seen. There is no intra or extrahepatic biliary ductal dilatation. Hepatic vasculature is patent. The gallbladder is unremarkable. The spleen is unremarkable. The pancreas is unremarkable. Both adrenal glands are unremarkable. The kidneys are normal in size and attenuation. There is no hydronephrosis. No perinephric fat stranding is seen. No renal calculi or renal masses are identified. The ureters are normal in caliber and no ureteral calculi are seen. Urinary bladder is collapsed with Kerr's bulb in-situ. No evidence of focal or diffuse bowel wall thickening or evidence of bowel obstruction is seen. Mild to moderate free fluid is noted within the abdomen and pelvic cavity. Atherosclerotic calcifications are noted involving aorta and its branches. No aggressive appearing osseous lesions are identified. Subcutaneous fat stranding and fluid is noted involving the abdominal wall, gluteal regions and proximal thigh on both sides. Comminuted, displaced, non-articular fracture of the left proximal femur is noted, predominantly involving the intertrochanteric region. Cranial migration of the distal fracture fragment is noted.. Significant moe osseous, periarticular soft tissue edema is noted. Left thigh appear swollen as compared to that of the right side. Mild scoliosis of the lumbar spine is noted with convexity on the left side. IMPRESSION: 1. Comminuted, displaced, non-articular fracture of the left proximal femur is noted, predominantly involving the intertrochanteric region. Cranial migration of the distal fracture fragment is noted. 2. Significant moe osseous, periarticular soft tissue edema is noted. Left thigh appear swollen as compared to that of the right side. 3. Mild scoliosis of the lumbar spine is noted with convexity on the left side. 4. Mild free fluid is noted in the abdomen and pelvic cavity. 5. Subcutaneous fat stranding and fluid is noted involving the abdominal wall, gluteal regions and proximal thigh on both sides. Electronically signed by Von Garza 05-24-2024 06:[address] 05/24/24 09:47 CT femur LT wo con HISTORY: 58 years-old Female fx, r/o hematoma acute pain of the left thigh status post trauma COMPARISON: CT abdomen and pelvis of same day TECHNIQUE: Multiple axial CT images of the left femur were obtained without IV contrast. Additional 3-D rendered images were generated from a separate workstation and were submitted for review. A dose lowering technique was used consistent with the principals of JAEL. FINDINGS: Acute, comminuted, angulated and displaced intratrochanteric fracture of the left femur redemonstrated with unchanged alignment compared to the same day CT abdomen and pelvis. The lesser trochanteric fracture fragment is displaced medially approximately 1.5 cm. There is no dislocation. Mild osteoarthritis of the left hip. Mild degeneration of the left SI joint. The imaged left hemipelvis appears intact. No additional acute fracture or dislocation identified. Mildly demineralized appearance of the bones. Mild osteoarthritis of the knee. No large joint effusion of the hip. There is moderate subcutaneous edema with heterogeneity of the thigh musculature. No discrete intramuscular hematoma ident ified. Nonspecific borderline-enlarged left inguinal chain lymph nodes. Contrast in the urinary bladder with Kerr catheter. Small to moderate joint effusion of the knee. IMPRESSION: 1. Unchanged alignment of the acute, comminuted, angulated and displaced intertrochanteric left femoral fracture. 2. Moderate subcutaneous edema of the thigh with nonspecific heterogeneity of the proximal thigh musculature. No discrete large intramuscular hematoma identified on this noncontrast study. 3. Small to moderate joint effusion of the knee. 4. Borderline enlarged left inguinal chain lymph node. ACT 112: Negative or not required by law. The above report was generated using voice recognition software. It may contain grammatical, syntax or spelling errors. Electronically signed by: Braulio Navas M.D. 05/24/2024 10:56 AM Pelvis X-Ray 05/24/24 17:29 INDICATION: Pain and injury. TECHNIQUE: 1 view the pelvis. 4 views of the left femur. COMPARISON: No relevant priors. FINDINGS: Impacted, comminuted/mildly angulated left intertrochanteric femur fracture. Remaining osseous structures intact. Negative for pelvic fracture. No dislocation. Mild bilateral hip joint space loss. No lytic or blastic bony lesions. No evidence of cortical erosion. Mild left hip soft tissue swelling. IMPRESSION: Impacted, comminuted/mildly angulated left intertrochanteric femur fracture. Electronically signed by Joseph Rojo 05-24-2024 6:25 PM Brain MRI 05/28/24 12:02 MR brain MS wo/w con HISTORY: 58 years-old Female r/o osmotic demyelination acute head trauma with altered mental status COMPARISON: May 24, 2024 TECHNIQUE: Multiplanar multisequence MRI of the brain was obtained with and without IV contrast FINDINGS: Study is moderately motion degraded. There is no restricted diffusion to suggest acute or subacute infarct. Midline structures appear unremarkable. Degenerative changes of the cervical spine. No acute intracranial hemorrhage, midline shift, abnormal extra axial collection, hydrocephalus or intra-axial mass. Involutional changes with mild scattered T2/FLAIR hyperintense foci throughout the white matter. Normal signal within the roe and brainstem. No abnormal enhancement. Cerebral venous sinuses and major arterial flow voids appear patent as visualized. Skull, orbits and soft tissues are unremarkable. Rightward bowing and spurring the nasal septum with mild to moderate mucosal thickening of the right maxillary and ethmoid sinuses. Moderate-sized mastoid effusions. IMPRESSION: 1. Moderately motion degraded exam. 2. No acute intracranial abnormality, specifically there is no acute or subacute infarct. 3. No abnormal enhancement. 4. Normal signal of the roe. 5. Involutional changes with probable mild chronic microvascular ischemic disease. ACT 112: Negative or not required by law. The above report was generated using voice recognition software. It may contain grammatical, syntax or spelling errors. Electronically signed by: Braulio Navas M.D. 05/28/2024 2:24 PM Femur X-Ray 06/07/24 10:33 XR femur LT 2V routine HISTORY: 59 years-old Female fall, recent surg COMPARISON: Femur radiographs 06-15 TECHNIQUE: 2 views of the left femur FINDINGS: Status post placement of an intertrochanteric nail with medullary jannet fixating the acute intertrochanteric fracture with lateral skin marquis, expected postoperative soft tissue swelling with deep tissue air. Additionally, there has been interval development of an acute distal femoral fracture of the anterior cortex distal femoral diaphysis seen on the lateral view with approximately 2 mm displacement and mild soft tissue swelling. There are 2 distal femoral calyces groups with adjacent skin marquis. IMPRESSION: 1. Status post placement of an intertrochanteric nail with medullary jannet fixing the acute intertrochanteric fracture. 2. Subtle acute distal femoral fracture without displacement. ACT 112: Negative or not required by law. The above report was generated using voice recognition software. It may contain grammatical, syntax or spelling errors. Electronically signed by: Braulio Navas M.D. 06/07/2024 12:27 PM
[2024-06-11 07:17] LABS: Albumin Globulin Ratio 1.3 (0.9-2); Albumin Level 3.4 gm/dl (3.4-5.0); BUN Creatinine Ratio 66.7 (10-20); Basophils # (auto) 0.02 K/uL (0.00-0.20); Basophils % (auto) 0.7 %; Bilirubin,Total 0.5 mg/dl (0.2-1.0); Calcium 9.2 mg/dl (8.6-10.3); Creatinine Clr Calc Pharmacy 94.7 ml/min; Eosinophils # (auto) 0.03 K/uL (0.00-0.50); Eosinophils % (auto) 1.1 %; Globulin 2.6 gm/dl (2.5-4.0); Hematocrit (blood only) 29.9 % (37.0-47.0); Hemoglobin 9.8 g/dl (12.0-16.0); Immature Granulocytes # (auto) 0.01 K/uL (0.01-0.20); Immature Granulocytes % (auto) 0.4 %; Lymphocytes # (auto) 0.56 K/uL (1.20-3.40); Lymphocytes % (auto) 20.1 %; Mean Corpuscular Hemoglobin 37.4 pg (25.0-34.0); Mean Corpuscular Hgb Conc 32.8 g/dL (32.0-36.0); Mean Corpuscular Volume 114.1 fL (80.0-100.0); Mean Platelet Volume 10.3 fL (9.4-12.4); Monocytes # (auto) 0.37 K/uL (0.11-0.59); Monocytes % (auto) 13.3 %; Neutrophils # (auto) 1.79 K/uL (1.40-6.50); Neutrophils % (auto) 64.4 %; Platelet Count 190 K/uL (130-400); RDW Standard Deviation 87.4 fL (36.4-46.3); Red Blood Count 2.62 M/uL (4.20-5.40); White Blood Count 2.78 K/ul (4.8-10.8)
[2024-06-11 07:36] LABS: Macrocytosis Present; Polychromasia 1+
[2024-06-11 09:18] VITALS: RESP 18
--- NOTE | 2024-06-11 10:10 | Orthopedic Progress Note ---
Date of Service June 11, 2024 Assessment & Plan (1) Closed left hip fracture: (2) S/P ORIF (open reduction internal fixation) fracture: Plan HIP Fx: 59-year-old female POD# 15 s/p ORIF of left intertrochanteric femur/hip fracture with long IM nail, cannulated femoral head/neck compression screw, and static distal locking screws. Plan: 1. DVT prophylaxis w/ Eliquis -- 2.5 mg BID. Rx will be sent for an additional 4 weeks. 2. Con't PT/OT as tolerated. WBAT on LLE. Walker or other aid as needed. 3. Pain well-controlled continue current regimen w/ Tylenol. 4. Medical management as per the primary medicine service. 5. Sadler have been removed and incisions x 2 are well-appearing; dressings no longer necessary. 6. Disposition -plan is for discharge to home, possibly later today with [facility] and assistance from ; per primary service. 7. Orthopedically stable for discharge when medically ready -- Follow-up outpatient with Dr. Giron's team wk of 06/14 or 06/21. -Full orthopedic discharge instructions were placed in the discharge summary. Admission and Anticipated Discharge Date Admission Date: May 24, 2024 Subjective Patient is POD# 15 s/p left hip/femur trochanteric long IM nail done by Dr. Giron on 05/27/2024 for. Patient says her pain is well-controlled this morning. Denies CP, SOB, N/V, LLE paresthesia. She says that she has home health care arranged to come to the house, and she says that she is being discharged to home later today. She will also have help at home from her . Physical Exam Physical Exam: GENERAL: AA&Ox3, NAD. Pleasant, affect is calm. Sitting in bedside chair and appears comfortable. RESPIRATORY: Normal respiratory effort with no signs of distress. CHEST/AXILLA: Chest movement symmetrical. No deformities noted. CARDIOVASCULAR: No edema noted. SKIN: [place], warm and dry. MS/EXTREMITY: Hip dry dressing w/ 4 x 4's and Medipore tape c/d/i; no active drainage or saturation noted. Rajwinder have been recently removed and incision sites x 2 are well-appearing and well-healed and without evidence of erythema or abnormal warmth. Thigh is soft, supple. + ankle dorsi/plantarflexion. NVI distally. Calf soft/NT. PT/DP intact. Results & Data Vital Signs (Past 12 Hours) Vital Signs Temp Pulse Pulse Resp BP Pulse Ox O2 Del Method 06/11/24 09:16 36.7 C 110 H 18 126/80 98 Room Air 06/11/24 07:28 36.7 C 88 16 124/72 97 Room Air Diagnostic Findings XR femur LT 2V routine HISTORY: 59 years-old Female fall, recent surg COMPARISON: Femur radiographs 06-15 TECHNIQUE: 2 views of the left femur FINDINGS: Status post placement of an intertrochanteric nail with medullary jannet fixating the acute intertrochanteric fracture with lateral skin rajwinder, expected postoperative soft tissue swelling with deep tissue air. Additionally, there has been interval development of an acute distal femoral fracture of the anterior cortex distal femoral diaphysis seen on the lateral view with approximately 2 mm displacement and mild soft tissue swelling. There are 2 distal femoral calyces groups with adjacent skin rajwinder. IMPRESSION: 1. Status post placement of an intertrochanteric nail with medullary jannet fixing the acute intertrochanteric fracture. 2. Subtle acute distal femoral fracture without displacement. ACT 112: Negative or not required by law. The above report was generated using voice recognition software. It may contain grammatical, syntax or spelling errors. Electronically signed by: Braulio Navas M.D. 06/07/2024 12:27 PM Dictated: 06/07/24 1220 Transcribed: 06/07/24 122
--- NOTE | 2024-06-11 11:12 | Discharge Summary ---
Discharge Summary Date of Service June 11, 2024 The patient is a 58-year-old female with a past medical history of left tonsillar squamous cell carcinoma, HPV related, left lung mass, completed combined chemotherapy and radiation treatment, PEG tube for nutrition presented to the ED on 05/24/2024 after sustaining recurrent falls at home. Patient reported that she had fell a few days prior and [employer] parking lot. Her was with her at this time and reports not witnessing her fall. She reports hitting the back of her head during the fall. She also reported that her legs gave out during those falls. She reports being compliant with tube feedings. On arrival to the ED, patient's labs remarkable for sodium of 103. The case was discussed with the organ recovery coordinator and the patient was admitted to ICU originally on hypertonic saline. Infectious workup was initiated. Patient's baseline sodium 907455. On admission, the patient was also noted to have a left intertrochanteric fracture. The patient was downgraded out of ICU on 05/28. Nephrology followed the patient throughout her hospitalization and her hyponatremia was likely multifactoral to underlying malignancy and poor oral intake. The patient sodium today is 133 and remained stable, she will be continued on a 1.2 L fluid restriction and continue urea twice a day. Wound care nursing was consulted throughout the patient's hospitalization, patient has a sacral decubitus ulcer that was present on arrival and wound care nursing recommended Betadine and Optifoam. Patient has an outpatient follow-up with wound care on June 29. Patient had acute blood loss anemia s/p left trope nail on 05/27 and received 1 unit of packed red blood cells, hemoglobin now stable at 9.8 around baseline. Marquis removed by Ortho for left troches nail on 06/08, recommended follow-up outpatient in 2 weeks. Patient also sustained a fall in the hospital on 06/06, x-ray at that time showed subtle acute distal femoral fracture without displacement. No further intervention was needed by orthopedics at that time Due to the patient's hyponatremia, her tube feeding formula was changed. She was also started on thiamine and folic acid. Nutrition was consulted Recent PET/CT showed improvement in left tonsillar mass/adenopathy but enlargement to left lung mass. Patient to undergo SBRT, will follow-up with Dr. Cherry outpatient On 06/10/2024, peer to peer review was completed and patient was denied for all for SNF due to ability to walk 80 feet with minimal assistance. Plan for a DC home with home care once home transfusions are delivered. The patient is otherwise medically stable for DC. Her labs and vitals are stable. She needs follow-up with her PCP within 1 week of discharge. She will need follow-up with orthopedics in 2 weeks of discharge. She will need follow-up with nephrology within 2 weeks of discharge. She will need follow-up with wound care within 2 weeks of discharge. Appointment was set up. Principal Dx & Hospital Course #1 = Principal Diagnosis (1) Fall: (2) Acute hyponatremia: Plan Assessment and plan: Ms. Johnson is a 58-year-old lady with PMH of left tonsillar squamous cell carc inoma HPV related, left lung mass biopsy confirmed squamous cell carcinoma who completed combined chemotherapy [weekly cisplatin] and radiation treatment, currently with PEG tube for nutrition presented to the hospital after sustaining recurrent falls x 3 [employer]. On admission she was noted to have a sodium of 103 and a left intertrochanteric fracture. Patient with progressive altered mental status, which seemingly improved 05/26-, however, much worse the morning of 05/28. MRI pursued to rule out this process which was negative. Patient was downgraded from ICU on 05/28 Acute on chronic hyponatremia Acute metabolic encephalopathy -Hyponatremia likely multifactoral, underlying malignancy and poor oral intake Baseline sodium [id number], s/p hypertonic saline, desmopressin Sodium remains stable, 1.2 L fluid restriction, continue urea twice daily Sacral decubitus ulcerPOA Continue daily wound care with Betadine and Optifoam, follow-up with wound care outpatient Acute on chronic anemia: stable Acute blood loss anemia now resolved, s/p 1 unit PRBC 05/24 Latest hemoglobin 9, CTM, PPI daily Acute proximal left femur fracture s/p left troch nail 05/27 Continue pain control with Tylenol, Eliquis continued [place] removed by Ortho on 06/08, follow-up outpatient in 2 weeks Patient sustained a fall on 06/06, x-ray showed subtle acute distal femoral fracture without displacement No further intervention needed by orthopedics per Dr. Giron Acute traumatic rhabdomyolysis: Resolved Severe protein anatoly malnutrition: -In the setting of underlying malignancy, patient on tube feed diet. -BMI 16.7 Continue with thiamine and IV folic acid, p.o. multivitamin. Nutrition consult. L tonsillar SCC/L lung mass SCC: -s/p chemo/XRT. recent PET CT shows improvement in L tonsillar mass/adenopathy but enlargement to L lung mass. -pt to undergo SBRT. following nutrition for PEG tube/feeding management, follows Dr. Cherry heme/onc Hx of RA: -Continue sulfasalazine Hx COPD: On room air, not in acute exacerbation Continue nicotine patch, encourage smoking cessation 06/10/2024: Peer to peer review completed, patient denied for auth for SNF due to the ability to walk 80 feet with minimal assistance. Discussed with case management. Patient remains medically stable for DCplan for [facility] home with home care once home transfusions can be delivered, insurance auth submitted on 06/10 for tube feedings I spent a total of 45 minutes reviewing notes, outpatient records, labs, medication, coordinating, documenting and providing care for this patient excluding time spent in the performance of separately billed services. 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 Currently she has a PEG tube for nutrition. She is able to swallow some food but does have mild nausea and mild vomiting. She did have some local mucositis and radiation induced changes in the neck region which has improved. Her most recent PET scan done on 04/26/2024 showed an overall good response noted for the tonsillar mass and left cervical lymphadenopathy however further enlargement of the previously noted left lung mass. She is following Dr. Cherry from radiation oncology and is planning for SBRT. Her weight at her last hematology oncology appointment was around 95 pounds. She does have underlying RA for which she is on sulfasalazine. She presents to the hospital 2/2 sustaining a fall. She reports falling on her back. She is unsure how she fell. She does not feel that she tripped. She does not recall feeling lightheaded, dizziness, nausea or chest pain. Her is at bedside who helps elicit hx. reports she also fell friday in the [place] [employer] pavement. When heard her fall today around 3 a.m. he called 911 immediately. She sleeps on the couch and he heard a big thump. He didn't witness either fall. She reports hitting her head. Pt denies recent f/c/s, dizziness, n/v/d or abd pain. She reports chest pain but is unable to describe her pain. She also complains dysuria since she fell 2 days ago. She also complains of headache where she hit her head. She has a feeding tube and is unsure if she has been using it 4 times a day. Pt admits she has been doing it 4 times a day, "sometimes." reports lack of intake over the last few days. Prior to giving she was eating small amount of food. She reports continued smoking, "too many." She denies alcohol use or recreational drug use. Admission Exam Per Admitting Provider GENERAL: drowsy, dozing off to sleep, on 2L NC O2, NAD, answers questions appropriately (has occasional issues w/ recalling events). Appears very sick/ill/frail/weak/cachectic. HEENT: + pallor, no icterus. Pupils equal, round and reactive to light. Oral mucosa very dry. NECK: No JVD, no neck masses. HEART: S1 and S2 heard. Regular rate and rhythm. No murmur, no gallop. RESPIRATORY SYSTEM: Normal AP diameter. No accessory muscle use. No wheezing, no crackles. decreased breath sounds 2/2 poor effort. ABDOMEN: Soft, bowel sounds present, nontender, no distention. PEG tube in situ noted, no s/s infection at port of entry. CENTRAL NERVOUS SYSTEM: No facial droop. Speech is clear. Obeys simple commands. Moves extremities. EXTREMITIES: 2+ ble edema. LLE shortened and externally rotated. Discharge Exam Gen: Thin, cachectic, F, NAD, A&O x3 HEENT: Normocephalic, atraumatic, conjunctivae moist, sclerae anicteric, mucous membranes moist. Lung: Clear to Auscultation bilaterally, no wheezes/rales/rhonchi Heart: Regular rate, regular rhythm, no murmurs, rubs, or gallops Abdomen: Soft, NT, ND +BS x 4 +peg Extremities: No edema Skin: Warm, no rash, negative turgor. Updated Medication List Medication Instructions Recorded Confirmed Type allopurinol 100 mg tablet 100 mg PO DAILY 11/06/23 05/24/24 History multivitamin 1 tab PO DAILY 11/06/23 05/24/24 History sulfasalazine 500 mg tablet 1 g PO BID 11/06/23 05/24/24 History ondansetron HCl 8 mg tablet 8 mg PO Q8H PRN restless legs 11/13/23 05/24/24 History acetaminophen 650 mg 650 mg PO Q8H PRN arthritis 05/05/24 05/24/24 History tablet,extended release (Arthritis Pain Relief (acetaminophen) ER) metoclopramide HCl 10 mg tablet 10 mg PO TID 05/24/24 05/24/24 History urea 15 gram oral powder packet 15 g PO BID 30 days #24 ea 06/09/24 Rx (Ure-Na) L.acidop,casei,lactis,rham-B.lact,sudha 1 cap PO DAILY #30 caps 06/11/24 Rx 625 mg (10 billion cell) capsule (Advanced Probiotic) apixaban 2.5 mg tablet (Eliquis) 2.5 mg PO BID DVT prophylaxis #60 06/11/24 Rx tabs folic acid 1 mg tablet 1 mg PEG DAILY #30 tabs 06/11/24 Rx lansoprazole 30 mg delayed 30 mg PEG DAILY #30 tabs 06/11/24 Rx release,disintegrating tablet (Prevacid SoluTab) sodium bicarbonate 650 mg tablet 650 mg PO DAILY #30 tabs 06/11/24 Rx thiamine HCl (vitamin B1) 100 mg 100 mg PEG DAILY #30 tabs 06/11/24 Rx tablet Hospital Stay Data Consultations 05/24/24 06:02 ED Decision to Admit Stat 05/24/24 07:55 Consult Ripsawyer Routine 05/24/24 08:16 Consult Nephrology Routine Consult Orthopedic Surgery Routine 06/02/24 16:14 Consult Gastroenterology Routine Procedures Performed Operation Date: 05/27/24 09:50 Actual Procedures p Left Troch Nail(Left) - Igor Giron DO Diagnostic Imagining Performed 05/24/24 04:27 CT cervical spine wo con Stat CT chest diagnostic w con Stat CT head/brain wo con Stat 05/24/24 04:28 CT abd pelvis IV con only Stat 05/24/24 09:47 CT femur LT wo con Stat 05/24/24 11:39 MRI Brain [MR brain wo/w con] Urgent 05/27/24 FL femur LT 2V Routine 05/28/24 12:02 MR brain MS wo/w con Stat Pending Results Patient Have Any Pending Studies at Discharge: No Discharge Instructions Given to Patient (Per Discharging Provider) Please follow with your PCP within 1 week of discharge. Please follow with oncology as planned. Please follow-up with nephrology within 2 weeks of discharge. Please follow-up with wound care as planned below. June 29. Your tube feedings and certain medications have changed. Return back to the ED with worsening symptoms wound care orders: sacral woundclean with saline, dry, paint with Betadine, allowed to dry, cover with Optifoam, change daily and as needed, turn at least every 2 hours in bed Follow-up with [facility] for wound care June 29 at 8:20 AM [phone] Tube feeding instructions: Continue to 37 mL boluses of Novasource renal 3 times daily at 8 AM, 1300, 1800, flush with 30 mL of water before and after each bolus ORTHOPEDIC INSTRUCTIONS Hip Fracture Activity and Therapy Recommendations: 1. You were shown a series of exercises in the hospital. Do these exercises three times each day if you are able. 2. Get up and walk several times each day if you are capable. Make sure you have assistance is needed. For the first four weeks, try not to stand or walk for more than one hour at a time. If you do stand or walk for more than one hour, you will not hurt anything, but your leg will likely swell. 3. As you feel comfortable, you may change from the walker or crutches to a cane and then to independent walking if you are able. Please be safe. Medications: 1. Narcotic You will likely be sent from the hospital with the narcotic pain medication that worked best throughout your stay. 2. Eliquis -take Eliquis 2.5 mg twice a day for 6 weeks to help prevent blood clots. 3. Other medications may be given for specific circumstances. If you have any questions, please call the office at [phone]. 4. Resume previous home medications unless otherwise instructed TEDs/Elastic Stockings: The white elastic stockings help limit swelling and prevent blood clots from forming in your legs. The more you wear them, the more they work. Wear them for six weeks. Dressing Care: Marquis can be open to air as long as the incisions are not draining. If the incisions are draining or if the marquis are getting caught on your clothes then please cover the marquis with dry gauze. Change the dressings as necessary to keep the incision as dry as possible Showering: You may shower 5 days from the day of surgery as long as the incisions are not draining. Do not soak the incision. Let soapy water run over the marquis and pat them dry. Diet: You may resume your previous diet. Things To Watch For: 1. Drainage from the incision site that occurs more than one week after your surgery. 2. Increased redness at the incision site. 3. Fever above 102 degrees Fahrenheit. 4. Unusual chest pain or shortness of breath. 5. Call [facility] at with any of the above problems Follow-Up Visit: Follow-up with Dr. Giron's office 2-3 weeks after your day of surgery. We will remove your marqusi and answer any questions. Please call the office to set up an appointment for a time that works for you. Total Time Total Time Spent Total Time Spent (In Minutes): 60 Supervising Physician Co-Signing Physician Notes Pt seen and examined by me , care coordinated w/ T. NORAH Bravo, pls refer to her note for further detail. Patient is feeling well, her sodium level is much improved and patient does not have any significant pain post surgery. Patient will need to follow up with primary care doctor, organ recovery coordinator, wound care center and orthopedic surgeon. Tube feeds were changed and patient was started on urea to improve her sodium levels. She is also on Eliquis for DVT prophylaxis, per orthopedic surgeon. MD Shonna
--- NOTE | 2024-06-11 11:28 | Hospitalist Progress Note ---
Date of Service June 11, 2024 Assessment & Plan (1) Fall: (2) Acute hyponatremia: Plan: Plan Assessment and plan: Ms. 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 On admission she was noted to have a sodium of 103 and a left intertrochanteric fracture. Patient with progressive altered mental status, which seemingly improved 05/26-, however, much worse the morning of 05/28. MRI pursued to rule out this process which was negative. Patient was downgraded from ICU on 05/28 Acute on chronic hyponatremia Acute metabolic encephalopathy -Hyponatremia likely multifactoral, underlying malignancy and poor oral intake Baseline sodium [id number], s/p hypertonic saline, desmopressin Sodium remains stable, 1.2 L fluid restriction, continue urea twice daily Sacral decubitus ulcerPOA Continue daily wound care with Betadine and Optifoam, follow-up with wound care outpatient Acute on chronic anemia: stable Acute blood loss anemia now resolved, s/p 1 unit PRBC 05/24 Latest hemoglobin 9, CTM, PPI daily Acute proximal left femur fracture s/p left troch nail 05/27 Continue pain control with Tylenol, Eliquis continued Marquis removed by Ortho on 06/08, follow-up outpatient in 2 weeks Patient sustained a fall on 06/06, x-ray showed subtle acute distal femoral fracture without displacement No further intervention needed by orthopedics per Dr. Giron Acute traumatic rhabdomyolysis: Resolved Severe protein anatoly malnutrition: -In the setting of underlying malignancy, patient on tube feed diet. -BMI 16.7 Continue with thiamine and IV folic acid, p.o. multivitamin. Nutrition consult. L tonsillar SCC/L lung mass SCC: -s/p chemo/XRT. recent PET CT shows improvement in L tonsillar mass/adenopathy but enlargement to L lung mass. -pt to undergo SBRT. following nutrition for PEG tube/feeding management, follows Dr. Dilip hairston/onc Hx of RA: -Continue sulfasalazine Hx COPD: On room air, not in acute exacerbation Continue nicotine patch, encourage smoking cessation 06/10/2024: Peer to peer review completed, patient denied for auth for SNF due to the ability to walk 80 feet with minimal assistance. Discussed with case management. Patient remains medically stable for DCplan for ADC home with home care once home transfusions can be delivered, insurance auth submitted on 06/10 for tube feedings Per case management, Auth can take up to 3 days, request has been sent to expedite DVT ppx: SCDS, apixaban FULL CODE I spent a total of 45 minutes reviewing notes, outpatient records, labs, medication, coordinating, documenting and providing care for this patient excluding time spent in the performance of separately billed services. Admission and Anticipated Discharge Date Admission Date: May 24, 2024 Supervising Physician Co-Signing Physician Notes Pt seen and examined by me , care coordinated w/ T. NORAH Bravo, pls refer to her note for further detail. Patient is feeling well, her sodium level is much improved and patient does not have any significant pain post surgery. Patient will need to follow up with primary care doctor, nephrology, wound care and orthopedic surgeon. Tube feeds were changed and patient was started on urea to improve her sodium levels. She is also on Eliquis for DVT prophylaxis, per orthopedic surgeon. MD Shonna Subjective Patient seen and examined. No apparent distress. Resting comfortably in bed. Denies any shortness of breath/chest pain. Reports being anxious for discharge Review of Systems Review of Systems: All systems reviewed & are unremarkable except as noted in HPI & below Physical Exam Physical Exam: Gen: Thin, cachectic, F, NAD, A&O x3 HEENT: Normocephalic, atraumatic, conjunctivae moist, sclerae anicteric, mucous membranes moist. Lung: Clear to Auscultation bilaterally, no wheezes/rales/rhonchi Heart: Regular rate, regular rhythm, no murmurs, rubs, or gallops Abdomen: Soft, NT, ND +BS x 4 +peg Extremities: No edema Skin: Warm, no rash, negative turgor. Results & Data Results & Data Vital Signs (Past 12 Hours) Vital Signs Temp Pulse Pulse Resp BP Pulse Ox O2 Del Method 06/11/24 09:16 36.7 C 110 H 18 126/80 98 Room Air 06/11/24 07:28 36.7 C 88 16 124/72 97 Room Air Diagnostic Findings Laboratory Results WBC 2.78 K/ul (4.8-10.8) L 06/11/24 06:29 RBC 2.62 M/uL (4.20-5.40) L 06/11/24 06:29 Hgb 9.8 g/dl (12.0-16.0) L 06/11/24 06:29 Hct 29.9 % (37.0-47.0) L 06/11/24 06:29 MCV 114.1 fL (80.0-100.0) H 06/11/24 06:29 MCH 37.4 pg (25.0-34.0) H 06/11/24 06: MCHC 32.8 g/dL (32.0-36.0) 06/11/24 06: RDW Std Deviation 87.4 fL (36.4-46.3) H 06/11/24 06: RDW Coeff of Ryder 22.0 % (11.5-14.5) H 06/11/24 06: Plt Count 190 K/uL (130-400) 06/11/24 06: MPV 10.3 fL (9.4-12.4) 06/11/24 06:29 Immature Gran % (Auto) 0.4 % 06/11/24 06: Neut % (Auto) 64.4 % 06/11/24 06: Lymph % (Auto) 20.1 % 06/11/24 06:29 Hartley % (Auto) 13.3 % 06/11/24 06: Eos % (Auto) 1.1 % 06/11/24 06: Baso % (Auto) 0.7 % 06/11/24 06: Neut # (Auto) 1.79 K/uL (1.40-6.50) 06/11/24 06:29 Lymph # (Auto) 0.56 K/uL (1.20-3.40) L 06/11/24 06:29 Hartley # (Auto) 0.37 K/uL (0.11-0.59) 06/11/24 06:29 Eos # (Auto) 0.03 K/uL (0.00-0.50) 06/11/24 06:29 Baso # (Auto) 0.02 K/uL (0.00-0.20) 06/11/24 06:29 Immature Gran # (Auto) 0.01 K/uL (0.01-0.20) 06/11/24 06:29 Neutrophils % (Manual) 95 % 05/24/24 04:37 Lymphocytes % (Manual) 1 % 05/24/24 04:37 Monocytes % (Manual) 4 % 05/24/24 04:37 Neutrophils # (Manual) 17.05 K/uL (1.40-6.50) H 05/24/24 04:37 Total Absolute Neuts 17.05 K/uL (1.4-6.5) H 05/24/24 04:37 Lymphocytes # (Manual) 0.18 K/uL (1.2-3.4) L 05/24/24 04:37 Total Abs Lymphocytes 0.18 K/uL (1.2-3.4) L 05/24/24 04:37 Monocytes # (Manual) 0.72 K/uL (0.11-0.59) H 05/24/24 04:37 RBC Morphology Unremarkable 05/27/24 03:39 Polychromasia 1+ 06/11/24 06:29 Hypochromasia Present 05/28/24 03:10 Macrocytosis Present 06/11/24 06:29 Target Cells 1+ 05/24/24 21:07 PT 12.3 Seconds (9.0-12.0) H 05/24/24 04:37 INR 1.1 (0.9-1.1) 05/24/24 04:37 APTT 30 Seconds (21-31) 05/24/24 04:37 PTT Ratio 1.1 05/24/24 04:37 Sodium 133 mmol/L (136-145) L 06/11/24 06:29 Potassium 4.0 mmol/L (3.5-5.1) 06/11/24 06:29 Chloride 98 mmol/L (98-107) 06/11/24 06:29 Carbon Dioxide 30 mmol/L (21-32) 06/11/24 06:29 Anion Gap 5 (3-11) 06/11/24 06:29 BUN 28 mg/dl (6-23) H 06/11/24 06:29 Creatinine 0.42 mg/dl (0.6-1.2) L 06/11/24 06:29 Est Cr Clr Drug Dosing 94.7 ml/min 06/11/24 06:29 eGFR 112.61 06/11/24 06:29 BUN/Creatinine Ratio 66.7 (10-20) H 06/11/24 06:29 Glucose 89 mg/dl (70-99(Fasting)) 06/11/24 06:29 POC Glucose 120 mg/dl (70-99) H 05/27/24 17:25 Osmolality 223 mOsm/kg (280-300) L* 05/24/24 04:37 Calcium 9.2 mg/dl (8.6-10.3) 06/11/24 06:29 Phosphorus 3.9 mg/dl (2.5-4.9) 06/02/24 05:41 Magnesium 1.8 mg/dl (1.7-2.4) 06/02/24 05:41 Iron 87 mcg/dl (35-150) 05/24/24 09:48 TIBC 191 mcg/dl (250-450) L 05/24/24 09:48 Unsaturated IBC 104 mcg/dl (155-355) L 05/24/24 09:48 Transferrin % Sat 46 % (15-50) 05/24/24 09:48 Ferritin 2569.0 ng/ml (8-388) H 05/24/24 09:48 Total Bilirubin 0.5 mg/dl (0.2-1.0) 06/11/24 06:29 AST 19 U/L (13-39) 06/11/24 06:29 ALT 18 U/L (7-52) 06/11/24 06:29 Alkaline Phosphatase 140 U/L (34-104) H 06/11/24 06:29 Total Creatine Kinase 320 U/L (26-192) H 05/25/24 02:11 Troponin I High Sens 14.5 pg/ml (0-14) H 05/24/24 09:48 B-Natriuretic Peptide 186 pg/ml (0-100) H 05/24/24 09:48 Total Protein 6.0 gm/dl (6.0-8.3) 06/11/24 06:29 Albumin 3.4 gm/dl (3.4-5.0) 06/11/24 06:29 Globulin 2.6 gm/dl (2.5-4.0) 06/11/24 06:29 Albumin/Globulin Ratio 1.3 (0.9-2) 06/11/24 06:29 Lipase 10 U/L (11-82) L 05/24/24 04:37 Vitamin B12 > 1500 pg/ml (180-914) H 05/24/24 09:48 25-OH Vitamin D Total 30.9 ng/ml (30-100) 05/28/24 03:10 Folate > 22.30 ng/ml (>5.38) 05/24/24 09:48 Procalcitonin 0.26 ng/ml (0-0.5) 05/28/24 03:10 TSH 2.903 uIu/ml (0.300-4.500) 05/24/24 04:37 Urine Color Yellow 05/28/24 Unknown Urine Appearance Clear (Clear) 05/28/24 Unknown Urine pH 6.0 (4.5-7.5) 05/28/24 Unknown Ur Specific [place] 1.012 (1.000-1.030) 05/28/24 Unknown Urine Protein Negative (Negative) 05/28/24 Unknown Urine Glucose (UA) Negative (Negative) 05/28/24 Unknown Urine Ketones Negative (Negative) 05/28/24 Unknown Urine Blood Negative (Negative) 05/28/24 Unknown Urine Nitrite Negative (Negative) 05/28/24 Unknown Urine Bilirubin Negative (Negative) 05/28/24 Unknown Urine Urobilinogen Negative (Negative) 05/28/24 Unknown Ur Leukocyte Esterase Negative (Negative) 05/28/24 Unknown Urine WBC (Auto) 0-5 /hpf (0-5) 05/24/24 04:37 Urine RBC (Auto) 6-10 /hpf (0-2) H 05/24/24 04:37 U Hyaline Cast (Auto) 3-5 /lpf (0-2) H 05/24/24 04:37 U Epithel Cells (Auto) 0-2 /hpf (0-2) 05/24/24 04:37 Urine Bacteria (Auto) None Seen (None Seen) 05/24/24 04:37 Granular Casts Present /lpf (None Prsent) A 05/24/24 04:37 Urine Osmolality 420 mOsm/kg (500-800) L 05/31/24 12:16 Ur Random Sodium 48 mmol/L 05/31/24 12:16 Urine Sodium 10 mmol/L 05/24/24 04:37 Urine Potassium 35.4 mmol/L 05/24/24 04:37 Urine Chloride 17 mmol/L 05/24/24 04:37 Nasal Screen MRSA (PCR) Negative (Negative) 05/24/24 11:00 Adenovirus (PCR) Not Detected (NotDetected) 05/24/24 04:37 B. pertussis DNA (PCR) Not Detected (NotDetected) 05/24/24 04:37 B.parapertussis DNA PCR Not Detected (NotDetected) 05/24/24 04:37 C. pneumoniae DNA (PCR) Not Detected (NotDetected) 05/24/24 04:37 Coronavirus OC43 (PCR) Not Detected (NotDetected) 05/24/24 04:37 Coronavirus HKU1 (PCR) Not Detected (NotDetected) 05/24/24 04:37 Coronavirus 229E (PCR) Not Detected (NotDetected) 05/24/24 04:37 SARS-CoV-2 (PCR) Not Detected (NotDetected) 05/24/24 04:37 Coronavirus NL63 (PCR) Not Detected (NotDetected) 05/24/24 04:37 Human Metapneumovir PCR Not Detected (NotDetected) 05/24/24 04:37 Influenza Type A (PCR) Not Detected (NotDetected) 05/24/24 04:37 Influenza Type B (PCR) Not Detected (NotDetected) 05/24/24 04:37 M. pneumoniae (PCR) Not Detected (NotDetected) 05/24/24 04:37 Parainfluenza 1 (PCR) Not Detected (NotDetected) 05/24/24 04:37 Parainfluenza 2 (PCR) Not Detected (NotDetected) 05/24/24 04:37 Parainfluenza 3 (PCR) Not Detected (NotDetected) 05/24/24 04:37 Parainfluenza 4 (PCR) Not Detected (NotDetected) 05/24/24 04:37 RSV (PCR) Not Detected (NotDetected) 05/24/24 04:37 Entero/Rhino (PCR) Not Detected (NotDetected) 05/24/24 04:37 Blood Type AB Positive 05/27/24 14:23 Blood Type Recheck AB Positive 05/24/24 10:41 Antibody Screen NEGATIVE 05/27/24 14:23 Crossmatch See Detail 05/24/24 09:[address] 05/24/24 04:27 EXAM: CT cervical spine wo con CLINICAL HISTORY: FALL AMS CANCER PATIEnt TECHNIQUE: Computed tomography of the cervical spine performed without intravenous contrast. Contiguous axial images were obtained from the skull base to T2, with sagittal and coronal reformatted images reconstructed from the axial data. CT scan was performed according to ALARA (as low as reasonably achievable). COMPARISON: None. FINDINGS: Straightening of ther cervical spine is noted. Alignment of spine is maintained. Vertebral bodies are normal in height. No evidence of fracture. Lateral masses of C1 are symmetrical, and the dens is intact. Prevertebral soft tissues are not widened. C2-C3: No disc bulge, mass effect on the cord or neuroforaminal narrowing. C3-C4: No disc bulge, mass effect on the cord or neuroforaminal narrowing. C4-C5: No disc bulge, mass effect on the cord or neuroforaminal narrowing. C5-C6: No disc bulge, mass effect on the cord or neuroforaminal narrowing. C6-C7: No disc bulge, mass effect on the cord or neuroforaminal narrowing. C7-T1: No disc bulge, mass effect on the cord or neuroforaminal narrowing. Thyroid gland appears unremarkable. IMPRESSION: 1. No acute fracture or subluxation in the cervical spine. 2. Fat stranding is noted within the intermuscular planes of the neck spaces. Electronically signed by Von Garza 05-24-2024 06:[address] 05/24/24 04:27 EXAM: CT chest diagnostic w con CLINICAL HISTORY: FALL ams cancer paitent 91 cc opti 320 TECHNIQUE: Contiguous axial images were obtained from the neck base through the upper abdomen with contrast. In addition, sagittal and coronal reconstructions were performed to potentially increase the sensitivity for the detection of disease. One of the following dose reduction techniques was utilized for this exam. Automated exposure control, adjustment of the mA and/or kV according to patient size, and use of iterative reconstruction. COMPARISON: 12/08/2019 FINDINGS: Solid subpleural nodule of size 2.2 x 1.5 cm is noted along the anterior aspect of the lingula. This is a new finding. Suspicious infiltration of the pleura is noted. However, no obvious bony invasion/erosion of the adjacent rib is noted. Relatively unchanged multiple centriacinar and paraseptal emphysematous changes involving bilateral upper lobes is noted. The central airways are patent. There are no pleural effusions. No pneumothorax is seen. Evaluation of the mediastinum and kelly is limited due to the lack of intravenous contrast. Mild cardiomegaly is noted. Aorta, and pulmonary arteries are of normal size and configuration. Few atherosclerotic calcifications are noted involving aorta and its branches, coronary arteries. No axillary or mediastinal adenopathy is identified. The thyroid is unremarkable. No aggressive appearing osseous lesions are identified. IMPRESSION: 1. Solid subpleural nodule in the lingula as described above. This is a new finding. 2. Relatively unchanged multiple centriacinar and paraseptal emphysematous changes involving bilateral upper lobes is noted. 3. Cardiomegaly. This is a new finding. Electronically signed by Von Garza 05-24-2024 06:[address] 05/24/24 04:27 EXAM: CT head/brain wo con CLINICAL HISTORY: fall AMS cancer patient TECHNIQUE: Multiple axial images are obtained from the skull base to the vertex without contrast. CT scan was performed according to ALARA (as low as reasonably achievable). COMPARISON: None. FINDINGS: There is cerebral atrophy. The mitchell-white matter differentiation is preserved. There are scattered periventricular hypodensities as can be seen with chronic microvascular ischemic changes. No evidence of space occupying lesion, hemorrhage, edema, mass effect, midline shift, extra axial collection, or hydrocephalus is noted. Basal cisterns are symmetric and normal in size and configuration. Visualized paranasal sinuses and mastoid air cells are well aerated. Orbital contents are within normal limits. Bony structures are intact. IMPRESSION: 1. No evidence of acute intracranial abnormality is demonstrated. 2. Chronic microvascular ischemic changes. 3. Cerebral atrophy. Electronically signed by Von Garza 05-24-2024 06:45 AM Abdomen/Pelvis CT 05/24/24 04:28 EXAM: CT abd pelvis IV con only CLINICAL HISTORY: FALL AMS CANCER PATIENT 91 cc opti 320 TECHNIQUE: Multiple contiguous axial images were obtained from the level of diaphragm to the pubis symphysis. This study was acquired after the IV administration of iodinated contrast material, given the patient's indications for the examination. If IV contrast material had not been administered, the likelihood of detecting abnormalities relevant to the patient's condition would have been substantially decreased. Coronal and sagittal reformatted images were generated and reviewed to improve anatomic localization and optimize lesion detection. CT scan was performed according to ALARA (as low as reasonably achievable). COMPARISON: None. FINDINGS: Percutaneous gastrostomy tube noted in situ. The liver is normal in size and attenuation. No focal liver lesions are seen. There is no intra or extrahepatic biliary ductal dilatation. Hepatic vasculature is patent. The gallbladder is unremarkable. The spleen is unremarkable. The pancreas is unremarkable. Both adrenal glands are unremarkable. The kidneys are normal in size and attenuation. There is no hydronephrosis. No perinephric fat stranding is seen. No renal calculi or renal masses are identified. The ureters are normal in caliber and no ureteral calculi are seen. Urinary bladder is collapsed with Kerr's bulb in-situ. No evidence of focal or diffuse bowel wall thickening or evidence of bowel obstruction is seen. Mild to moderate free fluid is noted within the abdomen and pelvic cavity. Atherosclerotic calcifications are noted involving aorta and its branches. No aggressive appearing osseous lesions are identified. Subcutaneous fat stranding and fluid is noted involving the abdominal wall, gluteal regions and proximal thigh on both sides. Comminuted, displaced, non-articular fracture of the left proximal femur is noted, predominantly involving the intertrochanteric region. Cranial migration of the distal fracture fragment is noted.. Significant moe osseous, periarticular soft tissue edema is noted. Left thigh appear swollen as compared to that of the right side. Mild scoliosis of the lumbar spine is noted with convexity on the left side. IMPRESSION: 1. Comminuted, displaced, non-articular fracture of the left proximal femur is noted, predominantly involving the intertrochanteric region. Cranial migration of the distal fracture fragment is noted. 2. Significant moe osseous, periarticular soft tissue edema is noted. Left thigh appear swollen as compared to that of the right side. 3. Mild scoliosis of the lumbar spine is noted with convexity on the left side. 4. Mild free fluid is noted in the abdomen and pelvic cavity. 5. Subcutaneous fat stranding and fluid is noted involving the abdominal wall, gluteal regions and proximal thigh on both sides. Electronically signed by Von Garza 05-24-2024 06:[address] 05/24/24 09:47 CT femur LT wo con HISTORY: 58 years-old Female fx, r/o hematoma acute pain of the left thigh status post trauma COMPARISON: CT abdomen and pelvis of same day TECHNIQUE: Multiple axial CT images of the left femur were obtained without IV contrast. Additional 3-D rendered images were generated from a separate workstation and were submitted for review. A dose lowering technique was used consistent with the principals of ALARA. FINDINGS: Acute, comminuted, angulated and displaced intratrochanteric fracture of the left femur redemonstrated with unchanged alignment compared to the same day CT abdomen and pelvis. The lesser trochanteric fracture fragment is displaced medially approximately 1.5 cm. There is no dislocation. Mild osteoarthritis of the left hip. Mild degeneration of the left SI joint. The imaged left hemipelvis appears intact. No additional acute fracture or dislocation identified. Mildly demineralized appearance of the bones. Mild osteoarthritis of the knee. No large joint effusion of the hip. There is moderate subcutaneous edema with heterogeneity of the thigh musculature. No discrete intramuscular hematoma identified. Nonspecific borderline-enlarged left inguinal chain lymph nodes. Contrast in the urinary bladder with Kerr catheter. Small to moderate joint effusion of the knee. IMPRESSION: 1. Unchanged alignment of the acute, comminuted, angulated and displaced intertrochanteric left femoral fracture. 2. Moderate subcutaneous edema of the thigh with nonspecific heterogeneity of the proximal thigh musculature. No discrete large intramuscular hematoma identified on this noncontrast study. 3. Small to moderate joint effusion of the knee. 4. Borderline enlarged left inguinal chain lymph node. ACT 112: Negative or not required by law. The above report was generated using voice recognition software. It may contain grammatical, syntax or spelling errors. Electronically signed by: Braulio Navas M.D. 05/24/2024 10:56 AM Pelvis X-Ray 05/24/24 17:29 INDICATION: Pain and injury. TECHNIQUE: 1 view the pelvis. 4 views of the left femur. COMPARISON: No relevant priors. FINDINGS: Impacted, comminuted/mildly angulated left intertrochanteric femur fracture. Remaining osseous structures intact. Negative for pelvic fracture. No dislocation. Mild bilateral hip joint space loss. No lytic or blastic bony lesions. No evidence of cortical erosion. Mild left hip soft tissue swelling. IMPRESSION: Impacted, comminuted/mildly angulated left intertrochanteric femur fracture. Electronically signed by Joseph Rojo 05-24-2024 6:25 PM Brain MRI 05/28/24 12:02 MR brain MS wo/w con HISTORY: 58 years-old Female r/o osmotic demyelination acute head trauma with altered mental status COMPARISON: May 24, 2024 TECHNIQUE: Multiplanar multisequence MRI of the brain was obtained with and without IV contrast FINDINGS: Study is moderately motion degraded. There is no restricted diffusion to suggest acute or subacute infarct. Midline structures appear unremarkable. Degenerative changes of the cervical spine. No acute intracranial hemorrhage, midline shift, abnormal extra axial collection, hydrocephalus or intra-axial mass. Involutional changes with mild scattered T2/FLAIR hyperintense foci throughout the white matter. Normal signal within the roe and brainstem. No abnormal enhancement. Cerebral venous sinuses and major arterial flow voids appear patent as visualized. Skull, orbits and soft tissues are unremarkable. Rightward bowing and spurring the nasal septum with mild to moderate mucosal thickening of the right maxillary and ethmoid sinuses. Moderate-sized mastoid effusions. IMPRESSION: 1. Moderately motion degraded exam. 2. No acute intracranial abnormality, specifically there is no acute or subacute infarct. 3. No abnormal enhancement. 4. Normal signal of the roe. 5. Involutional changes with probable mild chronic microvascular ischemic disease. ACT 112: Negative or not required by law. The above report was generated using voice recognition software. It may contain grammatical, syntax or spelling errors. Electronically signed by: Braulio Navas M.D. 05/28/2024 2:24 PM Femur X-Ray 06/07/24 10:33 XR femur LT 2V routine HISTORY: 59 years-old Female fall, recent surg COMPARISON: Femur radiographs 06-15 TECHNIQUE: 2 views of the left femur FINDINGS: Status post placement of an intertrochanteric nail with medullary jannet fixating the acute intertrochanteric fracture with lateral skin marquis, expected postoperative soft tissue swelling with deep tissue air. Additionally, there has been interval development of an acute distal femoral fracture of the anterior cortex distal femoral diaphysis seen on the lateral view with approximately 2 mm displacement and mild soft tissue swelling. There are 2 distal femoral calyces groups with adjacent skin marquis. IMPRESSION: 1. Status post placement of an intertrochanteric nail with medullary jannet fixing the acute intertrochanteric fracture. 2. Subtle acute distal femoral fracture without displacement. ACT 112: Negative or not required by law. The above report was generated using voice recognition software. It may contain grammatical, syntax or spelling errors. Electronically signed by: Braulio Navas M.D. 06/07/2024 12:27 PM
[2024-06-11 12:23] VITALS: BP 102/70; PULSE 99; TEMP 98.6; O2SAT 93
== END 2024-06-11 15:50 | disposition home health service (06) | DRG 956 ==
LOC: ED 04:14 → 1E 07:55 → SUATTDRO 07:55 → 1E 08:34 → 4W 05-28 18:17 → 3E 06-05 14:04
DX: I24.89 Other forms of acute ischemic heart disease; C34.12 Malignant neoplasm of upper lobe, left bronchus or lung; T79.6XXA Traumatic ischemia of muscle, initial encounter; J44.9 Chronic obstructive pulmonary disease, unspecified; E43 Unspecified severe protein-calorie malnutrition; Y92.481 Parking lot as the place of occurrence of the external cause; Z68.1 Body mass index [BMI] 19.9 or less, adult; Z93.1 Gastrostomy status; G93.41 Metabolic encephalopathy; F17.210 Nicotine dependence, cigarettes, uncomplicated; Z92.3 Personal history of irradiation; C09.9 Malignant neoplasm of tonsil, unspecified; W18.39XA Other fall on same level, initial encounter; R30.0 Dysuria; R44.3 Hallucinations, unspecified; L89.150 Pressure ulcer of sacral region, unstageable; S72.142A Displaced intertrochanteric fracture of left femur, initial encounter for closed fracture; R29.6 Repeated falls; F05 Delirium due to known physiological condition; C77.0 Secondary and unspecified malignant neoplasm of lymph nodes of head, face and neck; D62 Acute posthemorrhagic anemia; E83.42 Hypomagnesemia; E87.1 Hypo-osmolality and hyponatremia

== ENCOUNTER 2024-07-08 09:23 | Observation (INO) ==
--- NOTE | 2024-07-07 14:20 | Anesthesiology Consultation ---
Date of Service July 07, 2024 Assessment & Plan (1) Encounter for pre-operative examination: Chart Review Chart Review: Acceptable Risk for Surgery (pending anesthesia evaluation DOS and DOS labs ) and Patient NOT seen in Pre Admission Testing - Will recheck CBC with diff (for anemia) and PRP (for Na) stat DOS - Will leave to anesthesiologist's discretion DOS if cervical spine x ray needed (hx of RA) Last dose of Eliquis in the AM of 07/07/24- surgeon's office informed- will leave to surgeon's discretion with how to proceed -Infectious Disease screening: Per PAT nursing assessment on 07/07/24. No known infectious disease contacts in past 10 days or current infectious disease symptoms. No recent travel outside the country. Left Troch Nail 05/27/24= Done under SAB at L4-L5 with 1 attempt History Surgery Operation Date: 07/08/24 11:25 Proposed Procedures p Debridement Sacral Ulcer - Arden Jacobson MD, FACS Height/Weight Height: 5 ft 6 in Weight: 40.37 kg Allergies Allergy/AdvReac Type Severity Reaction Status Date / Time ibuprofen AdvReac Mild Tachycardia Verified 07/07/24 14:07 prednisone AdvReac Mild Gastrointestinal Verified 07/07/24 14:07 Upset Medications Home Medications Medication Instructions Recorded Confirmed Last Taken multivitamin 1 tab PO DAILY 11/06/23 07/07/24 Unknown sulfasalazine 500 mg tablet 1 g PO BID 11/06/23 07/07/24 Unknown acetaminophen 650 mg 650 mg PO Q8H PRN arthritis 05/05/24 07/07/24 Unknown tablet,extended release (Arthritis Pain Relief (acetaminophen) ER) L.acidop,casei,lactis,rham-B.lact,sudha 1 cap PO DAILY #30 caps 06/11/24 07/07/24 Unknown 625 mg (10 billion cell) capsule (Advanced Probiotic) apixaban 2.5 mg tablet (Eliquis) 2.5 mg PO BID DVT prophylaxis #60 06/11/24 07/07/24 Unknown tabs folic acid 1 mg tablet 1 mg PO DAILY 07/07/24 07/07/24 Unknown prochlorperazine maleate 10 mg 10 mg PO Q6H PRN Nausea 07/07/24 07/07/24 Unknown tablet Additional Notes: - On Eliquis for DVT prophylaxis per records Past Medical History Medical History Anemia - acute blood loss anemia s/p left trope nail on 05/27/24 and received 1 unit of packed red blood cell Cancer of left lung 10/2023 has not yet started treatment History of blood transfusion (05/2024) due to anemia Hx of fall (05/2024) 05/24/24 Hx of fracture of left hip (05/2024) due to fall, s/p troch nail 05/27/24 Hypertension Hyponatremia Na 133 on most recent labs from 06/11/24 (Admitted to [facility] on 05/24/24 for a Na of 103; likely multifactorial to underlying malignancy and poor oral intake.) Idiopathic chronic gout Lung nodule - to undergo SBRT - following with oncology Metabolic encephalopathy during 05/2024 admission Metastasis to head and neck lymph node Osteoarthritis right hand PEG (percutaneous endoscopic gastrostomy) adjustment/replacement/removal (10/2023) Due to squamous cell carcinoma of left tonsil Poor historian jose completed PAT phone call, he was unsure of most of medical hx other than most recent Raynaud phenomenon 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 SIRS (systemic inflammatory response syndrome) 05/24/24 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 - s/p xrt and chemo x 6 weeks / peg tube Unstageable pressure ulcer coccyx Past Family History Family History Brother Cancer Lung Other Coronary heart disease Heart disease Hypertension Myocardial infarction Past Surgical History Surgical History H/O: hysterectomy History of carpal tunnel surgery History of open reduction and internal fixation (ORIF) procedure (05/27/24) left hip, had fall Hx of colonoscopy PEG (percutaneous endoscopic gastrostomy) status feeding TID-novasource Social History Smoking Status: Former smoker tobacco type: cigarettes Smoking cigarettes per day: has cut down from 1.5 to 1 ppd Do You Dip or Chew Tobacco: No Hx Alcohol Use: No Hx Substance Use: No substance use type: does not use Lab Results Anesthesia Preop Results Results Anesthesia Widget: WBC 2.78 K/ul (4.8-10.8) L 06/11/24 Hgb 9.8 g/dl (12.0-16.0) L 06/11/24 Hct 29.9 % (37.0-47.0) L 06/11/24 Plt 190 K/uL (130-400) 06/11/24 Na 133 mmol/L (136-145) L 06/11/24 K 4.0 mmol/L (3.5-5.1) 06/11/24 Cl 98 mmol/L (98-107) 06/11/24 CO2 30 mmol/L (21-32) 06/11/24 BUN 28 mg/dl (6-23) H 06/11/24 Creat 0.42 mg/dl (0.6-1.2) L 06/11/24 Glucose Level 89 mg/dl (70-99(Fasting)) 06/11/24 POC Glucose 120 mg/dl (70-99) H 05/27/24 PT 12.3 Seconds (9.0-12.0) H 05/24/24 PTT 30 Seconds (21-31) 05/24/24 INR 1.1 (0.9-1.1) 05/24/24 TSH 2.903 uIu/ml (0.300-4.500) 05/24/24 Urine Color Yellow 05/28/24 Urine Appearance Clear (Clear) 05/28/24 Urine pH 6.0 (4.5-7.5) 05/28/24 Urine Specific [place] 1.012 (1.000-1.030) 05/28/24 Urine Protein Negative (Negative) 05/28/24 Urine Glucose (UA) Negative (Negative) 05/28/24 Urine Ketones Negative (Negative) 05/28/24 Urine Blood Negative (Negative) 05/28/24 Urine Nitrite Negative (Negative) 05/28/24 Urine Bilirubin Negative (Negative) 05/28/24 Urine Urobilinogen Negative (Negative) 05/28/24 Urine Leukocyte Esterase Negative (Negative) 05/28/24 Blood Type AB Positive 05/27/24 Antibody Screen NEGATIVE 05/27/24 Testing Laboratory Results Anemia- give 1 unit of PRBC on 05/2024- Hgb stable since that time 05/24/24= URINE CULTURE: No growth- less than 1000 colonies/mL Electrocardiogram Date: 05/24/24 Findings: + NSR @ (88bpm) Normal EKG per cardio Echocardiogram Date: 05/24/24 EF: 65-70% LV Function: normal RWMA: + none Other Findings: no LVH Valvular Disease: + no significant valvular disease RV systolic function is qualitatively normal Trivial loculated anterior and apical pericardia effusion. There are no echocardiographic indications of cardiac tamponade Other Testing Brain MRI 05/28/24= Moderately motion degraded exam. No acute intracranial abnormality, specifically there is no acute or subacute infarct. No abnormal enhancement. Normal signal of the roe. Involutional changes with probable mild chronic microvascular ischemic disease. Chest CT 05/24/24= Solid subpleural nodule in the lingul. This is a new finding. Relatively unchanged multiple centriacinar and paraseptal emphysematous changes involving bilateral upper lobes is noted. Cardiomegaly. This is a new finding. Cervical Spine CT 05/24/24= No acute fracture or subluxation in the cervical spine. Fat stranding is noted within the intermuscular planes of the neck spaces. PET scan 10/15/23= FDG avid mass within the left palatine tonsil which measures approximately 3.6 x 3.1 cm. This is consistent with the primary tumor. Multiple FDG avid left cervical lymph nodes, the largest of which is a level 3 node that measures 2.2 x 1.9 cm. These are consistent with ipsilateral letty metastases. No contralateral FDG avid cervical lymph node nodes. 1.1 cm solid subpleural left upper lobe pulmonary nodule, new since chest CT of December 08, 2019. This is likely neoplastic and could reflect a primary lung malignancy or head and neck metastasis. Mild right axillary lymphadenopathy. These nodes are indeterminate. No suspicious findings within the abdomen or pelvis. Emphysema.
[2024-07-08 10:18] LABS: Hematocrit (blood only) 31.2 % (37.0-47.0); Immature Granulocytes # (auto) 0.02 K/uL (0.01-0.20); Immature Granulocytes % (auto) 0.5 %; Lymphocytes # (auto) 0.47 K/uL (1.20-3.40); Lymphocytes % (auto) 11.4 %; Mean Corpuscular Hemoglobin 38.9 pg (25.0-34.0); Mean Corpuscular Hgb Conc 35.3 g/dL (32.0-36.0); Mean Corpuscular Volume 110.2 fL (80.0-100.0); Mean Platelet Volume 9.5 fL (9.4-12.4); Monocytes # (auto) 0.53 K/uL (0.11-0.59); Monocytes % (auto) 12.8 %; Neutrophils # (auto) 3.11 K/uL (1.40-6.50); Neutrophils % (auto) 75.3 %; Platelet Count 304 K/uL (130-400); RDW Coefficient of Variation 15.3 % (11.5-14.5); RDW Standard Deviation 62.3 fL (36.4-46.3); Red Blood Count 2.83 M/uL (4.20-5.40); White Blood Count 4.13 K/ul (4.8-10.8)
[2024-07-08] MEDS: LR 15ML/HR IV SCH (10:23)
[2024-07-08 10:33] LABS: BUN Creatinine Ratio 44.4 (10-20); Calcium 9.4 mg/dl (8.6-10.3); Potassium 4.6 mmol/L (3.5-5.1)
[2024-07-08 10:38] LABS: Macrocytosis Present; Stomatocytes 1+
[2024-07-08] MEDS ORDERED: PROPOFOL IV EMULSION 10 MG/ML 20 ML VIAL IV ONE ×2 (10:40→12:01)
[2024-07-08] MEDS ORDERED: fentaNYL citrate PF 100 MCG/2 ML VIAL ONE (10:40)
[2024-07-08] MEDS ORDERED: ONDANSETRON INJ 2 MG/ML 2 ML VIAL IV PRN ×2 (11:08→14:11)
[2024-07-08] MEDS ORDERED: ATROPINE SULFATE 0.1 MG/ML 10ML SYR IV PRN (11:08)
[2024-07-08] MEDS ORDERED: HYDROmorphone INJ 1 MG/ML SYRINGE IV PRN (11:08)
[2024-07-08] MEDS ORDERED: ePHEDrine sulfate 50 MG/ML AMP IV PRN (11:08)
--- NOTE | 2024-07-08 11:43 | History & Physical Bridge Note ---
Date of Service July 08, 2024 History & Physical Bridge Note I have examined the patient, reviewed the History & Physical and in the interval since the performance of the History & Physical I have noted the following changes of clinical significance: no changes noted So at bedside all question answered
[2024-07-08] MEDS: ceFAZolin 2000MG 2,000 MG/15 ML SYR IV ONE (12:00)
--- OUTSIDE RECORDS SUMMARY | 2024-07-08 12:07 | External Medical Summary | Summary of Care ---
Author Name Unknown Organization [facility] Address [address] [place] [address] Phone [phone] Care Team Providers Care Glue Specialty Supervisor Name Role Phone Chanda Jordan MD Primary Care Pr ovider Reason for Visit * Reason Onset Date Comments Medication Question 07/07/2024 Holding eliq uis Encounter Details Date Type Department Care Team (Late st Contact Info) Description 07/07/[address] [phone] Chanda Jordan MD [address] [place] [phone] Medication Question (Holding eliquis) Allergies Active Allergy Reactions Criticality Noted Date Comments Ibuprofen Other (Please comment) 04/26/2014 Palpitations Other Reaction(s): Tachycardia Prednisone 06/06/2015 Other Reaction(s): Gastrointestinal Upset documented as of this encounter (statuses as of 07/07/2024) Medications Multivitamin Adults Oral Tablet Take by mouth. Activ e sterile water for injection SOLN 9.8 mL with Folic Acid 5 MG/ML SOLN 1 mg Inject 1 mg intravenously in the morning. Pt stated she is using tap water. Active Acetaminophen ER 650 MG Oral Tablet Extended Release (Tylenol 8 Hour Arthritis Pain) Take 1 Tablet by mouth every 8 hours as needed for Pain, Mild or Pain, Moderate. Active Folic Acid 1 MG Oral TabletIndicatio ns:Rheumatoid arthritis involving multiple sites with positive rheumatoid factor (HCC) TAKE 2 TABLETS BY MOUTH EVERY MORNING 180 Tablet 1 4 Active sulfaSALAzine 500 MG Oral Tablet (Azulfidine) TAKE 2 TABLETS BY MOUTH IN THE MORNING AND TAKE 2 TABLETS AT BEDTIME 360 Tablet 1 5 Active NovaSource Renal Oral LiquidIndicatio ns:Tonsil cancer (HCC),Squamous cell carcinoma of lung, unspecified laterality (HCC),Metastasi s to head and neck lymph node (HCC),Squamous cell carcinoma of head and neck [place] - Administer 237 mL 3 times daily, as directed through feeding tube via gravity bag. [id number] mL 06/28/2024 4:22 PM EST 5 026 Active Apixaban 2.5 MG Oral Tablet (Eliquis) Take 1 Tablet by mouth in the morning and 1 Tablet before bedtime. 180 Tablet 5 Active Advanced Probiotic Oral CapsuleIndicati ons:Skin ulcer of sacrum with necrosis of muscle (HCC) Take 1 capsule by mouth daily 90 Capsule 1 5 Active Urea 15 GM/SCOOP Oral Powder Administer 15 gm twice daily via PEG 5 Active documented as of this encounter (statuses as of 07/07/2024) Active Problems Problem Noted Date Diagnosed Date Chronic obstructive pulmonary disease 06/25/2024 Heart failure 06/25/2024 Malignant neoplasm of upper lobe, left bronchus or lung 06/25/2024 Pressure ulcer of sacral region, unstageable 08/2024 S/P percutaneous endoscopic gastrostomy (PEG) tube placement [...] as of this encounter (statuses as of 07/07/2024) Resolved Problems Problem Noted Date Diagnosed Date Resolved Date Bilateral carpal tunnel syndrome 08/22/2015 08/28/2017 Routine medical exam 04/01/2010 016 documented as of this encounter (statuses as of 07/07/2024) Immunizations Name Administration Dates Next Due Pneumococcal Polysaccharide PPV23 (Pneumovax) TDAP (age 10 and older)(Boostrix) 09/03/2012 documented as of this encounter Social History Tobacco Use Types Packs/Day Years Used Date Smoking Tobacco: Former Cigarettes 1 47 1 07/25/1976 - 05/24/2024 Smokeless Tobacco: Never Alcohol Use Standard Drinks/Week Comments No 0 (1 standard drink = 0.6 oz pur e alcohol) PHQ-2 Answer Date Recorded PHQ Adult Total Score 0 06/14/2024 Hunger Vital Sign Answer Date Recorded Within the past 12 months, y ou worried that your food would run out before you got the money to buy more. Never true 06/14/20 24 Within the past 12 months, t he food you bought just didn't last and you didn't have money to get more. Never true 06/14/2024 Childcare Answer Date Recorded Do you feel overwhelmed with taking care of a child, family member or friend? No 06/14/2024 Does your family need help f inding childcare? (Household - for ages 0-17 years) Not on file 06/14/2024 Clothing Answer Date Recorded Have you been unable to get clothing when it was really needed? No 06/14/2024 Is your family able to get c lothes or diapers when needed? (Household - for ages 0-17 years) Not on file 06/14/2024 Personal Safety Answer Date Recorded Do you feel unsafe or have concerns for your saf ety? No 06/14/2024 Do you have concerns for you r family's safety? (Household - for ages 0-17 years) Not on file 06/14/2024 Utilities Answer Date Recorded Do you have trouble paying y our heating, water, or electric bill? No 06/14/2024 Is your family able to pay t he heat, water, or electric bill? (Household - for ages 0-17 years) Not on file 06/14/2024 Does your family have access to good internet? (Household - for ages 0-17 years) Not on file 06/14/2024 Employment Status Answer Date Recorded Are you unemployed or without regular income? No 06/14/2024 Does the household have a re gular source of income? (Household - for ages 0-17 years) Not on file 06/14/2024 Social Connections Answer Date Recorded How often do you feel lonely or isolated from th ose around you? Never 06/14/2024 Financial Resource Strain Answer Date R ecorded Do you have any trouble payi ng for your medications, or do you think you might in the future? No 06/14/2024 Does your family have troubl e paying for medicine? (Household - for ages 0-17 years) Not on file 06/14/2024 Transportation Needs Answer Date Record ed READ ONLY Do you have troubl e getting a ride to medical visits or work? Never True 06/14/2024 Does your family have a hard time getting a ride to doctors visits? (Household - for ages 0-17 years) Not on file 06/14/2024 Has lack of transportation k ept you from medical appointments, meetings, work, or from getting things needed for daily living? Check all that apply. No 06/14/2024 Do you (or your family) have trouble finding or paying for a ride (transportation)? (Household - for ages 0-17 years) Not on file 06/14/2024 Housing Stability Answer Date Recorded Do you currently live in a s helter or have no steady place to sleep at night? No 06/14/2024 READ ONLY Do you think you a re at risk of becoming homeless? No 06/14/2024 Does your family worry about paying for your home or becoming homeless? (Household - for ages 0-17 years) Not on file 1 08/15/2023 Are you homeless or worried that you might be in the future? No 06/14/2024 Are you (or your family) jovani eless or worried that you might be in the future? (Household - for ages 0-17 years) Not on file Food Insecurity Answer Date Recorded Do you need food for this week? No 06/14/2024 Are you able to get enough f ood for your family? (Household - for ages 0-17 years) Not on file 06/14/2024 Does your family need food t his week? (Household - for ages 0-17 years) Not on file 06/14/2024 Do you always have enough fo od for your family? (Household - for ages 0-17 years) Not on file 06/14/2024 Comments No Sex and Gender Information Value [...] encounter Miscellaneous Notes * Telephone Encounter - Shahida Kaur CMA - 07/07/2024 3:37 PM EST is aware. He did have more information when I called. She is getting a VAC system put on. * Telephone Encounter - Chanda Jordan MD - 07/07/2024 3:28 PM EST If the surgeon recommend holding, can hold for 1 day. Recommend restarting after surgery. * Telephone Encounter - Shahida Kaur CMA - 07/07/2024 3:19 PM EST Patients spouse calling in. She is scheduled to have the wound on her back opened up tomorrow (No other details) at [facility]. Can she hold her eliquis tonroberto for the procedure tomorrow? Per that is all they needed. Ph for [facility] from spouse if more info needed: [phone] or . (May be for surgery center, he is unsure who the surgeon is) documented in this encounter Plan of Treatment Upcoming Encounters Date Type Department Care Team (Late st Contact Info) Description 07/23/2024 8:00 AM EST Office Visit Family Medicine [address] [place] [phone] Chanda Jordan MD [address] [place] [address] [place] [phone] 07/28/2024 11:00 AM EST Rehab Services Voice Lab [facility] [address] [facility] [place] [address] Jim Berry, [facility], [employer] M[employer]ER OPERATOR [address] [place] [address] 08/12/2024 11:30 AM EST Office Visit Hematology/Oncology [facility] [address] [facility] [place] [phone] Theodore Cherry MD [address] [facility] [place] [address] 09/15/2024 8:00 AM EDT Nutrition Services Nutrition & Weight Management, [facility] [address] [place] [address] Stella Rodriguez RDN [address] [place] [address] 03/02/2025 3:20 PM EDT Office Visit Nephrology [address] [place] [address] Aleksandra Herrera MD [address] [facility] [place] [address] Scheduled Procedures Name Priority Associated Diagnoses Date/Ti me COLONOSCOPY FLEXIBLE PROXIMA L DIAGNOSTIC Recall Encounter for screening colonoscopy Health Maintenance Due Date Last Done Comments COVID-19 Vaccine (#1) 1970 HIV Screening 1980 Albumin/Creatinine Ratio 1983 Alpha-1 Antitrypsin 1983 Hepatitis B Vaccine (1 of 3 - 19+ 3-dose series) 1984 Zoster Vaccines (1 of 2) 1984 Cologuard 2010 Fecal Occult Blood Test 2010 Sigmoidoscopy 2010 Pneumococcal Vaccine: 50+ Years (2 of 2 - PCV) 03/29/2011 03/29/2010 DTap/Tdap Vaccines (2 - Td or Tdap) 09/03/2022 09/03/2012 Mammogram 10/31/2023 10/30/2022, 04/24, 05/19/2017, Additional history exists Influenza Vaccine (FLU shot) (#1) 2024 06/09/2017 (Refused) *COPD SEVERITY VERIFIED BY PFT 06/28/2024 O2 ASSESSMENT COMPLETED IN PAST YEAR FOR COPD 11/18/2024 11/19/2023 Lipid Panel 12/07/2024 12/08/2019, 11/0 02/2015, 03/26/2010 Depression Screening 06/14/2025 06/14/2024 Colonoscopy 06/19/2025 06/19/2015, 06/19/2015 Colorectal Cancer Screening 06/19/2025 GFR 07/01/2025 07/01/2024, 08/2024, 03/26/2024, Additional history exists HPV (Gardasil) Vaccine Aged Out No lo [...] Discussion of Advance Directives occurred with: Patient Care Teams Glue Specialty Supervisor Relationship Specialty Start Date End Date Chanda Jordan MD [address] [place] [address] [place] [phone] PCP - General Family Medicine 06/25/24 documented as of this encounter
[2024-07-08] MEDS ORDERED: PHENYLEPHRINE 100MCG/ML 5ML SYR ONE (12:09)
[2024-07-08] MEDS: BUPIVACAINE 0.5 % 5 MG/1 ML MPF 30ML VIAL ONE (12:29)
--- NOTE | 2024-07-08 12:34 | Post Operative Brief Note ---
Immediate Post Op Note Date of Surgery July 08, 2024 Pre & Post Diagnosis Operation Date: 07/08/24 11:25 <No data on this case meets the specified criteria> I identified the patient and participated in the time-out.: Yes Procedure Operation Date: 07/08/24 11:25 Actual Procedures p Debridement of Sacral Decubitus Ulcer(Not Applicable) - Arden Jacobson MD, FACS Surgeon Arden Jacobson MD, FACS Dispensing Optician Jeanette KINGSTON Estimated Blood Loss 15 Findings Consistent with Post-Op Diagnosis
[2024-07-08] MEDS: fentaNYL citrate PF 100 MCG/2 ML VIAL IV PRN (12:55)
--- NOTE | 2024-07-08 13:05 | Operative Report ---
PG Post Operative Report Pre & Post Diagnosis Operation Date: 07/08/24 11:25 Pre-Op Diagnosis: Sacral Ulcer Post-Op Diagnosis: Sacral Ulcer I identified the patient and participated in the time-out.: Yes Procedure Operation Date: 07/08/24 11:25 Actual Procedures p Debridement of Sacral Decubitus Ulcer(Not Applicable) - Arden Jacobson MD, FACS Biopsy of the sacrum The patient was brought into the operating room theater placed in the left lateral position IV sedation was given we held that position using tape across her thigh and a roll underneath her left buttock the area was prepped Betadine solution and properly draped a timeout was had the patient identified systemic antibiotics on board we took measurements of the ulceration that was 7 cm x 3 cm with depth approximately 2 cm measured at the sacral area circumferentially the patient has significant amount of inflammation with some slough present but of note the patient undermined approximately 3 cm circumferentially. At this point using electrocautery after we applied local anesthetic around the wound and the surrounding area and achieving sufficient analgesic we unroofed all of the area that was undermined and debridement all the way to the sacrum which we felt the sacrum was exposed after debriding the skin and subcutaneous tissue and some fascia a biopsy of the sacrum was done using a rongeur the wound cultures were taken prior to addressing the sacrum hemostasis was controlled using electrocautery even though the patient was on Eliquis there was minimal bleeding approximately 10 cc more local was used on the wound half-inch plain gauze was placed in the wound and held in place with 2-0 Prolene interrupted suture and a dressing of 4 x 4 and ABD held in place with tape was applied the procedure was tolerated well by the patient This constituted excisional debridement area (7 cm x 3 cm x 2 cm) approximately 21 cm Brittnee Wise physician minister assistant was present throughout the case and helped with exposure and wound closure I spoke with her Frandy in the waiting area Surgeon Arden Jacobson MD, FACS General Office Clerk Jeanette KINGSTON Estimated Blood Loss 15 Findings Consistent with Post-Op Diagnosis Specimens Sacral debridement including skin subcutaneous tissue and fascia Cultures of the wound Punch biopsy of the sacrum Description of Procedure merda I attest to the content of the Intraoperative Record and any orders documented therein. Any exceptions are noted below.
--- NOTE | 2024-07-08 13:24 | Anesthesiology Progress Note ---
Date of Service July 08, 2024 Anesthesia Post Procedure Vital Signs Vital Signs: Temp Pulse Resp BP Pulse Ox O2 Del Method O2 Flow Rate 07/08/24 13:15 86 12 116/66 99 Nasal Cannula 3 07/08/24 13:05 94 H 15 112/67 96 Nasal Cannula 3 07/08/24 12:55 94 H 24 104/60 94 Room Air 07/08/24 12:49 36.6 C 96 H 19 107/62 96 Room Air 07/08/24 09:57 36.5 C 97 H 20 138/90 98 Room Air Pain Intensity Sacrum: Pain Intensity: 3 Transfer of Care Handoff Completed per policy Notes Mental Status: alert / awake / arousable and participated in evaluation Patient Amnestic to Procedure: Yes Nausea / Vomiting: adequately controlled Pain: adequately controlled Airway Patency, RR, SpO2: stable & adequate BP & HR: stable & adequate Hydration State: stable & adequate Anesthetic Complications: no major complications apparent and Pt Satisfied with anesthetic care
[2024-07-08] MEDS ORDERED: ACETAMINOPHEN 325 MG TAB PO PRN (14:11)
[2024-07-08] MEDS ORDERED: oxyCODONE HCL IR 5 MG TAB (IMMEDIATE RELEASE) PO PRN ×2 (14:11)
[2024-07-08] MEDS: MoRPHine SULFATE 4 MG/ML 1 ML CARP\\VIAL IV PRN (16:51)
--- NOTE | 2024-07-09 08:36 | Surgery Progress Note ---
Date of Service July 09, 2024 Assessment & Plan (1) Unstageable pressure ulcer: Plan: POD 1 Debridement of Sacral Decubitus Ulcer Pt resting in bed, VSS Dressing CDI wound care to see pt today and apply wound vac system CM to set up HH, and wound care likely d/c this afternoon Admission and Anticipated Discharge Date Admission Date: July 08, 2024 Supervising Physician Co-Signing Physician Notes As per CHEMISTRY LECTURER Operative findings were discussed with the patient VAC system has been placed awaiting approval paperwork is signed for VAC system The patient refuses a hospital bed apparently this was discussed with the patient and her in wound clinic visit and they feel that they do not need 1 the patient sleeps in the on the couch Plan to resume Eliquis tomorrow Patient can be discharged today once paperwork is completed approvals for VAC system obtained Instructed patient to maintain good nutrition and good oral and To follow-up with clinic next week appointment had already been scheduled Review of Systems Integumentary: + wounds Physical Exam Respiratory: normal respiratory effort and able to speak in complete sentences; no respiratory distress Skin: + wound Results & Data Vital Signs (Past 12 Hours) Vital Signs Temp Pulse Resp BP Pulse Ox O2 Del Method 07/09/24 07:12 97.5 F L 103 H 18 156/84 H 93 Room Air 07/09/24 03:41 97.7 F 102 H 16 137/80 95 Room Air 07/08/24 22:29 98.2 F 89 16 136/80 97 Room Air PG Care Time/CCT Total # of Minutes Spent Total Time Spent with Patient: Total time spent is greater than 50% in coordination of care (as documented) at patient's floor/unit and/or counseling patient: Coding Level of Care Code 35411 Post Operative Follow-Up Diagnoses Unstageable pressure ulcer L89.95
[2024-07-09] MEDS: MoRPHine SULFATE 2 MG/ML CARP IV PRN (08:49)
[2024-07-09 14:10] VITALS: BP 105/74; PULSE 98; RESP 16; TEMP 98.2; O2SAT 95
--- NOTE | 2024-07-14 11:35 | Discharge Summary ---
Date of Service July 09, 2024 Principal Diagnosis incision and debridement of sacral ulcer Discharge Exam awake, no distress Respiratory normal respiratory effort Skin + sacral wound with dressing in place Discharge Data Allergies Allergy/AdvReac Type Severity Reaction Status Date / Time ibuprofen AdvReac Mild Tachycardia Verified 07/08/24 09:52 prednisone AdvReac Mild Gastrointestinal Verified 07/08/24 09:52 Upset Procedures Performed Operation Date: 07/08/24 11:25 Actual Procedures p Debridement of Sacral Decubitus Ulcer(Not Applicable) - Arden Jacobson MD, FACS Hospital Course (1) Unstageable pressure ulcer: This is a 59yF who presented to the [facility] on 07/08/24 for an elective debridement of a sacral wound with Dr. Jacobson. The patient tolerated the procedure well, see op note for full details. The wound was packed with a sterile dressing intraop. Post operatively the patient's diet was advanced as tolerated and pain remained controlled. Surgical dressing remained in tact. On POD#1 the wound nurse evaluated the patient and placed a wound vac. Social work was on board and set the patient up with home vac and home health. She was instructed to follow up with the wound center within 1 week. She was asked to resume her eliquis 48hrs from surgery. The patient was stable and set up for discharge on 07/09. Total Time Total Time Spent Total Time Spent (In Minutes): 25 Discharge Plan Discharge Items Patient Disposition: Home - Home Health Services Reason For Visit: Sacral Ulcer Discharge Diagnosis: Debridement Sacral Ulcer Activity: Per Instructions section Lifting: Gradually increase as tolerated Bathing Comment: may shower Exercise/Sports: Gradually increase as tolerated Driving/Machine Use: no driving while on narcotics for pain Non-emergency contact: Primary Care Provider and Surgeon Call non-emergency contact if: you have any medication questions, your symptoms worsen, you have a fever, your temperature is above 101.5, your wound has increased redness, your wound has increased drainage and your wound pain has increased Follow-up/Referrals: Arden Jacobson MD, FACS [Surgeon] - (call office for follow up in 1 week) Theodore Cherry MD [Surgeon] - Diet: Regular Addtl Attending Provider Instructions: SPECIAL CARE INSTRUCTIONS: continue your wound vac system and follow up appointments with the wound care center. You can resume your Eliquis on 07/10/24 * May use Tylenol over the counter for pain as tolerated. Do not exceed 3grams of Tylenol per 24 hours * Expect some swelling and bruising. * Diet Regular Call your doctor if: * Temperature above 101 degrees, nausea/vomiting, fever/chills * Pain not relieved by pain medicine ordered * There is increased drainage or redness from any incision * You have any unanswered questions or concerns [phone]. FOLLOW UP VISIT: If not already scheduled, please call the office for a follow-up visit. Office Pending Studies at Discharge: Yes Studies:: cultures Stand-Alone Forms: My [facility] [place], Smoking Cessation Medications and DC Order Prescriptions: New oxycodone 5 mg tablet 5 - 10 mg PO .[id number] PRN (Reason: pain, for initial therapy, max 6 tabs per day) Qty: 10 0RF Continued acetaminophen [Arthritis Pain Relief (acetam)] 650 mg tablet extended release 650 mg PO Q8H PRN (Reason: arthritis) Advanced Probiotic 625 mg (10 billion cell) Capsule 1 cap PO DAILY Qty: 30 0RF multivitamin Tablet 1 tab PO DAILY sulfasalazine 500 mg Tablet 1 g PO BID Rx Instructions: give with food (meal/snack) prochlorperazine maleate 10 mg tablet 10 mg PO Q6H PRN (Reason: Nausea) folic acid 1 mg tablet 1 mg PO DAILY Held Eliquis 2.5 mg Tablet 2.5 mg PO BID Qty: 60 0RF Hold Instructions: Resume on 07/10/24. [place]/Other Patient Handouts: Oxycodone Oral Tablet, Negative Pressure Wound Therapy Admission Data Admit Date/Time: 07/08/24 12:54 Attending Provider: Arden Jacobson Admit Provider: Arden Jacobson Primary Care Provider: Chanda Garcia Other Providers: Maximiliano Peter [facility] Other Interventions: Discharge Summary Assessment (RN) Last Done: 07/09/24 16:36 Coding Level of Care Code 69555 IN/OBS DISCH 30 MIN/LESS Diagnoses Unstageable pressure ulcer L89.95
== END 2024-07-09 18:37 | disposition home health service (06) ==
LOC: ASU 09:23 → 3E 09:23